=== PATIENT | male | born 1965 | race Caucasian/White ===

== ENCOUNTER 2021-08-06 15:12 | Emergency (ER) | payer MEDICARE, BC, SELFPAY ==
[2021-08-06 15:24] VITALS: BP 126/85; PULSE 63; RESP 18; TEMP 35.9; O2SAT 98; BMI 26.5
[2021-08-06 17:31] VITALS: BP 153/94; PULSE 86; RESP 16; O2SAT 96
--- NOTE | 2021-08-06 17:32 | ED.NURSE ---
Patient brought to ED exam room from [facility]. Reports headache pain is improved but still 10/10. Down from 12/. Patient ambulatory into room, at rest on cot. Accompanied by mother.
--- NOTE | 2021-08-06 18:31 | CRLHL7_ITS ---
For Patients: As a result of the Century Cures Act, medical imaging exams and procedure reports are released immediately into your electronic medical record. You may view this report before your referring provider. If you have questions, please contact your health care provider. INDICATION: Headache. History of aneurysm. COMPARISON: 05/09/2021. TECHNIQUE: Noncontrast CT head. FINDINGS: Stable encephalomalacia gliosis of the left frontal lobe and left temporal lobe consistent with old ischemia. No acute infarct. No intracranial hemorrhage. Patchy low-attenuation change within the white matter consistent with chronic deep white matter small vessel ischemic changes. No mass effect or midline shift. No abnormal ventricular dilatation. Normal calvarium and skull base. Visualized paranasal sinuses and mastoid air cells are clear. IMPRESSION: 1. No interval change. 2. No acute intracranial abnormality. 3. Stable encephalomalacia and gliosis of the left frontal lobe and left temporal lobe consistent with old ischemia. Please note that all CT scans at this facility use dose modulation, iterative reconstruction, and/or weight-based dosing when appropriate to reduce radiation dose to as low as reasonably achievable. Dictated by Parag Brewster MD @ 08/06/2021 7:31:48 PM (Electronically Signed)
--- NOTE | 2021-08-06 18:34 | ED_ITS ---
HPI - General Adult General Time Seen by Provider: 18:34 Date Seen: 08/06/21 Chief complaint: Extremity Pain/Injury, Lower Stated complaint: right sided pain following botox injections Time Seen by Provider: 08/06/21 18:22 Source: patient and family Mode of arrival: ambulatory Limitations: no limitations History of Present Illness HPI narrative: This 56-year-old male comes in reporting significant headache and right leg pain. He also reports some ringing in his years bilaterally. These symptoms started about 3 hours after having Botox injection in his right foot today. He has a history of a stroke and has some residual spasms in his right leg that Botox was intended to attain down. He states that he had Botox injections in his neck about 20 years ago and had significant reactions from them. He was reassured today that this is better medicine and he should not have any significant reaction. He does not report any change in is stroke symptoms except that he has some increased bee on baseline sensation change in his right hand. He does not have any weakness and does not have any speech change. Related Data Home Medications Medication Instructions Recorded Confirmed ascorbic acid (vitamin C) 1,000 mg 4,000 mg PO DAILY 08/06/21 08/06/21 tablet (Vitamin C) aspirin 325 mg capsule 325 mg PO DAILY 08/06/21 08/06/21 wdckjnj-suhvvfaywpopn-wlryklla 250 1 tab PO Q6H PRN 08/06/21 08/06/21 mg-250 mg-65 mg tablet (Migraine Relief) atenolol 25 mg tablet 25 mg PO Q24H 08/06/21 08/06/21 atorvastatin 40 mg tablet 40 mg PO HS 08/06/21 08/06/21 baclofen 10 mg tablet 5 mg PO TID PRN 08/06/21 08/06/21 carboxymethylcellulose sodium 0.5 1 drp OPHTHALMIC (EYE) DAILY 08/06/21 08/06/21 % eye drops (Refresh Tears) cholecalciferol (vitamin D3) 50 4,000 unit PO BID 08/06/21 08/06/21 mcg (2,000 unit) capsule (Vitamin D3) coenzyme Q10 10 mg capsule 10 mg PO QDAY 08/06/21 08/06/21 cyclobenzaprine 10 mg tablet 10 mg PO QDAY 08/06/21 08/06/21 glipizide 5 mg tablet, extended 5 mg PO .daily before meal 08/06/21 08/06/21 release 24 hr multivitamin 1 tab PO DAILY 08/06/21 08/06/21 vit C 250 mg-vit E 90 mg-zinc 40 1 tab PO .qd 08/06/21 08/06/21 mg-copper 1 zv-wbxvbz-frbxaf capsule (PreserVision AREDS-2) Allergies Allergy/AdvReac Type Severity Reaction Status Date / Time metformin Allergy Severe Swelling Verified 08/06/21 15:33 of Lips sumatriptan [From Imitrex] Allergy Severe Anaphylaxis Verified 08/06/21 15:33 valproic acid AdvReac Intermediate hepatic Verified 08/06/21 15:33 dysfunction amlodipine AdvReac Mild Headache Verified 08/06/21 15:33 atorvastatin AdvReac Mild Headache Verified 08/06/21 15:33 rosuvastatin [From Crestor] AdvReac Mild Verified 08/06/21 15:33 simvastatin AdvReac Mild muscle Verified 08/06/21 15:33 weakness Review of Systems Status of ROS: Reports: 10 or more systems reviewed and unremarkable except as noted in History and below Narrative: Constitutional: No fevers, no weight gain or loss. Eyes: No discharge. No vision changes. HENT: No congestion, no sore throat, no ear pain. Cardiovascular: No chest pain, no palpitations. Respiratory: No shortness of breath, no wheezes, no cough. Gastrointestinal: No abdominal pain, no vomiting, no diarrhea. Genitourinary: No dysuria, no hematuria. Musculoskeletal: Normal range of motion. Skin: No rashes, no pruritis. Neurological: No dizziness, weakness, no speech change. he reports some mild change of the sensory deficit from his stroke. Endo/Heme/Allergies: No bruising or bleeding. No polydipsia. Pysch: no suicidality, no anxiety, no insomnia. All other systems reviewed and are negative. [facility] Social History Smoking Status: Never smoker Do you use any of these nicotine containing products: None Second hand tobacco smoke exposure: No How often do you have a drink containing alcohol: never AUDIT-C Alcohol total score: 0 Non-prescribed substance use: denies use Exam Narrative: Exam Narrative: Constitutional: Well-developed, well-nourished, no acute distress. HEENT: Normocephalic, atraumatic. Neck: Normal range of motion. Nontender. Supple. Heart: Regular. No murmurs. Normal rate. Intact distal pulses. Lungs: Clear to auscultation. No chest discomfort. No wheezes, rhonchi, or rales. Abdomen: Normal bowel sounds. Nontender. No rebound tenderness. Genitalia: Deferred. Back: No midline tenderness. Normal range of motion. Extremities: Normal range of motion. No injury. Skin: Intact. No rash. Warm. No erythema or pallor. Neurologic: No altered sensation. No weakness. Alert and oriented. [employer] strength is equal bilaterally. No facial asymmetry. Tongue is midline. Finger -to-nose is normal. No pronator drift. Leg strength is normal bilaterally. Psychiatric: No suicidality. No anxiety or depression. No insomnia. Nursing notes and vitals signs are reviewed. Const: Vital Signs, click to edit/add: Vital Signs - 24 hr 08/06/21 15:24 08/06/21 17:31 08/06/21 19:00 Temperature 96.6 F L Pulse Rate [Right Pulse Oximeter] 63 86 50 L Respiratory Rate 18 16 14 Blood Pressure [Ri t Upper Arm] 126/85 153/94 H 171/104 H Pulse Oximetry 98 96 97 Course Vital Signs Vital signs: Initial Vital Signs Temperature 96.6 F L 08/06/21 15:24 Temperature Source Temporal Artery Scan 08/06/21 15:24 Pulse Rate 63 08/06/21 15:24 Pulse Rhythm 08/06/21 15:24 Respiratory Rate 18 08/06/21 15:24 Blood Pressure 126/85 08/06/21 15:24 Blood Pressure Mean 98 08/06/21 15:24 Blood Pressure Position Sitting 08/06/21 15:24 Pulse Oximetry 98 08/06/21 15:24 Oxygen Delivery Method 08/06/21 15:24 Vital Signs Temperature 96.6 F L 08/06/21 15:24 Pulse Rate 63 08/06/21 15:24 Respiratory Rate 18 08/06/21 15:24 Blood Pressure 126/85 08/06/21 15:24 Pulse Oximetry 98 08/06/21 15:24 Temperature 96.6 F L 08/06/21 15:24 Pulse Rate 50 L 08/06/21 19:00 Respiratory Rate 14 08/06/21 19:00 Blood Pressure 171/104 H 08/06/21 19:00 Pulse Oximetry 97 08/06/21 19:00 Medical Decision Making MDM Narrative Medical decision making narrative: This patient comes in with significant headache and pain in his right leg after having Botox injection in his right foot. He has a normal neurologic exam. He does have a history of aneurysms and has had a stroke in the past. A CT scan of the head was completed which shows no acute findings. The patient also received a 10 mg intramuscular injection of morphine which brought good relief to his pain. Most likely this is some reaction to the Botox injections. He has had a reaction in the past to Botox injections which were done about 20 years ago. His vital signs remained normal. He is reassured with the exam and imaging results. He is okay to return home. He received a prescription for some tablets of [place]. Medical Records Medical records reviewed: Yes I reviewed the patient's medical records Imaging Data CT scan - head: Radiologist's impression: 1. No interval change. 2. No acute intracranial abnormality. 3. Stable encephalomalacia and gliosis of the left frontal lobe and left temporal lobe consistent with old ischemia. Discharge Plan Discharge Clinical Impression: Headache Patient Disposition: Home, Self-Care Condition: Improved Instructions: Acute Headache (ED) Activity Level: Activity as Tolerated Prescriptions: No Action aspirin 325 mg capsule 325 mg PO DAILY 0RF atenolol 25 mg tablet 25 mg PO Q24H 0RF atorvastatin 40 mg tablet 40 mg PO HS 0RF baclofen 10 mg tablet 5 mg PO TID PRN0RF coenzyme Q10 10 mg capsule 10 mg PO QDAY 0RF cyclobenzaprine 10 mg tablet 10 mg PO QDAY 0RF glipizide 5 mg tablet extended release 24 hr 5 mg PO .daily before meal 0RF Label Comments: TAKE ONE TABLET BY MOUTH DAILY BEFORE A MEAL multivitamin Tablet 1 tab PO DAILY 0RF Migraine Relief 250-250-65 mg tablet 1 tab PO Q6H PRN0RF PreserVision AREDS-2 250-90-40-1 mg capsule 1 tab PO .qd 0RF carboxymethylcellulose sodium [Refresh Tears] 0.5 % drops 1 drp ophthalmic (eye) DAILY 0RF ascorbic acid (vitamin C) [Vitamin C] 1,000 mg tablet 4,000 mg PO DAILY 0RF cholecalciferol (vitamin D3) [Vitamin D3] 50 mcg (2,000 unit) capsule 4,000 unit PO BID 0RF Follow Up/Referrals: Jignesh Sousa MD [Primary Care Provider] - Stand Alone Forms: [facility] Info Instructions
[2021-08-06] MEDS: MORPHINE 10 MG/ML inj IM (18:53)
[2021-08-06 19:00] VITALS: BP 171/104; PULSE 50; RESP 14; O2SAT 97
== END 2021-08-06 20:15 | disposition home or self-care (01) ==
PROVIDERS: Emergency Provider Emergency Medicine Emergency Medical Services; PCP Family Medicine
DX: R51.9 Headache, unspecified (principal)
CPT/HCPCS: 96372; 99284; 70450; 99283; 99285; J2270

== ENCOUNTER 2021-09-06 16:42 | Emergency (ER) | payer MEDICARE, BC, SELFPAY ==
[2021-09-06 16:47] VITALS: BP 128/87; PULSE 58; RESP 16; TEMP 35.9; O2SAT 94; BMI 26.4
--- NOTE | 2021-09-06 16:56 | ED_ITS ---
HPI - General Adult General Time Seen by Provider: 16:50 Date Seen: 09/06/21 Chief complaint: Allergic Reaction Stated complaint: Multiple wasp stings Time Seen by Provider: 09/06/21 16:53 Source: patient Mode of arrival: ambulatory Limitations: no limitations History of Present Illness HPI narrative: 56-year-old male who comes in today with wasp stings to the left arm. Patient was painting outside and was stung multiple times in the left arm by a wasp. This happened about 45 minutes prior to coming the emergency department. He has not taken any medication for this. No prior allergic reaction to bees or wasps. Denies any tongue or lip swelling, breathing difficulty, abdominal pain, nausea, vomiting, or difficulty with speech. Related Data Home Medications Medication Instructions Recorded Confirmed ascorbic acid (vitamin C) 1,000 mg 4,000 mg PO DAILY 08/06/21 08/06/21 tablet (Vitamin C) aspirin 325 mg capsule 325 mg PO DAILY 08/06/21 08/06/21 zxdcpih-stkynjvicljin-bkgqmhbw 250 1 tab PO Q6H PRN 08/06/21 08/06/21 mg-250 mg-65 mg tablet (Migraine Relief) atenolol 25 mg tablet 25 mg PO Q24H 08/06/21 08/06/21 atorvastatin 40 mg tablet 40 mg PO HS 08/06/21 08/06/21 baclofen 10 mg tablet 5 mg PO TID PRN 08/06/21 08/06/21 carboxymethylcellulose sodium 0.5 1 drp OPHTHALMIC (EYE) DAILY 08/06/21 08/06/21 % eye drops (Refresh Tears) cholecalciferol (vitamin D3) 50 4,000 unit PO BID 08/06/21 08/06/21 mcg (2,000 unit) capsule (Vitamin D3) coenzyme Q10 10 mg capsule 10 mg PO QDAY 08/06/21 08/06/21 cyclobenzaprine 10 mg tablet 10 mg PO QDAY 08/06/21 08/06/21 glipizide 5 mg tablet, extended 5 mg PO .daily before meal 08/06/21 08/06/21 release 24 hr multivitamin 1 tab PO DAILY 08/06/21 08/06/21 vit C 250 mg-vit E 90 mg-zinc 40 1 tab PO .qd 08/06/21 08/06/21 mg-copper 1 wt-vephaw-yxvcvv capsule (PreserVision AREDS-2) Allergies Allergy/AdvReac Type Severity Reaction Status Date / Time metformin Allergy Severe Swelling Verified 08/06/21 15:33 of Lips sumatriptan [From Imitrex] Allergy Severe Anaphylaxis Verified 08/06/21 15:33 valproic acid AdvReac Intermediate hepatic Verified 08/06/21 15:33 dysfunction amlodipine AdvReac Mild Headache Verified 08/06/21 15:33 atorvastatin AdvReac Mild Headache Verified 08/06/21 15:33 rosuvastatin [From Crestor] AdvReac Mild Verified 08/06/21 15:33 simvastatin AdvReac Mild muscle Verified 08/06/21 15:33 weakness Review of Systems Status of ROS: Reports: 10 or more systems reviewed and unremarkable except as noted in History and below [facility] Medical History (Updated 09/06/21 @ 17:57 by Ricardo Roy MD) CVA (cerebral vascular accident) Injury brain, traumatic Paralysis Social History Smoking Status: Never smoker Do you use any of these nicotine containing products: None Second hand tobacco smoke exposure: No How often do you have a drink containing alcohol: never AUDIT-C Alcohol total score: 0 Non-prescribed substance use: denies use service: No Exam Const: Vital Signs, click to edit/add: Vital Signs - 24 hr 09/06/21 16:47 Temperature 96.7 F L Pulse Rate [Left P ulse Oximeter] 58 L Respiratory Rate 16 Blood Pressure [Le ft Upper Arm] 128/87 Pulse Oximetry 94 Documenting provider has reviewed patient's vital signs: yes Common normals: no apparent distress, oriented x3, alert and well nourished HENMT: Common normals: normocephalic, head/scalp atraumatic, external ears normal and external nose normal Head and scalp: normocephalic and atraumatic Nose: external nose normal External ear: external ears normal Eye: Common normals: PERRL and conjunctivae normal Conjunctiva: conjunctiva(e) normal Pupil: PERRL Neck & C-Spine: Common normals: full ROM, no lymphadenopathy and supple Chest: Common normals: palpation of chest normal Resp: Common normals: normal respiratory effort and clear to auscultation bilaterally Auscultation: clear to auscultation bilaterally Cardio: Common normals: regular rate, regular rhythm and no murmurs Rate: regular rate Rhythm: regular rhythm GI: Common normals: Normal to inspection, nondistended, normoactive bowel sounds present, soft to palpation and non-tender Palpation: soft : Common normals: no CVA tenderness Bladder/kidney exam: no CVA tenderness Back & Pelvis: Common normals: no CVA tenderness and thoracic and lumbar spine normal to inspection Extremity: Common normals: normal to inspection, full ROM and no pedal edema Neuro: Common normals: oriented x3, CN's II-XII intact bilaterally and no focal motor deficits Sensorium/orientation: alert Psych: Common normals: mental status grossly normal Skin: Narrative: Left arm- 4 discrete 2 cm areas of erythema and induration, 1 overlying the 1st MCP joint, 1 on the dorsum of the wrist, 1 on the flexor surface of the mid forearm, and 1 near the lateral condyle. Course Reevaluation(s) Reevaluation #1: Patient remains stable in the emergency department with no progression of his arm swelling, no development of tongue or lip swelling, breathing difficulty, cough, chest tightness, abdominal pain, nausea, or vomiting. Stable for discharge with continued antihistamines as well as prednisone. Time: 17:57 Vital Signs Vital signs: Initial Vital Signs Temperature 96.7 F L 09/06/21 16:47 Temperature Source Temporal Artery Scan 09/06/21 16:47 Pulse Rate 58 L 09/06/21 16:47 Pulse Rhythm 09/06/21 16:47 Pulse Strength 3+ Normal 09/06/21 16:47 Respiratory Rate 16 09/06/21 16:47 Blood Pressure 128/87 09/06/21 16:47 Blood Pressure Mean 100 09/06/21 16:47 Blood Pressure Position Sitting 09/06/21 16:47 Pulse Oximetry 94 09/06/21 16:47 Oxygen Delivery Method 09/06/21 16:47 Vital Signs Temperature 96.7 F L 09/06/21 16:47 Pulse Rate 58 L 09/06/21 16:47 Respiratory Rate 16 09/06/21 16:47 Blood Pressure 128/87 09/06/21 16:47 Pulse Oximetry 94 09/06/21 16:47 Temperature 96.7 F L 09/06/21 16:47 Pulse Rate 58 L 09/06/21 16:47 Respiratory Rate 16 09/06/21 16:47 Blood Pressure 128/87 09/06/21 16:47 Pulse Oximetry 94 09/06/21 16:47 Medical Decision Making MDM Narrative Medical decision making narrative: Patient seen and examined, prior records reviewed. Patient presents with wasp stings of the left arm. No systemic signs of anaphylaxis or angioedema. Patient will be given prednisone and Benadryl in the emergency department and observed. Medical Records Medical records reviewed: Yes I reviewed the patient's medical records Lab Data Lab results reviewed: Yes I reviewed the patient's lab results Discharge Plan Discharge Clinical Impression: Sting from hornet, wasp, or bee Patient Disposition: Home, Self-Care Condition: Stable Instructions: Insect Bite or Sting (ED) Additional Instructions: Take Benadryl every 6 hours as needed for itching, pain, or swelling Take prednisone as prescribed Return to the emergency department if you develope lip or tongue swelling, or breathing difficulty Activity Level: No Restrictions Discharge Diet: Regular Prescriptions: No Action aspirin 325 mg capsule 325 mg PO DAILY 0RF atenolol 25 mg tablet 25 mg PO Q24H 0RF atorvastatin 40 mg tablet 40 mg PO HS 0RF baclofen 10 mg tablet 5 mg PO TID PRN0RF coenzyme Q10 10 mg capsule 10 mg PO QDAY 0RF cyclobenzaprine 10 mg tablet 10 mg PO QDAY 0RF glipizide 5 mg tablet extended release 24 hr 5 mg PO .daily before meal 0RF Label Comments: TAKE ONE TABLET BY MOUTH DAILY BEFORE A MEAL multivitamin Tablet 1 tab PO DAILY 0RF Migraine Relief 250-250-65 mg tablet 1 tab PO Q6H PRN0RF PreserVision AREDS-2 250-90-40-1 mg capsule 1 tab PO .qd 0RF carboxymethylcellulose sodium [Refresh Tears] 0.5 % drops 1 drp ophthalmic (eye) DAILY 0RF ascorbic acid (vitamin C) [Vitamin C] 1,000 mg tablet 4,000 mg PO DAILY 0RF cholecalciferol (vitamin D3) [Vitamin D3] 50 mcg (2,000 unit) capsule 4,000 unit PO BID 0RF Follow Up/Referrals: Jignesh Sousa MD [Primary Care Provider] - Stand Alone Forms: [facility] Info Instructions
[2021-09-06 17:00] VITALS: BP 135/88; PULSE 60; RESP 16; O2SAT 96
[2021-09-06] MEDS: diphenhydrAMINE 25 MG CAPSULE 50 MG PO (17:11)
[2021-09-06] MEDS: predniSONE 20 MG TABLET 40 MG PO (17:11)
== END 2021-09-06 18:15 | disposition home or self-care (01) ==
PROVIDERS: Emergency Provider Family Medicine; PCP Family Medicine
DX: T63.461A Toxic effect of venom of wasps, accidental (unintentional), initial encounter (principal); M79.89 Other specified soft tissue disorders
CPT/HCPCS: 99283; 99284; A9270; J7512

== ENCOUNTER 2021-11-23 11:24 | Emergency (ER) | payer MEDICARE, BC, SELFPAY ==
[2021-11-23] VITALS (22 sets, daily range): BP systolic 122–149; BP diastolic 83–97; PULSE 49–61; TEMP 36.2; O2SAT 94–100; BMI 26.4
--- NOTE | 2021-11-23 12:42 | CRLHL7_ITS ---
For Patients: As a result of the Century Cures Act, medical imaging exams and procedure reports are released immediately into your electronic medical record. You may view this report before your referring provider. If you have questions, please contact your health care provider. INDICATION: FALL, HX OF STROKE TECHNIQUE: Head CT without contrast. COMPARISON: CT head August 06, 2021. FINDINGS: CSF spaces: Within normal limits for age. Brain parenchyma and extra-axial spaces: Left fronto temporal encephalomalacia. Remote hypodensities involving the right basal ganglia and right davis radiata and centrum semiovale. Otherwise, the dominique-white junction is preserved. There are nonspecific low attenuation white matter changes consistent with chronic microvascular disease. No intracranial hemorrhage or extra-axial fluid collection. Skull base and calvarium: The visualized paranasal sinuses and mastoid air cells demonstrate no acute or significant findings. The visualized orbits are grossly unremarkable. No skull fractures. IMPRESSION: Left frontal temporal encephalomalacia and remote right basal ganglia infarcts. No acute intracranial abnormality on this unenhanced CT head. Please note that all CT scans at this facility use dose modulation, iterative reconstruction, and/or weight-based dosing when appropriate to reduce radiation dose to as low as reasonably achievable. Dictated by Jason Lazo MD @ 11/23/2021 3:39:59 PM (Electronically Signed)
--- OUTSIDE RECORDS SUMMARY | 2021-11-23 13:08 | XMS_ITS | Encounter Summary ---
:1965 Author Organization [facility] Address [address] [place] [address] Care Team Providers Name Role Phone Unavailable Primary Care Provider Unavailable Encounter Details Date Type Department Care Team Description 07/16/2009 Hospital Encounter HX NO MAPPING Social History Tobacco Use Types Packs/Day Years Used Date Smoking Tobacco: Never Assessed Sex Assigned at Date Recorded Not on file documented as of this encounter Plan of Treatment Not on filedocumented as of this encounter Visit Diagnoses Not on filedocumented in this encounter
--- OUTSIDE RECORDS SUMMARY | 2021-11-23 13:08 | XMS_ITS | Clinical Summary ---
:1965 Author Organization [facility] Address [address] [place] [address] Care Team Providers Name Role Phone Unavailable Primary Care Provider Unavailable Source Comments Patient records contain information from all sites at [facility]. For routine questions regarding patient records, call [phone] during business hours, M-F 8:00 AM - 5:00 PM Central Time. Record requests for emergency care only can be directed to [phone] at any time.[facility] Allergies No known active allergies Medications Medication Sig Dispensed Refills Start Date End Date Status atenoloL (TENORMIN) 25 Take 25 mg by 0 Active mg tablet mouth daily. HTN glipiZIDE (GLUCOTROL Take 5 mg by 0 Active XL) 5 mg 24 hr tablet mouth daily with breakfast. aspirin 81 mg chewable Chew 1 tablet (81 90 tablet 0 2 Active tablet mg total) daily. atorvastatin (LIPITOR) Take 1 tablet (40 90 tablet 0 2 Active 40 mg tablet mg total) by mouth at bedtime. Active Problems Problem Noted Date Stroke 04/23/2021 Social History Tobacco Use Types Packs/Day Years Used Date Smoking Tobacco: Never Smokeless Tobacco: Never Alcohol Use Standard Drinks/Week Comments Yes 0 (1 standard drink = 0.6 oz pure alcoho l) couple beers once in a while Sex Assigned at Date Recorded Not on file Last Filed Vital Signs Vital Sign Reading Time Taken Comments Blood Pressure 147/85 04/24/2021 4:10 PM CDT Pulse 62 04/24/2021 4:10 PM CDT Temperature 36.2 ??C (97.2 ??F) 04/24/2021 4:10 PM CDT Respiratory Rate 19 04/24/2021 4:10 PM CDT Oxygen Saturation 96% 04/24/2021 4:10 PM CDT Inhaled Oxygen Concentration - - Weight 84 kg (185 lb 3 oz) 04/23/2021 5:05 PM CDT Height 182.9 cm (6' 0.01) 04/24/2021 2:28 PM CDT Body Mass Index 25.11 04/23/2021 5:05 PM CDT Plan of Treatment Health Maintenance Due Date Last Done Comments CT Colonography 1965 Cologuard 1965 Colonoscopy 1965 Colorectal Cancer Screening 1965 FIT 1965 HIV Screening 1965 Hepatitis C Screening 1965 COVID-19 Vaccine (#1) 1965 Depression Screening 02/07/2021 (Annual PHQ-2) Influenza Vaccine (#1) 2021 11/11/2014, 12/04/2012, 12/04/2012, Additional history exists Lipid (Cholesterol) 04/23/2022 04/23/2021, 12/19/2020, Screening 02/06/2020, Additional history exists Office Visit for Blood 04/23/2022 04/23/2021 Pressure Check / Re-check Fasting Glucose for 04/24/2024 04/24/2021, 04/24/2021, Diabetes Screening 04/24/2021, Additional history exists DTaP,Tdap,and Td Vaccines 07/19/2026 07/19/2016, 04/15/2008 (3 - Td or Tdap) Hepatitis B Vaccines Completed 08/05/2014, 04/10/2014, 08/01/2013 Pneumococcal vaccine (0-64 Aged Out 02/06/2020 No lo nger eligible years) based on patient 's age to complete this topic Zoster Vaccines Completed 12/22/2020, 02/06/2020 Insurance Payer Benefit Plan Subscriber ID Effective Phone Address Typ e / Group Dates MEDICARE MEDICARE A [id number] 2010-Pres [address] [place] [address] [employer]UE [employer] BCBS AFOGNAK [id number] 2020-Pres [phone] PO MACY X Cost Share BLUE SHIELD BLUE COST ent [phone] [facility] [place] [address] [phone] ([address]) [address] [place] [phone] Advance Directives For more information, please contact: [phone] Latest Code Status on File Code Status Date Activated Date Inactivated Comments Full Code 04/23/2021 5:34 PM 04/24/2021 11:19 PM Question Answer Comments Full Code: Discussed
--- OUTSIDE RECORDS SUMMARY | 2021-11-23 13:08 | XMS_ITS | Encounter Summary ---
:1965 Author Organization [facility] Address [address] [place] [address] Care Team Providers Name Role Phone Unavailable Primary Care Provider Unavailable Reason for Referral Physical Therapy (Routine) - Authorized Specialty Diagnoses / Procedures Referred By Contact Refer red To Contact Physical Therapy Diagnoses Stroke (HCC) Abnormal Gait Non Orthopedic Decline Functional Status Isaura Dinh M.D. [address] [place] [phone] Referral ID Status Reason Start Date Expiration Date Visits V isits Requested Authorized [id number] Authorized Other 04/24/2021 04/24/2022 99 99 Reason for Visit Auth/Cert Specialty Diagnoses / Procedures Referred By Contact Refer red To Contact Diagnoses Stroke (HCC) Vertigo and vision changes Procedures I63.9 (ICD-10-CM) - Stroke (HCC) Referral ID Status Reason Start Date Expiration Date Visits Requ ested Visits Authorized [id number] 1 1 Encounter Details Date Type Department Care Team Description 04/23/2021 - Hospital Encounter [facility] Liza Hicks, Stroke (HCC) (Primary Dx); 04/24/2021 [facility] Abnormal Gait Non Orthopedic; [facility], [address] [place] [address] Decline Functional Status; [place], [place] Dizzine ss Second floor [phone] [place] [address] [place], [place] (Work) [phone] Social History Tobacco Use Types Packs/Day Years Used Date Smoking Tobacco: Never Smokeless Tobacco: Never Alcohol Use Standard Drinks/Week Comments Yes 0 (1 standard drink = 0.6 oz pure alcoho l) couple beers once in a while Sex Assigned at Date Recorded Not on file documented as of this encounter Last Filed Vital Signs Vital Sign Reading [...] Mass Index 25.11 04/23/2021 5:05 PM CDT documented in this encounter Discharge Summaries Isaura Dinh M.D. - 04/24/2021 3:26 PM CDT DISCHARGE SUMMARY BRIEF OVERVIEW Discharge Provider: Liza Hicks D.O. No primary care provider on file. Discharge Provider Team: [facility] Stroke and Cerebrovascular Disease Primary Care Provider Phone Number: None Primary Care Provider Fax Number: None Admission Date: 04/23/2021 Discharge Date: 04/24/21 PRINCIPAL DIAGNOSIS Stroke (HCC) SECONDARY DIAGNOSES #1 Stroke (HCC) # Diabetes mellitus type 2 # Hypertension # Hyperlipidemia DISCHARGE DISPOSITION Home or Self Care [1] ACTIVE ISSUES REQUIRING FOLLOW UP Recommendations for PCP Follow Up: - Recommend discussion of diabetes for hemoglobin A1c 11.2 (April 2021), would consider alternate medications such as GLP 1 or SGLT 2 inhibitor in the setting of for hemoglobin A1c 11.2, cerebrovascular disease, and risk of hypoglycemia on glipizide. We would also recommend consideration of restartingmetformin. - Recommend follow up of hypertension management with PCP; we will consider the addition of alternative hypertensive medications with options including a the losartan, amlodipine, carvedilol, or SGLT 2inhibitors. - Recommend hyperlipidemia followup with LDL goal <70 in the setting of diabetes and cerebrovascular disease. Recommendations for stroke: - Recommend continuing DAPT with Plavix and aspirin for 90 days then transitioning to high dose aspirin 325 mg afterwards. - Recommend continuing atorvastatin 40 mg daily for hyperlipidemia management. OUTPATIENT FOLLOW UP For appointment details refer to your Patient Appointment Guide. TEST RESULTS PENDING AT DISCHARGE Pending Labs None DETAILS OF HOSPITAL STAY REASON FOR ADMISSION Stroke (HCC) HOSPITAL COURSE Mr. Heladio Davis II is a 56 y.o. male with medical comorbidities significant for hypertension, hyperlipidemia, prediabetes, TBI in 1981 who presented to an outside hospital ED for evaluation of dizziness and dysconjugate gaze with headaches and slurred speech. Outside Hospital: At the outside hospital, the patient was hemodynamically stable and was found to have a pontine stroke on MRI on a high. He was transferred to [facility] for further management. [facility]: The patient was a direct admission to the stroke floor and was found to have adduction deficit of the left eye with known left-midline pontine stroke as seen on MRI at the outside hospital. He was hemodynamically stable and afebrile. CTA was performed to evaluate history of right vertebral artery stenosis she and demonstrated the right vertebral irregularity consistent with dissection versus atherosclerosis and previously observed on MRI from 2015. BRAN was performed and demonstrated no evidence of intracardiac mass or thrombus, focal mild immobile atherosclerosis of descending thoracic aorta, normal LVEF 60%, normal right ventricular size and systolic function, mildly enlarged ascending aorta diameter (42 mm), normal cardiac valves no valvular disease. Physical therapy and occupational therapy were consulted and recommended the patient be discharged with outpatient physical therapy and supervision at home for assistance with ambulation and with transferring positional location in addition to walking with a walker assistance. Stroke risk modification labs were performed and demonstrated hyperglycemia with hemoglobin A1c of 11.2 and hyperlipidemia with a cholesterol 227, LDL 154, triglycerides 214. The patient was started on atorvastatin 40 mg daily as well as dual antiplatelet therapy with clopidogrel 75 mg daily and aspirin 81 mg daily with a plan for 90 days of dual antiplatelet therapy. The patient was discharged on 04/24 with a plan to stay with his ex- for 1 night followed by living with his mother for continued assistance. From his mother's house is 1 floor with or several small steps at the injury. The patient and his family are comfortable with his disposition planning plan to the attend outpatient physical therapy. He was discharged in stable condition with a plan to follow-up with his primary care provider for management of diabetes, hyperlipidemia, hypertension. Most recent NIHSS Score: NIHSS Total: 1 Patient Education provided: Home safety, anticoagulation precautions, diabetes, and hypertension Was rehab consulted during the hospital stay: Yes, PT/OT were consulted and recommended outpatient physical therapy and supervision as well as assistance with ADL's at home. For Ischemic stroke: was patient discharged on a statin? Yes NEUROLOGIC EXAM ON DISCHARGE: Physical Exam: Constitutional: well-developed, well-nourished, resting comfortably in bed HEENT: Nystagmus of left eye at extremes right and left gaze. Lungs: Breathing comfortably on room air.?? Normal breath sounds in all anterior and posterior lung david with no evidence of wheezing, rales, nor rhonchi. Cardiac: regular rate and rhythm. S1-S2 appreciated. No gallops, rubs, nor murmurs. Abdomen: Soft, non-tender, non-distended.?? Extremities: No evidence of lower extremity pitting edema. Extremity warm warm and well perfused Skin: No rash on exposed skin.? Neurologic: Mental status: Alert and oriented to time, place and person Speech: Clear.?? Language: No evidence of aphasia. (Naming, reading, repetition and comprehension are intact.) Cranial nerves: PERRL, left eye nystagmus at extremes of left and right gaze with minimal strabismus, (funduscopic exam shows sharp optic disc margins bilaterally), visual david intact to confrontation, facial movements full and symmetric, sensation intact to light touch and pinprick in the V1-V3 dist ributions, hearing intact to voice, tongue protrudes in midline, there is equal elevation of the soft palate, shoulder shrug is appropriate in strength. Motor: Bilateral upper and lower extremity strength evaluated including: (R, L) deltoids (0,0), biceps (0,0), triceps (0,0), wrist extension (0,0), finger extension (0,0), interossei (0,0), iliopsoas (0,0), knee flexion (0,0), knee extension (0,0), ankle dorsiflexion (0,0), toe extension (0,0). Tone is normal in bilateral upper and lower extremities. Sensory: Sensation is intact light touch bilaterally in the extremities. Coordination: Finger to nose normal bilaterally.?? MEDICATIONS CHANGED DURING THIS HOSPITAL STAY Medications stopped: - ibuprofen - nortriptyline Medications changed: N/A Medications added: - atorvastatin 40 mg daily - aspirin 81 mg daily for 88 days - clopidogrel 75 mg for 88 days - aspirin 325 mg daily after clopidogrel finished. CONDITION AT DISCHARGE stable Isaura Dinh M.D. PGY-1 Internal Medicine [facility] Pager [phone] documented in this encounter Discharge Instructions Discharge InstructionsRaisa Jamison - 04/24/2021 7:27 AM CDT You were discharged from the Neurology Stroke Service. Please Identify this service name if you callwith questions after your hospitalization. Discharge Instr - Supplementary Isaura Henson M.D. - 04/24/2021 3:45 PM CDT Recommendations for PCP Follow Up: - Recommend discussion of diabetes for hemoglobin A1c 11.2 (April 2021), would consider alternate medications such as GLP 1 or SGLT 2 inhibitor in the setting of for hemoglobin A1c 11.2, cerebrovascular disease, and risk of hypoglycemia on glipizide. We would also recommend consideration of restartingmetformin. - Recommend follow up of hypertension management with PCP; we will consider the addition of alternative hypertensive medications with options including a the losartan, amlodipine, carvedilol, or SGLT 2inhibitors. - Recommend hyperlipidemia followup with LDL goal <70 in the setting of diabetes and cerebrovascular disease. Recommendations for stroke: - Recommend continuing DAPT with Plavix and aspirin for 90 days then transitioning to high dose aspirin 325 mg afterwards. - Recommend continuing atorvastatin 40 mg daily for hyperlipidemia management. Discharge Instr - Chris Romero P.T. - 04/24/2021 12:00 PM CDT Physical Therapy Discharge Summary MOBILITY RESTRICTIONS/PRECAUTIONS: Precautions Other Precautions: Right-sided residual hemiparesis, traumatic brain injury '82; chronic neck pain; increased stiffness right arm and leg; seizure precautions; fall precautions; TUG - 25 seconds 04/24/2021 ; need for front wheeled walker for mobility at this time (safest option); use of cane in left hand, opposite weaker right side. CURRENT FUNCTIONAL STATUS: Bed Mobility-Supine to Sit Level of Assistance: Modified Independent; Supervision/Set-up Cuing: Verbal Transfer-Sit to Stand # of Assistants: 1 Transfer Surface: Chair Transfer Equipment: Gait belt Level of Assistance: Minimal assistance Gait Assessment Distance (m): 8 m Surface: Even; Smooth/hard Device: Gait belt; No device; Front-wheeled walker; Single point cane # of Assistants: 1 Level of Assistance: Minimal assistance; Moderate assistance Stability: mild instability Assessment of Gait: slow pace, right leg very stiff, flat footed, decreased step lengths, wider baseof support Cueing Provided: Verbal; Tactile Stairs No data recorded RECOMMENDATIONS: PT Evaluate and Treat; frequency and duration to be determined by evaluating therapist. Discharge information provided on 04/24/2021 Contact information: [facility], Acute Therapy Services [phone] AttachmentsThe following attachments cannot be sent through Care Everywhere. Aspirin (By mouth) (Macanese)Atorvastatin (By mouth) (Macanese)Clopidogrel (By mouth) (Macanese)documented in this encounter Medications at Time of Discharge Medication Sig Dispensed Refills Start Date End Date aspirin 81 mg chewable Chew 1 tablet (81 90 tablet 0 2021 tablet mg total) daily. atorvastatin (LIPITOR) 40 Take 1 tablet (40 90 tablet 0 mg tablet mg total) by mouth at bedtime. atenoloL (TENORMIN) 25 mg Take 25 mg by mouth 0 tablet daily. HTN glipiZIDE (GLUCOTROL XL) 5 Take 5 mg by mouth 0 mg 24 hr tablet daily with breakfast. clopidogreL (PLAVIX) 75 mg Take 1 tablet (75 88 tablet 0 07/22/2021 tablet mg total) by mouth daily for 88 doses. documented as of this encounter Progress Notes Nona Phelan, RDN, LD - 04/24/2021 2:30 PM CDT Clinical Nutrition: Initial Assessment Clinical Nutrition was requested to evaluate patient for positive nursing baseline nutrition screen with a MST score of 2 or greater SUBJECTIVE Mr. Davis is a 56 y.o. male admitted for stroke. Seen for positive admission screen for unintended weight loss. Pt reports having to tighten his belt every day throughout the day and believes there to be loss. Family believes this may be more related to bowel movement regimen and working throughoutthe day. Some weight loss noted, but not significant. Nutrition related medical/surgical history: HTN, HLD, prediabetes, TBI in 1981, and multiple strabismus surgeries Completed visit with patient/family today as part of face to face care. Current Nutrition (since admission): no oral intake yet today. Pt reports this is d/t being kept busy throughout the day and NPO for testing. He endorses good appetite and plans to order a late lunch Nutrition history: pt reports good appetite and eating 3 meals/day typically. main concern from family today is high A1C. They believe pt has become more lax in his carb restrictions and plan to help him meal plan once discharged. Food Allergies: none Chewing/Swallowing Issues: none Nutrition education/counseling: provided DM2 education materials as requested. pt's mom is a retiredRN who plans to help pt better control DM2 OBJECTIVE Current nutrition orders: Current Diet Adult Diet Regular starting at 04/24 1402 Pertinent Labs: A1C value of 11.2 04/23/21 Anthropometrics: Height: 182.9 cm Admission Weight: 84 kg (04/23/2021) Current Weight: 84 kg BMI (Calculated): 25.1 kg/m?? Weight change since admission: 0 kg moderate weight loss, however, this is not significant. 89.8 kg 12/22/20 88.9 kg 09/26/19 90.7 kg 02/21/19 90.2 10/2018 Estimated Needs: Total Calorie Needs: 7327-1808 calories/day Method to Estimate Energy Needs: Noriega-Hamilton (Basal to Basal + 20%) Weight Used for Equation Calculations: 84 kg Total Protein Needs: 67 - 84 grams/day (Method to Estimate Protein Needs (g/kg): 0.8 - 1 gm/kg) Weight Used to Calculate Protein Needs (Kg): 84 kg Nutrition Diagnosis: Altered nutrition-related laboratory values related to limited adherence to carb controlled diet as evidenced by elevated A1C, pt report of high carb breakfasts Malnutrition Criteria: Average estimated Intake: No Change Weight Loss: No Change Body Fat: Normal Muscle Mass: Normal Nutritional Status: Well Nourished ASSESSMENT / PLAN Patient meets ASPEN/AND criteria for Well Nourished (04/24/2021 2:28 PM) See Nutrition Focused Physical Findings section for details. Nutrition Intervention: Interventions: Provide education to increase nutrition knowledge. Recommendations: ??? No changes at this time; continue current nutrition orders Monitoring/Evaluation: Nutrition parameter to monitor: Meals/Supplement Intake, Weight Status, Pertinent Labs Desired Outcome: pt will have adequate intake to meet needs for weight maintenance and healing. Patient Goal(s): 1. Consume 3 carb controlled meals/day For questions about patient's nutritional care please contact pager [phone] on weekdays or [phone] on weekends/holidays. Annabella Yan, R.N. - 04/24/2021 2:27 PM CDT Patient discussed at Stroke multidisciplinary rounds. Patient is currently being followed by the following members of the Care Management team: Case Management has attempted to visit with the patient, but the patient has been unavailable Plan for the day: PT, OT, BRAN, Case management consult, Cardiac monitoring, Medication management, Nutrition following and Wound care Plan for stay: Stroke work up Discharge barriers: Inpatient needs Recommended discharge disposition: Home w/family As discussed, multidisciplinary team members will have ongoing cares discussions with the Patient and Family. Multidisciplinary team indicated Patient may benefit from the following discharge services: Pending PT/OT assessment and recommendations and Pending assessments of providers. Annabella Yan R.N. - 04/24/2021 2:00 PM CDT SUBJECTIVE Attempted to see patient to address the need to provide stroke resources and the need to complete Care Management stroke assessment. OBJECTIVE Patient not seen at this time. ASSESSMENT Unable to complete assessment as patient was not available when Procurement Cost Coordinator attempted to meet with the patient. Patient was away from the room at testing during multiple attempts from Case Management to visit throughout the day. A folder of applicable stroke/TBI resources was added to patients discharge packet by the Procurement Cost Coordinator . If able, Social Work/Case Management will follow up with the patient/family in regards to the resources left for them. The folder of resources includes: Recovering From a Stroke ([id number]), Stroke Website Resources(LC3334-59), Stroke Self-Care Plan ([id number]), General Local Resources for Patients with Stroke(VC0438-47), Emotional Response to Stroke (QP5608) and Brain Injury [place] pamphlet. PLAN Care Management will attempt to see patient at a later time, when available. Marion Hutchinson Pharm.D., R.Ph. - 04/24/2021 9:37 AM CDT Pharmacist Progress Note Reason for admission: acute ischemic stroke PMH: HTN, HLD, DM, prior TBI OBJECTIVE Home medications: ?? Held: atenolol, glipizide XL, nortriptyline ?? Changed: none Patient own medications: none Prophylaxis: heparin ASSESSMENT / PLAN 1. Started dual antiplatelet therapy with aspirin 81 mg daily and clopidogrel 75 mg daily. Duration to be discussed, but anticipate 90 days for vertebral artery thrombosis. Started atorvastatin 40 mg daily for secondary stroke prevention. 2. If using atenolol for primary hypertension, beta blockers are not the preferred Initial medication. If is need medication while hospitalized, consider and ACEI or ARB given diabetes history. Many need low dose beta marshall if he becomes tachycardic. 3. Promote sleep enhancement with melatonin while hospitalized. Assess if nortriptyline needed on anoutpatient basis. 4. Will require assistance with diabetes medications. Currently only on glipizide XL 5 mg daily prior to admission. Recommend DCS management while inpatient. Changes to medications anticipated at discharge: new antiplatelet therapy and statin therapy, likelychanges to DM medications and BP medications. Marion Hutchinson Pharm.D., R.Ph. Marion Hutchinson Pharm.D., R.Ph. - 04/24/2021 8:56 AM CDT Images from the original note were not included. Admission Medication History Note Adherence issues: No concerns Medication list source: Patient and Pharmacy or dispense records Medication related information: He took one dose amlodipine 2.5 mg on 04/22 evening. Has an old prescription for this, bottle dated March 2020. No recent fills in the system. Prior to Admission Medications Med List Status: Pharmacy Complete Set By: Marion Hutchinson Pharm.D., R.Ph. at 04/24/2021 8:49 AM Taking? Last Dose Informant Start Date End Date LT atenoloL (TENORMIN) 25 mg tablet -- -- Take 25 mg by mouth daily. HTN glipiZIDE (GLUCOTROL XL) 5 mg 24 hr tablet -- -- Take 5 mg by mouth daily with breakfast. ibuprofen (ADVIL,MOTRIN) 200 mg tablet -- -- Take 400 mg by mouth every 8 (eight) hours as needed for headaches. 2 in the morning, 2 at lunch ifneeded and 2 with dinner if needed for headaches nortriptyline (PAMELOR) 10 mg capsule -- -- Take 30 mg by mouth at bedtime. For sleep documented in this encounter H&P Notes Liza Hicks D.O. - 04/24/2021 1:20 PM CDT SUBJECTIVE CHIEF COMPLAINT Heladio Davis II is a 56 y.o. male who presents with an DYLON and some vertigo 2/2 a pontine infarct HISTORY OF PRESENT ILLNESS Mr Davis is a 56 year old male with a history of HTN, HLD, prediabetes, strabismus with surgical repair and TBI who presents with new DYLON and vertigo off/on for a couple days. MRI done at OSH shows pontine infarct so he was transferred here due to lack of bed availability elsewhere. CTA head and neck shows a right vertebral artery occlusion (appears to possibly have been stenosed or occluded on MRI from 2015 in our record). He has been neurologically improving since being here with resolution of dizziness and some improvement in his vision. History reviewed. No pertinent past medical history. Past Surgical History: Procedure Laterality Date ??? OTHER CONVERTED SHX (SEE COMMENT) N/A 09/12/2009 >L4-L5 interlaminar epidural blood patch injection under fluoroscopy. The following portions of the patient's history were reviewed and updated as appropriate: allergies,current medications, family history, medical history, social history, surgical history and problem list. REVIEW OF SYSTEMS Pertinent items are noted in HPI; all other review of systems was negative. OBJECTIVE VITAL SIGNS Height: 182.9 cm, Weight: 84 kg, BMI (Calculated): 25.1 kg/m??, Blood Pressure: 122/87, Heart Rate: 61, Pulse Rate: 60, Resp Rate: 15, Temperature: 36.4 ??C, SpO2: 98 % NIH Stroke Scale Level of Consciousness (1a.): Alert, keenly responsive LOC Questions (1b.): Answers both questions correctly LOC Commands (1c.): Performs both tasks correctly Best Gaze (2.): Normal Visual (3.): No visual loss Facial Palsy (4.): Minor paralysis Motor Arm, Left (5a.): No drift Motor Arm, Right (5b.): No drift Motor Leg, Left (6a.): No drift Motor Leg, Right (6b.): No drift Limb Ataxia (7.): Absent Sensory (8.): Normal, no sensory loss Best Language (9.): No aphasia Dysarthria (10.): Normal Extinction and Inattention (11.) (Formerly Neglect): No abnormality NIHSS Total: 1 PHYSICAL EXAM DYLON. No visual field cut, no ataxia, no weakness or sensory disturbance. Diagnostics CT, MRI, CTA ASSESSMENT / PLAN #1 Pontine infarct #2 DYLON #3 Vertigo, resolved #4 Vertebral stenosis (possibly atherosclerotic given MRI fings in 2015) #5 Diabetes Mellitus, #6 Hypertension #7 Hyperlipidemia Mr Davis's pontine infarct is likely due to right vertebral occlusion seen on CTA. Albeit there is some chronicity to this given MRI in 2015 showing reduced flow. Etiology of stroke is likely eitherright vertebral artery-artery vs cardioembolic )through the patent left vertebral). Plan is to get aTEE today. If this is normal we are hopeful he can go home. PT/OT recommendations for safety evaluation would be greatly appreciated. If BRAN normal plan is DAPT for 90 days + statin. Total time spent 70 minutes with over half spent on discussion and counseling. Amos Garza M.D. - 04/23/2021 4:01 PM CDT Cerebrovascular Neurology Admission Note SUBJECTIVE CHIEF COMPLAINT Eye gaze deviation HISTORY OF PRESENT ILLNESS: Mr. Heladio Davis II is a 56 y.o. male with medical comorbidities significant for hypertension, hyperlipidemia, prediabetes, TBI in 1981, and multiple strabismus surgeries who presents with dysconjugate gaze. Yesterday afternoon, he was working and suddenly became very dizzy. He denied room spinning vertigo. He went and sat down, but within 2-3 minutes said that his eyes deviated to the right. He satdown rested for a while, and said that the symptoms resolved prior to going to bed. When he woke up this morning, the symptoms recurred and he was prompted to present to a local emergency department. He denies any double vision or vision loss. He also denies facial droop, limb weakness, sensory change, dysarthria, or language difficulty. He says that his speech has sounded slurred because his mouth has been very dry. 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 He tells me that he had a complicated history, which resulted in eye movement problems requiring an eye muscle surgery. At the age of 16 in 1981, he suffered a traumatic brain injury which he said resulted in paralysis of his right arm and leg, memory problems, and recurrent eye movement problems. He tells me that he again had corrective eye muscle surgery which fixed this problem. He tells me that prior to yesterday, his eyes were normally aligned. He is unable to reliably recall his other medical comorbidities or medication list, and says that his ex- knows this information better than he. 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 Lives alone, is . 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 FAMILY HISTORY No family history of stroke or neurologic disease. OBJECTIVE Temperature: [36 ??C] 36 ??C Resp Rate: [18] 18 Blood Pressure: (161)/(91) 161/91 SpO2: [100 %] 100 % Pulse Rate: [60] 60 Physical Exam: Constitutional: well-developed, well-nourished, resting comfortably in bed Lungs: Breathing comfortably on room air. Clear to auscultation bilaterally. Cardiac: regular rate and rhythm Abdomen: Soft, non-tender, non-distended. Skin: No rash on exposed skin. Neurologic Exam: Mental status: Alert and oriented to name, age, date, month, year, location. Speech/language: No evidence of aphasia. Voice is mildly slurred but improves after drinking water. Cranial nerves: Visual david full. Extraocular movements notable for inability to adduct the left eye with preserved abduction, upgaze, and downgaze. Right eye movements are normal. Left pupil slightly enlarged compared to right, but both are reactive. Subtle ptosis of the left eyelid. Facial sensation intact and symmetric to light touch bilaterally. Possible subtle right facial droop. Tongue protrudes midline. Sternocleidomastoid strength full and symmetric. Motor: Antigravity in upper and lower extremities. -1 weakness of right biceps, finger extension, hip flexion, knee flexion. Normal tone and bulk. Coordination: No ataxia on [id number] or [id number] bilaterally. Sensory: Intact to light touch in distal upper and lower extremities. No evidence of neglect. NIH Stroke Scale Level of Consciousness (1a.): Alert, keenly responsive LOC Questions (1b.): Answers both questions correctly LOC Commands (1c.): Performs both tasks correctly Best Gaze (2.): Normal Visual (3.): No visual loss Facial Palsy (4.): Minor paralysis Motor Arm, Left (5a.): No drift Motor Arm, Right (5b.): No drift Motor Leg, Left (6a.): No drift Motor Leg, Right (6b.): No drift Limb Ataxia (7.): Absent Sensory (8.): Normal, no sensory loss Best Language (9.): No aphasia Dysarthria (10.): Normal Extinction and Inattention (11.) (Formerly Neglect): No abnormality NIHSS Total: 1 Diagnostics: I have reviewed the labs and diagnostics from admission. ASSESSMENT / PLAN Mr. Heladio Davis II is a 56 y.o. male with stroke risk factors including hypertension, hyperlipidemia, prediabetes and prior TBI who is hospitalized on the cerebrovascular neurology service for workupand management of left medial pontine stroke. His exam is notable for adduction deficit of the left eye which could be explained by left MLF lesion. Most likely mechanisms are small-vessel versus largevessel atheroembolism. We will begin workup with head and neck CTA to assess for large vessel atherosclerosis. #1 Acute Ischemic Stroke, medial left deena, likely small vessel versus posterior circulation atheroembolism Workup: - Neuroimaging - NCHCT: revealed negative for acute stroke - MRI Brain: Obtained outside, reveals left medial pontine stroke - Carotid: Obtaining head neck CTA - Baseline ECG ordered - Stroke risk factor work up: - HbA1c, fasting lipid panel, TSH - Echocardiogram-deferred, will rediscuss pending CTA Management: - Neuro Checks per Unit protocol => stat noncontrast head CT for change in exam - Cardiac Monitoring for 24 hours - Monitor vitals per unit routine protocol - Blood Pressure: - (If permissive hypertension indicated): Permit hypertension up to 220/110 for first 24 hours (canuse PRN hydralazine 50 mg q6hr oral if needed) - Antihypertensives: hold home antihypertensives; resume half dose beta blockade with holding parameters - Blood Glucose - BG Goal: 140-180 - Hold oral DM meds and start moderate correction scale insulin if indicated based upon initial results - Antithrombotics: Hold, consider DAPT pending CTA - Statin: Reports that he takes atorvastatin, but unclear - Passed bedside swallow, diet initiated - PT/OT - SWS consulted for assistance with d/c planning, appreciate recs #2 Hypertension #3 Hyperlipidemia #4 Diabetes - patient unable to recall medication list, will reassess with ex- when she arrives - would hold home antihypertensives for permissive hypertension tonight - A1c 7.5% on 12/19/2020 - LDL 163 on 12/19/2020 Diet: NPO Tubes/lines: PIV VTE prophylaxis: heparin Code status: Full Code Surrogate Decision Maker: Parent, Liliana Disposition: Home Please do not hesitate to page the Cerebrovascular Neurology Service pager at [phone] with any questions or concerns. 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 STROKE DOCUMENTATION: Stroke Center Measures: Did this patient have a possible stroke/TIA/hemorrhage?: Yes Type of stroke: Ischemic stroke/Transient ischemic attack Date of NIHSS completed: 04/23/2021 Time of NIHSS completed: 17:09 CDT Admission NIHSS total score: 1 Date patient last known well: 04/22/2021 Time patient last known well: 12:00 CDT Onset of symptoms - date: 04/22/2021 Onset of symptoms - time: 12:01 CDT Patient received IV thrombolytic?: No Reason not a candidate: Symptom onset beyond time window Intra-arterial candidate for intervention?: No Reason not a candidate: Not performed due to mild/improving symptoms Patient admitted solely for an elective carotid intervention: No Antithrombotic started on admission: Other Dysphagia screen performed before oral intake or any p.o. medication given: Performed and patient passed, oral intake initiated Screen date completed: 04/23/2021 Screen time completed: 18:10 CDT Prestroke modified [place] Score (mRS): 1 - No significant disability. Able to carry out all usual activities, despite some symptoms. Physical Medicine (PMR) consulted: Not consulted because no deficit Speech therapy consulted to evaluate patient: Not consulted because no speech/language deficits Pharmacologic VTE prophylaxis: instituted Tobacco use: Does not use tobacco Fasting lipids performed: Were performed Patient on lipid-lowering agent prior to arrival?: Yes Relevant cerebrovascular risk factors: Hypertension, hyperlipidemia and diabetes mellitus documented in this encounter Consult Notes Aletha Mojica OKathiaT. - 04/24/2021 3:14 PM CDT Occupational Therapy Acute Hospital Inpatient Evaluation/Treatment SUBJECTIVE Referring/Attending Provider: Liza Hicks D.O. Patient's Name: Heladio Davis II Reason for Referral: OT evaluate and treat, brain consult. Medical Diagnosis: 1. Stroke (HCC) 2. Abnormal Gait Non Orthopedic 3. Decline Functional Status 4. Dizziness Onset Date: 04/23/21 Payor: MEDICARE / Plan: MEDICARE A AND B / Product Type: Medicare / PERTINENT MEDICAL / SURGICAL HISTORY: Patient Active Problem List Diagnosis ??? Stroke (HCC) Past Surgical History: Procedure Laterality Date ??? OTHER CONVERTED SHX (SEE COMMENT) N/A 09/12/2009 >L4-L5 interlaminar epidural blood patch injection under fluoroscopy. History of Present Illness: 2021 patient with sudden onset of dizziness, sing at local ED, transferred to [facility] for further medical workup and treatment. CT/CT a scans from 07/10/16 showed chronic left temporal and frontal lesions and an acute infarct in the dorsal inferior left deena andright vertebral artery thrombosis. 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 See Hospital Admission History and Physical for full history of present illness. Precautions Other Precautions: Right-sided residual hemiparesis, traumatic brain injury ; chronic neck pain; increased stiffness right arm and leg; seizure precautions; fall precautions Patient/Caregiver Goals: To get rid of his dizziness be able to walk better and return home. 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 Prior Mobility/Functional Transfers Level of [place]: Independent Gait Devices/Wheelchair Used Comments: Patient did not require an assistive device prior to admission. Home Living Type of Home: House Home Layout: Multi-level, Able to live on main level with bedroom/bathroom, Laundry in basement Home Access: Stairs to enter without rails Entrance Stairs: Number of Steps: 4 Bathroom Shower/Tub: Tub/shower unit Tub/shower unit location: Main floor Bathroom Toilet: Standard Home Equipment Home Adaptive Equipment: None Gait Devices Owned: Front-wheeled walker, Cane Bathroom Equipment: Shower chair without back Fall Risk (65 and older) Fall in the last 12 months: Yes Did you have an injury with the fall?: No OBJECTIVE Pain: Pt reports neck pain that radiates to head. Heating pad in place. Vitals:BP: 140/98 Cognition Cognitive assessment method: Therapist observations Arousal/Alertness: Appropriate responses to stimuli Attention: Impairments noted Initiation: No difficulty with initiation Orientation: Oriented X4 Following Commands: Follows all commands/directions without difficulty Coordination Overall Coordination: Movements are fluid and coordinated Rapid Alternating Movements (Dysdiadochokinesia): Eyes Open: Addressed, no concerns noted Activity Tolerance Endurance: Tolerates 20-30 minutes of activity Baseline Vision/Correction: Wears glasses only for reading Current Deficits Observed: Decreased ocular motility/range of motion Current Vision Comments: Left eye DYLON from stroke, however movt is recovering quickly. Oculomotor fixation, Rom pursuits and saccades intact with mild slowness of left pupil. Ocular Motility/Range of Motion Assessment Right Eye: Addressed, no concerns noted Ocular Motility/Range of Motion Assessment Left Eye: Addressed, no concerns noted Light Touch: Partial deficits in the RUE (Pt reports numbness/tingling in right hand from wrist to fingertips.) Inattention/Neglect: No deficits observed Current Hearing Function: Hearing intact Motor Planning: Appears intact ROM - Upper Extremity Screen Comments: WFL Strength - Upper Extremity Screen Comments: Mild weakness right shoulder (pain) compared to left. Gross Hand Function Right Hand Gross Grasp: Functional Left Hand Gross Grasp: Functional Right Hand Coordination: Functional Left Hand Coordination: Functional LE Dressing LE Dressing Location: Chair LE Dressing Delivery: Assessed LE Dressing Items Included: Socks, Pants LE Dressing Level of Assistance: Modified independent LE Dressing Comments: Pt sat figure four to don le clothing from chair. Stood with supervision to tie drawstring. At the end of today's therapy session patient was left seated in bedside chair with an appropriate call light within reach. Patient's needs and questions addressed during today's session. Contact Monitoring: PPE used during therapy: Therapist was wearing the following PPE throughout entire session: surgicalmask and eye protection Patient was wearing a mask during therapy session: no Additional Staff Present During Session: Chris Fabian, PT Assessment Pt presents with right hemiparesis, increased tone and pain from prior traumatic brain injury. Left eye DYLON recovering quickly with no reports of diplopia. Pt is now experiencing dizziness/vertigo and mild unsteadiness with functional mobility requiring minimal assist. Further OT is not recommended atthis time. Home with family support is appropriate. Rehab Potential: Mr. Davis has potential to achieve established occupational therapy goals withinthe time frame outlined below. Barriers to Discharge Home: Inaccessible home environment, Limited caregiver availability, Limited caregiver support, Safety concerns, Current functional status Barriers to Discharge Comments: Patient lives alone. Comorbid Conditions: Cognitive/memory disorder, Other (Comment) (Traumatic brain injury 1981) Personal Factors: Balance impairment Discharge Therapy Needs - OT: No further skilled therapy Level of Care Needed - OT: Assistance with toilet/shower transfers, Assistance with meal preparation, Assistance with transportation, Assistance with housekeeping, Assistance with shopping, Physical assistance needed Skilled therapy can include occupational therapy provided by home health, outpatient clinic, or a post-acute facility. The location of these services is determined by the patient's care team in partnership with patient/family. Recommended Adaptive Equipment - OT: Hand held shower head, Grab bar(s) in shower, Toilet safety frame Functional Goals and Timeframes: OT Goal #1: Pt will be independent with donning le clothing from chair. OT Goal #2: Pt will complete functional transfers with ae prn. Progress: Progressing toward goals Plan Patient agrees with the plan of care and goals. Treatment Plan: OT Frequency: One-time visit Plan: Discontinue OT Treatment interventions may include: Treatment Interventions: Self-care/home management Time Spent with Patient OT Eval - Low Complexity : 13 min Home Management Training (min): 10 min Time Calculation Total Timed Units (min): 10 min Total Treatment Time (min): 23 min Aletha Mojica O.T. Chris Fabian PKathiaT. - 04/24/2021 11:53 AM CDT Physical Therapy Acute Hospital Inpatient Evaluation/Treatment SUBJECTIVE Referring/Attending Provider: Liza Hicks D.O. Patient's Name: Heladio Davis II Reason for Referral: Stroke; physical therapy evaluation and treatment; patient is on the brain consultation list. Medical Diagnosis: 1. Stroke (HCC) 2. Abnormal Gait Non Orthopedic 3. Decline Functional Status 4. Dizziness Onset Date: 04/23/21 Payor: MEDICARE / Plan: MEDICARE A AND B / Product Type: Medicare / PERTINENT MEDICAL / SURGICAL HISTORY: Patient Active Problem List Diagnosis ??? Stroke (HCC) Past Surgical History: Procedure Laterality Date ??? OTHER CONVERTED SHX (SEE COMMENT) N/A 09/12/2009 >L4-L5 interlaminar epidural blood patch injection under fluoroscopy. History of Present Illness: 2021 patient with sudden onset of dizziness, sing at local ED, transferred to [facility] for further medical workup and treatment. CT/CT a scans from 07/10/16 showed chronic left temporal and frontal lesions and an acute infarct in the dorsal inferior left deena andright vertebral artery thrombosis. 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 See Hospital Admission History and Physical for full history of present illness. Precautions Other Precautions: Right-sided residual hemiparesis, traumatic brain injury '82; chronic neck pain; increased stiffness right arm and leg; seizure precautions; fall precautions Patient/Caregiver Goals: To get rid of his dizziness be able to walk better and return home. Patient Comments: Patient agreeable to physical therapy. 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 Prior Mobility/Functional Transfers Level of Dix[place]: Independent Gait Devices/Wheelchair Used Comments: Patient did not require an assistive device prior to admission. Home Living Type of Home: House Home Layout: Two level, Laundry in basement, Able to live on main level with bedroom/bathroom Home Layout Comments: Three levels were his house. For step entry into the home with no railing. Patient has main floor bedroom bathroom kitchen and living room. Home Access: Stairs to enter without rails Entrance Stairs: Number of Steps: 4 Home Equipment Gait Devices Owned: Front-wheeled walker, Cane Fall Risk (65 and older) Fall in the last 12 months: Yes Did you have an injury with the fall?: No OBJECTIVE Pain: neck pain, using hot water pad Vitals:blood pressure 145/89 in standing Cognition Arousal/Alertness: Appropriate responses to stimuli Orientation: Oriented X4 Following Commands: Follows all commands/directions without difficulty Light Touch: Partial deficits in the RUE Proprioception: No deficits ROM - Upper Extremity Screen: Impaired right ROM - Upper Extremity Screen Comments: stiff right UE, shoulder and forearm groups, within functional limits ROM - Lower Extremity Screen: Impaired right ROM - Lower Extremity Screen Comments: normal range of motion left LE; right LE within functional limits, very stiff and tight compared to the left LE Strength - Upper Extremity Screen: Impaired right Strength - Lower Extremity Screen: Impaired right Strength - Lower Extremity Screen Comments: good strength right LE, but weaker than left Static Sitting-Balance: Good (Maintains balance without support) Dynamic Sitting-Balance: Good (Maintains balance without support) Static Standing-Balance: Poor (Requires assistance to maintain balance) Dynamic Standing-Balance: Poor (Requires assistance to maintain balance) Bed Mobility - Supine to Sit Level of Assistance: Modified Independent, Supervision/Set-up Cuing: Verbal Comments: slow to move, can do by self, more difficult going to the right Sit to Stand Transfers # of Assistants: 1 Transfer Surface: Chair Transfer Equipment: Gait belt Level of Assistance: Minimal assistance Assessment/Delivery: Assessed, Instructed, Educated, Therapist assisted, Facilitated Comments: slightly unsteady, needing assistance, complaints of dizziness, having to lock LEs back oflegs against the chair Stand to Sit Transfers # of Assistants: 1 Transfer Equipment: Gait belt Level of Assistance: Supervision/set-up, Contact guard assistance Assessment/Delivery: Assessed, Instructed, Educated, Therapist assisted, Facilitated Bed, Chair, Wheelchair Transfers # of Assistants: 1 Transfer Surface: Bed, Chair Transfer Approach: To and from Transfer Equipment: No device Level of Assistance: Minimal assistance Assessment/Delivery: Assessed, Instructed, Educated, Therapist assisted, Facilitated Comments: balance impairment Gait Assessment/Training Distance (m): 8 m Surface: Even, Smooth/hard Device: Gait belt, No device, Front-wheeled walker, Single point cane # of Assistants: 1 Level of Assistance: Minimal assistance, Moderate assistance Stability: mild instability Assessment of Gait: slow pace, right leg very stiff, flat footed, decreased step lengths, wider baseof support Cueing Provided: Verbal, Tactile Training/Intervention: trained at his baseline no device; assessed front wheeled walker and cane, which patient wanted to use in right hand Response: tolerated three different trips in the room; patient did best with front wheeled walker, most stable, but still needing some assistance, did worse without a gait aid, needing min to occasional moderate assistance Stairs/Curb Training/Intervention: stairs not assessed due to fatigue, has 4 stairs at home, no railings; stairsassessed in pm, minimal assistance , education to Monika and patient , safety and technique reviewed, how to cue and assist Balance Retraining Static Standing Balance: Static standing, Eyes open, Anterior/posterior weight shifts, Lateral weight shifts, Diagonal weight shift Support Required: One UE support, Bilateral UE support, Minimal assistance, Walker TIMED UP AND GO (TUG) (MOTOR): 25 Seconds Interpretation: A score of >13.5 seconds indicates an increased risk of falls. Average score of community dwelling persons: 8.39 seconds Patient/Family Education: use of front wheeled walker , use of cane left hand ; pm education - ex and patient education, stair safety, stair technique, use of front wheeled walker , use of cane, brain education, brain fatigue, down and up from floor, use of gait belt. At the end of today's therapy session patient was left seated in bedside chair with the chair alarm on with an appropriate call light within reach. Patient's needs and questions addressed during today's session. Contact monitoring: PPE used during therapy: Therapist was wearing the following PPE throughout entire session: surgicalmask and eye protection Patient was wearing a mask during therapy session: no Assessment Patient alert, following commands, fully participated. Patient presents with dizziness, balance impairment and right residual weakness from traumatic brain injury in 1981. Patient needing minimal assistance to mobilize, assessed with front wheeled walker , cane and no device. Not able to assess stairs, patient has 4 with no railings. Tug of 25 seconds, anything over 13 seconds is fall risk. Patient lives alone, independent prior to admission. Recommending ongoing physical therapy to progress with mobility and treatment. Patient thought he walking was at least 70 percent off. Addendum - PM session worked with ex and patient , education and stairs. Patient will be in good hands with his family support and continued outpatient physical therapy. Rehab Potential: Mr. Davis has Good potential to achieve established physical therapy goals within the time frame outlined below. Barriers to a safe discharge home: current status, lives alone, limited support, has an ex-, Mom?? Barriers to Discharge Home: Inaccessible home environment, Limited caregiver availability, Limited caregiver support, Safety concerns, Current functional status Barriers to Discharge Comments: Patient lives alone. Comorbid Conditions: Cognitive/memory disorder, Other (Comment) (Traumatic brain injury 1981) Personal Factors: Balance impairment Discharge Therapy Needs - PT: Ongoing skilled physical therapy Level of Care Needed - PT: Assistance with transfers (Comment), Assistance with walking and moving around the home, Assistance with stairs, Physical assistance needed Skilled therapy can include physical therapy provided by home health, outpatient clinic, or a post-acute facility. The location of these services is determined by the patient's care team in partnershipwith patient/family. Equipment Recommended - PT: Front-wheeled walker, Other (Comment) (Homegoing durable medical equipment to be determined, patient has cane and front wheeled walker at home.) Functional Goals and Timeframes: PT Goal #1: Safe independent transfers using least restrictive gait aid by dismissal. PT Goal #1 Status: Progressing PT Goal #2: Safe independent ambulation with least restrictive gait aid by dismissal. PT Goal #2 Status: Progressing PT Goal #3: Up and down 4 steps with no railings independently by dismissal. PT Goal #3 Status: Ongoing PT Goal #4: TUG of 15 seconds by dismissal date. PT Goal #4 Status: Ongoing Progress: Improving as expected Plan Patient agrees with the plan of care and goals. Treatment Plan: PT Frequency: 6 times per week PT Amount: 1 visit per day PT Inpatient Duration : Until goals are met or hospital discharge Plan: Plan of care initiated Treatment interventions may include: Treatment/Interventions: Therapeutic exercise, Therapeutic functional activity, Neuromuscular re-education, Gait training, Self-care/home management Other PT Interventions: Progress with mobility, assessing various gait aids, continue working on standing balance, transfers, ambulation and stairs. Clinical Presentation: Evolving Number of Examination elements: 3 Clinical Decision Making: Moderate complexity clinical decision making Time Spent with Patient PT Eval - Mod Complexity: 20 min Therapeutic Activity (min): 36 min Total Timed Units (min): 36 min Total Treatment Time (min): 56 min Chris Fabian P.T. documented in this encounter Nursing Notes Pamela Hunter RKathiaN. - 04/24/2021 4:50 PM CDT Shift Goals: Clinical Goals for the Shift: Patient will remain safe from falls Identify possible barriers to meeting goals/advancing plan of care: none End of Shift Summary: Goal met, patient discharged to home with family. BP 147/85 (BP Location: Right arm;Upper, Patient Position: Sitting) Pulse 62 Temp 36.2 ??C (Oral) Resp 19 Ht 182.9 cm Wt 84 kg SpO2 96% BMI 25.11 kg/m?? Electronically signed by: Pamela Hunter R.N. 04/24/21 4:51 PM CDT Problem: PAIN - ADULT Goal: PT VERBALIZES/DEMONSTRATES ADEQUATE COMFORT LEVEL OR BASELINE Outcome: Adequate for Discharge Problem: KNOWLEDGE DEFICIT Goal: Patient/family/caregiver demonstrates understanding of disease process, treatment plan, medications, and discharge instructions Outcome: Adequate for Discharge Problem: INFECTION - ADULT Goal: Absence of infection during hospitalization Outcome: Adequate for Discharge Problem: SKIN/TISSUE INTEGRITY Goal: Skin/Tissue integrity maintained or improved Outcome: Adequate for Discharge Goal: Oral and Nasal mucous membranes remain intact Outcome: Adequate for Discharge Problem: SAFETY ADULT Goal: Maintain a safe environment Outcome: Adequate for Discharge Problem: DISCHARGE PLANNING Goal: Patient discharge needs identified Outcome: Adequate for Discharge Problem: SAFETY ADULT - RISK FOR FALL AND OR FALL INJURY Goal: Patient remains free from fall/fall injury Outcome: Adequate for Discharge Problem: POTENTIAL OR ACTUAL PRESSURE INJURY-ADULT Goal: Manage sensory Perception deficits to maintain and/or improve skin integrity Outcome: Adequate for Discharge Goal: Maintain optimal skin moisture to ensure or improve skin integrity Outcome: Adequate for Discharge Goal: Achieve optimal activity and/or mobility to maintain or improve skin integrity Outcome: Adequate for Discharge Goal: Nutrient intake appropriate for improving, restoring or maintaining skin integrity Outcome: Adequate for Discharge Goal: Minimize friction and/or shear to maintain or improve skin integrity Outcome: Adequate for Discharge Problem: Compromised Skin Integrity Goal: Skin/Tissue integrity maintained or improved Outcome: Adequate for Discharge Goal: Oral and Nasal mucous membranes remain intact Outcome: Adequate for Discharge Goal: Incisions, wounds, or drain sites healing without S/S of infection Outcome: Adequate for Discharge Problem: Incontinence and/or Moisture Goal: Skin integrity is maintained or improved Outcome: Adequate for Discharge Pamela Hunter R.N. - 04/24/2021 4:46 PM CDT Patient was discharged this afternoon. Prior to dismissal nursing staff went over patient education and medication reconciliation, no further questions from either the patient or family. Patient's IV was removed and vital signs were obtained. Patient's prescriptions to the [facility]. Patientleft with [facility] staff member. BP 147/85 (BP Location: Right arm;Upper, Patient Position: Sitting) Pulse 62 Temp 36.2 ??C (Oral) Resp 19 Ht 182.9 cm Wt 84 kg SpO2 96% BMI 25.11 kg/m?? Electronically signed by: Pamela Hunter RAdelfo 04/24/21 4:49 PM CDT Celia Cantu M.S.N., R.N. - 04/23/2021 6:54 PM CDT Problem: PAIN - ADULT Goal: PT VERBALIZES/DEMONSTRATES ADEQUATE COMFORT LEVEL OR BASELINE Outcome: Progressing Problem: INFECTION - ADULT Goal: Absence of infection during hospitalization Outcome: Progressing Problem: SKIN/TISSUE INTEGRITY Goal: Skin/Tissue integrity maintained or improved Outcome: Progressing Goal: Oral and Nasal mucous membranes remain intact Outcome: Progressing Problem: SAFETY ADULT Goal: Maintain a safe environment Outcome: Progressing Problem: DISCHARGE PLANNING Goal: Patient discharge needs identified Outcome: Progressing Problem: SAFETY ADULT - RISK FOR FALL AND OR FALL INJURY Goal: Patient remains free from fall/fall injury Outcome: Progressing Problem: POTENTIAL OR ACTUAL PRESSURE INJURY-ADULT Goal: Manage sensory Perception deficits to maintain and/or improve skin integrity Outcome: Progressing Goal: Maintain optimal skin moisture to ensure or improve skin integrity Outcome: Progressing Goal: Achieve optimal activity and/or mobility to maintain or improve skin integrity Outcome: Progressing Goal: Nutrient intake appropriate for improving, restoring or maintaining skin integrity Outcome: Progressing Goal: Minimize friction and/or shear to maintain or improve skin integrity Outcome: Progressing Problem: Compromised Skin Integrity Goal: Skin/Tissue integrity maintained or improved Outcome: Progressing Goal: Oral and Nasal mucous membranes remain intact Outcome: Progressing Goal: Incisions, wounds, or drain sites healing without S/S of infection Outcome: Progressing Problem: Incontinence and/or Moisture Goal: Skin integrity is maintained or improved Outcome: Progressing Shift Goals: Clinical Goals for the Shift: pt will be call light appropraite during shift Identify possible barriers to meeting goals/advancing plan of care: na End of Shift Summary: goal met documented in this encounter Miscellaneous Notes Hospital Course - Isaura Dinh M.D. - 04/24/2021 9:40 AM CDT Mr. Heladio Davis II is a 56 y.o. male with medical comorbidities significant for hypertension, hyperlipidemia, prediabetes, TBI in 1981 who presented to an outside hospital ED for evaluation of dizziness and dysconjugate gaze with headaches and slurred speech. Outside Hospital: At the outside hospital, the patient was hemodynamically stable and was found to have a pontine stroke on MRI on a high. He was transferred to [facility] for further management. [facility]: The patient was a direct admission to the stroke floor and was found to have adduction deficit of the left eye with known left-midline pontine stroke as seen on MRI at the outside hospital. He was hemodynamically stable and afebrile. CTA was performed to evaluate history of right vertebral artery stenosis she and demonstrated the right vertebral irregularity consistent with dissection versus atherosclerosis and previously observed on MRI from 2015. BRAN was performed and demonstrated no evidence of intracardiac mass or thrombus, focal mild immobile atherosclerosis of descending thoracic aorta, normal LVEF 60%, normal right ventricular size and systolic function, mildly enlarged ascending aorta diameter (42 mm), normal cardiac valves no valvular disease. Physical therapy and occupational therapy were consulted and recommended the patient be discharged with outpatient physical therapy and supervision at home for assistance with ambulation and with transferring positional location in addition to walking with a walker assistance. Stroke risk modification labs were performed and demonstrated hyperglycemia with hemoglobin A1c of 11.2 and hyperlipidemia with a cholesterol 227, LDL 154, triglycerides 214. The patient was started on atorvastatin 40 mg daily as well as dual antiplatelet therapy with clopidogrel 75 mg daily and aspirin 81 mg daily with a plan for 90 days of dual antiplatelet therapy. The patient was discharged on 04/24 with a plan to stay with his ex- for 1 night followed by living with his mother for continued assistance. From his mother's house is 1 floor with or several small steps at the injury. The patient and his family are comfortable with his disposition planning plan to the attend outpatient physical therapy. He was discharged in stable condition with a plan to follow-up with his primary care provider for management of diabetes, hyperlipidemia, hypertension. documented in this encounter Plan of Treatment Scheduled Referrals Name Type Priority Associated Diagnoses Order S chedule External referral Outpatient Referral Routine Stroke (HC C) Ordered: PT (non-Ramirez) Abnormal Gait Non 2 Orthopedic Decline Functional Status documented as of this encounter Procedures Procedure Name Priority Date/Time Associated Comments Diagnosis GLUCOSE POCT, B Routine 04/24/2021 1:35 Results f or PM CDT this procedure are in the results section. (BRAN) 2D WITH COLOR, Routine 04/24/2021 Results for LIMITED DOPPLER AND 12:27 PM CDT this pro cedure CONTRAST are in the results section. GLUCOSE POCT, B Routine 04/24/2021 8:29 Results f or AM CDT this procedure are in the results section. CBC WITHOUT Timed 04/24/2021 8:03 Results for DIFFERENTIAL, B AM CDT this procedu re are in the results section. MAGNESIUM, S Timed 04/24/2021 8:03 Results for AM CDT this procedure are in the results section. BASIC METABOLIC PANEL, Timed 04/24/2021 8:03 Re sults for S/P AM CDT this procedure are in the results section. SARS CORONAVIRUS 2, Routine 04/23/2021 7:44 Resul ts for RNA, RAPID POC, V PM CDT this proce dure are in the results section. CT HEAD WITHOUT IV RAD - Semiurgent 04/23/2021 7:11 Re sults for CONTRAST (Fast; most ED PM CDT this procedur e patients; some are in the inpatients) results section. CT HEAD NECK ANGIOGRAM RAD - Semiurgent 04/23/2021 7:11 Results for WITH IV CONTRAST (Fast; most ED PM CDT this proc edure patients; some are in the inpatients) results section. LIPID PANEL, S Routine 04/23/2021 6:30 Results fo r PM CDT this procedure are in the results section. ACTIVATED PARTIAL Routine 04/23/2021 6:30 Results for THROMBOPLASTIN TIME PM CDT this pro cedure (APTT), P are in the results section. PROTHROMBIN TIME (PT), Routine 04/23/2021 6:30 Re sults for P PM CDT this procedure are in the results section. CBC WITHOUT Routine 04/23/2021 6:30 Results for DIFFERENTIAL, B PM CDT this procedu re are in the results section. ALANINE Routine 04/23/2021 6:30 Results for AMINOTRANSFERASE (ALT), PM CDT this procedure S/P are in the results section. ASPARTATE Routine 04/23/2021 6:30 Results for AMINOTRANSFERASE (AST), PM CDT this procedure S/P are in the results section. THYROID-STIMULATING Routine 04/23/2021 6:30 Resul ts for HORMONE-SENSITIVE PM CDT this proce dure (S-TSH) are in the results section. HEMOGLOBIN A1C, B Routine 04/23/2021 6:30 Results for PM CDT this procedure are in the results section. ECG Routine 04/23/2021 6:20 Results for PM CDT this procedure are in the results section. documented in this encounter Results Glucose, POCT (04/24/2021 1:35 PM CDT) Analysis Performed At Patho logist Time Signature Glucose, POCT, 115 70 - 140 04/24/2021 PCLX B mg/dL 1:44 PM CDT Site Capillary 04/24/2021 PCLX 1:44 PM CDT Last Intake NPO 04/24/2021 PCLX 1:44 PM CDT Specimen Anatomical Collection Method Collection Time Receive d Time (Source) Location / / Volume Laterality Blood 04/24/2021 1:35 PM 2 1:45 CDT PM CDT Unknown Provider LAB POCT ORDERABLES-MANUAL Performing Organization Address City/State/ZIP Code Phon e Number POC [facility] [address] [place] [address] PCLX [facility] [place] [address] [place] [facility] [address] (BRAN) 2D WITH COLOR, LIMITED DOPPLER AND CONTRAST (04/24/2021 12:27 PM CDT) P athologist Signature Ejection 60 MC CV EIMS Fraction Anatomical Region Laterality Modality Echocardiography Specimen (Source) Anatomical Collection Method Collection Time Re ceived Time Location / / Volume Laterality 04/24/2021 10:26 AM CDT Impressions 04/24/2021 5:48 PM CDT PRE-SEDATION ASSESSMENT & CONSENT (performed immediately prior to the start of the procedure): The goals, risks and alternatives to moderate sedation and the transesophageal echo were explained to t he patient, questions were answered and consent was given to proceed. The physician reviewed the patient's history, medication list, allergies, and review of systems, and the findings as documented in the school leader and also performed a pertinent examination including a heart, airway and lung assessment. Mallampati Assessment: Class III. Sedation plan: Transesophageal echo - moderate sedation. ASA physical status score: Class III. The patient's identity and all needed equipment were confirme d and a final confirmatory pause was per formed by the team immediately prior to start. PRO CEDURAL ECHO FINDINGS: Transesophageal echocardiogram performed at the request of the primary community service patrol officer. Adult probe inserted without difficulty. LEFT VENTRICLE:Normal left ventricular c hamber size. Estimated left ventricular ejection fraction 60%. No regional wall motion abnormalities. RIGHT VENTRICLE:Normal right ventricular chamber size. Normal right ventricular systolic function. ATRIA:Normal left atrial size. Normal le ft atrial appendage. Normal left atrial appendage emptying velocity (70 cm/sec). No left atrial appendage thrombus. Normal right atrial size. CARDIAC VALVES:Trileaflet aortic valve. Mildly thickened aortic valve. Trivial aortic valve regurgitation. Mildly thickened mitral valve. Trivial mitral valve regurgitation. Normal pulmonary valve. Triv ial pulmonary valve regurgitation. Yulisa l tricuspid valve. Mild tricuspid valve regurgitatio n. OTHER ECHO FINDINGS:Mildly enlarged asce nding aorta diameter (mid-ascending aorta diameter: 42 mm). Normal aortic arch. Focal mild immobile (initimal thickening of 2-3 mm) atherosclerosis of the descend ing thoracic aorta. Normally connected p ulmonary veins. Normal pulmonary artery bifurcati on. Normal superior vena cava. No [id number] shunt at atrial level. Agitated saline injection(s) performed prior to administration of sedation and during sedat ion. No [id number] shunt at atrial le delaney at rest or with Valsalva release. No intracardia c mass or thrombus identified. No ??pericardial effusion. PROCEDURE NOTES: Procedure performed with appropriate level of sedation. A trained independent observer assisted with monitoring the patient's level of consciousness and physiologic status thr oughout the procedure, see nursing documentation. The patient tolerated the sedation and procedure well and was released awake, alert, and in good condition. Transesophageal echocardiogram completed without complications. See Sedation Narrator or other pertinent record in [facility] for additional procedure and sedation information. Physician signature for procedural medications and patient discharge when DC criteria met. For the complete report, see the Order-L evel Documents. Narrative 04/24/2021 5:48 PM CDT For the complete report, see the Order-Level Documents. Final Impressions 1. No intracardiac mass or thrombus iden tified. 2. Normal left atrial appendage. Normal left atrial appendage emptying velocity (70 cm/sec). 3. No shunt at atrial level by color saturnino w imaging and agitated saline contrast injection at rest or after Valsalva release. 4. Focal mild immobile (initimal thicken ing of 2-3 mm) atherosclerosis of the descending thoracic aorta. 5. Normal left ventricular chamber size. Estimated LV ejection fraction 60%. 6. Normal right ventricular chamber size and systolic function. 7. Mildly enlarged ascending aorta diame ter (mid-ascending aorta diameter: 42 mm). 8. Normal cardiac valves. No hemodynamic ally significant valvular heart disease. 9. No ??pericardial effusion. Procedure Note Khang Cedillo M.D. - 04/24/2021Forma tting of this note might be different from the original. For the complete report, see the Order-L evel Documents. Final Impressions 1. No intracardiac mass or thrombus iden tified. 2. Normal left atrial appendage. Normal left atrial appendage emptying velocity (70 cm/sec). 3. No shunt at atrial level by color saturnino w imaging and agitated saline contrast injection at rest or after Valsalva release. 4. Focal mild immobile (initimal thicken ing of 2-3 mm) atherosclerosis of the descending thoracic aorta. 5. Normal left ventricular chamber size. Estimated LV ejection fraction 60%. 6. Normal right ventricular chamber size and systolic function. 7. Mildly enlarged ascending aorta diame ter (mid-ascending aorta diameter: 42 mm). 8. Normal cardiac valves. No hemodynamic ally significant valvular heart disease. 9. No pericardial effusion. Findings PRE-SEDATION ASSESSMENT & CONSENT (perfo rmed immediately prior to the start of the procedure): The goals, risks and alternatives to moderate sedation and the transesophageal echo were explained to the patient, questions were answered and consent was given to proceed. The physician reviewed the patient's history, medication list, allergies, and review of systems, and the findings as documented in the school leader and also performed a pertinent examination includ ing a heart, airway and lung assessment. Mallampati Assessment: Class III. Sedation plan: Transesophageal echo - moderate sedation. ASA physical status score: Class III. The patient's identity and all need ed equipment were confirmed and a final confirmatory pause was performed by the team immediately prior to start. PROCEDURAL ECHO FINDINGS: Transesophageal echocardiogram performed at the request of the primary service co nsultant. Adult probe inserted without difficulty. LEFT VENTRICLE:Normal left ventricular c hamber size. Estimated left ventricular ejection fraction 60%. No regional wall motion abnormalities. RIGHT VENTRICLE:Normal right ventricular chamber size. Normal right ventricular systolic function. ATRIA:Normal left atrial size. Normal le ft atrial appendage. Normal left atrial appendage emptying velocity (70 cm/sec). No left atrial appendage thrombus. Normal right atrial size. CARDIAC VALVES:Trileaflet aortic valve. Mildly thickened aortic valve. Trivial aortic valve regurgitation. Mildly thickened mitral valve. Trivial mitral valve regurgitation. Normal pulmonary valve. Trivial pulmonary valve regurgitation. Normal tricuspid va lve. Mild tricuspid valve regurgitation. OTHER ECHO FINDINGS:Mildly enlarged asce nding aorta diameter (mid-ascending aorta diameter: 42 mm). Normal aortic arch. Focal mild immobile (initimal thickening of 2-3 mm) atherosclerosis of the descending thoracic aorta. Normally connected pulmo nary veins. Normal pulmonary artery bifurcation. Normal superior vena cava. No bffa-wu-[id number] shunt at atrial level. Agitated saline injection(s) performed prior to administration of sedation and during se dation. No [id number]-dv-[id number] shunt at atrial level at rest or with Valsalva release. No intracardiac mass or thrombus identified. No pericardial effusion. PROCEDURE NOTES: Procedure performed with appropriate level of gibran tion. A trained independent observer assisted with monitoring the patient's level of consciousness and physiologic status throughout the procedure, see nursing documentation. The patient tolerated the sedation and p rocedure well and was released awake, alert, and in good condition. Transesophageal echocardiogram completed without complications. See Sedation Narrator or other pertinent record in [facility] for additional procedure and sedation information. Physician signature for procedural medications and patient discharge when DC criteria met. For the complete report, see the Order-L evel Documents. Jomar Howe M.D. CV ECHO PROCEDURES (ABNORMAL) Glucose, POCT (04/24/2021 8:29 AM CDT) Analysis Performed At Patho logist Time Signature Glucose, POCT, 177 (H) 70 - 140 04/24/2021 PCLX B mg/dL 8:32 AM CDT Site Capillary 04/24/2021 PCLX 8:32 AM CDT Last Intake > 4 hours 04/24/2021 PCLX 8:32 AM CDT Specimen Anatomical Collection Method Collection Time Receive d Time (Source) Location / / Volume Laterality Blood 04/24/2021 8:29 AM 8:32 CDT AM CDT Unknown Provider LAB POCT ORDERABLES-MANUAL Performing Organization Address City/[facility] Phon e Number POC [facility] [address] [place] [address] PCLX [facility] [address] [place] [facility] [address] [facility] Magnesium (04/24/2021 8:03 AM CDT) P athologist Signature Magnesium, S 2.2 1.7 - 2.3 04/24/2021 DTL mg/dL 9:42 AM CDT Specimen Anatomical Collection Method Collection Time Receive d Time (Source) Location / / Volume Laterality Blood (Blood, 04/24/2021 8:03 AM 04/25/19 22 9:19 Venous) CDT AM CDT Jomar Howe M.D. LAB BLOOD ADD-ON Performing Organization Address City/[facility] Phon e Number [facility] - [address] [place], [place] [address] [facility] [place] [address] Laboratories-[facility] [address] (ABNORMAL) Basic Metabolic Panel (04/24/2021 8:03 AM CDT) P athologist Signature Potassium, S 4.6 3.6 - 5.2 04/24/2021 DTL mmol/L 9:42 AM CDT Sodium, S 137 135 - 145 04/24/2021 DTL mmol/L 9:42 AM CDT Chloride, S 104 98 - 107 04/24/2021 DTL mmol/L 9:42 AM CDT Bicarbonate, S 22 22 - 29 04/24/2021 DTL mmol/L 9:42 AM CDT Anion Gap 11 7 - 15 04/24/2021 DTL 9:42 AM CDT BUN (Blood Urea 12 8 - 24 04/24/2021 DTL Nitrogen), S mg/dL 9:42 AM CDT Creatinine 1.01 0.74 - 04/24/2021 DTL 1.35 mg/dL 9:42 AM CDT eGFR-Non 82 >=60 04/24/2021 DTL Black/ mL/min/BSA 9:42 AM CDT [place] Comment: ----ADDITIONAL INFORMATION---- Estimated GFR calculated using the 2009 CKD_EPI creatinine equation. eGFR-Black/ >90 >=60 mL/min/BSA 2021 9:42 AM CDT DTL Comment: ----ADDITIONAL INFORMATION---- Estimated GFR calculated using the 2009 CKD_EPI creatinine equation. Calcium, Total, S 8.8 8.6 - 10.0 mg/dL 04/24/2021 9:42 AM CDT DTL Glucose, S 187 (H) 70 - 140 mg/dL 04/24/2021 9:42 AM CDT D TL Specimen Anatomical Collection Method Collection Time Receive d Time (Source) Location / / Volume Laterality Blood (Blood, 04/24/2021 8:03 AM 04/25/19 22 9:19 Venous) CDT AM CDT Jomar Howe M.D. LAB BLOOD ADD-ON Performing Organization Address City/State/ZIP Code Phon e Number [facility] - [address] [place], [place] [address] [facility] [place] [address] Laboratories-[facility] [address] (ABNORMAL) CBC without Differential (04/24/2021 8:03 AM CDT) [employer] Method Time Signature Hemoglobin 11.4 (L) 13.2 - 04/24/2021 DTL 16.6 g/dL 9:14 AM CDT Hematocrit 33.6 (L) 38.3 - 04/24/2021 DTL 48.6 % 9:14 AM CDT Erythrocytes 3.71 (L) 4.35 - 04/24/2021 DTL 5.65 9:14 AM CDT x10(12)/L MCV 90.6 78.2 - 04/24/2021 DTL 97.9 fL 9:14 AM CDT RBC Distrib Width 14.8 (H) 11.8 - 04/24/2021 DTL 14.5 % 9:14 AM CDT Platelet Count 402 (H) 135 - 317 04/24/2021 DTL x10(9)/L 9:14 AM CDT Leukocytes 7.2 3.4 - 9.6 04/24/2021 DTL x10(9)/L 9:14 AM CDT Specimen Anatomical Collection Method Collection Time Receive d Time (Source) Location / / Volume Laterality Blood (Blood, 04/24/2021 8:03 AM 04/25/19 22 8:58 Venous) CDT AM CDT Jomar oHwe M.D. LAB BLOOD ADD-ON Performing Organization Address City/State/ZIP Code Phon e Number [facility] - [address] [place] [address] [facility] [place] [address] Laboratories-[facility] [address] [facility] SARS Coronavirus 2, RNA, Rapid POC, V Asymptomatic (04/23/2021 7:44 PM CDT) [employer] Method Time Signature SARS Undetected Undetected 04/23/2021 [facility] Coronavirus-2 8:05 PM CDT , RNA, Rapid POC, V Comment: Negative for SARS-CoV-2. The [facility] COVID-19 test is a molecular celena t for SARS-CoV-2, the virus that causes COVID- 19. A Negative result means that the [facility] COV ID-19 test did not detect SARS-CoV-2 virus in your sample. [facility] COVID-19 test uses the Single Digits nitoring System. This test has received Emergency Use Authorization (EUA) by the U.S. Food and Drug Administration (FDA) and is used per man ufacturer instructions. Performance characteristic s were verified by [facility] in a manner consistent with CLIA requirements. Fact sheets for this Emerg ency Use Authorization (EUA) can be found at the following links: Providers: [email or web address] [email or web address].pdf Patients: [email or web address] SARS Coronavirus 2, Source Nasopharynx DEFAULT 04/23/2021 8:05 PM CDT DTLR Specimen Anatomical Collection Method Collection Time Receive d Time (Source) Location / / Volume Laterality Varies 04/23/2021 7:44 PM 7:44 (Nasopharynx) CDT PM CDT Amos Garza M.D. LAB MICROBIOLOGY - GENERAL O RDERABLES Performing Organization Address City/State/ZIP Code Phon e Number PERFORMING LABS, REF [place] [address] INTERFACE Ref Interface [address] [facility] Performing Labs, [place] [address] Head without IV Contrast (04/23/2021 7:11 PM CDT) Anatomical Region Laterality Modality Head, Neuroradiology RST LOS, N/A Computed T omography, Computed Neuroradiology ARZ LOS, Neuroradiology T omography FLA LOS Specimen (Source) Anatomical Collection Method Collection Time Re ceived Time Location / / Volume Laterality 04/23/2021 7:02 PM CDT Impressions 04/23/2021 7:57 PM CDT 1. 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 2. Chronic infarcts of the left frontal left temporal lobes and other miscellaneous findings as noted.. Narrative 04/23/2021 7:57 PM CDT EXAM: CT HEAD WITHOUT IV CONTRAST, CT HEAD NECK ANGIOGRAM WITH IV CONTRAST Including 3D image post-processing. COMPARISON: 04/23/2021 outside MR brain, 05/09/[address] head without contrast FINDINGS: NONCONTRAST: The tiny presumed acute inf arction along the dorsal inferior deena, seen on the MRI (series 3, image 31), is not definitivel y appreciated on this CT. Several tiny foci of calcification in the left mid deena (series 4, images 1 3 and 14), probably reflect changes related to small benign developmental venous anomaly suggested o n MRI from 05/12/2009 (series 12, image 55). Chronic left frontal and left temporal i nfarcts. Mild diffuse cerebral and cerebellar volume loss and chronic microvascular degenerative c hange. Intracranial arterial calcifications. The paranasal sinuses and mastoid air cells are clear. ?? No intracranial hemorrhage or mass effec t. No midline shift. Normal-sized ventricles. CTA HEAD AND NECK: On this CTA, there is absence of flow within the distal right vertebral artery (series 8, image 2-3), in the same locat ion where a flow-void was evident on MRI dated 09/12/2014 (series 5, image 7), but is no longer ev ident on today's MRI (series 5, image 6). Findings suggest interval distal right vertebral artery o cclusion, possibly acute given the tiny acute infarctions and symptomatology. Irregularity at the distal right vertebral artery where contrast is still minimally present (for example series 8, image 210), either from dissection or atheromatous in etiology. The right vertebral artery is hypoplastic relative to the left, normal variant. Conventional three-vessel aortic arch br anching. Bilateral carotid arteries are patent without significant stenosis, aneurysm, or focal injury. Forme fruste origin BEEF PUSHER, normal variant. The dural venous sinuses are patent where vi sualized. Procedure Note Lynn Keys M.D. - 04/23/2021Form atting of this note might be different from the original. EXAM: CT HEAD WITHOUT IV CONTRAST, CT HE AD NECK ANGIOGRAM WITH IV CONTRAST Including 3D image post-processing. COMPARISON: 04/23/2021 outside MR brain, 05/09/[address] head without contrast FINDINGS: NONCONTRAST: The tiny presumed acute inf arction along the dorsal inferior deena, seen on the MRI (series 3, image 31), is not definitivel y appreciated on this CT. Several tiny foci of calcification in the left mid deena (series 4, images 1 3 and 14), probably reflect changes related to small benign developmental venous anomaly suggested o n MRI from 05/12/2009 (series 12, image 55). Chronic left frontal and left temporal i nfarcts. Mild diffuse cerebral and cerebellar volume loss and chronic microvascular degenerative c hange. Intracranial arterial calcifications. The paranasal sinuses and mastoid air cells are clear. No intracranial hemorrhage or mass effec t. No midline shift. Normal-sized ventricles. CTA HEAD AND NECK: On this CTA, there is absence of flow within the distal right vertebral artery (series 8, image 2-3), in the same locat ion where a flow-void was evident on MRI dated 09/12/2014 (series 5, image 7), but is no longer ev ident on today's MRI (series 5, image 6). Findings suggest interval distal right vertebral artery o cclusion, possibly acute given the tiny acute infarctions and symptomatology. Irregularity at the distal right vertebral artery where contrast is still minimally present (for example series 8, image 210), either from dissection or atheromatous in etiology. The right vertebral artery is hypoplastic relative to the left, normal variant. Conventional three-vessel aortic arch br anching. Bilateral carotid arteries are patent without significant stenosis, aneurysm, or focal injury. Forme fruste origin BEEF PUSHER, normal variant. The dural venous sinuses are patent where vi sualized. IMPRESSION: 1. 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 2. Chronic infarcts of the left frontal left temporal lobes and other miscellaneous findings as noted.. Amos Garza M.D. IMKenneth CT PROCEDURES CT Head Neck Angiogram with IV Contrast (04/23/2021 7:11 PM CDT) Anatomical Region Laterality Modality Head and Neck, Neuroradiology RST LOS, N/A C omputed Tomography, Computed Neuroradiology ARZ LOS, Neuroradiology T omography FLA [facility] Specimen (Source) Anatomical Collection Method Collection Time Re ceived Time Location / / Volume Laterality 04/23/2021 7:20 PM CDT Impressions 04/23/2021 7:57 PM CDT 1. 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 2. Chronic infarcts of the left frontal left temporal lobes and other miscellaneous findings as noted.. Narrative 04/23/2021 7:57 PM CDT EXAM: CT HEAD WITHOUT IV CONTRAST, CT HEAD NECK ANGIOGRAM WITH IV CONTRAST Including 3D image post-processing. COMPARISON: 04/23/2021 outside MR brain, 05/09/[address] head without contrast FINDINGS: NONCONTRAST: The tiny presumed acute inf arction along the dorsal inferior deena, seen on the MRI (series 3, image 31), is not definitivel y appreciated on this CT. Several tiny foci of calcification in the left mid deena (series 4, images 1 3 and 14), probably reflect changes related to small benign developmental venous anomaly suggested o n MRI from 05/12/2009 (series 12, image 55). Chronic left frontal and left temporal i nfarcts. Mild diffuse cerebral and cerebellar volume loss and chronic microvascular degenerative c hange. Intracranial arterial calcifications. The paranasal sinuses and mastoid air cells are clear. ?? No intracranial hemorrhage or mass effec t. No midline shift. Normal-sized ventricles. CTA HEAD AND NECK: On this CTA, there is absence of flow within the distal right vertebral artery (series 8, image 2-3), in the same locat ion where a flow-void was evident on MRI dated 09/12/2014 (series 5, image 7), but is no longer ev ident on today's MRI (series 5, image 6). Findings suggest interval distal right vertebral artery o cclusion, possibly acute given the tiny acute infarctions and symptomatology. Irregularity at the distal right vertebral artery where contrast is still minimally present (for example series 8, image 210), either from dissection or atheromatous in etiology. The right vertebral artery is hypoplastic relative to the left, normal variant. Conventional three-vessel aortic arch br anching. Bilateral carotid arteries are patent without significant stenosis, aneurysm, or focal injury. Forme fruste origin BEEF PUSHER, normal variant. The dural venous sinuses are patent where vi sualized. Procedure Note Lynn Keys M.D. - 04/23/2021Form atting of this note might be different from the original. EXAM: CT HEAD WITHOUT IV CONTRAST, CT HE AD NECK ANGIOGRAM WITH IV CONTRAST Including 3D image post-processing. COMPARISON: 04/23/2021 outside MR brain, 05/09/[address] head without contrast FINDINGS: NONCONTRAST: The tiny presumed acute inf arction along the dorsal inferior deena, seen on the MRI (series 3, image 31), is not definitivel y appreciated on this CT. Several tiny foci of calcification in the left mid deena (series 4, images 1 3 and 14), probably reflect changes related to small benign developmental venous anomaly suggested o n MRI from 05/12/2009 (series 12, image 55). Chronic left frontal and left temporal i nfarcts. Mild diffuse cerebral and cerebellar volume loss and chronic microvascular degenerative c hange. Intracranial arterial calcifications. The paranasal sinuses and mastoid air cells are clear. No intracranial hemorrhage or mass effec t. No midline shift. Normal-sized ventricles. CTA HEAD AND NECK: On this CTA, there is absence of flow within the distal right vertebral artery (series 8, image 2-3), in the same locat ion where a flow-void was evident on MRI dated 09/12/2014 (series 5, image 7), but is no longer ev ident on today's MRI (series 5, image 6). Findings suggest interval distal right vertebral artery o cclusion, possibly acute given the tiny acute infarctions and symptomatology. Irregularity at the distal right vertebral artery where contrast is still minimally present (for example series 8, image 210), either from dissection or atheromatous in etiology. The right vertebral artery is hypoplastic relative to the left, normal variant. Conventional three-vessel aortic arch br anching. Bilateral carotid arteries are patent without significant stenosis, aneurysm, or focal injury. Forme fruste origin BEEF PUSHER, normal variant. The dural venous sinuses are patent where vi sualized. IMPRESSION: 1. 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 2. Chronic infarcts of the left frontal left temporal lobes and other miscellaneous findings as noted.. Amos Garza M.D. IMG CT PROCEDURES Prothrombin Time (PT) (04/23/2021 6:30 PM CDT) P athologist Signature Prothrombin 10.8 9.4 - 12.5 04/23/2021 DTL Time, P sec 7:10 PM CDT INR 1.0 0.9 - 1.1 04/23/2021 DTL 7:10 PM CDT Comment: ----ADDITIONAL INFORMATION---- Standard intensity warfarin therapeutic range: 2.0 to 3.0 ?? High intensity warfarin therapeutic rang e: 2.5 to 3.5 Specimen Anatomical Collection Method Collection Time Receive d Time (Source) Location / / Volume Laterality Blood (Blood, 04/23/2021 6:30 PM 04/24/19 22 6:48 Venous) CDT PM CDT Amos Garza M.D. LAB BLOOD ADD-ON Performing Organization Address City/State/ZIP Code Phon e Number [facility] - [address] [place], [place] [address] [facility] [place] [address] [facility] [address] APTT (Activated Partial Thromboplastin Time) (04/23/2021 6:30 PM CDT) athologist Signature Activated 32 25 - 37 sec 04/23/2021 DTL Partial 7:10 PM CDT Thrombopl Time, P Specimen Anatomical Collection Method Collection Time Receive d Time (Source) Location / / Volume Laterality Blood (Blood, 04/23/2021 6:30 PM 04/24/19 6:48 Venous) CDT PM CDT Amos Garza M.D. LAB BLOOD ADD-ON Performing Organization Address City/[facility]/ZIP Code Phon e Number [facility] - [address] [place], [place] [address] [facility] [place] [address] [facility] [address] [facility] (ABNORMAL) Hemoglobin A1c (04/23/2021 6:30 PM CDT) Analysis Performed At Patho logist Time Signature Hemoglobin A1c, 11.2 (H) 4.0 - 5.6 04/23/2021 DTL B % 7:01 PM CDT Comment: Hemoglobin A1c values greater than or eq ual to 6.5 percent are diagnostic for diabetes mellitus. ?? Diagnosis should be confirmed by repeat testing. ??In diabet ic patients, HbA1c goals should be discussed with healthcar e provider. Specimen Anatomical Collection Method Collection Time Receive d Time (Source) Location / / Volume Laterality Blood (Blood, 04/23/2021 6:30 PM 04/24/19 22 6:48 Venous) CDT PM CDT Amos Garza M.D. LAB BLOOD ADD-ON Performing Organization Address City/State/ZIP Code Phon e Number [facility] - [address] [place], [place] [address] [facility] [place] [address] [facility] [address] [facility] (ABNORMAL) CBC without Differential (04/23/2021 6:30 PM CDT) Patholo gist Method Time Signature Hemoglobin 11.4 (L) 13.2 - 04/23/2021 DTL 16.6 g/dL 6:54 PM CDT Hematocrit 34.2 (L) 38.3 - 04/23/2021 DTL 48.6 % 6:54 PM CDT Erythrocytes 3.77 (L) 4.35 - 04/23/2021 DTL 5.65 6:54 PM CDT x10(12)/L MCV 90.7 78.2 - 04/23/2021 DTL 97.9 fL 6:54 PM CDT RBC Distrib Width 14.7 (H) 11.8 - 04/23/2021 DTL 14.5 % 6:54 PM CDT Platelet Count 380 (H) 135 - 317 04/23/2021 DTL x10(9)/L 6:54 PM CDT Leukocytes 7.8 3.4 - 9.6 04/23/2021 DTL x10(9)/L 6:54 PM CDT Specimen Anatomical Collection Method Collection Time Receive d Time (Source) Location / / Volume Laterality Blood (Blood, 04/23/2021 6:30 PM 04/24/19 6:48 Venous) CDT PM CDT Amos Garza M.D. LAB BLOOD ADD-ON Performing Organization Address City/State/ZIP Code Phon e Number [facility] - [address] [place] [address] [facility] [place] [address] Laboratories-[facility] [address] [facility] (ABNORMAL) Lipid Panel (04/23/2021 6:30 PM CDT) athologist Signature Cholesterol, 227 (H) mg/dL 04/23/2021 DTL Total 7:25 PM CDT Comment: ----REFERENCE VALUE---- Desirable: < 200 Borderline high: 200 - 239 High: > or = 240 Triglycerides 214 (H) mg/dL 04/23/2021 7:25 PM CDT DTL Comment: ----REFERENCE VALUE---- Normal: <150 Borderline high: 150-199 High: 200-499 Very high: > or =500 Cholesterol, HDL, S 30 (L) >=40 mg/dL 04/23/2021 7:25 PM CDT DTL Calculated LDL 154 (H) mg/dL 04/23/2021 7:25 PM CDT DT L Comment: ----REFERENCE VALUE---- Desirable: <100 mg/dL Above Desirable: 100-129 mg/dL Borderline High: 130-159 mg/dL High: 160-189 mg/dL Very High: >=190 mg/dL Cholesterol, Non-HDL, Calculated 197 (H) mg/dL 022 7:25 PM CDT DT Comment: ----REFERENCE VALUE---- Desirable: <130 Above Desirable: 130-159 Borderline high: 160-189 High: 190-219 Very high: > or =220 Specimen Anatomical Collection Method Collection Time Receive d Time (Source) Location / / Volume Laterality Blood (Blood, 04/23/2021 6:30 PM 04/24/19 7:00 Venous) CDT PM CDT Amos Garza M.D. LAB BLOOD ADD-ON Performing Organization Address City/[facility] Phon e Number [facility] - [address] [place], [place] [address] [place] [address] [place] [address] (ABNORMAL) S-TSH (Thyroid-Stimulating Hormone - Sensitive) (04/23/2021 6:30 PM CDT) P athologist Signature TSH, Sensitive 4.4 (H) 0.3 - 4.2 04/23/2021 DTL mIU/L 7:25 PM CDT Specimen Anatomical Collection Method Collection Time Receive d Time (Source) Location / / Volume Laterality Blood (Blood, 04/23/2021 6:30 PM 04/24/19 22 7:00 Venous) CDT PM CDT Amos Garza M.D. LAB BLOOD ADD-ON Performing Organization Address City/[facility] Phon e Number [facility] - [address] [place], [place] [address] [facility] [place] [address] Laboratories-[address] AST (Aspartate Aminotransferase) (04/23/2021 6:30 PM CDT) Patholo gist Method Time Signature Aspartate 23 8 - 48 04/23/2021 STMA Aminotransferase U/L 7:07 PM CDT (AST), P Specimen Anatomical Collection Method Collection Time Receive d Time (Source) Location / / Volume Laterality Blood (Blood, 04/23/2021 6:30 PM 04/24/19 22 6:37 Venous) CDT PM CDT Amos Garza M.D. LAB BLOOD ADD-ON Performing Organization Address City/[facility]/ZIP Code Phon e Number [facility] - [address] [place], [place] [address] [facility] [place] [address] ALT (Alanine Aminotransferase) (04/23/2021 6:30 PM CDT) Patholo gist Method Time Signature Alanine 22 7 - 55 04/23/2021 DTL Aminotransferase U/L 7:25 PM CDT (ALT), S Specimen Anatomical Collection Method Collection Time Receive d Time (Source) Location / / Volume Laterality Blood (Blood, 04/23/2021 6:30 PM 04/24/19 7:00 Venous) CDT PM CDT Amos Garza M.D. LAB BLOOD ADD-ON Performing Organization Address [facility] Phon e Number [facility] - [address] [place] [address] ECG 12 Lead (04/23/2021 6:20 PM CDT) P athologist Signature Ventricular Rate 54 BPM MUSE ECG/Min NM Interval 178 ms MUSE QRSD Interval 106 ms MUSE QT Interval 482 ms MUSE QTC Interval 457 ms MUSE P [place] 38 degrees MUSE R [place] 48 degrees MUSE T Wave [place] 46 degrees MUSE Specimen Anatomical Collection Method Collection Time Receive d Time (Source) Location / / Volume Laterality 04/23/2021 6:20 PM 6:35 CDT PM CDT Impressions MUSE - 04/23/2021 6:36 PM CDT Sinus bradycardia Nonspecific ST abnormality No previous ECGs available Reviewed by INA Friend Narrative This result has an attachment that is no t available. Procedure Note Ramesh Suggs M.D. - 04/23/2021Form atting of this note might be different from the original. IMPRESSION: Sinus bradycardia Nonspecific ST abnormality No previous ECGs available Reviewed by INA Friend Amos Garza M.D. ECG ORDERABLES Performing Organization Address City/[facility] Code Phon e Number MUSE MUSE NA documented in this encounter Visit Diagnoses Diagnosis Stroke (HCC) - Primary Stroke (HCC) Abnormal Gait Non Orthopedic Decline Functional Status Dizziness documented in this encounter Admitting Diagnoses Diagnosis Stroke (HCC) documented in this encounter Administered Medications Inactive Administered Medications - up to 3 most recent administrations Medication Order MAR Action Action Date Dose Rate Site aspirin chewable tablet 81 mg Given 04/24/2021 8:24 AM CDT 81 mg 81 mg, oral, Daily, First dose on Tue04/23/21 at 2030 Given 04/23/2021 8:44 PM CDT 81 mg atorvastatin tablet 40 mg (LIPITOR) 40 mg, oral, Daily at bedtime, First dose on Tue at [address] tablet 10 mg (DULCOLAX) 10 mg, oral, 2 times daily PRN, constipation, Starting on Tue04/23/21 at 1730, Suppository is the preference. Swallow w hole. Do NOT crush, chew, or split tablet. bisacodyL suppository 10 mg (DULCOLAX) 10 mg, rectal, 2 times daily PRN, consti pation, Starting on Tue04/23/21 at 1730, Suppository is the preference. clopidogreL tablet 75 mg (PLAVIX) Given 04/24/2021 8:24 AM CDT 75 mg 75 mg, oral, Daily, First dose on Tue04/23/21 at 2030, For 90 doses Given 04/23/2021 8:44 PM CDT 75 mg fentaNYL injection (SUBLIMAZE) Given 04/24/2021 12:04 PM 25 mcg Code/trauma/sedation medication, Starting on CDT Tue04/24/21 at 1202 Given 04/24/2021 12:02 PM CDT 50 mcg heparin (porcine) Given 04/24/2021 1:36 PM CDT 5,000 Units Left Lower Abdomen injection 5,000 Units 5,000 Units, subcutaneous, Every 8 hours scheduled, First dose on Tue04/23/21 at 1745 Given 04/24/2021 6:29 AM CDT 5,000 Units Right Upper Abdomen Given 04/23/2021 6:35 PM CDT 5,000 Units Left Upper Arm insulin aspart U-100 Given 04/24/2021 9:45 AM CDT 2 Units Right Upper Arm injection 0-13 Units (Romi k) (NovoLOG FlexPen) 0-13 Units, subcutaneous, 3 times daily, First dose on Tue04/24/21 at 0800, Insulin Scale: Moderate Correction Scale, 140 - 179: 2 units, 180 - 219: 4 units, 220 - 259: 6 units, 260 - 299: 8 units, 300 - 339: 10 units, 340 - 379: 12 units, 380 - 399: 13 units, Greater than 399: Call service writing Insulin orders iohexoL 350 mg iodine/mL solution 1-200 mL Given 04/23/2021 7:07 PM CDT 100 mL (OMNIPAQUE) 1-200 mL, intravenous, Once in imaging, contrast, Starting on Tue04/23/21 at 1907, For 1 dose, Imaging Protocol Orders, Dose per Radiant Medication Guidelines lidocaine 5 % ointment 1 application (XY LOCAINE) 1 application, mouth/throat, As needed, mild pain or score 1-3 of 10, See protocol, Starting on Tue04/24/21 at 1027, For 2 d oses, Apply 1 inch on tongue blade. Place ointment side down in back of mouth, as far back as possible. Instruct patient to swallow any dissolved ointment. After 2-3 minutes, dominick ck gag reflex. May repeat once if gag reflex remains. Administer first dose with in 10 minutes of expected physician arrival to procedure. MAX of 20 g of ointmen t/day melatonin tablet 3 mg Given 04/23/2021 11:40 PM CDT 3 mg 3 mg, oral, Daily at bedtime, First dose on Tue04/23/21 at 2345 midazolam (PF) injection (VERSED) Given 04/24/2021 12:22 PM CDT 1 mg Code/trauma/sedation medication, Starting on Tue04/24/21 at 1202 Given 04/24/2021 12:04 PM CDT 1 mg Given 04/24/2021 12:02 PM CDT 2 mg NaCl 0.9% bacteriostatic 0.9 % injection 20 Given 04/24/2021 12:26 PM CDT 20 mL mL 20 mL, intravenous, As needed, for agitated saline (bubble) studies, Starting on Tue04/24/21 at 1027, See protocol Given 04/24/2021 11:55 AM CDT 30 mL sennosides-docusate sodium 8.6-50 mg per Given 04/24/2021 8: 24 AM CDT 2 tablets tablet 2 tablet (SENOKOT-S) 2 tablet, oral, Daily, First dose on Tue04/24/21 at 0900, While on opioids. Do not give if patient has diarrhea. sennosides-docusate sodium 8.6-50 mg per tablet 2 tablet (SENOKOT-S) 2 tablet, gastric tube, Daily, First dos e on Tue04/24/21 at 0900, While on opioids. Do not give if patient has diarrhea. sodium chloride (PF) 0.9 % injection 1-1 00 mL Given 04/23/2021 7:08 PM CDT 10 mL 1-100 mL, intravenous, Once, On Hallie 04/23/21 at 1915, For 1 dose, Imaging Protocol Orders sodium chloride 0.9 % injection 10 mL 10 mL, intravenous, As needed, line care , Starting on Tue04/24/21 at 1027, Prior to and following infusion and between multi ple consecutive infusions: sodium chloride 0.9 % injection documented in this encounter Active and Recently Administered Medications Times are shown in CDT. Scheduled Medication Order 04/22/2021 04/23/2021 04/24/2021 aspirin chewable tablet 81 mg 2043 (Given - Prov ider: Holli Tuttle RAdelfo) 0824 (Given - Provider: Pamela Hunter RKathiaNKathia) 81 mg, oral, Daily, First dose on Tue04/23/21 at 2030 atorvastatin tablet 40 mg (LIPITOR) 40 mg, oral, Daily at bedtime, First dose on Tue04/24/21 at 2100 clopidogreL tablet 75 mg (PLAVIX) 2043 (Given - Provider: Holli Tuttle RKathiaN.) 0824 (Given - Provider: Pamela Hunter R.N.) 75 mg, oral, Daily, First dose on Tue04/23/21 at 2030, For 90 do ses heparin (porcine) injection 5,000 Units 1835 (Given - Provider: Adonay Nova, R.N.) 0629 (Given - Provider: Lissa Posada)1336 (Given - Provider: Pamela Hunter R.N.) 5,000 Units, subcutaneous, Every 8 hours scheduled, First dose on Tue04/23/21 at 1745 insulin aspart U-100 injection 0-13 Units (NovoLOG FlexPen) 0945 (Given - Provider: Pamela Hunter RAdelfo - Comment: B)1405 (Not Given - Provider: Pamela Hunter R.N. - Reason: Order parameters not met - Comment: B) 0-13 Units, subcutaneous, 3 times daily, First dose on Tue04/24/21 at 0800, Insulin Scale: Moderate Correction Scale, 140 - 179: 2 units, 180 - 219: 4 units, 220 - 259: 6 units, 260 - 299: 8 units, 300 - 339: 10 units, 340 - 379: 12 units, 38 0 - 399: 13 units, Greater than 399: Call service writing Insulin orders melatonin tablet 3 mg 2340 (Given - Provider: Nicole Tuttle R.N.) 3 mg, oral, Daily at bedtime, First dose on Tue04/23/21 at 2345 sennosides-docusate sodium 8.6-50 mg per tablet 2 tablet (SENOKOT-S)(Linked Group 1) 0824 (Given - Provid er: Pamela Hunter RAdelfo) 2 tablet, oral, Daily, First dose on Tue04/24/21 at 0900, While on opioids. Do not give if patient has diarrhea. sennosides-docusate sodium 8.6-50 mg per tablet 2 tablet (SENOKOT-S)(Linked Group 1) 0824 (See Alternativ e - Provider: Pamela Hunter RAdelfo) 2 tablet, gastric tube, Daily, First dos e on Tue04/24/21 at 0900, While on opioids. Do not give if patient has diarrhea. sodium chloride (PF) 0.9 % injection 1-100 mL (COMPLETED) 190 (Given - Provider: Irene Goodwin, Janice.Ashly.Guzman, R.N., ChristopherSKathiaR.NKathia) 1-100 mL, intravenous, Once, On Hallie04/23 at 1915, For 1 dose, Imaging Protocol Orders PRN Medication Order 04/22/2021 04/23/2021 04/24/[address] tablet 10 mg (DULCOLAX)(Linked Group 2) 10 mg, oral, 2 times daily PRN, constipa tion, Starting on Tue04/23/21 at 1730, Suppository is the preference. Swallow whole. Do NOT crush, chew, or split tablet. bisacodyL suppository 10 mg (DULCOLAX)(Linked Group 2) 10 mg, rectal, 2 times daily PRN, consti pation, Starting on Tue04/23/21 at 1730, Suppository is the preference. docusate sodium 283 mg/5 mL enema 1 enema (ENEMEEZ) 1 enema, rectal, 2 times daily PRN, cons tipation, Starting on Tue04/23/21 at 1730, If no bowel movement within 24 hours of starting bisacodyl fentaNYL injection (SUBLIMAZE) (COMPLETED) 1202 (Given - Provider: Gera Ramirez R.N.)1204 (Given - Provider: Gera Ramirez R.N.) Code/trauma/sedation medication, Starting on Tue04/24/21 at 1202 iohexoL 350 mg iodine/mL solution 1-200 mL (OMNIPAQUE) (COMP LETED) 1907 (Given - Provider: Irene Goodwin M.P.H., R.N., C.M.S.R.N. - Comment: Lot [id number]) 1-200 mL, intravenous, Once in imaging, contrast, Starting on Tue04/23/21 at 1907, For 1 dose, Imaging Protocol Orders, Dose per Radiant Medication Guidelines lidocaine 5 % ointment 1 application (XYLOCAINE) 1 application, mouth/throat, As needed, mild pain or score 1-3 of 10, See protocol, Starting on Tue04/24/21 at 1027, For 2 doses, Apply 1 inch on tongue blade. Place ointment side down in back of mouth, as far back as possible. Instruct patie nt to swallow any dissolved ointment. After 2-3 minutes, check gag reflex. May repeat once if gag reflex remains. Administer first dose within 10 minutes of expec dominik physician arrival to procedure. MAX of 20 g of ointment/day midazolam (PF) injection (VERSED) (COMPLETED) 1202 (Given - Provider: Gera Ramirez R.N.)1204 (Given - Provider: Gera Ramirez R.N.)1222 (Given - Provider: Gera Ramirez R.N.) Code/trauma/sedation medication, Starting on Tue04/24/21 at 1202 NaCl 0.9% bacteriostatic 0.9 % injection 20 mL 1155 (Given - Provider: Gera Ramirez R.N.)1226 (Given - Provider: Gabbie Murray R.N.) 20 mL, intravenous, As needed, for agita dominik saline (bubble) studies, Starting on Tue04/24/21 at 1027, See protocol sodium chloride 0.9 % injection 10 mL 10 mL, intravenous, As needed, line care , Starting on Tue04/24/21 at 1027, Prior to and following infusion and between multiple consecutive infusions: sodium chloride 0.9 % injection Linked Groups Order Group 1: sennosides-docusate sodium 8.6-50 mg per tablet 2 tablet (SENOKOT-S)Jump to med 2 tablet, oral, Daily, First dose on Tue04/24/21 at 0900
While on opioids. Do not give if patient has diarrhea.
Or sennosides-docusate sodium 8.6-50 mg per tablet 2 tablet (SENOKOT-S)Jump to med 2 tablet, gastric tube, Daily, First dos e on Tue04/24/21 at 0900
While on opioids. Do not give if patient has diarrhea.
Group 2: bisacodyL DR tablet 10 mg (DULCOLAX)Jump to med 10 mg, oral, 2 times daily PRN, constipa tion, Starting on Tue04/23/21 at 1730
Suppository is the preference. Swallow whole. Do NOT crush, chew, or split tablet.
Or bisacodyL suppository 10 mg (DULCOLAX)Jump to med 10 mg, rectal, 2 times daily PRN, consti pation, Starting on Tue04/23/21 at 1730
Suppository is the preference.
documented in this encounter Additional Health Concerns Infection Onset Date Last Indicated Resolved Time COVID19 Pending 04/23/2021 04/23/2021 04/23/2021 8:05 PM CDT documented as of this encounter
--- OUTSIDE RECORDS SUMMARY | 2021-11-23 13:08 | XMS_ITS | Encounter Summary ---
:[address] [facility] Address [address] [place] [address] Care Team Providers Name Role Phone Unavailable Primary Care Provider Unavailable Encounter Details Date Type Department Care Team Description 01/13/2010 Hospital Encounter HX NO MAPPING Social History Tobacco Use Types Packs/Day Years Used Date Smoking Tobacco: Never Assessed Sex Assigned at Date Recorded Not on file documented as of this encounter Plan of Treatment Not on filedocumented as of this encounter Visit Diagnoses Not on filedocumented in this encounter
--- OUTSIDE RECORDS SUMMARY | 2021-11-23 13:08 | XMS_ITS | Encounter Summary ---
:1965 Author Organization [facility] Address [address] [place] [address] Care Team Providers Name Role Phone Unavailable Primary Care Provider Unavailable Encounter Details Date Type Department Care Team Description 09/12/2009 Hospital Encounter HX NO MAPPING Social History Tobacco Use Types Packs/Day Years Used Date Smoking Tobacco: Never Assessed Sex Assigned at Date Recorded Not on file documented as of this encounter Plan of Treatment Not on filedocumented as of this encounter Visit Diagnoses Not on filedocumented in this encounter
--- OUTSIDE RECORDS SUMMARY | 2021-11-23 13:09 | XMS_ITS | Encounter Summary ---
:1965 Author Organization [facility] Address [address] [place] [address] Care Team Providers Name Role Phone [facility] Primary Care Provider [phone] Emi Saul PA-C Unavailable Encounter Details Date Type Department Care Team Description 02/21/2019 Travel Social History Tobacco Use Types Packs/Day Years Used Date Smoking Tobacco: Never Smokeless Tobacco: Never Alcohol Use Standard Drinks/Week Comments No 0 (1 standard drink = 0.6 oz pure alcoho l) Sex Assigned at Date Recorded Not on file documented as of this encounter Plan of Treatment Not on filedocumented as of this encounter Visit Diagnoses Not on filedocumented in this encounter Care Teams Intermodal Customer Service Relationship Specialty Start Date [facility] - [facility] [address] Emi Saul PA-C Physician Quality Cloth Tester Physician Quality Cloth Tester - 01/11/19 [address] [facility] KATH [address] [address] documented as of this encounter
--- OUTSIDE RECORDS SUMMARY | 2021-11-23 13:09 | XMS_ITS | Encounter Summary ---
:1965 Author Organization [facility] Address [address] [place] [address] Care Team Providers Name Role Phone [facility] Primary Care Provider [phone] Emi Saul PA-C Unavailable Encounter Details Date Type Department Care Team Description 01/11/2019 Travel Social History Tobacco Use Types Packs/Day [...] on filedocumented in this encounter Care Teams Automotive Power Electronics Engineer Relationship Specialty Start Date End Date [facility] - [facility] [address] Emi Saul PA-C Physician Machine Whitener Physician Machine Whitener - 01/11/19 6363 [facility] KATH [address] [address] documented as of this encounter
--- OUTSIDE RECORDS SUMMARY | 2021-11-23 13:09 | XMS_ITS | Encounter Summary ---
:1965 Author Organization [facility] Address [address] [place] [address]. [place] [address] Care Team Providers Name Role Phone Clinic, [facility] Primary Care Provider Emi Saul PA-C Unavailable Reason for Visit Reason Comments BPH with LUTS UA,PVR Encounter Details Date Type Department Care Team Description 09/22/2021 Office Visit [facility] Emi Saul, Benign prostatic Urology Clinic [place] hyperplasia with [address] urinary hesitancy [address] (Primary Dx) [place] [address] [place] [address] Social History Tobacco Use Types Packs/Day Years Used Date Smoking Tobacco: Never Smokeless Tobacco: Never Alcohol Use Standard Drinks/Week Comments No 0 (1 standard drink = 0.6 oz pure alcoho l) Sex Assigned at Date Recorded Not on file COVID-19 Exposure Response Date Recorded In the last 10 days, have you been in contact with No / Unsu re 09/22/2021 2:12 PM CDT someone who was confirmed or suspected to have Coronavirus/COVID-19? documented as of this encounter Last Filed Vital Signs Vital Sign Reading Time Taken Comments Blood Pressure 128/70 09/22/2021 2:23 PM CDT Pulse - - Temperature - - Respiratory Rate - - Oxygen Saturation - - Inhaled Oxygen Concentration - - Weight 90.7 kg (200 lb) 09/22/2021 2:23 PM CDT Height 185.4 cm (6' 1) 09/22/2021 2:23 PM CDT Body Mass Index 26.39 09/22/2021 2:23 PM CDT documented in this encounter Patient Instructions Patient InstructionsHuEmi gallegos PA-C - 09/22/2021 2:30 PM CDT You have been prescribed Flomax (tamsulosin 0.4mg daily). Flomax is prescribed for men with difficulty urinating due to benign prostatic enlargement. Hopefully, you will see improvement in your urinary symptoms in the next 7-10 days. Common side effects include: Weakness or fatigue Blurred vision Sinus congestion or runny nose Dizziness or lightheadedness Decrease or lack of ejaculation PSA blood draw documented in this encounter Progress Notes Emi Saul PA-C - 09/22/2021 2:30 PM CDT CC: Urinary retention. HPI: It is a pleasure to see . Heladio Davis, a very pleasant 56 year old male seen today in the urology clinic in follow up of urinary retention following left foot surgery (has hx of TBI). This developed acutely requiring Flowers catheter placement on 11/17/17. He was last seen 3 years ago. 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 The patient has no prior history of AUR or similar symptoms. Currently denies fevers, chills, N/V, abdominal/back pain. Noting far more hesitancy and urgency. Stream is ok. Nocturia x1. PSA 02/16/[address] 08/07/21 for abdominal pain. Here with mom, Liliana. Past Medical History: Diagnosis Date ??? Diabetes (H) ??? Seizures (H) ??? TBI (traumatic brain injury) (H) Past Surgical History: Procedure Laterality Date ??? ORTHOPEDIC SURGERY Left 11/15/2017 Current Outpatient Medications Medication Sig Dispense Refill ??? docusate sodium (COLACE) 100 MG tablet Take 100 mg by mouth daily (Patient not taking: Reported on 01/25/2018) 60 tablet 1 ??? GLIPIZIDE PO ??? hydrOXYzine (ATARAX) 10 MG/5ML syrup Take 10 mg by mouth 3 times daily ??? hydrOXYzine (VISTARIL) 25 MG capsule ??? LISINOPRIL PO ??? NORTRIPTYLINE HCL PO ??? OXYCODONE HCL PO ??? tamsulosin (FLOMAX) 0.4 MG capsule Take 1 capsule (0.4 mg) by mouth daily (Patient not taking: Reported on 01/25/2018) 30 capsule 3 Allergies Allergen Reactions ??? Imitrex [Sumatriptan] Anaphylaxis ??? Atorvastatin Other (See Comments) ??? Depakote [Valproic Acid] Liver problem Family History: There is no h/o malignancy. There is no h/o urolithiasis. Social History: The patient does not smoke cigarettes. Denies EtOH and illicit drug use. IMAGING: INDICATION: Abdominal pain. TECHNIQUE: CT abdomen and pelvis acquired with 100 mL Omnipaque 350 IV contrast. Coronal and sagittal reformatswere generated. COMPARISON: None. FINDINGS: Lower chest: Unremarkable. Liver: Unremarkable. Gallbladder and bile ducts: Unremarkable. No stones or inflammation. No biliary dilation. Spleen: Unremarkable. Pancreas: Unremarkable. Adrenal glands: Unremarkable. No nodules. Kidneys and Ureters: Unremarkable. No suspicious masses, stones, or hydronephrosis. Lymph Nodes and Retroperitoneum: Unremarkable. Vasculature: Unremarkable. GI tract: Unremarkable. Normal in caliber. The appendix is not seen. Peritoneum/Abdominal Wall: Unremarkable. No mass or infiltration. No free air or free fluid. Mild tanvir mesentery. Pelvic Viscera: Unremarkable. Small hydrocele. Bladder: Unremarkable. Bones: Unremarkable for age. ?? PHYSICAL EXAM: BP 128/70 Ht 1.854 m (6' 1) Wt 90.7 kg (200 lb) BMI 26.39 kg/m?? GEN: NAD EYES: EOMI EWA: Deferred for PSA draw ASSESSMENT/PLAN: 56 year old male who developed acute urinary retention requiring Flowers catheter placement, resolved;now with BPH w/ LUTS -PSA today -Flomax 0.4mg daily, SE reviewed. -1 mo video review of progress. Consider cysto and poss UDS if not improved. Emi Saul PA-C [facility] 26 minutes spent on the date of the encounter doing chart review, review of test results, interpretation of tests, patient visit and documentation documented in this encounter Nursing Notes Celia Alonzo - 09/22/2021 2:30 PM CDT Chief Complaint Patient presents with ??? BPH with LUTS UA,PVR PVR scan was 20ml today Celia Alonzo documented in this encounter Miscellaneous Notes Addendum Note - Woody Guzman CMA - 09/22/2021 2:30 PM CDT Addended by: WOODY GUZMAN on: 09/22/2021 03:41 PM Modules accepted: Orders Addendum Note - Woody Guzman CMA - 09/22/2021 2:30 PM CDT Addended by: WOODY GUZMAN on: 09/22/2021 03:41 PM Modules accepted: Orders documented in this encounter Plan of Treatment Not on filedocumented as of this encounter Procedures Procedure Name Priority Date/Time Associated Diagnosis Comme nts PSA TUMOR MARKER Routine 09/22/2021 3:41 PM Benign prostatic R esults for this CDT hyperplasia with procedure a re in urinary hesitancy the result s section. URINALYSIS Routine 09/22/2021 2:20 PM Benign prostatic Resul ts for this MACROSCOPIC CDT hyperplasia with procedure a re in urinary hesitancy the result s section. VT MEASURE POST-VOID Routine 09/22/2021 Benign prostatic Res ults for this RESIDUAL hyperplasia with procedure a re in URINE/BLADDER urinary hesitancy the resul ts CAPACITY, US section. NON-IMAGING documented in this encounter Results PSA tumor marker (09/22/2021 3:41 PM CDT) P athologist Signature PSA Tumor 0.10 0.00 - 09/22/2021 [facility] Marker 4.00 ug/L 3:56 PM CDT [place] Specimen Anatomical Collection Method / Collection Time Recei crow Time (Source) Location / Volume Laterality Blood STRUCTURE OF RIGHT Venipuncture / 09/22/2021 3:41 08/1 07/2021 3:41 UPPER LIMB / Unknown PM CDT PM CDT Unknown Emi Saul PA-C LAB - BLOOD ORDERABLES Performing Organization Address City/State/ZIP Code Phon e Number [facility] [place] [address] , [address] [place], [place] [address] (ABNORMAL) UA without Microscopic [[id number]] (09/22/2021 2:20 PM CDT) Patholo gist Method Time Signature Color Urine Yellow Colorless, 09/22/2021 [facility] Straw, Light 2:37 PM CDT [place] Yellow, Yellow Appearance Urine Clear Clear 09/22/2021 [facility] Y 2:37 PM CDT [place] Glucose Urine Negative Negative 09/22/2021 [facility] mg/dL 2:37 PM CDT [place] Bilirubin Urine Negative Negative 09/22/2021 [facility] 2:37 PM CDT [place] Ketones Urine Trace (A) Negative 09/22/2021 [facility] mg/dL 2:37 PM CDT [place] Specific Alliance 1.025 1.003 - 09/22/2021 [facility] Y Urine 1.035 2:37 PM CDT [place] Blood Urine Negative Negative 09/22/2021 [facility] 2:37 PM CDT [place] pH Urine 5.5 5.0 - 7.0 09/22/2021 [facility] 2:37 PM CDT [place] Protein Albumin Negative Negative 09/22/2021 [facility] Urine mg/dL 2:37 PM CDT [place] Urobilinogen 0.2 0.2, 1.0 09/22/2021 [facility] Urine E.U./dL 2:37 PM CDT [place] Nitrite Urine Negative Negative 09/22/2021 [facility] 2:37 PM CDT [place] Leukocyte Negative Negative 09/22/2021 [facility] Esterase Urine 2:37 PM CDT [place] Specimen Anatomical Collection Method Collection Time Receive d Time (Source) Location / / Volume Laterality Urine MID-STREAM URINE Non-blood 09/22/2021 2:20 PM 09/22 2:20 SPECIMEN / Unknown Collection / CDT PM CDT Unknown Emi Saul PA-C LAB - URINE ORDERABLES Performing Organization Address City/State/ZIP Code Phon e Number [facility] [place] [address], [address] [place] [address] MEASURE POST-VOID RESIDUAL URINE/BLADDER CAPACITY, US NON-IMAGING ([id number]) (09/22/2021) P athologist Signature Residual Volume 20 (RV) (External) Emi Saul PA-C PROCEDURES documented in this encounter Visit Diagnoses Diagnosis Benign prostatic hyperplasia with urinar y hesitancy - Primary documented in this encounter Care Teams Neck Band Maker Relationship Specialty Start Date End Date [facility] PCP - General 11/17/[address] [address] Emi Saul PA-C Physician Health It Specialist Physician Health It Specialist - 01/11/19 [address] [place] [address] documented as of this encounter
--- OUTSIDE RECORDS SUMMARY | 2021-11-23 13:09 | XMS_ITS | Encounter Summary ---
:1965 Author Organization [facility] Address [address] [place] [address]. [place] [address] Care Team Providers Name Role Phone Clinic, [facility] Primary Care Provider [phone] Reason for Visit Reason Comments PSA RESULTS in epic Encounter Details Date Type Department Care Team Description 01/25/[address] [facility] Emi Saul, Benign prostatic Urology Clinic [place] hyperplasia with weak [place] [address] urinary stream [address] [facility] [address] (Primary Dx) [address] [place] [address] [place], [place] [phone] (Work) [phone] Social History Tobacco Use Types Packs/Day Years Used Date Smoking Tobacco: Never Smokeless Tobacco: Never Alcohol Use Standard Drinks/Week Comments No 0 (1 standard drink = 0.6 oz pure alcoho l) Sex Assigned at Date Recorded Not on file documented as of this encounter Last Filed Vital Signs Vital Sign Reading Time Taken Comments Blood Pressure - - Pulse 80 01/25/2018 2:48 PM FARM OWNER OPERATOR Temperature - - Respiratory Rate - - Oxygen Saturation 93% 01/25/2018 2:48 PM FARM OWNER OPERATOR Inhaled Oxygen Concentration - - Weight 86.2 kg (190 lb) 01/25/2018 2:48 PM FARM OWNER OPERATOR Height 185.4 cm (6' 1) 01/25/2018 2:48 PM FARM OWNER OPERATOR Body Mass Index 25.07 01/25/2018 2:48 PM FARM OWNER OPERATOR documented in this encounter Patient Instructions Patient InstructionsEmi Saul PA-C - 01/25/2018 3:30 PM CST PSA blood test is normal! Should be done once a year with a rectal exam of the prostate. Can try stopping the Flomax (or tamsulosin) and see if your urinary symptoms change or worsen. You can always restart it. Things to call me about: weak stream, dribbling, frequent trips to the toilet, can't pee, blood in the urine. [phone] Happy to see you in follow up in one year or you can see your primary care provider. OWNER OPERATOR documented in this encounter Progress Notes Emi Saul PA-C - 01/25/2018 3:30 PM CST CC: Urinary retention. HPI: It is a pleasure to see . Heladio Davis, a 52 year old male seen today in the urologyclinic in follow up of urinary retention following left foot surgery (has hx of TBI). This developedacutely requiring Flowers catheter placement on 11/17/17. TOV passed 2 months ago. The patient has no prior history of AUR or similar symptoms. At baseline, patient does note some hesitancy, frequency. Currently denies fevers, chills, N/V, abdominal/back pain. No PSA on record, here for review of that; which is normal. Flomax seems to be helping his hesitancyand frequency. No SE noted. Recent normal EWA. Here with ex-. Past Medical History: Diagnosis Date ??? Diabetes (H) ??? Seizures (H) ??? TBI (traumatic brain injury) (H) Past Surgical History: Procedure Laterality Date ??? ORTHOPEDIC SURGERY Left 11/15/2017 Current Outpatient Medications Medication Sig Dispense Refill ??? GLIPIZIDE PO ??? LISINOPRIL PO ??? NORTRIPTYLINE HCL PO ??? docusate sodium (COLACE) 100 MG tablet Take 100 mg by mouth daily (Patient not taking: Reported on 01/25/2018) 60 tablet 1 ??? hydrOXYzine (ATARAX) 10 MG/5ML syrup Take 10 mg by mouth 3 times daily ??? hydrOXYzine (VISTARIL) 25 MG capsule ??? OXYCODONE HCL PO ??? tamsulosin (FLOMAX) 0.4 MG capsule Take 1 capsule (0.4 mg) by mouth daily (Patient not taking: Reported on 01/25/2018) 30 capsule 3 Allergies Allergen Reactions ??? Imitrex [Sumatriptan] Anaphylaxis ??? Depakote [Valproic Acid] Liver problem Family History: There is no h/o malignancy. There is no h/o urolithiasis. Social History: The patient does not smoke cigarettes. Denies EtOH and illicit drug use. ROS: A comprehensive 14 point ROS was obtained and was otherwise negative except for that outlined above in the HPI. PHYSICAL EXAM: Pulse 80 Ht 1.854 m (6' 1) Wt 86.2 kg (190 lb) SpO2 93% BMI 25.07 kg/m?? GEN: NAD EYES: EOMI MOUTH: MMM NECK: Supple RESP: Unlabored breathing CARDIAC: No LE edema SKIN: Warm ABD: soft NEURO: AAO REVIEW OF OUTSIDE RECORDS: 5 minutes spent reviewing previous/outside records. ASSESSMENT/PLAN: 52 year old male who developed acute urinary retention requiring Flowers catheter placement, resolved -PSA and EWA annually -Not sure he wants to continue with Flomax. Trial off of med and see if there is regression of urinary symptoms. Can always restart. Emi Saul PA-C [facility] 20 min spent with the patient, >50% of this time was spent in a oizk-lu-rjza manner and on coordination of care of urinary retention. OWNER OPERATOR documented in this encounter Nursing Notes Ese Banks CMA - 01/25/2018 3:30 PM CST Pt here for PSA results. Pt denies any voiding trouble. Adán Martinez CMA OWNER OPERATOR documented in this encounter Plan of Treatment Not on filedocumented as of this encounter Visit Diagnoses Diagnosis Benign prostatic hyperplasia with weak u rinary stream - Primary documented in this encounter Care Teams Hydraulic Operator Relationship Specialty Start Date End Date [facility] PCP - General 11/17/[address] [place] [address] documented as of this encounter
--- OUTSIDE RECORDS SUMMARY | 2021-11-23 13:09 | XMS_ITS | Encounter Summary ---
:1965 Author Organization [facility] Address [address] [place] [address]. [place] [address] Care Team Providers Name Role Phone Clinic, [facility] Primary Care Provider [phone] Reason for Visit Reason Comments Clinic Care Coordination - Follow-up Pt here for TOV Encounter Details Date Type Department Care Team Description 11/21/2017 Office Visit [facility] Emi Saul Urinar y retention Urology Clinic [place] DIAZ (Primary Dx) [address] [facility] [address] [place] [address] [place] [address] [phone] Social History Tobacco Use Types Packs/Day Years Used Date Smoking Tobacco: Never Smokeless Tobacco: Never Alcohol Use Standard Drinks/Week Comments No 0 (1 standard drink = 0.6 oz pure alcoho l) Sex Assigned at Date Recorded Not on file documented as of this encounter Last Filed Vital Signs Vital Sign Reading Time Taken Comments Blood Pressure 132/88 11/21/2017 2:45 PM CDT Pulse 74 11/21/2017 2:45 PM CDT Temperature - - Respiratory Rate - - Oxygen Saturation 99% 11/21/2017 2:45 PM CDT Inhaled Oxygen Concentration - - Weight 86.2 kg (190 lb) 11/21/2017 2:45 PM CDT Height 185.4 cm (6' 1) 11/21/2017 2:45 PM CDT Body Mass Index 25.07 11/21/2017 2:45 PM CDT documented in this encounter Patient Instructions Patient InstructionsEmi Saul PA-C - 11/21/2017 2:30 PM CDT Start tamsulosin tonight. One capsule daily. See you in 1 month. documented in this encounter Progress Notes Emi Saul PA-C - 11/21/2017 2:30 PM CDT CC: Urinary retention. HPI: It is a pleasure to see Mr. Heladio Davis, a 52 year old male seen today in the urologyclinic in consultation from Dr. Doll of ER for evaluation of urinary retention following left foot surgery. This developed acutely requiring Flowers catheter placement on 11/17/17. This has been draining well with pale, yellow urine. The patient is tolerating the catheter without issue. No clots of hematuria noted. The patient has no prior history of AUR or similar symptoms. At baseline, patient does note some hesitancy, frequency. Currently denies fevers, chills, N/V, abdominal/back pain. No PSA on record. Past Medical History: Diagnosis Date ??? Diabetes (H) ??? Seizures (H) ??? TBI (traumatic brain injury) (H) Past Surgical History: Procedure Laterality Date ??? ORTHOPEDIC SURGERY Left 11/15/2017 Current Outpatient Prescriptions Medication Sig Dispense Refill ??? docusate sodium (COLACE) 100 MG tablet Take 100 mg by mouth daily 60 tablet 1 ??? GLIPIZIDE PO ??? hydrOXYzine (ATARAX) 10 MG/5ML syrup Take 10 mg by mouth 3 times daily ??? LISINOPRIL PO ??? NORTRIPTYLINE HCL PO ??? OXYCODONE HCL PO Allergies Allergen Reactions ??? Imitrex [Sumatriptan] Anaphylaxis Family History: There is no h/o malignancy. There is no h/o urolithiasis. Social History: The patient does not smoke cigarettes. Denies EtOH and illicit drug use. ROS: A comprehensive 14 point ROS was obtained and was otherwise negative except for that outlined above in the HPI. PHYSICAL EXAM: BP 132/88 (BP Location: Left arm, Patient Position: Sitting, Cuff Size: Adult Regular) Pulse 74 Ht 1.854 m (6' 1) Wt 86.2 kg (190 lb) SpO2 99% BMI 25.07 kg/m2 GENERAL: Well groomed/well developed/well nourished male in NAD. HEENT: EOMI, AT, NC. SKIN: Warm to touch, dry. No visible rashes or lesions. RESP: No increased respiratory effort. LYMPH: No LE edema. ABD: Soft, NT, ND. No CVAT. MS: Full ROM in extremities. : Flowers catheter indwelling draining yellow urine. NEURO: Alert and oriented x 3. PSYCH: Normal mood and affect, pleasant and agreeable during interview and exam. PROCEDURE: A trial of void was performed by nursing staff today in the clinic. The patient's Flowers leg bag was disconnected and 350 cc of sterile water were infused into the patient's bladder via gravity drainage, which the patient tolerated fine. The Flowers balloon was decompressed and the catheter was then removed. After a few minutes Mr. Davis voided 200 cc. The patient did pass today's trial ofvoid and the catheter did not need to be replaced. REVIEW OF OUTSIDE RECORDS: 5 minutes spent reviewing previous/outside records. ASSESSMENT/PLAN: 52 year old male who developed acute urinary retention requiring Flowers catheter placement. Has not been taking tamsulosin daily. The patient successfully passed a trial of void today and should start taking Flomax daily. The patient should return for a follow up office visit in 1 month for PVR and an AUA symptom score. Eventually needs EWA and PSA. Should the patient continue to have voiding difficulty, the next appropriate studies would be cystoscopy and/or videourodynamics to better assess bladder function. I have enjoyed participating in the medical care of this patient. Please do not hesitate to contact me with any questions or concerns. Emi Saul PA-C [facility] Urology 30 min spent with the patient, >50% of this time was spent in a [id number] manner and on coordination of care of urinary retention. documented in this encounter Nursing Notes Arleth Ro CMA - 11/21/2017 2:30 PM CDT Chief Complaint Patient presents with ??? Clinic Care Coordination - Follow-up Pt here for TOV Pt presented today for a trial of void. Approximately 350 mL of normal saline instilled into bladder via catheter. Patient stated he had urge to urinate and catheter was removed without difficulty. Patient was given a graduated cylinder to measure urine output. Patient voided approximately 150 mL of clear urine. Cipro 500 given per protocol: No, per Emi Patient did tolerate procedure well. Teaching done with patient verbally as where to call or go if pain, fever, or unable to urinate postcatheter removal. Arleth Ro CMA documented in this encounter Plan of Treatment Not on filedocumented as of this encounter Visit Diagnoses Diagnosis Urinary retention - Primary Retention of urine, unspecified documented in this encounter Care Teams Charge Entry Specialist Relationship Specialty Start Date End Date [facility], [facility] PCP - General 11/17/[address] [place] [address] documented as of this encounter
--- OUTSIDE RECORDS SUMMARY | 2021-11-23 13:09 | XMS_ITS | Encounter Summary ---
:1965 Author Organization [facility] Address [address] [place] [address]. [place] [address] Care Team Providers Name Role Phone Clinic, [facility] Primary Care Provider Emi Saul PA-C Unavailable Encounter Details Date Type Department Care Team Description 02/20/2019 Orders Only [facility] Emi Saul, BPH (b enign prostatic Urology Clinic [place] DIAZ hyperplasia) (Primary [address] Dx) [address] [place] [address] [place] [address] [phone] Social History Tobacco Use Types Packs/Day Years Used Date Smoking Tobacco: Never Smokeless Tobacco: Never Alcohol Use Standard Drinks/Week Comments No 0 (1 standard drink = 0.6 oz pure alcoho l) Sex Assigned at Date Recorded Not on file documented as of this encounter Plan of Treatment Not on filedocumented as of this encounter Results (ABNORMAL) UA without Microscopic [[id number]] (02/21/2019 2:10 PM QUANTITATIVE ANALYST MARKETING) [facility] Method Time Signature Color Urine Yellow 02/21/2019 [place] 2:14 PM QUANTITATIVE ANALYST MARKETING [facility] Appearance Urine Clear 02/21/2019 [place] 2:14 PM QUANTITATIVE ANALYST MARKETING [facility] Glucose Urine 250 (A) NEG^Negat 02/21/2019 [place] juan mg/dL 2:14 PM QUANTITATIVE ANALYST MARKETING [facility] Bilirubin Urine Negative NEG^Negat 02/21/2019 [place] juan 2:14 PM QUANTITATIVE ANALYST MARKETING [facility] Ketones Urine Negative NEG^Negat 02/21/2019 [place] juan mg/dL 2:14 PM QUANTITATIVE ANALYST MARKETING [facility] Specific Skipwith 1.020 1.003 - 02/21/2019 [place] Urine 1.035 2:14 PM QUANTITATIVE ANALYST MARKETING [facility] Blood Urine Negative NEG^Negat 02/21/2019 [place] juan 2:14 PM QUANTITATIVE ANALYST MARKETING [facility] pH Urine 6.0 5.0 - 7.0 02/21/2019 [place] pH 2:14 PM QUANTITATIVE ANALYST MARKETING [facility] Protein Albumin Negative NEG^Negat 02/21/2019 [place] Urine juan mg/dL 2:14 PM QUANTITATIVE ANALYST MARKETING [facility] Urobilinogen 0.2 0.2 - 1.0 02/21/2019 [place] Urine EU/dL 2:14 PM QUANTITATIVE ANALYST MARKETING [facility] Nitrite Urine Negative NEG^Negat 02/21/2019 [place] juan 2:14 PM QUANTITATIVE ANALYST MARKETING [facility] Leukocyte Negative NEG^Negat 02/21/2019 [place] Esterase Urine juan 2:14 PM QUANTITATIVE ANALYST MARKETING [facility] Source Midstream 02/21/2019 [place] Urine 2:11 PM QUANTITATIVE ANALYST MARKETING [facility] Specimen (Source) Anatomical Collection Method Collection Time Re ceived Time Location / / Volume Laterality Examination of 02/21/2019 2:10 02/21/2019 2:11 midstream urine PM QUANTITATIVE ANALYST MARKETING PM QUANTITATIVE ANALYST MARKETING specimen (procedure) Emi Saul PA-C LAB - URINE ORDERABLES Performing Organization Address City/State/ZIP Code Phon e Number [facility] [address] [place] [address] [facility] [address] MEASURE POST-VOID RESIDUAL URINE/BLADDER CAPACITY, US NON-IMAGING ([id number]) (02/21/2019) P athologist Signature Residual Volume 27 (RV) (External) Emi Saul PA-C PROCEDURES documented in this encounter Visit Diagnoses Diagnosis BPH (benign prostatic hyperplasia) - Samia abel Unspecified hyperplasia of prostate with out urinary obstruction and other lower urinary tract symptoms (LUTS) documented in this encounter Care Teams Manager Work Relationship Specialty Start Date End Date Clinic[facility] PCP - General 11/17/[address] [address] Emi Saul PA-C Physician Hides Soaker Physician Hides Soaker - 01/11/19 [address] [address] documented as of this encounter
--- OUTSIDE RECORDS SUMMARY | 2021-11-23 13:09 | XMS_ITS | Encounter Summary ---
:1965 Author Organization [facility] Address [address] [place] [address]. [place] [address] Care Team Providers Name Role Phone Clinic, [facility] Primary Care Provider [phone] Emi Saul PA-C Unavailable Reason for Visit Reason Comments Follow Up Urinary Retention Encounter Details Date Type Department Care Team Description 02/21/2019 Office Visit [facility] Emi Saul, Benign prostatic Urology Clinic JOE hyperplasia without [address] lower urinary tract [address] [facility] [address] symptoms [address] [place] [address] [place], [place] [phone] [address] (Work) [phone] Social History Tobacco Use Types Packs/Day Years Used Date Smoking Tobacco: Never Smokeless Tobacco: Never Alcohol Use Standard Drinks/Week Comments No 0 (1 standard drink = 0.6 oz pure alcoho l) Sex Assigned at Date Recorded Not on file documented as of this encounter Last Filed Vital Signs Vital Sign Reading Time Taken Comments Blood Pressure 120/70 02/21/2019 2:16 PM BUSINESS REPORTER Pulse 80 02/21/2019 2:16 PM BUSINESS REPORTER Temperature - - Respiratory Rate - - Oxygen Saturation - - Inhaled Oxygen Concentration - - Weight 90.7 kg (200 lb) 02/21/2019 2:16 PM BUSINESS REPORTER Height 185.4 cm (6' 1) 02/21/2019 2:16 PM BUSINESS REPORTER Body Mass Index 26.39 02/21/2019 2:16 PM BUSINESS REPORTER documented in this encounter Progress Notes Emi Saul PA-C - 02/21/2019 2:00 PM CST CC: Urinary retention. HPI: It is a pleasure to see Mr. Heladio Davis, a 53 year old male seen today in the urologyclinic in follow up of urinary retention following left foot surgery (has hx of TBI). This developedacutely requiring Flowers catheter placement on 11/17/17. The patient has no prior history of AUR or similar symptoms. Currently denies fevers, chills, N/V, abdominal/back pain. Feels as if he is voiding fine without Flomax. PSA 02/16/19 0.29. Past Medical History: Diagnosis Date ??? Diabetes [...] above in the HPI. PHYSICAL EXAM: BP 120/70 Pulse 80 Ht 1.854 m (6' 1) Wt 90.7 kg (200 lb) BMI 26.39 kg/m?? GEN: NAD EYES: EOMI MOUTH: MMM NECK: Supple RESP: Unlabored breathing CARDIAC: No LE edema SKIN: Warm ABD: soft NEURO: AAO ASSESSMENT/PLAN: 53 year old male who developed acute urinary retention requiring Flowers catheter placement, resolved -Return to PCP -RTO PRN Emi Saul PA-C [facility] 20 min spent with the patient, >50% of this time was spent in a [id number] manner and on coordination of care of urinary retention. NESS REPORTER documented in this encounter Nursing Notes Holli Mcgee LPN - 02/21/2019 2:00 PM CST Here for follow up urinary retention. He feels like he is voiding well and he is off the Flomax. PVRby bladder scan is 27 ml.Holli Mcgee LPN NESS REPORTER documented in this encounter Plan of Treatment Not on filedocumented as of this encounter Procedures Procedure Name Priority Date/Time Associated Diagnosis Comme nts URINE MACROSCOPIC Routine 02/21/2019 2:10 PM Benign prostatic Results for this ONLY BUSINESS REPORTER hyperplasia without procedur e are in lower urinary tract the resu lts symptoms section. HC MEASURE POST-VOID Routine 02/21/2019 Benign prostatic Res ults for this RESIDUAL hyperplasia without procedur e are in URINE/BLADDER lower urinary tract the res ults CAPACITY, US symptoms section. NON-IMAGING documented in this encounter Results (ABNORMAL) UA without Microscopic [[id number]] (02/21/2019 2:10 PM BUSINESS REPORTER) [facility] Method Time Signature Color Urine Yellow 02/21/2019 [place] 2:14 PM BUSINESS REPORTER [facility] Appearance Urine Clear 02/21/2019 [place] 2:14 PM BUSINESS REPORTER [facility] Glucose Urine 250 (A) NEG^Negat 02/21/2019 [place] juan mg/dL 2:14 PM BUSINESS REPORTER [facility] Bilirubin Urine Negative NEG^Negat 02/21/2019 [place] juan 2:14 PM BUSINESS REPORTER [facility] Ketones Urine Negative NEG^Negat 02/21/2019 [place] juan mg/dL 2:14 PM BUSINESS REPORTER [facility] Specific Barlow 1.020 1.003 - 02/21/2019 [place] Urine 1.035 2:14 PM BUSINESS REPORTER [facility] Blood Urine Negative NEG^Negat 02/21/2019 [place] juan 2:14 PM BUSINESS REPORTER [facility] pH Urine 6.0 5.0 - 7.0 02/21/2019 [place] pH 2:14 PM BUSINESS REPORTER [facility] Protein Albumin Negative NEG^Negat 02/21/2019 [place] Urine juan mg/dL 2:14 PM BUSINESS REPORTER [facility] Urobilinogen 0.2 0.2 - 1.0 02/21/2019 [place] Urine EU/dL 2:14 PM BUSINESS REPORTER [facility] Nitrite Urine Negative NEG^Negat 02/21/2019 [place] juan 2:14 PM BUSINESS REPORTER [facility] Leukocyte Negative NEG^Negat 02/21/2019 [place] Esterase Urine juan 2:14 PM BUSINESS REPORTER [facility] Source Midstream 02/21/2019 [place] Urine 2:11 PM BUSINESS REPORTER [facility] Specimen (Source) Anatomical Collection Method Collection Time Re ceived Time Location / / Volume Laterality Examination of 02/21/2019 2:10 02/21/2019 2:11 midstream urine PM BUSINESS REPORTER PM BUSINESS REPORTER specimen (procedure) Emi Saul PA-C LAB - URINE ORDERABLES Performing Organization Address City/State/ZIP Code Phon e Number [facility] [address] [place] [address] [facility] [address] MEASURE POST-VOID RESIDUAL URINE/BLADDER CAPACITY, US NON-IMAGING ([id number]) (02/21/2019) P athologist Signature Residual Volume 27 (RV) (External) Emi Saul PA-C PROCEDURES documented in this encounter Visit Diagnoses Diagnosis Benign prostatic hyperplasia without low er urinary tract symptoms documented in this encounter Care Teams Pig Lead Melter Helper Relationship Specialty Start Date End Date Clinic, [facility] PCP - General 11/17/17 [place] [address] [place] [address] Emi Saul PA-C Physician Rn Stars Physician Rn Stars - 01/11/19 [address] [place] [address] [address] documented as of this encounter
--- OUTSIDE RECORDS SUMMARY | 2021-11-23 13:09 | XMS_ITS | Encounter Summary ---
:1965 Author Organization [facility] Address [address] [place] [address] Care Team Providers Name Role Phone [facility], [facility] Primary Care Provider [phone] Emi Saul PA-C Unavailable Encounter Details Date Type Department Care Team Description 08/03/2021 Travel Social History Tobacco Use Types Packs/Day Years Used Date Smoking Tobacco: Never Smokeless Tobacco: Never Alcohol Use Standard Drinks/Week Comments No 0 (1 standard drink = 0.6 oz pure alcoho l) Sex Assigned at Date Recorded Not on file COVID-19 Exposure Response Date Recorded In the last 10 days, have you been in contact Unable to asse ss 08/03/2021 2:47 PM CDT with someone who was confirmed or suspected to have Coronavirus/COVID-19? documented as of this encounter Plan of Treatment Not on filedocumented as of this encounter Visit Diagnoses Not on filedocumented in this encounter Care Teams Resource Specialist Teacher Relationship Specialty Start Date End Date [facility] PCP - General 11/17/[address] [address] Emi Saul PA-C Physician Bilingual Loan Processor Physician Bilingual Loan Processor - 01/11/19 [address] [facility] [place] [address] [address] documented as of this encounter
--- OUTSIDE RECORDS SUMMARY | 2021-11-23 13:09 | XMS_ITS | Clinical Summary ---
:1965 Author Organization [facility] [place] [address] Care Team Providers Name Role Phone Jignesh Sousa MD Primary Care Provider Allergies Active Allergy Reactions Severity Noted Date Comments Amlodipine Headache 12/22/2020 Atorvastatin Headache 06/21/2018 Botulinum Toxin Headache 08/07/2021 Severe head pain - happened two di fferent occasions Rosuvastatin Other - Describe In 11/07/2017 Memory antonio an. Comment Field Sumatriptan Anaphylaxis 08/14/2012 Metformin Edema 11/19/2016 Swelling of bot h lips. Rn Neonatal Icu is Ascen. Simvastatin Muscle Weakness 07/31/2012 Valproic Acid Hepatic Dysfunction 12/05/2017 Liver p jolene Medications Medication Sig Dispensed Refills Start End Status Date Date MULTIVITAMIN TAB take 1 tablet 0 Active by oral route 007 once daily with food blood-glucose meter Dispense 1 Device 0 Active (ACCU-CHEK ADVANTAGE glucose meter, 013 DIABETES)Indications: test strips and Newly diagnosed diabetes lancets covered (HC) by the patient insurance. Test one times per day. cholecalciferol (Vitamin 4000 units by 90 Capsule 3 Active D-3) 2,000 unit capsule mouth daily 022 ascorbic acid, vitamin Taking 4000 mg 0 Active C, (Vitamin C) 1,000 mg daily per 022 tablet patient/mother tzhesgs-vgnegzdbvovlv-cq Take 1 Tablet 0 Active ffeine (Migraine Relief) by mouth every 022 250-250-65 mg 6 hours if needed for Headache. Max acetaminophen dose: 4000mg in 24 hrs. carboxymethylcellulose 0 Active 0.5% (Refresh Tears) 0.5 022 % drop ophthalmic drops aspirin 325 mg tablet Take 1 Tablet 0 Active by mouth once 022 daily. HYDROcodone-acetaminophe TAKE 1-2 0 Active n (NORCO) 5-325 mg per TABLETS BY 022 tablet MOUTH EVERY 4-6 HOURS NEEDED vit Take 1 Capsule 0 Activ e C,E-Lx-pevgb-lutein-zeax by mouth in the 022 an (PreserVision morning and 1 AREDS-2) capsule Capsule in the evening. nortriptyline (PAMELOR) 1 capusle at 90 Capsule 11 Active 10 mg bedtime for 1 022 capsuleIndications: month, then 2 Insomnia, idiopathic capsules at bedtime for 1 month then 3 capsules at bedtime. glipiZIDE Take 1 Tablet 90 Tablet 4 Active extended-release (5 mg) by mouth 022 (GLUCOTROL XL) 5 mg once daily Extended-Release before a meal. tabletIndications: Controlled type 2 diabetes mellitus without complication, without long-term current use of insulin (HC) baclofen (LIORESAL) 10 Take 0.5 50 Tablet 1 Active mg tabletIndications: Tablets (5 mg) 022 Hypertriglyceridemia by mouth at bedtime. atenoloL (TENORMIN) 50 Take 1 Tablet 90 Tablet 2 Active mg tabletIndications: (50 mg) by 022 Essential hypertension mouth once daily. blood sugar diagnostic As directed two 200 Each 3 Active (True Metrix Glucose times daily. 022 Test Strip) Dispense item stripIndications: covered by pt Controlled type 2 ins. E11.9 diabetes mellitus NIDDM type II - without complication, Test 1 without long-term time/dayTEST current use of insulin TWICE DAILY (HC) blood-glucose Dispense meter, 1 Each 0 Active meterIndications: Type 2 test strips, 022 diabetes mellitus with lancets covered stage 3a chronic kidney by pt ins. disease, without E11.9 NIDDM long-term current use of type II - Test insulin (HC) 1 time/day blood sugar diagnostic As directed 2 200 Each 3 02/25/2 (True Metrix Glucose times daily. 022 2021 (Reorder Test Strip) Dispense item (E-c ancel not stripIndications: covered by pt sent)) Controlled type 2 ins. 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 Diabetes mellitus type 2, uncontrolled, with complicat ions 05/28/2021 Ischemic embolic stroke 04/27/2021 Overview: This was diagnosed on 04/2021. Main persistent symptoms are vertigo and right hand numbness. Nonintractable epilepsy without status epilepticus Family History of a Drug allergy (Lisinopril) 10/14/19 Overview: His father was intubated and air lifted after taking Lisinopril 2.5 mg daily for 4 days. Essential hypertension 11/07/2017 Overview: His father had a bad allergic reaction o n lisinopril and had to be flown to another hospital on a helicopter. For this reason Heladio and his mother don't want him to take lisinopril. He tolerated Amlodipine but has trouble remembering to take it. More recently he thinks his headaches go t worse on Amlodipine. His home blood pressure cuff gave the ex act same reading as our large manual cuff today 11/04/2021. Headache 06/27/2015 Traumatic brain injury with loss of consciousness 06/08 Arthropathy of cervical facet joint 04/15/2014 Mild cervical DDD. 04/15/2014 Mixed hyperlipidemia 04/05/2011 Overview: Last Lipids: Chol: 248 12/04/2012 T 12/04/2012 HDL: 54 12/04/2012 LDL: 179 12/04/2012 LDL DIRECT: 154 04/05/2011 These readings were on no medication. [facility] Neurologist told him not to take a statin drug due to his memory problems in 2016. Unspecified disorder of eye movements 10/21/2006 Resolved Problems Problem Noted Date Resolved Date Counseling for marital and partner problems, unspecified 10/18/2012 Encounters Date Type Specialty Care Team Description 11/23/2021 Telephone Jignesh Sousa MD MESS AGE (Hospital) 11/19/2021 Telephone Jignesh Sousa MD DME Supply (jayne contour meter) 11/18/2021 Refill Jignesh Sousa MD Refi ll Request (blood sugar diagnostic (Renan e Metrix Glucose Test St rip) strip) 11/05/2021 Telephone Jignesh Sousa MD Ques tions (speech therapy referral) 11/04/2021 Office Visit Jignesh Sousa MD Hosp ital F/U ([facility] ER follow up, 10/27/21, di zziness, headache and tu nnel vision) 11/04/2021 Travel 11/02/2021 Telephone Jignesh Sousa MD Erro r-please disregard 10/30/2021 Telephone Jignesh Sousa MD Refe rral (Stroke specialist) 10/28/2021 Telephone Nunu Pierre MD 10/27/2021 Emergency [place], Margaret Acute arnulfo ntractable headache, unspecified headache type (Primary Dx); MD Bryan Tunnel vision, bilateral Thiago, Silvino Leija MD 10/27/2021 Travel 10/27/2021 Nurse Triage Jignesh Sousa MD Head ache 09/29/2021 Office Visit Wilmar Reyes Consu lt MD 09/29/2021 Travel 08/31/2021 Office Visit Jignesh Sousa MD Medi cation Management; Sleep Problem (used t o take nortriptiline, wondering if he can go back on ); Referral (cardi ology, diastolic numbe r has been high); Headache (have been worse, taking 1 /2 hydrocodone at night ) 08/31/2021 Travel 08/27/2021 Orders Only Lab, [facility] 08/27/2021 Travel from Last 3 Months Immunizations Name Administration Dates Next Due Hepatitis B (Adult) 08/05/2014, 04/10/2014, 08/01/2013 Influenza, IIV3 (Age >=3 years) 12/04/2012, 11/26/2002 Influenza, IIV4 11/11/2014 Measles 02/17/1977 Pneumococcal Poly,23-Valent (Pneumovax) 02/06/2020 Td (Age >=7 Years) 07/19/2016, 02/21/1999 Tdap 04/15/2008 Zoster (Shingrix-RZV, recombinant) 12/22/2020, 02/06/2020 Family History Medical History Relation Name Comments Diabetes Father Heladio Diet Controlled Hyperlipidemia Father Heladio Diet Controlled Hyperlipidemia Mother Liliana Thyroid Disease Mother Liliana Thyroid Disease Sister 1 Keesha Patience's Relation Name Status Comments Brother [place] Alive Father Heladio Alive Mother Liliana Alive Sister 1 Keesha Alive Sister 2 Marisol Flores Alive Social History Tobacco Use Types Packs/Day Years Used Date Never Smoker Smokeless Tobacco: Never Used Tobacco Cessation: Counseling Given: Yes Alcohol Use Standard Drinks/Week Comments Not Currently 0 (1 standard drink = 0.6 oz pure alcoho l) 2 beers a week Alcohol Habits Answer Date Recorded How often do you have a drink containing alcohol? 2-3 times a week 02/06/2020 How many drinks containing alcohol do you have on a 1 or 2 02/06/2020 typical day when you are drinking? How often do you have six or more drinks on one Never 02/06/2020 occasion? Comment: 2 beers a week 07/16/2016 Sex Assigned at Date Recorded Not on file COVID-19 Exposure Response Date Recorded In the last 10 days, have you been in contact with No / Unsu re 11/04/2021 9:41 AM CDT someone who was confirmed or suspected to have Coronavirus/COVID-19? Obstetrics History Last Filed Vital Signs Vital Sign Reading Time Taken Comments Blood Pressure 112/71 11/04/2021 10:00 AM CDT Pulse 64 11/04/2021 10:00 AM CDT Temperature 36.5 ??C (97.7 ??F) 10/27/2021 2:31 PM CDT Respiratory Rate 16 10/27/2021 6:20 PM CDT Oxygen Saturation 95% 11/04/2021 10:00 AM CDT Inhaled Oxygen Concentration - - Weight 92.9 kg (204 lb 11.2 oz) 11/04/2021 10:00 AM CDT Height 185.4 cm (6' 1) 11/04/2021 10:00 AM CDT Body Mass Index 27.01 11/04/2021 10:00 AM CDT Plan of Treatment Upcoming Encounters Date Type Specialty Care Team Description 11/25/2021 Orders Only Lab, [facility] 11/30/2021 Office Visit Jignesh Sousa MD [address] [facility] [address] [place], [place] [address] (Wo rk) Health Maintenance Due Date Last Done Comments COVID-19 vaccine series (#1) 1965 Fecal testing non-DNA 07/14/2017 07/14/2016 (FIT,FOBT,iFOBT) for age 45-75 Pneumococcal series for age 19-64 02/05/2021 02/06/2020 (2 - PCV) Influenza for age 50-64 10/08/2021 11/11/2014, 12/04/2012, 11/26/2002 Depression screening for age 12+ 07/16/2022 07/16/2021, , 02/06/2020, Additional history exists BMI (ht and wt on same day) for 11/04/2022 11/04/2021, 10/2021, age 18+ 04/27/2021, Additional history exists Tetanus booster 07/19/2026 07/19/2016, 04/15/2008, 02/21/1999 Lipids for age 45-75 08/27/2026 08/27/2021, 05/25/2021, 12/19/2020, Additional history exists Tdap Completed 04/15/2008 Hepatitis B series for Diabetes Completed 08/05/2014, 0 05/2014, 08/01/2013 Hepatitis C screening for age Completed 12/19/2020 18-79 Zoster (shingles) series for age Completed 12/22/2020, 50+ Procedures Procedure Name Priority Date/Time Associated Diagnosis Comme nts MR HEAD BRAIN STAT 10/27/2021 6:09 PM Results for this STROKE WO MR ANGIO CDT procedure are in HEAD WO NECK WWO the results section. TROPONIN I QUAL POC STAT 10/27/2021 3:22 PM Re sults for this CDT procedure are i n the results section. BASIC METABOLIC STAT 10/27/2021 3:16 PM Result s for this PANEL CDT procedure are i n the results section. CBC W PLT NO DIFF STAT 10/27/2021 3:16 PM Resu lts for this CDT procedure are i n the results section. URINE ALBUMIN TO Routine 08/27/2021 8:38 AM Type 2 diabetes Re sults for this CREATININE RATIO, CDT mellitus with stage 3a procedure are in RANDOM chronic kidney the results disease, without section. long-term current use of insulin (HC) HEMOGLOBIN A1C Routine 08/27/2021 8:23 AM Type 2 diabetes Resu lts for this CDT mellitus without procedure a re in complication, without the re sults long-term current use sectio n. of insulin (HC) LIPID PANEL W Routine 08/27/2021 8:23 AM Mixed hyperlipidemia Results for this REFLEX MEASURED LDL CDT procedur e are in the results section. BASIC METABOLIC Routine 08/27/2021 8:23 AM Essential hypertens ion Results for this PANEL CDT procedure are i n the results section. from Last 3 Months Results MR MRA Head and Neck Stroke Protocol (10/27/2021 6:09 PM CDT) Anatomical Region Laterality Modality NECK, CAROTID, HEAD Magnetic Resonance Specimen (Source) Anatomical Collection Method Collection Time Re ceived Time Location / / Volume Laterality 10/27/2021 6:34 PM CDT Addenda Addendum by Neno Tian MD on 10/27/2021 6:36 PM CDT For Patients: ??As a result of the Century Cures Act, medical imaging exams and procedure reports are released immediately into your electronic medical record. ??You may view this repo rt before your referring provider. ?? If you have questions, [facility]. Indication: Vision change, headaches. Technique: MRI Head: performed without IV contrast. MRA Head: performed without IV contrast. MRA Neck: performed before and after IV gadolinium. Gadolinium-based contrast agent: 10 ml G adavist Comparison: CTA 05/09/2021, MRI 04/25/21 Findings: MRI Head: Chronic infarcts are present in the left superior frontal gyrus, right caudate nucleus and superior aspect of t he right putamen, right frontal lobe subcortical white matter and perive ntricular matter, left thalamus, and left anterior temporal lobe. New abn ormal FLAIR signal and mild edema in the left medullary olive suggestive o f hypertrophic olivary degeneration. No evidence for recent or remote infarct or hemorrhage. No intracranial mass effect. No ventricular obstruction. ??Grossly normal flow voids are maintained in the directly imaged intrac ranial vascular structures. The craniovertebral junction is unremarkable , with a patent foramen magnum. Trace fluid in the left mastoid air cell s. MRA Head: The intracranial segments of the interna l carotid arteries and basilar artery are widely patent. There is a 2 m m protrusion from the medial aspect of the right supraclinoid ICA seg ment consistent with aneurysm (image 62 series 8). The anterior middle and posterior cerebral arteries and proximal branches are unremarkable. ?? No high-flow AV malformation. MRA Neck: The bilateral common carotid arteries in ternal and external carotid arteries are widely patent. No stenosis near the common carotid bifurcations. Bilateral vertebral arteri es also appear widely patent. Impression: MRI Head: 1. No acute pathology identified. No khoa dence for mass, hemorrhage or recent infarct. 2. Chronic infarcts are present in the l eft superior frontal gyrus, right caudate nucleus and superior aspect of t he right putamen, right frontal lobe subcortical white matter and perive ntricular matter, left thalamus, and left anterior temporal lobe. 3. New abnormal FLAIR signal and mild en largement of the left medullary olive suggestive of hypertrophic olivary degeneration, likely related to the infarct noted in the medial medulla on the 04/25/2021 MRI MRA Head: 1. 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 2. There is a 2 mm protrusion from the m edial aspect of the right supraclinoid ICA segment consistent with aneurysm (image 62 series 8). Outpatient consultation with the neuroin terventional radiology service can be arranged by calling [phone]. MRA Neck: 1. No evidence for hemodynamically signi ficant ICA stenosis by NASCET criteria. 2. No evidence for carotid or vertebral artery dissection in the neck. Dictated by Neno Tian MD @ 10/27/2021 6:34:54 PM (Electronically Signed) Addendum by Neno Tian MD on 10/27/2021 6:36 PM CDT For Patients: ??As a result of the Cures Act, medical imaging exams and procedure reports are released immediately into your electronic medical record. ??You may view this repo rt before your referring provider. ?? If you have questions, please contact yo health care provider. Indication: Vision change, headaches. Technique: MRI Head: performed without IV contrast. MRA Head: performed without IV contrast. MRA Neck: performed before and after IV gadolinium. Gadolinium-based contrast agent: 10 ml G adavist Comparison: CTA 05/09/2021, MRI 04/25/21 Findings: MRI Head: Chronic infarcts are present in the left superior frontal gyrus, right caudate nucleus and superior aspect of t he right putamen, right frontal lobe subcortical white matter and perive ntricular matter, left thalamus, and left anterior temporal lobe. New abn ormal FLAIR signal and mild edema in the left medullary olive suggestive o f hypertrophic olivary degeneration. No evidence for recent or remote infarct or hemorrhage. No intracranial mass effect. No ventricular obstruction. ??Grossly normal flow voids are maintained in the directly imaged intrac ranial vascular structures. The craniovertebral junction is unremarkable , with a patent foramen magnum. Trace fluid in the left mastoid air cell s. MRA Head: The intracranial segments of the interna l carotid arteries and basilar artery are widely patent. There is a 2 m m protrusion from the medial aspect of the right supraclinoid ICA seg ment consistent with aneurysm (image 62 series 8). The anterior middle and posterior cerebral arteries and proximal branches are unremarkable. ?? No high-flow AV malformation. MRA Neck: The bilateral common carotid arteries in ternal and external carotid arteries are widely patent. No stenosis near the common carotid bifurcations. Bilateral vertebral arteri es also appear widely patent. Impression: MRI Head: 1. No acute pathology identified. No khoa dence for mass, hemorrhage or recent infarct. 2. Chronic infarcts are present in the l eft superior frontal gyrus, right caudate nucleus and superior aspect of t he right putamen, right frontal lobe subcortical white matter and perive ntricular matter, left thalamus, and left anterior temporal lobe. 3. New abnormal FLAIR signal and mild en largement of the left medullary olive suggestive of hypertrophic olivary degeneration, likely related to the infarct noted in the medial medulla on the 04/25/2021 MRI MRA Head: 1. 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 2. There is a 2 mm protrusion from the m edial aspect of the right supraclinoid ICA segment consistent with aneurysm (image 62 series 8). Outpatient consultation with the neuroin terventional radiology service can be arranged by calling [phone]. MRA Neck: 1. No evidence for hemodynamically signi ficant ICA stenosis by NASCET criteria. 2. No evidence for carotid or vertebral artery dissection in the neck. Dictated by Neno Tian MD @ 10/27/2021 6:35:11 PM (Electronically Signed) Narrative 10/27/2021 6:34 PM CDT For Patients: ??As a result of the Cures Act, medical imaging exams and procedure report s are released immediately into your [facility]. ??You may view this report before your referring provider. ??If you have questions, please contact your health care provider. Indication: Vision change, headaches. Technique: MRI Head: performed without IV contrast. MRA Head: performed without IV contrast. MRA Neck: performed before and after IV gadolinium. Gadolinium-based contrast agent: 10 ml G adavist Comparison: CTA 05/09/2021, MRI 04/25/21 Findings: MRI Head: Chronic infarcts are present in the left superior frontal gyrus, right caudate nucleus and superior aspect of the right putamen, right frontal lobe subcortical white matter and periventricular matter, l eft thalamus, and left anterior temporal lobe. New abnormal FLAIR signal and mild edema in the left medullary olive suggestive of hypertrophic olivary degeneration. No evidence for recent or remote infarct or hemorrhage. No intracranial mass effect. No ventricular obstruction. ??Grossly normal flow voids are maintained in the directly imaged intracranial vascular s tructures. The craniovertebral junction is unremarkable, with a patent foramen magnum. Trace fluid in the left mastoid air cells. MRA Head: The intracranial segments of the interna l carotid arteries and basilar artery are widely patent. There is a 2 mm protrusion from the medial aspect of the right supraclinoid ICA segment consistent with a neurysm (image 62 series 8). The anterio r middle and posterior cerebral arteries and proximal branches are unremarkable. ?? No high-flow AV malformation. ?? MRA Neck: The bilateral common carotid arteries in ternal and external carotid arteries are widely patent. No stenosis near the common carotid bifurcations. Bilateral vertebral arteries also appear widely patent. Impression: MRI Head: 1. No acute pathology identified. No khoa dence for mass, hemorrhage or recent infarct. 2. Chronic infarcts are present in the l eft superior frontal gyrus, right caudate nucleus and superior aspect of the right putamen, right frontal lobe subcortical white matter and periventricular matter , left thalamus, and left anterior tempo ral lobe. 3. New abnormal FLAIR signal and mild en largement of the left medullary olive suggestive of hypertrophic olivary degeneration, likely related to the infarct noted in the medial medulla on the 04/25/2021 MRI MRA Head: 1. 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 2. There is a 2 mm protrusion from the m edial aspect of the right supraclinoid ICA segment consistent with aneurysm (image 62 series 8). Outpatient consultation with the neurointerventional radiology service can be arranged by calling [phone]. MRA Neck: 1. No evidence for hemodynamically signi ficant ICA stenosis by NASCET criteria. 2. No evidence for carotid or vertebral artery dissection in the neck. Dictated by Neno Tian MD @ 10/27/2021 6:34:09 PM (Electronically Signed) Procedure Note Neno Tian MD - 10/27/2021Fo rmatting of this note might be different from the original. For Patients: As a result of the ntury Cures Act, medical imaging exams and procedure reports are released immediately into your electronic medical record. You may view this report before your referring provider. If you have questions, please contact [facility]. Indication: Vision change, headaches. Technique: MRI Head: performed without IV contrast. MRA Head: performed without IV contrast. MRA Neck: performed before and after IV gadolinium. Gadolinium-based contrast agent: 10 ml G adavist Comparison: CTA 05/09/2021, MRI 04/25/21 Findings: MRI Head: Chronic infarcts are present in the left superior frontal gyrus, right caudate nucleus and superior aspect of the right putamen, right frontal lobe subcortical white matter and periventricular matter, left thalamus, and left anterior temporal lobe. New abn ormal FLAIR signal and mild edema in the left medullary olive suggestive of hypertrophic olivary degeneration. No evidence for recent or remote infarct or hemorrhage. No intracranial mass effect. No ventricular obstruction. Grossly normal flow voids are maintained in the directly imaged intracranial vascular structures. The craniovertebral junction is unremarkable , with a patent foramen magnum. Trace fluid in the left mastoid air cells. MRA Head: The intracranial segments of the interna l carotid arteries and basilar artery are widely patent. There is a 2 mm protrusion from the medial aspect of the right supraclinoid ICA segment consistent with aneurysm (image 62 series 8). The anterior middle and posterior cerebral arteries and proximal branches are unremarkable. No high-flow AV malformation. MRA Neck: The bilateral common carotid arteries in ternal and external carotid arteries are widely patent. No stenosis near the common carotid bifurcations. Bilateral vertebral arteries also appear widely patent. Impression: MRI Head: 1. No acute pathology identified. No khoa dence for mass, hemorrhage or recent infarct. 2. Chronic infarcts are present in the l eft superior frontal gyrus, right caudate nucleus and superior aspect of the right putamen, right frontal lobe subcortical white matter and periventricular matter, left thalamus, and left anterior temporal lobe. 3. New abnormal FLAIR signal and mild en largement of the left medullary olive suggestive of hypertrophic olivary degeneration, likely related to the infarct noted in the medial medulla on the 04/25/2021 MRI MRA Head: 1. 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 2. There is a 2 mm protrusion from the m edial aspect of the right supraclinoid ICA segment consistent with aneurysm (image 62 series 8). Outpatient consultation with the neurointerventional radiology service can be arranged by calling [phone]. MRA Neck: 1. No evidence for hemodynamically signi ficant ICA stenosis by NASCET criteria. 2. No evidence for carotid or vertebral artery dissection in the neck. Dictated by Neno Tian MD @ 10/27/2021 6:34:09 PM (Electronically Signed) Margaret Das MD MR TROPONIN I QUAL POC (10/27/2021 3:22 PM CDT) Analysis Performed At [facility] Time Signature TROPONIN Negative Negative 10/27/2021 [facility],QUAL,POC 3:38 PM CDT LABORATORY-[facility] TRAL LABORATORY TROPONIN <0.03 <0.03 10/27/2021 [employer] HEALTH I,QUAL, POCT 3:38 PM CDT LABORATORY-[facility]AR[facility] TRAL LABORATORY Specimen Anatomical Collection Method Collection Time Receive d Time (Source) Location / / Volume Laterality Blood BLOOD SPECIMEN / 10/27/2021 3:22 PM 10/27 3:38 Unknown CDT PM CDT Margaret Das MD CHEMISTRY Performing Organization Address City/State/ZIP Code Phon e Number [facility] [employer] [address] [place] [address] LABORATORY-CENTRAL 2000 LABORATORY (ABNORMAL) CBC W PLT NO DIFF (10/27/2021 3:16 PM CDT) [facility] Method Time Signature WHITE BLOOD 7.8 4.5 - 11.0 10/27/2021 [facility] [employer] COUNT thou/cu mm 3:42 PM CDT LABORATORY-[facility] TRAL LABORATORY RED BLOOD COUNT 3.95 (L) 4.30 - 10/27/2021 [facility] [employer] 5.90 3:42 PM CDT LABORATORY-[facility]AR[facility] mil/cu mm TRAL LABORATORY HEMOGLOBIN 12.3 (L) 13.5 - 10/27/2021 [facility] [employer] 17.5 g/dL 3:42 PM CDT LABORATORY-[facility] TRAL LABORATORY HEMATOCRIT 36.7 (L) 37.0 - 10/27/2021 [facility] 53.0 % 3:42 PM CDT LABORATORY-[facility] TRAL LABORATORY MCV 93 80 - 100 10/27/2021 [facility] fL 3:42 PM CDT LABORATORY[facility] TRAL LABORATORY MCH 31.1 26.0 - 10/27/2021 [facility] 34.0 pg 3:42 PM CDT LABORATORY-[facility] TRAL LABORATORY MCHC 33.5 32.0 - 10/27/2021 [facility] 36.0 g/dL 3:42 PM CDT LABORATORY-[facility] TRAL LABORATORY RDW 14.6 11.5 - 10/27/2021 [facility] [employer] 15.5 % 3:42 PM CDT LABORATORY-[facility] TRAL LABORATORY PLATELET COUNT 339 140 - 440 10/27/2021 [facility] thou/cu mm 3:42 PM CDT LABORATORY[facility] TRAL LABORATORY MPV 9.8 6.5 - 11.0 10/27/2021 [facility] fL 3:42 PM CDT LABORATORY[facility] TRAL LABORATORY NRBC 0.0 % 10/27/2021 [facility] 3:42 PM CDT LABORATORY-[facility] TRAL LABORATORY ABS NRBC 0.0 thou /cu 10/27/2021 [facility] mm 3:42 PM CDT LABORATORY-[facility] TRAL LABORATORY Specimen Anatomical Collection Method / Collection Time Recei crow Time (Source) Location / Volume Laterality Blood BLOOD SPECIMEN / Venipuncture / 10/27/2021 3:16 2021 3:24 Unknown Unknown PM CDT PM CDT Margaret Das MD HEMATOLOGY Performing Organization Address City/State/ZIP Code Phon e Number [facility] [address] [place] [address] LABORATORY-CENTRAL 2000 LABORATORY (ABNORMAL) BASIC METABOLIC PANEL (10/27/2021 3:16 PM CDT)Only the most recent of 2 resultswithin the time period is included. Analysis Performed At Patho logist Time Signature SODIUM 141 135 - 145 10/27/2021 [facility] mmol/L 3:58 PM CDT LABORATORY-[facility] TRAL LABORATORY POTASSIUM 4.2 3.5 - 5.0 10/27/2021 [facility] [employer] mmol/L 3:58 PM CDT LABORATORY-[facility] TRAL LABORATORY CHLORIDE 109 98 - 110 10/27/2021 [facility] [employer] mmol/L 3:58 PM CDT LABORATORY-[facility] TRAL LABORATORY CO2,TOTAL 19 (L) 21 - 31 10/27/2021 [facility] [employer] mmol/L 3:58 PM CDT LABORATORY-[facility] TRAL LABORATORY ANION GAP 13 5 - 18 10/27/2021 [facility] [employer] 3:58 PM CDT LABORATORY-[facility] TRAL LABORATORY GLUCOSE 132 (H) 65 - 100 10/27/2021 [facility] [employer] mg/dL 3:58 PM CDT LABORATORY-[facility] TRAL LABORATORY CALCIUM 8.8 8.5 - 10.5 10/27/2021 [facility] [employer] mg/dL 3:58 PM CDT LABORATORY-[facility] TRAL LABORATORY BUN 15 8 - 25 10/27/2021 [facility] [employer] mg/dL 3:58 PM CDT LABORATORY-[facility] TRAL LABORATORY CREATININE 0.98 0.72 - 10/27/2021 [facility] [employer] 1.25 mg/dL 3:58 PM CDT LABORATORY-[facility] TRAL LABORATORY BUN/CREAT RATIO 15 10 - 20 10/27/2021 [facility] [employer] 3:58 PM CDT LABORATORY-[facility] TRAL LABORATORY eGFR 89 (L) >90 10/27/2021 [facility] mL/min/1.7 3:58 PM CDT LABORATORY-[facility]AR[facility] 3m2 TRAL LABORATORY Comment: As of 2021, eGFR is calcu lated by the CKD-EPI creatinine equation without race adjustment. eGFR can be inf luenced by muscle mass, exercise, and diet. The reported eGFR is an estimation only and is only applicable if the renal function is stable. Specimen Anatomical Collection Method / Collection Time Recei crow Time (Source) Location / Volume Laterality Blood BLOOD SPECIMEN / Venipuncture / 10/27/2021 3:16 2021 3:24 Unknown Unknown PM CDT PM CDT Margaret Das MD CHEMISTRY Performing Organization Address City/State/ZIP Code Phon e Number [facility] [address] [place] [address] LABORATORY-CENTRAL 2000 LABORATORY URINE ALBUMIN TO CREATININE RATIO, RANDOM (08/27/2021 8:38 AM CDT) athologist Signature ALB RAND URINE 28.9 mg/L 08/27/2021 [facility] 5:12 PM CDT LABORATORY-CENT RAL LABORATORY CREATININE,URIN 1.34 g/L 08/27/2021 [facility] [employer] E 5:12 PM CDT LABORATORY-CENT RAL LABORATORY ALBUMIN TO 21.6 <30.0 mg/g 08/27/2021 [facility] [employer] CREATININE creat 5:12 PM CDT LABORATORY-CENT RATIO,RAND UR RAL LABORATORY Specimen Anatomical Collection Method Collection Time Receive d Time (Source) Location / / Volume Laterality Urine URINE SPECIMEN / Non-Blood / 08/27/2021 8:38 AM 08/27 8:40 Unknown Unknown CDT AM CDT Narrative [facility] LABORATORY-CENTRAL LABORAT ORY - 08/27/2021 5:12 PM CDT If Albumin to Creatinine Ratio is elevated, consider the following: ? Elevations seen with incipient nephr opathy associated ?? with diabetes mellitus or hypertensi on. Stress, exercise, ?? hematuria, and urinary tract infecti on may also produce ?? elevated results. If clinically kwaku cated, confirm with ?? 24 Hour Albumin to Creatinine Ratio. Jignesh Sousa MD URINE Performing Organization Address City/State/ZIP Code Phon e Number [facility] [address] [place] [address] LABORATORY-CENTRAL 1999 LABORATORY (ABNORMAL) LIPID PANEL W REFLEX MEASURED LDL (08/27/2021 8:23 AM CDT) [facility] gist Method Time Signature CHOLESTEROL,TOTAL 174 100 - 199 08/27/2021 [facility] mg/dL 4:52 PM CDT LABORATORY-[facility] TRAL LABORATORY TRIGLYCERIDES 326 (H) <150 08/27/2021 [facility] mg/dL 4:52 PM CDT LABORATORY-[facility] TRAL LABORATORY HDL CHOLESTEROL 24 (L) >40 mg/dL 08/27/2021 [facility] 4:52 PM CDT LABORATORY-[facility] TRAL LABORATORY NON-HDL 150 (H) <145 08/27/2021 [facility] CHOLESTEROL mg/dl 4:52 PM CDT LABORATORY-[facility] TRAL LABORATORY CHOL/HDL RATIO 7.25 (H) <4.50 08/27/2021 [facility] 4:52 PM CDT LABORATORY-[facility] TRAL LABORATORY LDL CHOLESTEROL 85 <=130 08/27/2021 [facility] mg/dL 4:52 PM CDT LABORATORY-[facility] TRAL LABORATORY VLDL CHOLESTEROL 65 (H) <=30 08/27/2021 [facility] mg/dL 4:52 PM CDT LABORATORY-[facility] TRAL LABORATORY PROVIDER ORDERED RANDOM 08/27/2021 [facility] STATUS 4:52 PM CDT LABORATORY-[facility] TRAL LABORATORY Specimen Anatomical Collection Method / Collection Time Recei crow Time (Source) Location / Volume Laterality Blood BLOOD SPECIMEN / Venipuncture / 08/27/2021 8:23 2021 8:24 Unknown Unknown AM CDT AM CDT Jignesh Sousa MD CHEMISTRY Performing Organization Address City/State/ZIP Code Phon e Number [facility] [address] [place] [address] LABORATORY-CENTRAL 1999 LABORATORY (ABNORMAL) HEMOGLOBIN A1C MONITORING (POCT) (08/27/2021 8:23 AM CDT) [facility] Time Signature HEMOGLOBIN A1C 8.1 (H) <=6.4 % 08/27/2021 [facility] MONITORING 8:35 AM CDT [facility] Specimen Anatomical Collection Method / Collection Time Recei crow Time (Source) Location / Volume Laterality Blood BLOOD SPECIMEN / Venipuncture / 08/27/2021 8:23 2021 8:24 Unknown Unknown AM CDT AM CDT Narrative [facility] - 2021 8:35 AM CDT ? (<=6.9%) ? Indicates good control ? (7.0% to 7.9%) ? Indicates fa ir control ? (>=8.0%) ? Indicates poor control ?? NOTE: ??These thresholds are guideli phuong and ?individual targets may va ry. Falsely low levels may be seen with: Recent Transfusion, Recent Significant B lood Loss, Hemolytic Diseases, or Falsely elevated levels may be seen with : Untreated Anemias, Splenectomy ? Jignesh Sousa MD CHEMISTRY Performing Organization Address City/State/ZIP Code Phon e Number [facility] [address] [place] [address] from Last 3 Months Insurance Payer Benefit Plan / Subscriber ID Effective Dates Phone Addre ss Type Group MEDICARE PART B MEDICARE PART B [id number] 2010-Presen ATTN: CLAIMS - HB USE ONLY HB ONLY t [address] [place] [address] MEDICARE PART B MEDICARE PART B [id number] 2010-Presen ATTN: CLAIMS - HB USE ONLY HB ONLY t [address] [place] [address] [place] MR MR BC [place] [id number] 2014-Presen [address] [place] [address] [place] MR [place] [id number] 2021-Presen [address] [address] [place] [id number] [place] [id number] 2021-Presen [address] [address] [place] [id number] Heladio Davis Personal/Family Self 1965 [address] (Home) [place] [address] Care Teams Brine Supervisor Relationship Specialty Start Date End Date Jignesh Sousa MD PCP - General Family Practice 12/04/[address] [place] [address]
--- OUTSIDE RECORDS SUMMARY | 2021-11-23 13:09 | XMS_ITS | Clinical Summary ---
:1965 Author Organization [place] Address [address] [place] [address] Care Team Providers Name Role Phone Clinic, [facility] Primary Care Provider [phone] Emi Saul PA-C Unavailable Emi Saul PA-C Unavailable Allergies Active Allergy Reactions Severity Noted Date Comments Atorvastatin Other (See Comments) 06/21/2018 Botulinum Toxin Type A Headache 08/07/2021 Sever e head pain - happened two different occas ions Valproic Acid 12/05/2017 Liver problem Sumatriptan Anaphylaxis High 11/17/2017 Medications Medication Sig Dispensed Refills Start Date End Date Status OXYCODONE HCL PO 0 Act juan LISINOPRIL PO 0 Active hydrOXYzine (ATARAX) 10 Take 10 mg by 0 Active MG/5ML syrup mouth 3 times daily GLIPIZIDE PO 0 Active NORTRIPTYLINE HCL PO 0 Active docusate sodium Take 100 mg by 60 tablet 1 11/17/2017 Active (COLACE) 100 MG tablet mouth daily hydrOXYzine (VISTARIL) 0 11/18/2017 Active 25 MG capsule tamsulosin (FLOMAX) 0.4 Take 1 capsule 30 capsule 3 11/21/2017 Active MG capsuleIndications: (0.4 mg) by Urinary retention mouth daily tamsulosin (FLOMAX) 0.4 Take 1 capsule 90 capsule 3 09/22/2021 Active MG capsuleIndications: (0.4 mg) by Benign prostatic mouth daily hyperplasia with urinary hesitancy Encounters Date Type Specialty Care Team Description 10/20/2021 Virtual Visit Urology Emi Saul PA-C Benig n prostatic hyperplasia with urinary he sitancy (Primary Dx) 09/22/2021 Office Visit Urology Emi Saul PA-C Benign prostatic hyperplasia with urinary he sitancy (Primary Dx) 09/22/2021 Travel from Last 3 Months Family History Relation Status Comments Brother Alive Father Alive Maternal Grandfather Maternal Grandmother Mother Alive Paternal Grandfather Paternal Grandmother Sister 1 Alive Sister 2 Alive Social History Tobacco Use Types Packs/Day Years Used Date Smoking Tobacco: Never Smokeless Tobacco: Never Alcohol Use Standard Drinks/Week Comments No 0 (1 standard drink = 0.6 oz pure alcoho l) Sex Assigned at Date Recorded Not on file Last Filed Vital Signs Vital Sign Reading Time Taken Comments Blood Pressure 128/70 09/22/2021 2:23 PM CDT Pulse 80 02/21/2019 2:16 PM COMBINATION MACHINE TOOL SETTER Temperature 36.4 ??C (97.5 ??F) 12/05/2017 3:19 PM CDT Respiratory Rate 18 12/05/2017 3:19 PM CDT Oxygen Saturation 93% 01/25/2018 2:48 PM COMBINATION MACHINE TOOL SETTER Inhaled Oxygen Concentration - - Weight 90.7 kg (200 lb) 09/22/2021 2:23 PM CDT Height 185.4 cm (6' 1) 09/22/2021 2:23 PM CDT Body Mass Index 26.39 09/22/2021 2:23 PM CDT Plan of Treatment Health Maintenance Due Date Last Done Comments ADVANCE CARE PLANNING 1965 ANNUAL REVIEW OF HM ORDERS 1965 CT COLONOGRAPHY 1965 FIT-DNA (Cologuard) 1965 FIT 1965 FLEX SIG 1965 COVID-19 Vaccine (#1) 1965 COLONOSCOPY 1973 COLORECTAL CANCER SCREENING 1973 HIV SCREENING 1978 HEPATITIS C SCREENING 1981 MEDICARE ANNUAL WELLNESS 1981 VISIT LIPID 1998 INFLUENZA VACCINE (#1) 2021 11/11/2014, 12/04/2012, 11/26/2002 DTAP/TDAP/TD IMMUNIZATION (3 07/19/2026 07/19/2016, - Td or Tdap) 04/15/2008, 02/21/1999 HEPATITIS B IMMUNIZATION Completed 08/05/2014, 04/10/2014, 08/01/2013 Pneumococcal Vaccine: Aged Out 02/06/2020 No longer eligible based Pediatrics (0 to 5 Years) and on patient's age to At-Risk Patients (6 to 64 comple te this topic Years) ZOSTER IMMUNIZATION Completed 12/22/2020, 02/06/2020 PHQ-2 (once per calendar Completed 09/22/2021, year) 02/21/2019 IPV IMMUNIZATION Aged Out No longer eligi ble based on patient's age to complete this to pic MENINGITIS IMMUNIZATION Aged Out No longe r eligible based on patient's age to complete this to pic Procedures Procedure Name Priority Date/Time Associated Diagnosis Comme nts PSA TUMOR MARKER Routine 09/22/2021 3:41 PM Benign prostatic R esults for this CDT hyperplasia with procedure a re in urinary hesitancy the result s section. URINALYSIS Routine 09/22/2021 2:20 PM Benign prostatic Resul ts for this MACROSCOPIC CDT hyperplasia with procedure a re in urinary hesitancy the result s section. PA MEASURE POST-VOID Routine 09/22/2021 Benign prostatic Res ults for this RESIDUAL hyperplasia with procedure a re in URINE/BLADDER urinary hesitancy the resul ts CAPACITY, US section. NON-IMAGING from Last 3 Months Results PSA tumor marker (09/22/2021 3:41 PM CDT) P athologist Signature PSA Tumor 0.10 0.00 - 09/22/2021 [facility] Marker 4.00 ug/L 3:56 PM CDT [place] Specimen Anatomical Collection Method / Collection Time Recei crow Time (Source) Location / Volume Laterality Blood STRUCTURE OF RIGHT Venipuncture / 09/22/2021 3:41 09/07 3:41 UPPER LIMB / Unknown PM CDT PM CDT Unknown Emi Saul PA-C LAB - BLOOD ORDERABLES Performing Organization Address City/State/ZIP Code Phon e Number [facility] [place] [address], [address] [place] [address] (ABNORMAL) UA without Microscopic [[id number]] (09/22/2021 2:20 PM CDT) Patholo gist Method [...] LABORATORY mg/dL 2:37 PM CDT [place] Specific [place] 1.025 1.003 - 09/22/2021 [facility] Y [...] Collection / CDT PM CDT Unknown Emi RAINES-C LAB - URINE ORDERABLES Performing Organization Address City/State/ZIP Code Phon e Number [facility] [place] [address], [address] [place] [address] MEASURE POST-VOID RESIDUAL URINE/BLADDER CAPACITY, US NON-IMAGING ([id number]) (09/22/2021) P athologist Signature Residual Volume 20 (RV) (External) Emi RAINES-C PROCEDURES from Last 3 Months Insurance Payer Benefit Plan / Subscriber ID Effective Phone Address T ype Group Dates BCBS BCBS [place] [id number] 2021-Prese [phone] [address] [address] PPO [address]UE [address] [place] [address] MEDICARE MEDICARE FOR HB [id number] 2017-Pres [phone] ATTN CLAIMS Medicare SUPPLEMENT ent 40 [address] [place] [address] [phone] (Home[facility] [address] [address] Care Teams Environmental Services Assistant Relationship Specialty Start Date End Date ClinicCher PCP - General 11/17/17 [facility] [address] [place] [address] Emi Saul PA-C Physician Duct Maker Physician Duct Maker 01/11/19 [address] [place] - Medical [address] [place] [address] Emi Saul PA-C Assigned OBGYN Provider 09/26/[address] [place] [address] [place] [address]
--- OUTSIDE RECORDS SUMMARY | 2021-11-23 13:09 | XMS_ITS | Encounter Summary ---
:1965 Author Organization [place] Address [address] [place] [address] Care Team Providers Name Role Phone Clinic, [facility] Primary Care Provider [phone] Encounter Details Date Type Department Care Team Description 01/18/2018 Orders Only [facility] for prostate [facility] [address] [place] [address] Social History Tobacco Use Types Packs/Day Years [...] Diagnosis Comme nts PSA TUMOR MARKER Routine 01/18/2018 10:14 AM Screening for Res ults for this SUPERVISING NURSE prostate cancer procedure ar e in the results section. documented in this encounter Results PSA tumor marker [[id number]] (01/18/2018 10:14 AM SUPERVISING NURSE) P athologist Signature PSA 0.18 0 - 4 ug/L 01/19/2018 [facility] 8:[address] [facility] [place] Comment: Assay Method: Chemiluminescence using Siemens [place] analyzer Specimen Anatomical Collection Method Collection Time Receive d Time (Source) Location / / Volume Laterality Blood specimen 01/18/2018 10:14 8 (specimen) AM SUPERVISING NURSE 10:19 AM SUPERVISING NURSE Emi Saul PA-C LAB - BLOOD ORDERABLES Performing Organization Address City/State/ZIP Code Phon e Number [facility] [address] [place] [address] documented in this encounter Visit Diagnoses Diagnosis Screening for prostate cancer Special screening for malignant neoplasm of prostate documented in this encounter Care Teams Pattern Molder Relationship Specialty Start Date End Date Denys, Cher Nguyen PCP - General 11/17/[address] [place] [address] documented as of this encounter
--- OUTSIDE RECORDS SUMMARY | 2021-11-23 13:09 | XMS_ITS | Encounter Summary ---
:1965 Author Organization [place] Address [address] [place] [address] Care Team Providers Name Role Phone [facility], [facility] Primary Care Provider [phone] Encounter Details Date Type Department Care Team Description 01/18/2018 Travel Social History Tobacco Use Types Packs/Day [...] on filedocumented in this encounter Care Teams Energy Economist Relationship Specialty Start Date End Date [facility], [facility] PCP - General 11/17/17 [address] [place] [address] documented as of this encounter
--- OUTSIDE RECORDS SUMMARY | 2021-11-23 13:09 | XMS_ITS | Encounter Summary ---
:1965 Author Organization [place] Address [address] [place] [address] Care Team Providers Name Role Phone [facility], [facility] Primary Care Provider Emi Saul PA-C Unavailable Encounter Details Date Type Department Care Team Description 09/22/2021 Travel Social History Tobacco Use Types Packs/Day [...] on filedocumented in this encounter Care Teams Slitter Service And Setter Relationship Specialty Start Date End Date [facility] - [facility] 11/17/[address] [address] Emi Saul PA-C Physician Rigging And Controls Aircraft Mechanic Physician Rigging And Controls Aircraft Mechanic - 01/11/19 [address] [facility] [place] [address] [address] documented as of this encounter
--- OUTSIDE RECORDS SUMMARY | 2021-11-23 13:09 | XMS_ITS | Encounter Summary ---
:1965 Author Organization [facility] Address [address] [place] [address] Care Team Providers Name Role Phone Clinic, [facility] Primary Care Provider [phone] Reason for Visit Reason Comments Urinary Retention Encounter Details Date Type Department Care Team Description 11/17/2017 Emergency [facility] Ese Hodges MD Urinary retention with incomplete bladde r emptying; [facility] Emergency Dep t [facility] Drug-induced constipation [address] [place], [place] [address] [facility] [address] [place] [address] [phone] (Wo rk) Social History Tobacco Use Types Packs/Day Years Used Date Smoking Tobacco: Never Smokeless Tobacco: Never Alcohol Use Standard Drinks/Week Comments No 0 (1 standard drink = 0.6 oz pure alcoho l) Sex Assigned at Date Recorded Not on file documented as of this encounter Last Filed Vital Signs Vital Sign Reading Time Taken Comments Blood Pressure 105/82 11/17/2017 5:13 PM CDT Pulse - - Temperature 36.5 ??C (97.7 ??F) 11/17/2017 2:47 PM CDT Respiratory Rate 20 11/17/2017 5:02 PM CDT Oxygen Saturation 99% 11/17/2017 5:18 PM CDT Inhaled Oxygen Concentration - - Weight 85.7 kg (189 lb) 11/17/2017 2:38 PM CDT Height 185.4 cm (6' 1) 11/17/2017 2:38 PM CDT Body Mass Index 24.94 11/17/2017 2:38 PM CDT documented in this encounter Discharge Instructions Discharge InstructionsEse Hodges MD - 11/17/2017 4:46 PM CDT Follow-up with urology for Serrato catheter removal and further evaluation. Take a stool softener or other cvrc-mtk-cojumoc bowel regimen while you are on oxycodone. Return immediately with any new concerns including dysfunction of Serrato catheter. Follow up with [facility] as scheduled. AttachmentsThe following attachments cannot be sent through Care Everywhere. CONSTIPATION (ADULT) (OMANI)SERRATO CATHETER, CARE (OMANI)URINARY RETENTION, MALE (OMANI)documented in this encounter Medications at Time of Discharge Medication Sig Dispensed Refills Start Date End Date docusate sodium (COLACE) 100 Take 100 mg by 60 tablet 1 12/2017 MG tablet mouth daily GLIPIZIDE PO 0 hydrOXYzine (ATARAX) 10 Take 10 mg by mouth 0 MG/5ML syrup 3 times daily NORTRIPTYLINE HCL PO 0 OXYCODONE HCL PO 0 LISINOPRIL PO 0 documented as of this encounter ED Notes Nadia Browne RN - 11/17/2017 5:18 PM CDT Serrato instructions given to patient family and pt verbalized understanding of discharge instructions Nadia Browne RN - 11/17/2017 2:46 PM CDT Bladder Scan 573 Nadia Browne RN - 11/17/2017 2:36 PM CDT Pt c/o urinary retention. LLE foot injury pin surgery Tuesday. Pt has been having difficulty urinating since. Able to produce urine but feels urge to urinate. ABC in tact. A/OX4 Ese Hodges MD - 11/17/2017 2:22 PM CDT History Chief Complaint: Urinary retention HPI: The history is provided by the patient and a parent. Heladio Davis is a 52 year old male with a history of NIDDM and TBI who presents with his mother for evaluation of urinary retention. The patient had left foot surgery 2 days ago with [facility]. He has only been able to urinate small amounts at a time since the surgery. He reports hisstream will stop suddenly and will unable to void further despite persistent urge to urinate. He hasalso not yet had bowel movement since surgery. He is using oxycodone for pain. Patient went to [facility] today to follow up after surgery. He reported issues with urinaryretention. They attempted to place catheter but were unable to do so prompting ER referral. Upon arrival to the ER, patient was able to void about 150 ml. However, he continues to have urge tourinate and suprapubic discomfort without true abdominal pain. He has no other concerns. No fever, gross hematuria. Allergies: Imitrex - anaphylaxis Medications: Glipizide Atarax Lisinopril Nortriptyline Oxycodone Past Medical History: Diabetes mellitus Seizures TBI Past Surgical History: Foot surgery 11/15/17, left Family History: History reviewed. No pertinent family history. Social History: Presents with mother Tobacco use: Never smoker Alcohol use: No PCP: [facility] Review of Systems Constitutional: Negative for fever. Gastrointestinal: Positive for constipation. Negative for abdominal pain. Genitourinary: Positive for decreased urine volume and difficulty urinating. Negative for hematuria. All other systems reviewed and are negative. Physical Exam Patient Vitals for the past 24 hrs: BP Temp Temp src Heart Rate Resp SpO2 Height Weight 11/17/17 1447 - 97.7 ??F (36.5 ??C) - - - - - - 11/17/17 1441 (!) 142/96 - - - - - - - 11/17/17 1438 - - Oral 69 18 98 % 1.854 m (6' 1) 85.7 kg (189 lb) Physical Exam General: Well-developed and well-nourished. Well appearing middle aged man. Cooperative. Head: Atraumatic. Eyes: Conjunctivae, lids, and sclerae are normal. ENT: Normal nose. Moist mucous membranes. Neck: Supple. Normal range of motion. CV: Regular rate and rhythm. Normal heart sounds with no murmurs, rubs, or gallops detected. Resp: No respiratory distress. Clear to auscultation bilaterally without decreased breath sounds, wheezing, rales, or rhonchi. GI: Soft. Non-distended. Discomfort with suprapubic palpation increasing urge to void. : No perianal masses, tenderness, fluctuance, or hemorrhoids. Very small amount of medium brown stool in rectal vault. No fecal impaction. MS: Left lower leg in splint post-operatively. Skin: Warm. Non-diaphoretic. No pallor. Neuro: Awake and alert. Normal strength. Psych: Normal mood and affect. Normal speech. Vitals reviewed. Emergency Department Course Laboratory: BMP: Calcium 8.4 (L), ow WNL (Creatinine 1.03) UA with Microscopic: Mucous present, ow Negative Emergency Department Course: Past medical records, nursing notes, and vitals reviewed. 1453: I performed an exam of the patient and obtained history, as documented above. Blood drawn. This was sent to the lab for further testing, results above. The patient provided a urine sample here in the emergency department. This was sent for laboratory testing, findings above. 1615: I performed a rectal exam. We will try a serrato catheter. 1643: I rechecked the patient. Serrato was established with a lot of urine output (1L). He is feeling better and is ready to go home. Findings and plan explained to the patient and mother. Patient discharged home with instructions regarding supportive care, medications, and reasons to return. The importance of close follow-up was reviewed. Impression & Plan Medical Decision Making: Heladio is a 52-year-old man who is postoperative day 2 after orthopedic surgery on his left foot. He went to orthopedics for some issues with his postoperative recovery and reported to them he is having difficulty completely emptying his bladder. He continues to feel urge to void. Reportedly they were unable to pass a urinary catheter and sent patient for further evaluation. He has no other concerns orcomplaints though he does note he is constipated as he is using oxycodone. Patient has no fecal impaction on exam which is remarkable only for discomfort and some fullness in the suprapubis. He was able to void approximately 150 cc though bladder scan remains with greater than 500 ml remaining. A Serrato catheter was placed return of 1 L of urine and relief of symptoms. It is of note that the urinalysis is unremarkable without hematuria or infection. He also has normal electrolytes with a creatinine of 1.03. Most likely patient's urinary retention is related to recent general anesthesia in addition to constipation and use of oxycodone. I do not believe he requires further workup at this time. However, he will require follow-up with urology for Serrato catheter removal. Given [facility] had a difficult time placing a catheter I suspect he has BPH and he may require further evaluation of this by urology as well. I have recommended patient use stool softener while on oxycodone. I have providedstrict return precautions including dysfunction of his Serrato catheter or fever. I have answered all the patient and his mother's questions and they verbalized understanding. He is amenable to discharge. Diagnosis: ICD-10-CM 1. Urinary retention with incomplete bladder emptying R33.9 2. Drug-induced constipation K59.03 Disposition: Discharged home with plan as outlined. Discharge Medications: New Prescriptions DOCUSATE SODIUM (COLACE) 100 MG TABLET Take 100 mg by mouth daily Scribe Disclosure: I, Ron Quintero, am serving as a scribe at 2:53 PM on 11/17/2017 to document services personallyperformed by Ese Hodges MD based on my observations and the provider's statements to me. Ese Hodges MD 11/17/2017 [facility] EMERGENCY DEPARTMENT Ese Hodges MD 11/18/17 1808 documented in this encounter Plan of Treatment Not on filedocumented as of this encounter Procedures Procedure Name Priority Date/Time Associated Comments Diagnosis ROUTINE UA WITH STAT 11/17/2017 3:25 PM Result s for this MICROSCOPIC CDT procedure are i n the results section. BASIC METABOLIC PANEL STAT 11/17/2017 3:25 PM Results for this CDT procedure are i n the results section. documented in this encounter Results (ABNORMAL) Basic metabolic panel (11/17/2017 3:25 PM CDT) P athologist Signature Sodium 137 133 - 144 11/17/2017 [facility] mmol/L 3:48 PM [facility] Potassium 3.7 3.4 - 5.3 11/17/2017 [facility] mmol/L 3:48 PM [facility] Chloride 104 94 - 109 11/17/2017 [facility] mmol/L 3:48 PM [facility] Carbon Dioxide 26 20 - 32 11/17/2017 [facility] mmol/L 3:48 PM [facility] Anion Gap 7 3 - 14 11/17/2017 [facility] mmol/L 3:48 PM [facility] Glucose 93 70 - 99 11/17/2017 [facility] mg/dL 3:48 PM [facility] Urea Nitrogen 11 7 - 30 11/17/2017 [facility] mg/dL 3:48 PM [facility] Creatinine 1.03 0.66 - 11/17/2017 [facility] 1.25 mg/dL 3:48 PM [facility] GFR Estimate 75 >60 11/17/2017 [facility] mL/min/1.7 3:[address] Comment: Non GFR Calc GFR Estimate If >90 >60 mL/min/1.7m2 11/17/2017 3:[address] [facility] Comment: GFR Calc Calcium 8.4 (L) 8.5 - 10.1 mg/dL 11/17/2017 3:48 PM [facility] Specimen Anatomical Collection Method Collection Time Receive d Time (Source) Location / / Volume Laterality Blood specimen 11/17/2017 3:25 PM 018 3:26 (specimen) CDT PM CDT Ese Hodges MD LAB - BLOOD ORDERABLES Performing Organization Address City/State/ZIP Code Phon e Number [facility] [address] [address] [facility] [address] [address] [phone] (ABNORMAL) UA with Microscopic (11/17/2017 3:25 PM CDT) [facility] Method Time Signature Color Urine Straw 11/17/2017 [facility] 3:45 PM [facility] Appearance Urine Clear 11/17/2017 [facility] 3:45 PM [facility] Glucose Urine Negative NEG^Negat 11/17/2017 [facility] juan mg/dL 3:45 PM [facility] Bilirubin Urine Negative NEG^Negat 11/17/2017 [facility] juan 3:45 PM [facility] Ketones Urine Negative NEG^Negat 11/17/2017 [facility] juan mg/dL 3:45 PM [facility] Specific [place] 1.006 1.003 - 11/17/2017 [facility] Urine 1.035 3:45 PM [facility] Blood Urine Negative NEG^Negat 11/17/2017 [facility] juan 3:45 PM [facility] pH Urine 5.0 5.0 - 7.0 11/17/2017 [facility] pH 3:45 PM [facility] Protein Albumin Negative NEG^Negat 11/17/2017 [facility] Urine juan mg/dL 3:45 PM [facility] Urobilinogen 0.0 0.0 - 2.0 11/17/2017 [facility] mg/dL mg/dL 3:45 PM [facility] Nitrite Urine Negative NEG^Negat 11/17/2017 [facility] juan 3:45 PM [facility] Leukocyte Negative NEG^Negat 11/17/2017 [facility] Esterase Urine juan 3:45 PM [facility] Source Midstream 11/17/2017 [facility] Urine 3:25 PM [facility] WBC Urine 4 0 - 5 11/17/2017 [facility] /HPF 3:45 PM [facility] RBC Urine 1 0 - 2 11/17/2017 [facility] /HPF 3:45 PM [facility] Mucous Urine Present (A) NEG^Negat 11/17/2017 [facility] juan /LPF 3:45 PM [facility] Specimen (Source) Anatomical Collection Method Collection Time Re ceived Time Location / / Volume Laterality Examination of 11/17/2017 3:25 11/17/2017 3:26 midstream urine PM CDT [facility] specimen (procedure) Ese Hodges MD LAB - URINE ORDERABLES Performing Organization Address City/State/ZIP Code Phon e Number [facility] [address] [place], [place] [address] [facility] [address] [phone] documented in this encounter Visit Diagnoses Diagnosis Urinary retention with incomplete bladde r emptying Incomplete bladder emptying Drug-induced constipation Other constipation documented in this encounter Active and Recently Administered Medications Care Teams Coat Padder Relationship Specialty Start Date End Date Clinic, Cher Nguyen PCP - General 11/17/[address] [place] [address] documented as of this encounter
--- OUTSIDE RECORDS SUMMARY | 2021-11-23 13:09 | XMS_ITS | Encounter Summary ---
:1965 Author Organization [facility] Address [address] [place] [address] Care Team Providers Name Role Phone Clinic, [facility] Primary Care Provider Emi Saul PA-C Unavailable Emi Saul PA-C Unavailable Reason for Visit Reason Comments Benign Prostatic Hypertrophy Urinary Retention Discuss meds Encounter Details Date Type Department Care Team Description 10/20/2021 Virtual Visit [facility] Emi Saul Benig n prostatic Urology Clinic Niya DIAZ hyperplasia with [address] urinary hesitancy [address] [place] [address] (Primary Dx) KEARA Frances [address] KEARA FRANCES [id number] Social History Tobacco Use Types Packs/Day Years [...] have Coronavirus/COVID-19? documented as of this encounter Progress Notes Emi Saul PA-C - 10/20/2021 12:00 PM CDT Cancelled documented in this encounter Plan of Treatment Not on filedocumented as of this encounter Visit Diagnoses Diagnosis Benign prostatic hyperplasia with urinar y hesitancy - Primary documented in this encounter Care Teams Systems Development Manager Relationship Specialty Start Date End Date Denys, Cher PCP - General 11/17/[address] [address] Emi Saul PA-C Physician Calender Wind Up Tender Physician [facility] [employer] T[employer] 01/11/19 [address] [place] - Medical [address] [place] [address] [id number] Emi Saul PA-C Assigned OBGYN Provider 09/26/21 [address] [place] [address] [place] [address] [phone] documented as of this encounter
--- OUTSIDE RECORDS SUMMARY | 2021-11-23 13:09 | XMS_ITS | Encounter Summary ---
:1965 Author Organization [facility] Address [address] [place] [address] Care Team Providers Name Role Phone [facility], [facility] Primary Care Provider [phone] Encounter Details Date Type Department Care Team Description 01/25/2018 Travel Social History Tobacco Use Types Packs/Day [...] on filedocumented in this encounter Care Teams Swatch Clerk Relationship Specialty Start Date End Date [facility], [facility] PCP - General 11/17/[address] [place] [address] documented as of this encounter
--- OUTSIDE RECORDS SUMMARY | 2021-11-23 13:09 | XMS_ITS | Encounter Summary ---
:1965 Author Organization [facility] Address [address] [place] [address]. [place] [address] Care Team Providers Name Role Phone Clinic, [facility] Primary Care Provider [phone] Reason for Visit Reason Comments Other 4 wk FU Encounter Details Date Type Department Care Team Description 12/21/2017 Office Visit [facility] Emi Saul Urinar y retention (Primary Dx); Urology Clinic [facility] Screening for prostate cancer [address] [place], [place] [address] [place] [address] [phone] [address] (Work) [phone] Social History Tobacco Use Types Packs/Day Years Used Date Smoking Tobacco: Never Smokeless Tobacco: Never Alcohol Use Standard Drinks/Week Comments No 0 (1 standard drink = 0.6 oz pure alcoho l) Sex Assigned at Date Recorded Not on file documented as of this encounter Last Filed Vital Signs Vital Sign Reading Time Taken Comments Blood Pressure - - Pulse 72 12/21/2017 1:46 PM DATA COMMUNICATIONS ENGINEER Temperature - - Respiratory Rate - - Oxygen Saturation 98% 12/21/2017 1:46 PM DATA COMMUNICATIONS ENGINEER Inhaled Oxygen Concentration - - Weight 86.2 kg (190 lb) 12/21/2017 1:46 PM DATA COMMUNICATIONS ENGINEER Height 185.4 cm (6' 1) 12/21/2017 1:46 PM DATA COMMUNICATIONS ENGINEER Body Mass Index 25.07 12/21/2017 1:46 PM DATA COMMUNICATIONS ENGINEER documented in this encounter Patient Instructions Patient InstructionsEmi Saul PA-C - 12/21/2017 2:00 PM CST See you in 4 weeks. Will have you go to the lab 1-2 days prior to seeing me for a blood draw (PSA screening test for the prostate). Flomax to continue daily. COMMUNICATIONS ENGINEER documented in this encounter Progress Notes Emi Saul PA-C - 12/21/2017 2:00 PM CST CC: Urinary retention. HPI: It is a pleasure to see . Heladio Davis, a 52 year old male seen today in the urologyclinic in follow up of urinary retention following left foot surgery. This developed acutely requiring Flowers catheter placement on 11/17/17. TOV passed 4 weeks ago. The patient has no prior history of AUR or similar symptoms. At baseline, patient does note some hesitancy, frequency. Currently denies fevers, chills, N/V, abdominal/back pain. No PSA on record. Flomax seems to be helping his hesitancy and frequency. No SE noted. Past Medical History: Diagnosis Date ??? Diabetes (H) ??? Seizures (H) ??? TBI (traumatic brain injury) (H) Past Surgical History: Procedure Laterality Date ??? ORTHOPEDIC SURGERY Left 11/15/2017 Current Outpatient Prescriptions Medication Sig Dispense Refill ??? docusate sodium (COLACE) 100 MG tablet Take 100 mg by mouth daily 60 tablet 1 ??? GLIPIZIDE PO ??? LISINOPRIL PO ??? NORTRIPTYLINE HCL PO ??? OXYCODONE HCL PO ??? tamsulosin (FLOMAX) 0.4 MG capsule Take 1 capsule (0.4 mg) by mouth daily 30 capsule 3 ??? hydrOXYzine (ATARAX) 10 MG/5ML syrup Take 10 mg by mouth 3 times daily ??? hydrOXYzine (VISTARIL) 25 MG capsule Allergies Allergen Reactions ??? Imitrex [Sumatriptan] Anaphylaxis ??? Depakote [Valproic Acid] Liver problem Family History: There is no h/o malignancy. There is no h/o urolithiasis. Social History: The patient does not smoke cigarettes. Denies EtOH and illicit drug use. ROS: A comprehensive 14 point ROS was obtained and was otherwise negative except for that outlined above in the HPI. PHYSICAL EXAM: Pulse 72 Ht 1.854 m (6' 1) Wt 86.2 kg (190 lb) SpO2 98% BMI 25.07 kg/m2 GEN: NAD EYES: EOMI MOUTH: MMM NECK: Supple RESP: Unlabored breathing CARDIAC: No LE edema SKIN: Warm ABD: soft NEURO: AAO EWA: normal tone, no masses, (medium) prostate without nodules or tenderness. REVIEW OF OUTSIDE RECORDS: 5 minutes spent reviewing previous/outside records. ASSESSMENT/PLAN: 52 year old male who developed acute urinary retention requiring Flowers catheter placement, resolved -PSA and office visit in 4 wks -Continue [facility] Emi Saul PA-C [facility] Urology 20 min spent with the patient, >50% of this time was spent in a [id number] manner and on coordination of care of urinary retention. COMMUNICATIONS ENGINEER documented in this encounter Nursing Notes Ese Banks CMA - 12/21/2017 2:00 PM CST Pt says he is better now than last time he was here. Pt having foot problems. Adán Banks CMA COMMUNICATIONS ENGINEER Ese Banks CMA - 12/21/2017 2:00 PM CST PVR by scanner=30mL. Adán Banks CMA COMMUNICATIONS ENGINEER documented in this encounter Plan of Treatment Not on filedocumented as of this encounter Procedures Procedure Name Priority Date/Time Associated Comments Diagnosis URINE MACROSCOPIC Routine 12/21/2017 2:04 PM Urinary retention Results for this ONLY DATA COMMUNICATIONS ENGINEER procedure are i n the results section. BLADDER SCAN Routine 12/21/2017 Urinary retention Results fo r this procedure are i n the results section. documented in this encounter Results PSA tumor marker [[id number]] (01/18/2018 10:14 AM DATA COMMUNICATIONS ENGINEER) athologist Signature PSA 0.18 0 - 4 ug/L 01/19/2018 [facility] 8:[address] [facility] Comment: Assay Method: Chemiluminescence using Siemens Brandon analyzer Specimen Anatomical Collection Method Collection Time Receive d Time (Source) Location / / Volume Laterality Blood specimen 01/18/2018 10:14 8 (specimen) AM DATA COMMUNICATIONS ENGINEER 10:19 AM DATA COMMUNICATIONS ENGINEER Emi Saul PA-C LAB - BLOOD ORDERABLES Performing Organization Address City/State/ZIP Code Phon e Number [facility] [address] [place] [address] UA without Microscopic (12/21/2017 2:04 PM DATA COMMUNICATIONS ENGINEER) [facility] Method Time Signature Color Urine Yellow 12/21/2017 [place] 2:08 PM DATA COMMUNICATIONS ENGINEER [facility] Appearance Urine Clear 12/21/2017 [place] 2:08 PM DATA COMMUNICATIONS ENGINEER [facility] Glucose Urine Negative NEG^Negat 12/21/2017 [place] juan mg/dL 2:08 PM DATA COMMUNICATIONS ENGINEER [facility] Bilirubin Urine Negative NEG^Negat 12/21/2017 [place] juan 2:08 PM DATA COMMUNICATIONS ENGINEER [facility] Ketones Urine Negative NEG^Negat 12/21/2017 [place] juan mg/dL 2:08 PM DATA COMMUNICATIONS ENGINEER [facility] Specific [place] 1.020 1.003 - 12/21/2017 [place] Urine 1.035 2:08 PM DATA COMMUNICATIONS ENGINEER [facility] Blood Urine Negative NEG^Negat 12/21/2017 [place] juan 2:08 PM DATA COMMUNICATIONS ENGINEER [facility] pH Urine 5.5 5.0 - 7.0 12/21/2017 [place] pH 2:08 PM DATA COMMUNICATIONS ENGINEER [facility] Protein Albumin Negative NEG^Negat 12/21/2017 [place] Urine juan mg/dL 2:08 PM DATA COMMUNICATIONS ENGINEER [facility] Urobilinogen 0.2 0.2 - 1.0 12/21/2017 [place] Urine EU/dL 2:08 PM DATA COMMUNICATIONS ENGINEER [facility] Nitrite Urine Negative NEG^Negat 12/21/2017 [place] juan 2:08 PM DATA COMMUNICATIONS ENGINEER [facility] Leukocyte Negative NEG^Negat 12/21/2017 [place] Esterase Urine juan 2:08 PM DATA COMMUNICATIONS ENGINEER [facility] Source Midstream 12/21/2017 [place] Urine 2:05 PM DATA COMMUNICATIONS ENGINEER [facility] Specimen (Source) Anatomical Collection Method Collection Time Re ceived Time Location / / Volume Laterality Examination of 12/21/2017 2:04 12/21/2017 2:05 midstream urine PM DATA COMMUNICATIONS ENGINEER PM DATA COMMUNICATIONS ENGINEER specimen (procedure) Emi Saul PA-C LAB - URINE ORDERABLES Performing Organization Address City/State/ZIP Code Phon e Number [facility] [address] [place] [address] [facility] [address] Bladder scan (12/21/2017) P athologist Signature Residual Volume 30 (RV) (External) Emi Saul PA-C IP NURSING GI/ documented in this encounter Visit Diagnoses Diagnosis Urinary retention - Primary Retention of urine, unspecified Screening for prostate cancer Special screening for malignant neoplasm of prostate documented in this encounter Care Teams Burglar Alarm Mechanic Relationship Specialty Start Date End Date [facility] PCP - General 11/17/17 [address] [place] [address] documented as of this encounter
--- OUTSIDE RECORDS SUMMARY | 2021-11-23 13:09 | XMS_ITS | Encounter Summary ---
:1965 Author Organization [facility] Address [address] [place] [id number] Care Team Providers Name Role Phone Clinic, [facility] Primary Care Provider [phone] Reason for Visit Reason Comments Foot Pain Encounter Details Date Type Department Care Team Description 12/05/2017 Emergency [facility] Ese Hodges MD Cramp in lower leg; [facility] Emergency Dep t EMERGENCY PHYSICIANS Encounter for postoperative wound check [address], [place] [address] [facility] [address] [place] [address] [phone] (Wo rk) Social History Tobacco Use Types Packs/Day Years Used Date Smoking Tobacco: Never Smokeless Tobacco: Never Alcohol Use Standard Drinks/Week Comments No 0 (1 standard drink = 0.6 oz pure alcoho l) Sex Assigned at Date Recorded Not on file documented as of this encounter Last Filed Vital Signs Vital Sign Reading Time Taken Comments Blood Pressure 114/83 12/05/2017 3:19 PM CDT Pulse - - Temperature 36.4 ??C (97.5 ??F) 12/05/2017 3:19 PM CDT Respiratory Rate 18 12/05/2017 3:19 PM CDT Oxygen Saturation 97% 12/05/2017 3:19 PM CDT Inhaled Oxygen Concentration - - Weight 86.2 kg (190 lb) 12/05/2017 3:19 PM CDT Height 185.4 cm (6' 1) 12/05/2017 3:19 PM CDT Body Mass Index 25.07 12/05/2017 3:19 PM CDT documented in this encounter Discharge Instructions Discharge InstructionsEse Hodges MD - 12/05/2017 5:08 PM CDT Continue elevating. Continue oxycodone. Monitor for color change like you noticed before. Monitor for redness. The amount today is similar to picture when stitches were removed, but if redness extends beyond marking or if there is discharge, fever >100.4F, vomiting, or any other concerns, call [facility] or return to ER immediately. Call to arrange an earlier appointment with [facility] for wound check and discuss symptoms in the next week or so. AttachmentsThe following attachments cannot be sent through Care Everywhere.POST OP WOUND CHECK, GENERAL (BARBADIAN)documented in this encounter Medications at Time of Discharge Medication Sig Dispensed Refills Start Date End Date docusate sodium (COLACE) Take 100 mg by mouth 60 tablet 1 1 100 MG tablet daily GLIPIZIDE PO 0 hydrOXYzine (ATARAX) 10 Take 10 mg by mouth 0 MG/5ML syrup 3 times daily hydrOXYzine (VISTARIL) 25 0 11/18/2017 MG capsule NORTRIPTYLINE HCL PO 0 OXYCODONE HCL PO 0 tamsulosin (FLOMAX) 0.4 MG Take 1 capsule (0.4 30 capsule 3 11/21/2017 capsuleIndications: mg) by mouth daily Urinary retention LISINOPRIL PO 0 documented as of this encounter ED Notes Astrid Canela - 12/05/2017 3:32 PM CDT Applied monitoring equipment onto Patient (Pulse ox and BP). Heavenly Yeager RN - 12/05/2017 3:24 PM CDT Pt had tendon surgery on left foot on Nov 15. He now has increased pain in foot and swelling when foot is down. Pt is sent to ED to rule out blood clot. Ese Hodges MD - 12/05/2017 3:17 PM CDT Images from the original note were not included. History Chief Complaint: Foot Pain The history is provided by the patient and a friend. Trinity Davis is a 52 year old male with a history of NIDDM and TBI who presents with left foot pain, status post left foot tendon surgery on 11/15. Patient had his splint and stitches removed 5 days ago. Things seem to be going well though he continues to have pain in the foot requiring 1 tablet of oxycodone every 4 hours. However, yesterday the patient's ex- noticed a bluish discoloration when he was sitting with his feet hanging down. The discoloration seemed to start at the heel and move around to the foot and up towards the ankle. He did have associated swelling so since this incident the patient has been very careful about keeping the foot elevated. There has been no further episodes of discoloration and swelling is improved. He did, however, have a pain in is left lower leg/ankle last night that was cramping in quality and persists mildly today. Thus, today, patient's ex- called [facility] and described these symptoms. He was referred to the ER given concern for DVT. Of note, the surgical site is somewhat red. The patient and ex- state they believe this is from him itching the site. The ex- has picture of day the stitches were removed and there is a similar amount of redness on that photo 5 days ago. The patient notes pain has not increased in the last 5 days nor has he had any fever. He denies numbness or tingling. He has had no nausea or vomiting. Allergies: Imitrex [Sumatriptan] Depakote [Valproic Acid] Medications: Glipizide Lisinopril Colace Vistaril Atarax Past Medical History: Diabetes TBI Seizures Past Surgical History: Orthopedic surgery, left foot Family History: History reviewed. No pertinent family history. Social History: The patient was accompanied to the ED by ex-. Smoking Status: Never Smokeless Tobacco: Never Alcohol Use: No Marital Status: Single [facility] Review of Systems Constitutional: Negative for fever. Cardiovascular: Positive for leg swelling. Gastrointestinal: Negative for nausea and vomiting. Musculoskeletal: Positive for myalgias (left calf/ankle cramp). Skin: Positive for color change and wound (surgical). Neurological: Negative for numbness. All other systems reviewed and are negative. Physical Exam Patient Vitals for the past 24 hrs: BP Temp Temp src Heart Rate Resp SpO2 Height Weight 12/05/17 1519 114/83 97.5 ??F (36.4 ??C) Temporal 82 18 97 % 1.854 m (6' 1) 86.2 kg (190 lb) Physical Exam General: Well-developed and well-nourished. Well appearing middle aged man. Cooperative. Head: Atraumatic. Eyes: Conjunctivae, lids, and sclerae are normal. ENT: Normal nose. Moist mucous membranes. Neck: Supple. Normal range of motion. CV: DP 2+ bilaterally with distal capillary refill <3 seconds throughout. Resp: No respiratory distress. GI: Non-distended. MS: Normal ROM. No calf tenderness or edema. Mild edema to the left foot and second toe without color change aside from focal erythema around a well healing surgical site (photo below) with no significant warmth or tenderness. Cannot express discharge from wound. Compartments soft. No focal tendernessto palpation of the lower leg, ankle, or foot on the left. Skin: Warm. Non-diaphoretic. No pallor. See photo below. Neuro: Awake and alert. Normal strength and sensation to the left foot. Psych: Normal mood and affect. Normal speech. Vitals reviewed. Emergency Department Course Imaging: Radiology findings were communicated with the patient who voiced understanding of the findings. US Lower Extremity Venous Duplex Left: No DVT demonstrated. TRINITY HARKINS MD Emergency Department Course: Nursing notes and vitals reviewed. The patient was sent for an ultrasound of the lower extremity while in the emergency department, results above. 1532: I performed an exam of the patient as documented above. 1655: Patient rechecked and updated. Findings and plan explained to the patient. Patient discharged home with instructions regarding supportive care, medications, and reasons to return. The importance of close follow-up was reviewed. Impression & Plan Medical Decision Making: Trinity is a 52-year-old man who had a orthopedic left foot surgery and is postoperative day 20 presenting with concern for DVT. Patient had his splint and sutures removed as well as a pin on postoperative day 15. Since that time he has continued using oxycodone every 4 hours which does relieve his pain.It has not significantly worsened recently though he did have left calf pain described as a cramp yesterday that persists mildly now. This, in combination with color change of the foot which his ex- describes as blue prompted a call to the [facility] and referral for evaluation for DVT. Ex- does note that this skin discoloration improved when they elevated the extremity and she believes the swelling has improved as well. On exam, there is no significant swelling and no skin discoloration. He is neurovascularly intact with 2+ DP pulse. Compartments are soft and there is no significant calf tenderness or swelling. There is a small amount of redness around the surgical site itself though it is not elisabeth cellulitis and patient's ex- shows me a picture on her phone of the day thesutures removed and this redness is unchanged from that time. He does report that it is been somewhat itchy and he has been itching at this area and I believe this redness is unlikely to represent a true postoperative surgical site infection or cellulitis. Patient was sent for duplex US and, fortunately, this shows no DVT. At this time, there is no significant concern for postoperative site infection, compartment syndrome, or DVT. Further imaging is not indicated, particularly as his pain has not particularly worsened recently. I do not believe antibiotics are indicated for the redness around the surgical site though I have demarcated the area and recommended close monitoring. If the redness extends, he would warrant antibiotics at that time. However, it has not extended in the last 5 days and hehas no systemic signs of illness such as fever. Exact etiology of the blue discoloration describedby ex- is unclear. I suspect it was related to dependent edema given it improved with elevation.I have recommended they continue elevating and continue his oxycodone. I have recommended they monitor closely for a blue discoloration as they noticed before and also monitoring the redness that was demarcated as above with strict return precautions for surgical site infection. He does not have an appointment for another 3-4 weeks with [facility] so I have recommended they call today or tomorrow to get first available appointment for recheck of his surgical site and to discuss his ER visit and ongoing pain with calf cramp and reported skin discoloration. I answered all the patient and his ex-'s questions and they verbalized understanding. They are amenable to discharge with [facility] follow-up and strict return precautions. Diagnosis: ICD-10-CM 1. Cramp in lower leg R25.2 2. Encounter for postoperative wound check Z48.89 Disposition: discharged home Ammy Wu 12/05/2017 [facility] EMERGENCY DEPARTMENT I, Ammy Wu, am serving as a scribe at 3:32 PM on 12/05/2017 to document services personallyperformed by Ese Hodges MD based on my observations and the provider's statements to me. Ese Hodges MD 12/07/17 1347 documented in this encounter Plan of Treatment Not on filedocumented as of this encounter Procedures Procedure Name Priority Date/Time Associated Diagnosis Comme nts US LOWER EXTREMITY STAT 12/05/2017 4:19 PM Res ults for this VENOUS DUPLEX LEFT CDT procedure are in the results section. documented in this encounter Results US Lower Extremity Venous Duplex Left (12/05/2017 4:19 PM CDT) Anatomical Region Laterality Modality Vascular, Thigh, Leg Ultrasound Specimen (Source) Anatomical Location Collection Method / Collectio n Time Received Time / Laterality Volume Impressions 12/05/2017 4:29 PM CDT IMPRESSION: No DVT demonstrated. TRINITY HARKINS MD Narrative 12/05/2017 4:29 PM CDT ULTRASOUND VENOUS LOWER EXTREMITY UNILATERAL LEFT ??12/05/2017 4:19 PM HISTORY: Swelling, pain, concern for caryn p venous thrombosis postoperatively. COMPARISON: None. TECHNIQUE: Ultrasound dominique scale, Color Doppler flow, and spectral Doppler waveform analysis performed. FINDINGS: ??The left common femoral, sup erficial femoral, popliteal and posterior tibial veins are patent and fu lly compressible and demonstrate normal venous Doppler flow. The visualized greater saphenous vein is negative for thrombus. For comparison the right common femoral vein was evaluated and wa s unremarkable. Procedure Note Trinity Harkins MD - 12/05/2017Fo rmatting of this note might be different from the original. ULTRASOUND VENOUS LOWER EXTREMITY UNILAT ERAL LEFT 12/05/2017 4:19 PM HISTORY: Swelling, pain, concern for caryn p venous thrombosis postoperatively. COMPARISON: None. TECHNIQUE: Ultrasound dominique scale, Color Doppler flow, and spectral Doppler waveform analysis performed. FINDINGS: The left common femoral, super ficial femoral, popliteal and posterior tibial veins are patent and fu lly compressible and demonstrate normal venous Doppler flow. The visualized greater saphenous vein is negative for thrombus. For comparison the right common femoral vein was evaluated and wa s unremarkable. IMPRESSION: No DVT demonstrated. TRINITY HARKINS MD Ese Hodges MD IMG US ORDERABLES documented in this encounter Visit Diagnoses Diagnosis Cramp in lower leg Encounter for postoperative wound check Other specified aftercare following surg sabrina documented in this encounter Care Teams Transformer Maker Relationship Specialty Start Date End Date [facility], [facility] PCP - General 11/17/[address] [place] [id number] documented as of this encounter
--- NOTE | 2021-11-23 13:48 | ED.HA ---
HPI - Headache General Date Seen: 11/23/21 Chief Complaint: Headache/Migraine Stated Complaint: fell 2 days ago/hit head Time Seen by Provider: 11/23/21 11:28 Source: patient Mode of arrival: ambulatory Limitations: no limitations History of Present Illness HPI Narrative: Patient is a 48-year-old gentleman who presents here after he fell, striking the left frontal region 2 days ago, since then he has had increased headache, he has a known aneurysm in his head, he has had no numbness tingling weakness, there has been no vomiting, there was no loss of conscious associated with this. He bent over from standing height. He is not on any blood thinners, denies any neck pain numbness tingling or weakness, but is concerned about his brain as he does have a history of aneurysm. He tells me he always has a headache, has had multiple workups everywhere including the [facility] for this, the only medication the truly works for him is morphine IM when he gets that. Otherwise everything else is more of a Band-Aid situation. He is however not asking for narcotics, his when we discussed this I said I would give it to him and after the risks benefits and side effects he declined this intervention. Finds a light is a little bit bothersome form, no vomiting, no perseveration, and he is otherwise thinking normally according to family member who is here. elicited complaint: headache Onset (ago): day(s) Onset description: suddenly Related Data Home Medications Medication Instructions Recorded Confirmed ascorbic acid (vitamin C) 1,000 mg 4,000 mg PO DAILY 08/06/21 11/23/21 tablet (Vitamin C) aspirin 325 mg capsule 325 mg PO DAILY 08/06/21 11/23/21 [id number]-gnmyypzdtcahh-aksghuip 250 1 tab PO Q6H PRN 08/06/21 11/23/21 mg-250 mg-65 mg tablet (Migraine Relief) atenolol 25 mg tablet 50 mg PO Q24H 08/06/21 11/23/21 atorvastatin 40 mg tablet 40 mg PO HS 08/06/21 11/23/21 carboxymethylcellulose sodium 0.5 1 drp ophthalmic (eye) DAILY 08/06/21 11/23/21 % eye drops (Refresh Tears) cholecalciferol (vitamin D3) 50 4,000 unit PO BID 08/06/21 11/23/21 mcg (2,000 unit) capsule (Vitamin D3) glipizide 5 mg tablet, extended 5 mg PO .daily before meal 08/06/21 11/23/21 release 24 hr vit C 250 mg-vit E 90 mg-zinc 40 1 tab PO .qd 08/06/21 11/23/21 mg-copper 1 ll-evrboa-jdnanr capsule (PreserVision AREDS-2) Allergies Allergy/AdvReac Type Severity Reaction Status Date / Time metformin Allergy Severe Swelling Verified 11/23/21 11:54 of Lips sumatriptan [From Imitrex] Allergy Severe Anaphylaxis Verified 11/23/21 11:54 valproic acid AdvReac Intermediate hepatic Verified 11/23/21 11:54 dysfunction amlodipine AdvReac Mild Headache Verified 11/23/21 11:54 atorvastatin AdvReac Mild Headache Verified 11/23/21 11:54 rosuvastatin [From Crestor] AdvReac Mild Verified 11/23/21 11:54 simvastatin AdvReac Mild muscle Verified 11/23/21 11:54 weakness botox Allergy Severe pain Uncoded 11/23/21 11:54 Review of Systems Status of ROS: Reports: 6 or more systems reviewed and unremarkable except as noted in History and below [facility] Medical History CVA (cerebral vascular accident) Injury brain, traumatic Paralysis Social History Smoking Status: Never smoker Do you use any of these nicotine containing products: None Second hand tobacco smoke exposure: No How often do you have a drink containing alcohol: never AUDIT-C Alcohol total score: 0 Non-prescribed substance use: denies use service: No Exam Narrative: Exam Narrative: He is alert oriented nontoxic in room 3. His pupils are equal round reactive to light, there is no scleral icterus redness, TMs bilaterally are normal his oropharynx is normal cranial nerves 3-12 are normal is slight abrasions noted over the left frontal region just above his left eye. There is no hematoma. No step-off deformity. C-spine is nontender to palpation, flexion extension lateral flexion rotation are all normal. His firer boiler strengths are normal bilaterally, heart sounds are normal, at chest is clear by with no wheezing crackles noted his abdomen is soft and obese there is no guarding no hepatosplenomegaly Moves all extremities independently well reflexes normal in his upper lower extremities. Const: Vital Signs, click to edit/add: Vital Signs - 24 hr 11/23/21 11:57 11/23/21 12:15 11/23/21 12:16 Temperature 97.2 F L Pulse Rate 61 59 L Pulse Rate [Pulse Oximeter] 61 Blood Pressure 136/89 Blood Pressure [Le ft Upper Arm] 122/86 Pulse Oximetry 99 97 100 Oxygen Delivery Me thod Room Air 11/23/21 12:30 11/23/21 12:32 11/23/21 12:33 Temperature Pulse Rate 58 L 56 L 56 L Pulse Rate [Pulse Oximeter] Blood Pressure 126/83 Blood Pressure [Le ft Upper Arm] Pulse Oximetry 98 96 97 Oxygen Delivery Me thod 11/23/21 13:00 11/23/21 13:02 11/23/21 13:03 Temperature Pulse Rate 55 L 55 L 56 L Pulse Rate [Pulse Oximeter] Blood Pressure 127/97 H Blood Pressure [Le ft Upper Arm] Pulse Oximetry 98 99 99 Oxygen Delivery Me thod 11/23/21 13:31 11/23/21 13:32 11/23/21 13:33 Temperature Pulse Rate 59 L 52 L 52 L Pulse Rate [Pulse Oximeter] Blood Pressure 143/91 H Blood Pressure [Le ft Upper Arm] Pulse Oximetry 97 99 99 Oxygen Delivery Me thod 11/23/21 14:00 11/23/21 14:01 11/23/21 14:02 Temperature Pulse Rate 53 L 51 L 53 L Pulse Rate [Pulse Oximeter] Blood Pressure 133/89 Blood Pressure [Le ft Upper Arm] Pulse Oximetry 99 99 100 Oxygen Delivery Me thod 11/23/21 14:30 11/23/21 14:31 11/23/21 15:00 Temperature Pulse Rate 53 L 53 L 51 L Pulse Rate [Pulse Oximeter] Blood Pressure 132/94 H Blood Pressure [Le ft Upper Arm] Pulse Oximetry 97 98 94 Oxygen Delivery Me thod 11/23/21 15:02 11/23/21 15:03 11/23/21 15:30 Temperature Pulse Rate 51 L 51 L 49 L Pulse Rate [Pulse Oximeter] Blood Pressure 132/93 H Blood Pressure [Le ft Upper Arm] Pulse Oximetry 97 100 97 Oxygen Delivery Me thod 11/23/21 15:32 Temperature Pulse Rate 51 L Pulse Rate [Pulse Oximeter] Blood Pressure 149/92 H Blood Pressure [Le ft Upper Arm] Pulse Oximetry 97 Oxygen Delivery Me thod Course Vital Signs Vital signs: Initial Vital Signs Temperature 97.2 F L 11/23/21 11:57 Temperature Source Temporal Artery Scan 11/23/21 11:57 Pulse Rate 61 11/23/21 11:57 Pulse Rhythm 11/23/21 11:57 Pulse Strength 3+ Normal 11/23/21 11:57 Blood Pressure 122/86 11/23/21 11:57 Blood Pressure Mean 98 11/23/21 11:57 Blood Pressure Position Sitting 11/23/21 11:57 Pulse Oximetry 99 11/23/21 11:57 Oxygen Delivery Method 11/23/21 11:57 Vital Signs Temperature 97.2 F L 11/23/21 11:57 Pulse Rate 61 11/23/21 11:57 Blood Pressure 122/86 11/23/21 11:57 Pulse Oximetry 99 11/23/21 11:57 Oxygen Delivery Method 11/23/21 11:57 Temperature 97.2 F L 11/23/21 11:57 Pulse Rate 51 L 11/23/21 15:32 Blood Pressure 149/92 H 11/23/21 15:32 Pulse Oximetry 97 11/23/21 15:32 Oxygen Delivery Method 11/23/21 11:57 MDM - Headache MDM Narrative Medical decision making narrative: Life-threatening differential diagnosis is considered include: Subarachnoid hemorrhage, subdural hemorrhage, epidural hemorrhage. Other differential diagnosis considered include concussion, closed head injury, or neck fracture. Medical Records Attestation: I reviewed the patient's medical records. Imaging Data CT scan - head: My impression: No acute findings Radiologist's impression: Patient: TRINITY RUBIO II Facility:?[facility] Patient ID:?[id number] Site Patient ID:?[id number]. Site :?1965 Study:?CT Head W/O-11/23/2021 1:37:43 PM Ordering Physician:Francie Burnham Final Report: INDICATION: FALL, HX OF STROKE TECHNIQUE: Head CT without contrast. COMPARISON: CT head August 06, 2021. FINDINGS: CSF spaces: Within normal limits for age. Brain parenchyma and extra-axial spaces: Left fronto temporal encephalomalacia. Remote hypodensities involving the right basal ganglia and right davis radiata and centrum semiovale. Otherwise, the dominique-white junction is preserved. There are nonspecific low attenuation white matter changes consistent with chronic microvascular disease. No intracranial hemorrhage or extra-axial fluid collection. Skull base and calvarium: The visualized paranasal sinuses and mastoid air cells demonstrate no acute or significant findings. The visualized orbits are grossly unremarkable. No skull fractures. IMPRESSION: Left frontal temporal encephalomalacia and remote right basal ganglia infarcts. No acute intracranial abnormality on this unenhanced CT head. Please note that all CT scans at this facility use dose modulation, iterative reconstruction, and/or weight-based dosing when appropriate to reduce radiation dose to as low as reasonably achievable. Dictated by Jason Lazo MD @ 11/23/2021 3:39:59 PM (Electronic Signature) Discharge Plan Discharge Clinical Impression: Headache, Head injury, Bradycardia Patient Disposition: Home w/ Parent or Adult Condition: Stable Instructions: Head Injury (ED), Acute Headache (ED) Additional Instructions: Home, rest, continue management her headache, the good news is the CT did not show any significant issues. Only chronic findings. He will follow up with his doctor is a recently increase the atenolol, which is likely accounting for his low heart rate Prescriptions: No Action aspirin 325 mg capsule 325 mg PO DAILY atenolol 25 mg tablet 50 mg PO Q24H atorvastatin 40 mg tablet 40 mg PO HS glipizide 5 mg tablet extended release 24 hr 5 mg PO .daily before meal Label Comments: TAKE ONE TABLET BY MOUTH DAILY BEFORE A MEAL Migraine Relief 250-250-65 mg tablet 1 tab PO Q6H PRN PreserVision AREDS-2 250-90-40-1 mg capsule 1 tab PO .qd carboxymethylcellulose sodium [Refresh Tears] 0.5 % drops 1 drp ophthalmic (eye) DAILY ascorbic acid (vitamin C) [Vitamin C] 1,000 mg tablet 4,000 mg PO DAILY cholecalciferol (vitamin D3) [Vitamin D3] 50 mcg (2,000 unit) capsule 4,000 unit PO BID Follow Up/Referrals: Jignesh Sousa MD [Primary Care Provider] - Stand Alone Forms: [employer] Info Instructions
--- NOTE | 2021-11-23 14:50 | ED.NURSE ---
Pt HR noted to be in low 50's. meat molder applied. MD notified.
== END 2021-11-23 16:03 | disposition home or self-care (01) ==
PROVIDERS: Emergency Provider Family Medicine; PCP Family Medicine
DX: R51.9 Headache, unspecified (principal); S09.90XA Unspecified injury of head, initial encounter; R00.1 Bradycardia, unspecified; W19.XXXA Unspecified fall, initial encounter; Z79.82 Long term (current) use of aspirin; Z86.73 Personal history of transient ischemic attack (TIA), and cerebral infarction without residual deficits
CPT/HCPCS: 70450; 99284

== ENCOUNTER 2021-12-20 10:51 | Outpatient (CLI) | payer MEDICARE, BC, SELFPAY ==
--- OUTSIDE RECORDS SUMMARY | 2022-01-15 03:21 | XMS_ITS | Clinical Summary ---
:1965 Author Organization [facility] Address [address] [place] [address] Care Team Providers Name Role Phone Unavailable Primary Care Provider Unavailable Source Comments Patient records contain information from all sites at [facility]. For routine questions regarding patient records, call [phone] during business hours, M-F 8:00 AM - 5:00 PM Central Time. Record requests for emergency care only can be directed to [phone] at any time.[facility] Allergies No known active allergies Medications Medication [...] e / Group Dates MEDICARE MEDICARE A [id number] 2010-Pres [address] [place] [address] BLUE CROSS BCBS [place] [id number] 2020-Pres [phone] PO MACY X Cost Share BLUE SHIELD BLUE COST ent [phone] SHARE KEARA HUTCHISON [phone] (Home) E [place] Banks [phone] Advance Directives For more information, please contact: [phone] Latest Code Status on File Code Status Date Activated Date Inactivated Comments Full Code 04/23/2021 5:34 PM 04/24/2021 11:19 PM Question Answer Comments Full Code: Discussed
--- OUTSIDE RECORDS SUMMARY | 2022-01-15 03:21 | XMS_ITS | Encounter Summary ---
:1965 Author Organization [facility] Address [address] [place] [address] Care Team Providers Name Role Phone Unavailable Primary Care Provider Unavailable Encounter Details Date Type Department Care Team Description 04/24/2021 Orders Only [facility], [facility], [facility] [address] [place], [place] [address] [place] [address] [place] [address] [phone] Social History Tobacco Use Types Packs/Day Years [...]
--- OUTSIDE RECORDS SUMMARY | 2022-01-15 03:22 | XMS_ITS | Encounter Summary ---
:1965 Author Organization [place] Address [address] [place] [address] Care Team Providers Name Role Phone [facility], [facility] Primary Care Provider Encounter Details Date Type Department Care Team [...] on filedocumented in this encounter Care Teams Stem Roller Operator Relationship Specialty Start Date End Date [facility], [facility] PCP - General 11/17/[address] [place] [address] documented as of this encounter
--- OUTSIDE RECORDS SUMMARY | 2022-01-15 03:22 | XMS_ITS | Clinical Summary ---
:1965 Author Organization [facility] [place] [address] Care Team Providers Name Role Phone Jignesh Sousa MD Primary Care Provider Allergies Active Allergy Reactions Severity Noted Date Comments Amlodipine Headache 12/22/2020 Atorvastatin Headache 06/21/2018 Botulinum Toxin Headache 08/07/2021 Severe head pain - happened two di fferent occasions Rosuvastatin Other - Describe In 11/07/2017 Memory p nataliya. Comment Field Sumatriptan Anaphylaxis 08/14/2012 Metformin Edema 11/19/2016 Swelling of bot h lips. 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 Simvastatin Muscle Weakness 07/31/2012 Valproic Acid Hepatic [...] 1,000 mg daily per 2 tablet patient/mother hrbocna-smqfklyibpwbd-ncva Take 1 Tablet by 0 Active eine [...] Take 1 Capsule by 0 Ac tive C,F-Nt-cwpna-lutein-zeaxan mouth in the 2 (PreserVision AREDS-2) morning [...] use of insulin Test 1 time/day (HC) morphine IMMEDIATE RELEASE Take 1/2 tablet 30 Tablet 0 Active 15 mg tabletIndications: every 6 hours by 2 Chronic daily headache mouth if needed for pain. For severe pain only, use sparingly. Active Problems Problem Noted Date Spastic hemiparesis [...] 04/05/2011 These readings were on no medication. [facility] Neurologist told him not to take a statin drug due to his memory problems in 2015. Unspecified disorder of eye movements 10/21/2006 Resolved Problems Problem Noted Date Resolved Date Counseling for marital and partner problems, unspecified 10/18/2012 Encounters Date Type Specialty Care Team Description 01/05/2022 Telephone Brian Flores Medication Management DO [place] (Patient's phar gonzales called to say that as far as the insurance is co ncerned the patient is narc otic naive because it is t he first time he is having op ioids that are being fille d at retail.) 01/05/2022 Telephone Brian Flores Abstract ( Patient's family DO [place] member would li ke to know if it is safe for patient to fly with recent stroke and the pressure of the plane. Please advise.) 01/04/2022 Office Visit Brian Flores Follow Up; Raiza Wick DO 01/04/2022 Travel 12/29/2021 Office Visit Heladio Mckenzie, Follow Up (ER on 12/20/21, migraine, Hx of stroke, has appt at pain cl inic on 01/04/22.) 12/29/2021 Travel 12/20/2021 Nurse Triage Jignesh Sousa MD Erro r-please disregard 12/20/2021 Telephone Jignesh Sousa MD Erro r-please disregard 12/14/2021 Telephone Peetz, [employer] Pain Abstract (Patient can schedule initia l consultation wi th next available. Cristal ent is aware of opening with Dr. Flores 01/04 but will need to check with national dedicated truck driver kenya acosta. Will call back later to becky goel. ) 12/10/2021 Telephone Peetz, [facility] Abstract (Pt mom calling wanting to know the status. Still reviewing . 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) 12/09/2021 Travel 11/30/2021 Office Visit Jignesh Sousa MD Medi cation Management (Follow up on m eds and stroke.); Fall (November 19, went to [facility] ER, vision issues a nd lump.) 11/30/2021 [...] 10/28/2021 Telephone Nunu Pierre MD 10/27/2021 Emergency Thiago, Margaret Acute arnulfo ntractable headache, unspecified headache type (Primary Dx); MD Bryan Tunnel vision, bilateral Rosebud, Silvino Leija MD 10/27/2021 Travel 10/27/2021 Nurse Triage Jignesh Sousa MD Head ache from Last 3 Months Immunizations Name Administration [...] in contact with No / Unsu re 01/04/2022 8:41 AM BIOFUELS RESEARCH SCIENTIST someone who was confirmed or suspected to have Coronavirus/COVID-19? Obstetrics History Last Filed Vital Signs Vital Sign Reading Time Taken Comments Blood Pressure 143/88 01/04/2022 8:58 AM BIOFUELS RESEARCH SCIENTIST Pulse 64 01/04/2022 8:58 AM BIOFUELS RESEARCH SCIENTIST Temperature 36.4 ??C (97.5 ??F) 01/04/2022 8:58 AM BIOFUELS RESEARCH SCIENTIST Respiratory Rate 12 01/04/2022 8:58 AM BIOFUELS RESEARCH SCIENTIST Oxygen Saturation 97% 01/04/2022 8:58 AM BIOFUELS RESEARCH SCIENTIST Inhaled Oxygen Concentration - - Weight 96.6 kg (213 lb) 12/29/2021 9:44 AM BIOFUELS RESEARCH SCIENTIST Height 185.4 cm (6' 1) 12/29/2021 9:44 AM BIOFUELS RESEARCH SCIENTIST Body Mass Index 28.1 12/29/2021 9:44 AM BIOFUELS RESEARCH SCIENTIST Plan of Treatment Upcoming Encounters Date Type Specialty Care Team Description 02/04/2022 Office Visit Kishor Flores, [facility] [place] [address] (Wo rk) 03/31/2022 Orders Only Lab, [place] 04/02/2022 Office Visit Jignesh Sousa MD [address] [facility] [place] [address] (Wo rk) Health Maintenance Due Date Last Done Comments COVID-19 vaccine series (#1) 1965 HIV for age 15-65 1978 Fecal testing non-DNA 07/14/2017 07/14/2016 (FIT,FOBT,iFOBT) for age 45-75 Pneumococcal series for age 19-64 02/05/2021 02/06/2020 (2 - PCV) Influenza for age 50-64 10/08/2021 11/11/2014, 12/04/2012, 11/26/2002 Depression screening for age 12+ 07/16/2022 07/16/2021, , 02/06/2020, Additional history exists BMI (ht and wt on same day) for 12/29/2022 12/29/2021, 11/08, age 18+ 11/04/2021, Additional history exists Tetanus booster 07/19/2026 07/19/2016, 04/15/2008, 02/21/1999 Lipids for age 45-75 11/25/2026 11/25/2021, 08/27/2021, 05/25/2021, Additional history exists Tdap Completed 04/15/2008 Hepatitis B series for Diabetes Completed 08/05/2014, 05/2014, 08/01/2013 Hepatitis C screening for age Completed 12/19/2020 18-79 Zoster (shingles) series for age Completed 12/22/2020, 50+ Procedures Procedure Name Priority Date/Time Associated Diagnosis Comme nts COMPLIANCE DRUG Routine 01/04/2022 9:00 Encounter for Results for this ANALYSIS AM BIOFUELS RESEARCH SCIENTIST therapeutic drug procedure a re in monitoring the results section. SCAN CORRESP-IMAGING 12/01/2021 12:00 [...] results section. from Last 3 Months Results COMPLIANCE DRUG ANALYSIS (01/04/2022 9:00 AM [facility]) [facility] Method Time Signature 6-MONOACETYL NEG NEG ng/mL 01/07/2022 [place] MORPHINE 12:54 PM [facility] AMPHETAMINE URINE NEG <=500 01/07/2022 [place] ng/mL 12:54 PM [facility] BARBITURATE URINE NEG <=200 01/07/2022 [place] ng/mL 12:54 PM [facility] BENZODIAZEPINE URINE NEG <=100 01/07/2022 [place] ng/mL 12:54 PM [facility] BUPRENORPHRINE URINE NEG <=5 ng/mL 01/07/2022 [place] 12:54 PM [facility] COCAINE METAB URINE NEG <=300 01/07/2022 [place] ng/mL 12:54 PM [facility] ETHYLGLUCURONIDE NEG <=250 01/07/2022 [place] URINE ng/mL 12:54 PM [facility] FENTANYL URINE NEG <=4 ng/mL 01/07/2022 [place] 12:54 PM [facility] METHADONE URINE NEG <=300 01/07/2022 [place] ng/mL 12:54 PM [facility] OPIATES URINE NEG <=300 01/07/2022 [place] ng/mL 12:54 PM [facility] OXYCODONE URINE NEG <=100 01/07/2022 [place] ng/mL 12:54 PM [facility] PROPOXYPHENE URINE NEG <=300 01/07/2022 [place] ng/mL 12:54 PM [facility] THC 50 URINE NEG <=50 01/07/2022 [place] ng/mL 12:54 PM [facility] TRAMADOL NEG <=200 01/07/2022 [place] ng/mL 12:54 PM [facility] PH URINE 6.0 5.0 - 7.0 01/07/2022 [place] 12:54 PM [facility] CREAT UR 83 >=20 01/07/2022 [place] mg/dL 12:54 PM [facility] MASS SPECTROMETRY See Below 01/07/2022 [place] URINE 12:54 PM [facility] Comment: Atenolol and Nortriptyline pres ent. Specimen Anatomical Collection Method Collection Time Receive d Time (Source) Location / / Volume Laterality Urine URINE SPECIMEN / Non-Blood / 01/04/2022 9:00 AM 01/05 7:34 Unknown Unknown [facility] AM [facility] Narrative [facility] - 022 12:54 PM [facility] Current Outpatient Medications:Initial utox Haley Jones, CMA9:01 AM01/04/22 ascorbic acid, vitamin C, (Vitamin C) 1, 000 mg tablet, Taking 4000 mg daily per patient/mother aspirin 325 mg tablet, Take 1 Tablet by mouth once daily. nwueayo-niyzybuctjdtt-dbfmgjwt (Migraine Relief) 250-250-65 mg, Take 1 Tablet by mouth every 6 hours if needed for Headache. Max acetaminophen dose: 4000mg in 24 hrs. atenoloL (TENORMIN) 50 mg tablet, Take 1 Tablet (50 mg) by mouth once daily. baclofen (LIORESAL) 10 mg tablet, Take 0 .5 Tablets (5 mg) by mouth at bedtime. blood sugar diagnostic (True Metrix Gluc ose Test Strip) strip, As directed two times daily. Dispense item covered by pt ins. E11.9 NIDDM type II - Test 1 time/dayTEST TWICE DAILY blood-glucose meter (ACCU-CHEK ADVANTAGE DIABETES), Dispense glucose meter, test strips and lancets covered by the patient insurance. Test one times per day. blood-glucose meter, Dispense meter, celena t strips, lancets covered by pt ins. E11.9 NIDDM type II - Test 1 time/day carboxymethylcellulose 0.5% (Refresh Tea rs) 0.5 % drop ophthalmic drops, cholecalciferol (Vitamin D-3) 2,000 unit capsule, 4000 units by mouth daily glipiZIDE extended-release (GLUCOTROL XL ) 5 mg Extended-Release tablet, Take 1 Tablet (5 mg) by mouth once daily before a meal. HYDROcodone-acetaminophen (NORCO) 5-325 mg per tablet, TAKE 1-2 TABLETS BY MOUTH EVERY 4-6 HOURS NEEDED MULTIVITAMIN TAB, take 1 tablet by oral route once daily with food nortriptyline (PAMELOR) 10 mg capsule, 1 capusle at bedtime for 1 month, then 2 capsules at bedtime for 1 month then 3 capsules at bedtime. vit C,I-Ja-nlgzr-lutein-zeaxan (PreserVi mavis AREDS-2) capsule, Take 1 Capsule by mouth in the morning and 1 Capsule in the evening. No current facility-administered medicat ions for this visit. As of 01/04/2022 Release to patient->Immediate Brian Flores DO URINE Performing Organization Address City/State/[place] [address] CENTER MAIL CODE 812 SCAN CORRESP-IMAGING (12/01/2021 12:00 AM CDT)Only the most recent of2 results within the time period is included. Narrative 12/01/2021 12:00 AM CDT This result has an attachment that is no t available. Ordered by an unspecified provider. Other Clinical Staff OTHER (ABNORMAL) LIPID PANEL W REFLEX MEASURED LDL (11/25/2021 9:24 AM CDT) [facility] Method Time Signature CHOLESTEROL,TOTAL 252 (H) 100 - 199 11/26/2021 [facility] mg/dL 12:17 AM CDT [facility] TRAL [facility]ATORY TRIGLYCERIDES 373 (H) <150 11/26/2021 [facility] mg/dL 12:17 AM CDT [facility] HDL CHOLESTEROL 29 (L) >40 mg/dL 11/26/2021 [facility] 12:17 AM CDT [facility] TR[facility] NON-HDL 223 (H) <145 11/26/2021 [facility] CHOLESTEROL mg/dl 12:17 AM CDT [facility] CHOL/HDL RATIO 8.69 (H) <4.50 11/26/2021 [facility] 12:17 AM CDT [facility] TRAL LABOR[facility]ORY LDL [...] Organization Address City/State/ZIP Code Phon e Number [facility] [address] [place] [address] LAB[facility]ATORY-CENTRAL 2000 LABORATORY (ABNORMAL) HEMOGLOBIN A1C MONITORING (POCT) (11/25/2021 9:24 AM CDT) Analysis Performed At Patho logist Time Signature HEMOGLOBIN A1C 7.7 (H) <=6.4 % 11/25/2021 [facility] [employer] MONITORING 9:33 AM CDT [place] (POCT) [facility] Specimen Anatomical Collection Method / Collection Time Recei crow Time (Source) Location / Volume Laterality Blood BLOOD SPECIMEN / Venipuncture / 11/25/2021 9:24 2021 9:24 Unknown Unknown AM CDT AM CDT [facility] - 2021 9:33 AM CDT ? (<=6.9%) [...] Organization Address City/State/ZIP Code Phon e Number [facility] [address], [place] [id number] (ABNORMAL) BASIC METABOLIC PANEL (11/25/2021 9:24 AM CDT)Only the most recent of 2 resultswithin the time period is included. [facility] Time Signature SODIUM 133 (L) 135 - [...] LABORATORY BUN 11 8 - 25 11/26/2021 [facility] mg/dL 12:16 AM CDT [facility] TRAL LABORATORY CREATININE 1.25 0.72 - 11/26/2021 [facility] 1.25 mg/dL 12:16 AM CDT [facility] TRAL [facility] BUN/CREAT RATIO 9 (L) 10 - 20 11/26/2021 [facility] 12:16 AM CDT [facility]ORY eGFR 67 (L) >90 11/26/2021 [facility] mL/min/1.7 12:16 AM CDT [facility] 3m2 TRAL [...] Organization Address City/State/ZIP Code Phon e Number [facility] [address] [place] [address] LABORATORY-CENTRAL 1999 LABORATORY SCAN-CT INTERPRETATION (11/23/2021 12:00 AM CDT) [...] ?? If you have questions, please contact [facility] care provider. Indication: Vision change, headaches. Technique: [...] radiology service can be arranged by calling [phone]. MRA Neck: 1. No evidence for hemodynamically [...] ?? If you have questions, please contact [facility] health care provider. Indication: Vision change, [...] radiology service can be arranged by calling [phone]. MRA Neck: 1. No evidence for hemodynamically signi ficant ICA stenosis by NASCET criteria. 2. No evidence for carotid or vertebral artery dissection in the neck. Dictated by Neno Tian MD @ 10/27/2021 6:35:11 PM (Electronically Signed) Narrative 10/27/2021 6:34 PM CDT For Patients: ??As a result of the Cures Act, medical imaging exams and procedure report s are released immediately into your [facility] medical record. ??You may view this report [...] radiology service can be arranged by calling [phone]. MRA Neck: 1. No evidence for hemodynamically [...] provider. If you have questions, please contact [facility] care provider. Indication: Vision change, headaches. Technique: [...] radiology service can be arranged by calling [phone]. MRA Neck: 1. No evidence for hemodynamically signi ficant ICA stenosis by NASCET criteria. 2. No evidence for carotid or vertebral artery dissection in the neck. Dictated by Neno Tian MD @ 10/27/2021 6:34:09 PM (Electronically Signed) Margaret Das MD MR TROPONIN I QUAL POC (10/27/2021 3:22 PM CDT) [facility] Time Signature TROPONIN Negative Negative 10/27/2021 [facility] I,QUAL,POC 3:38 PM CDT [facility] TROPONIN <0.03 <0.03 10/27/2021 [facility] I,QUAL, POCT 3:38 PM CDT [facility]AL [facility] Specimen Anatomical Collection Method Collection Time Receive d Time (Source) Location / / Volume Laterality Blood BLOOD SPECIMEN / 10/27/2021 3:22 PM 10/27 3:38 Unknown CDT PM CDT Margaret Das MD CHEMISTRY Performing Organization Address City/State/ZIP Code Phon e Number [facility] [address] [place] [address] LABORATORY-CENTRAL 2000 LABORATORY (ABNORMAL) CBC W PLT NO DIFF (10/27/2021 3:16 PM CDT) [facility] gist Method Time Signature WHITE BLOOD 7.8 4.5 - 11.0 10/27/2021 [facility] [employer] COUNT thou/cu mm 3:42 PM CDT [facility] TRAL LABORATORY RED BLOOD COUNT 3.95 (L) 4.30 - 10/27/2021 [facility] [employer] 5.90 3:42 PM CDT [facility] mil/cu mm TRAL LABORATORY HEMOGLOBIN 12.3 (L) 13.5 - 10/27/2021 [facility] [employer] 17.5 g/dL 3:42 PM CDT [facility] TRAL LABORATORY HEMATOCRIT 36.7 (L) 37.0 - 10/27/2021 [facility] [employer] 53.0 % 3:42 PM CDT [facility] TRAL LABORATORY MCV 93 80 - 100 10/27/2021 [facility] [employer] fL 3:42 PM CDT [facility]AL [facility]OR[facility]ORY MCH 31.1 26.0 - 10/27/2021 [facility] [employer] 34.0 pg 3:42 PM CDT [facility] TRAL LABORATORY MCHC 33.5 32.0 - 10/27/2021 [facility] [employer] 36.0 g/dL 3:42 PM CDT [facility] TRAL LABORATORY RDW 14.6 11.5 - 10/27/2021 [facility] [employer] 15.5 % 3:42 PM CDT [facility] TRAL LABORATORY PLATELET COUNT 339 140 - 440 10/27/2021 [facility] [employer] thou/cu mm 3:42 PM CDT [facility] TRAL LABORATORY MPV 9.8 6.5 - 11.0 10/27/2021 [facility] [employer] fL 3:42 PM CDT [facility] TRAL LABORATORY NRBC 0.0 % 10/27/2021 [facility] [employer] 3:42 PM CDT [facility] TRAL [facility]OR[facility]ORY ABS NRBC 0.0 thou /cu 10/27/2021 [facility] [employer] mm 3:42 PM CDT [facility] Specimen Anatomical Collection Method / Collection Time Recei crow Time (Source) Location / Volume Laterality Blood BLOOD SPECIMEN / Venipuncture / 10/27/2021 3:16 2021 3:24 Unknown Unknown PM CDT PM CDT Margaret Das MD HEMATOLOGY Performing Organization Address City/State/ZIP Code Phon e Number [facility] [address] [place] [address] LABORATORY-CENTRAL 2000 LABORATORY from Last 3 Months Insurance Payer Benefit Plan / Subscriber ID Effective Dates Phone Addre ss Type Group MEDICARE PART B MEDICARE PART B [id number] 2010-Presen ATTN: CLAIMS - HB USE ONLY HB ONLY t [address] [place] [address] MEDICARE PART B MEDICARE PART B [id number] 2010-Presen ATTN: CLAIMS - HB USE ONLY HB ONLY t [address] [facility] [place] [address] BLUE CROSS MR MR BC [place] [id number] 2014-Presen [address] [place] [address] BLUE CROSS MR BLUE [place] [id number] 2021-Presen [address] [address] [place], [place] ONLY [id number] [place] BL[place] [id number] 2021-[place]en [address] [address] [place], [place] ONLY [id number] [place]Home) [place] [address] Heladio Davis Personal/Family Self [address] [place]) [place] [address] Care Teams Architectural Technician Relationship Specialty Start Date End Date Jignesh Sousa MD PCP - General Family Practice 12/04/[address] [place] [address]
--- OUTSIDE RECORDS SUMMARY | 2022-01-15 03:22 | XMS_ITS | Encounter Summary ---
:1965 Author Organization [place] Address [address] [place] [address]. [place] [address] Care Team Providers Name Role Phone Clinic, [facility] Primary Care Provider [phone] Emi Saul PA-C Unavailable Reason for Visit Reason Comments BPH with LUTS UA,PVR Encounter Details Date Type Department Care Team Description 09/22/2021 Office Visit [facility] Emi Saul, Benign prostatic Urology Clinic [place] hyperplasia with [address] urinary hesitancy [address] [place] (Primary Dx) [place] [address] [place] [address] Social History Tobacco Use Types Packs/Day Years [...] UDS if not improved. Emi Saul PA-C [facility] Urology 26 minutes spent on the date [...] in urinary hesitancy the result s section. SD MEASURE POST-VOID Routine 09/22/2021 Benign prostatic Res [...] [place] [address] , [address] [place], [place] [address] (ABNORMAL) UA without Microscopic [[id number]] (09/22/2021 2:20 PM CDT) Patholo gist Method [...] LABORATORY mg/dL 2:37 PM CDT [place] Specific [place] 1.025 1.003 - 09/22/2021 UA LABORATOR Y [...] City/State/ZIP Code Phon e Number [facility] [place] [address], [address] [place] [address] MEASURE POST-VOID RESIDUAL URINE/BLADDER CAPACITY, US NON-IMAGING ([id number]) (09/22/2021) P athologist Signature Residual Volume 20 (RV) (External) Emi Saul PA-C PROCEDURES documented in this encounter Visit Diagnoses Diagnosis Benign prostatic hyperplasia with urinar y hesitancy - Primary documented in this encounter Care Teams Plumbing Engineering Draftsperson Relationship Specialty Start Date End Date [facility] PCP - General 11/17/[address] [address] Emi Saul PA-C Physician Access Lead Physician Access Lead - 01/11/19 [address] [place] Medical [address] [place] [address] documented as of this encounter
--- OUTSIDE RECORDS SUMMARY | 2022-01-15 03:22 | XMS_ITS | Encounter Summary ---
:1965 Author Organization [facility] Address [address] [place] [address] Care Team Providers Name Role Phone Unavailable [...]
--- OUTSIDE RECORDS SUMMARY | 2022-01-15 03:22 | XMS_ITS | Encounter Summary ---
:1965 Author Organization [place] Address [address] [place] [address] Care Team Providers Name Role Phone [facility] Primary Care Provider [phone] Emi Saul PA-C Unavailable Encounter Details [...] on filedocumented in this encounter Care Teams Pie Crust Mixer Relationship Specialty Start Date End Date [facility] - [facility] 11/17/[address] [address] Emi Saul PA-C Physician Escort Patients Physician Escort Patients - 01/11/19 [address] [facility] K[address] [address] documented as of this encounter
--- OUTSIDE RECORDS SUMMARY | 2022-01-15 03:22 | XMS_ITS | Clinical Summary ---
:1965 Author Organization [place] Address [address] [place] [address] Care Team Providers Name Role Phone Clinic, [facility] Primary Care Provider [phone] Emi Saul PA-C Unavailable Emi Saul PA-C [...] hyperplasia with urinary he sitancy (Primary Dx) from Last 3 Months Family History Relation [...] PM CDT Pulse 80 02/21/2019 2:16 PM PRODUCT SUPPORT TECHNICIAN Temperature 36.4 ??C (97.5 ??F) 12/05/2017 3:19 PM CDT Respiratory Rate 18 12/05/2017 3:19 PM CDT Oxygen Saturation 93% 01/25/2018 2:48 PM PRODUCT SUPPORT TECHNICIAN Inhaled Oxygen Concentration - - Weight 90.7 [...] on patient's age to complete this to [facility] MENINGITIS IMMUNIZATION Aged Out No longe r eligible based on patient's age to complete this to [facility] Insurance Payer Benefit Plan / Subscriber ID Effective Phone Address T ype Group Dates BC[place] [id number] 2021-Prese [phone] [address] [address] PPO BLUE nt [address] [place] [address] MEDICARE MEDICARE FOR HB [id number] 2017-Pres [phone] ATTN CLAIMS Medicare SUPPLEMENT ent 40 [address] [place] [address] ([place]) [place] [address] Care Teams Turning And Beading Machine Operator Relationship Specialty Start Date [facility] - [facility] [address] Emi Saul PA-C Physician Office Sweeper Physician Office Sweeper 01/11/19 [address] [place] - Medical [address] [place], [place] [address] Emi Saul PA-C Assigned OBGYN Provider 09/26/[address] [place] [place], [place] [id number]
--- OUTSIDE RECORDS SUMMARY | 2022-01-15 03:22 | XMS_ITS | Encounter Summary ---
:1965 Author Organization [place] Address [address] [place] [address] Care Team Providers Name Role Phone Clinic, [facility] Primary Care Provider [phone] Reason for Visit Reason Comments Urinary Retention Encounter Details Date Type Department Care Team Description 11/17/[address] [facility] Ese Hodges MD Urinary retention with incomplete bladde r emptying; [facility] Emergency Dep t [facility] Drug-induced constipation [address] [place] [place] [address] [facility] [address] [place] [address] [phone] (Wo rk) Social History Tobacco Use Types [...] evaluation. Take a stool softener or other ylrs-dgc-jbhnndi bowel regimen while you are on oxycodone. Return immediately with any new concerns including dysfunction of Serrato catheter. Follow up with [facility] as scheduled. AttachmentsThe following attachments cannot be sent through Care Everywhere. CONSTIPATION (ADULT) (SENEGALESE)SERRATO CATHETER, CARE (SENEGALESE)URINARY RETENTION, MALE (SENEGALESE)documented in this encounter Medications at Time of [...] left foot surgery 2 days ago with [facility]. He has only been able to urinate small amounts at a time since the surgery. He reports hisstream will stop suddenly and will unable to void further despite persistent urge to urinate. He hasalso not yet had bowel movement since surgery. He is using oxycodone for pain. Patient went to [facility] today to follow up after surgery. [...] Never smoker Alcohol use: No PCP: [facility] Review of Systems Constitutional: Negative for fever. [...] with urology for Serrato catheter removal. Given [facility] had a difficult time placing a [...] statements to me. Ese Hodges MD 11/17/2017 [facility] EMERGENCY DEPARTMENT Ese Hodges MD 11/18/17 [...] - 144 11/17/2017 [facility] mmol/L 3:48 PM [facility] Potassium 3.7 3.4 - 5.3 11/17/2017 [facility] mmol/L 3:48 PM [facility] Chloride 104 94 - 109 11/17/2017 [facility] mmol/L 3:48 PM [facility] Carbon Dioxide 26 20 - 32 11/17/2017 [facility] mmol/L 3:48 PM [facility] Anion Gap 7 3 - 14 11/17/2017 [facility] mmol/L 3:48 PM [facility] Glucose 93 70 - 99 11/17/2017 [facility] mg/dL 3:48 PM [facility] Urea Nitrogen 11 7 - 30 11/17/2017 [facility] mg/dL 3:48 PM [facility] Creatinine 1.03 0.66 - 11/17/2017 [facility] 1.25 mg/dL 3:48 PM [facility] GFR Estimate 75 >60 11/17/2017 [facility] mL/min/1.7 3:[address] Comment: Non GFR Calc GFR Estimate If >90 >60 mL/min/1.7m2 11/17/2017 3:48 P [facility] Comment: GFR Calc Calcium 8.4 (L) 8.5 - 10.1 mg/dL 11/17/2017 3:48 PM [facility] Specimen Anatomical Collection Method Collection Time Receive d Time (Source) Location / / Volume Laterality Blood specimen 11/17/2017 3:25 PM 018 3:26 (specimen) CDT PM CDT Ese Hodges MD LAB - BLOOD ORDERABLES Performing Organization Address City/State/ZIP Code Phon e Number M [facility] [address] [address] [facility] [address] [address] 7[facility] [phone] (ABNORMAL) UA with Microscopic (11/17/2017 3:25 PM CDT) [facility] Method Time Signature Color Urine Straw 11/17/2017 [facility] 3:45 PM [facility] Appearance Urine Clear 11/17/2017 [facility] 3:45 PM [facility] Glucose Urine Negative NEG^Negat 11/17/2017 [facility] juan mg/dL 3:45 PM [facility] Bilirubin Urine Negative NEG^Negat 11/17/2017 [facility] juan 3:45 PM [facility] Ketones Urine Negative NEG^Negat 11/17/2017 [facility] juan mg/dL 3:45 PM [facility] Specific [place] 1.006 1.003 - 11/17/2017 [facility] Urine 1.035 3:45 PM [facility] Blood Urine Negative NEG^Negat 11/17/2017 [facility] juan 3:45 PM [facility] pH Urine 5.0 5.0 - 7.0 11/17/2017 [facility] pH 3:45 PM [facility] Protein Albumin Negative NEG^Negat 11/17/2017 [facility] Urine juan mg/dL 3:45 PM [facility] Urobilinogen 0.0 0.0 - 2.0 11/17/2017 [facility] mg/dL mg/dL 3:45 PM [facility] Nitrite Urine Negative NEG^Negat 11/17/2017 [facility] juan 3:45 PM [facility] Leukocyte Negative NEG^Negat 11/17/2017 [facility] Esterase Urine juan 3:45 PM [facility] Source Midstream 11/17/2017 [facility] Urine 3:25 PM [facility] WBC Urine 4 0 - 5 11/17/2017 [facility] /HPF 3:45 PM [facility] RBC Urine 1 0 - 2 11/17/2017 [facility] /HPF 3:45 PM [facility] Mucous Urine Present (A) NEG^Negat 11/17/2017 [facility] juan /LPF 3:45 PM [facility] Specimen (Source) Anatomical Collection Method Collection Time Re ceived Time Location / / Volume Laterality Examination of 11/17/2017 3:25 11/17/2017 3:26 midstream urine PM CDT [facility] specimen (procedure) Ese Hodges MD LAB - URINE ORDERABLES Performing Organization Address City/State/ZIP Code Phon e Number M [facility] [address] [place], [place] [address] [facility] Minoo E Nico Schulte [address] [phone] documented in this encounter Visit Diagnoses Diagnosis Urinary retention with incomplete bladde r emptying Incomplete bladder emptying Drug-induced constipation Other constipation documented in this encounter Active and Recently Administered Medications Care Teams Lapping Machine Set Up Operator Relationship Specialty Start Date End Date Clinic, Cher Nguyen PCP - General 11/17/[address] [place] [address] documented as of this encounter
--- OUTSIDE RECORDS SUMMARY | 2022-01-15 03:22 | XMS_ITS | Encounter Summary ---
:1965 Author Organization [facility] Address [address] [place] [address] Care Team Providers Name Role Phone Unavailable [...]
--- OUTSIDE RECORDS SUMMARY | 2022-01-15 03:22 | XMS_ITS | Encounter Summary ---
:1965 Author Organization [place] Address [address] [place] [address] Care Team Providers Name Role Phone [facility] Primary Care Provider [phone] Emi Saul PA-C Unavailable Encounter Details [...] on filedocumented in this encounter Care Teams Technician Terminal And Repeater Relationship Specialty Start Date End Date [facility] - [facility] 11/[facility] [address] Emi Saul PA-C Physician Trouble Operator Physician Trouble Operator - 01/11/19 6363 [facility] KATH [address] [address] documented as of this encounter
--- OUTSIDE RECORDS SUMMARY | 2022-01-15 03:22 | XMS_ITS | Encounter Summary ---
:1965 Author Organization [place] Address [address] [place] [address]. [place] [address] Care Team Providers Name Role Phone Clinic, [facility] Primary Care Provider [phone] Reason for Visit Reason Comments Clinic Care Coordination - Follow-up Pt here for TOV Encounter Details Date Type Department Care Team Description 11/21/2017 Office Visit [facility] Emi Saul Urinar y retention Urology Clinic [place] DIAZ (Primary Dx) [address] [facility] [address] [place] [address] [place] [address] [place] [address] [phone] Social History Tobacco Use Types Packs/Day Years [...] any questions or concerns. Emi Saul PA-C [facility] Urology 30 min spent with the patient, >50% of this time was spent in a qkyo-ur-iubi manner and on coordination of care of [...] unspecified documented in this encounter Care Teams Literary Writer Relationship Specialty Start Date End Date [facility], [facility] PCP - General 11/17/[address] [place] [address] documented as of this encounter
--- OUTSIDE RECORDS SUMMARY | 2022-01-15 03:22 | XMS_ITS | Encounter Summary ---
:1965 Author Organization [place] Address [address] [place] [address] Care Team Providers Name Role Phone Clinic, [facility] Primary Care Provider [phone] Encounter Details Date Type Department Care Team Description 01/18/2018 Orders Only [facility] Scr eening for prostate [place] [facility] [address] [place] [address] Social History Tobacco Use [...] AM Screening for Res ults for this TRANSPORTATION PROJECT MANAGER prostate cancer procedure ar e in the results section. documented in this encounter Results PSA tumor marker [[id number]] (01/18/2018 10:14 AM TRANSPORTATION PROJECT MANAGER) P athologist Signature PSA 0.18 0 - 4 ug/L 01/19/2018 [facility] 8:10 AM [facility] Comment: Assay Method: Chemiluminescence using Siemens Titus analyzer Specimen Anatomical Collection Method Collection Time Receive d Time (Source) Location / / Volume Laterality Blood specimen 01/18/2018 10:14 8 (specimen) AM TRANSPORTATION PROJECT MANAGER 10:19 AM TRANSPORTATION PROJECT MANAGER Emi Saul PA-C LAB - BLOOD ORDERABLES Performing Organization Address City/State/ZIP Code Phon e Number [facility] [address] [place] [address] documented in this encounter Visit Diagnoses Diagnosis Screening for prostate cancer Special screening for malignant neoplasm of prostate documented in this encounter Care Teams Cardiology Consultants Relationship Specialty Start Date End Date Den[facility], Cher Nguyen PCP - General 11/17/[address] [place] [address] documented as of this encounter
--- OUTSIDE RECORDS SUMMARY | 2022-01-15 03:22 | XMS_ITS | Encounter Summary ---
:1965 Author Organization [place] Address [address] [place] [address] Care Team Providers Name Role Phone [facility], [facility] Primary Care Provider [phone] Emi Saul PA-C Unavailable Encounter Details [...] on filedocumented in this encounter Care Teams Data Reporting Analyst Relationship Specialty Start Date End Date [facility] PCP - General 11/17/[address] [address] Emi Saul PA-C Physician Aircraft Assembler Physician Aircraft Assembler - 01/11/[address] [facility] KATH [address] [address] documented as of this encounter
--- OUTSIDE RECORDS SUMMARY | 2022-01-15 03:22 | XMS_ITS | Encounter Summary ---
:1965 Author Organization [place] Address [address] [place] [address]. [place] [address] Care Team Providers Name Role Phone Clinic, [facility] [place] Primary Care Provider [phone] Emi Saul PA-C Unavailable Reason for Visit Reason Comments Follow Up Urinary Retention Encounter Details Date Type Department Care Team Description 02/21/2019 Office Visit [facility] Emi Saul, Benign prostatic Urology Clinic JOE hyperplasia without [address] lower urinary tract [address] [facility] [place] [place] [address] [place], [place] [phone] [address] (Work) [phone] Social History Tobacco Use Types Packs/Day Years Used Date Smoking Tobacco: Never Smokeless Tobacco: Never Alcohol Use Standard Drinks/Week Comments No 0 (1 standard drink = 0.6 oz pure alcoho l) Sex Assigned at Date Recorded Not on file documented as of this encounter Last Filed Vital Signs Vital Sign Reading Time Taken Comments Blood Pressure 120/70 02/21/2019 2:16 PM BUSINESS AGENT Pulse 80 02/21/2019 2:16 PM BUSINESS AGENT Temperature - - Respiratory Rate - - Oxygen Saturation - - Inhaled Oxygen Concentration - - Weight 90.7 kg (200 lb) 02/21/2019 2:16 PM BUSINESS AGENT Height 185.4 cm (6' 1) 02/21/2019 2:16 PM BUSINESS AGENT Body Mass Index 26.39 02/21/2019 2:16 PM BUSINESS AGENT documented in this encounter Progress Notes Emi [...] to PCP -RTO PRN Emi Saul PA-C [facility] Urology 20 min spent with the patient, >50% of this time was spent in a hthm-ro-cbex manner and on coordination of care of urinary retention. NESS AGENT documented in this encounter Nursing Notes Holli Mcgee LPN - 02/21/2019 2:00 PM CST Here for follow up urinary retention. He feels like he is voiding well and he is off the Flomax. PVRby bladder scan is 27 ml.Holli Mcgee LPN NESS AGENT documented in this encounter Plan of Treatment Not on filedocumented as of this encounter Procedures Procedure Name Priority Date/Time Associated Diagnosis Comme nts URINE MACROSCOPIC Routine 02/21/2019 2:10 PM Benign prostatic Results for this ONLY BUSINESS AGENT hyperplasia without procedur e are in lower urinary tract the resu lts symptoms section. HC MEASURE POST-VOID Routine 02/21/2019 Benign prostatic Res ults for this RESIDUAL hyperplasia without procedur e are in URINE/BLADDER lower urinary tract the res ults CAPACITY, US symptoms section. NON-IMAGING documented in this encounter Results (ABNORMAL) UA without Microscopic [[id number]] (02/21/2019 2:10 PM BUSINESS AGENT) [facility] Method Time Signature Color Urine Yellow 02/21/2019 [facility] 2:14 PM BUSINESS [facility] Appearance Urine Clear 02/21/2019 [facility] 2:14 PM BUSINESS [facility]ENT [facility] Glucose Urine 250 (A) NEG^Negat 02/21/2019 [facility] juan mg/dL 2:14 PM BUSINESS [facility] Bilirubin Urine Negative NEG^Negat 02/21/2019 [facility] juan 2:14 PM BUSINESS [facility] Ketones Urine Negative NEG^Negat 02/21/2019 [facility] juan mg/dL 2:14 PM BUSINESS [facility]ENT [facility] Specific [place] 1.020 1.003 - 02/21/2019 [facility] Urine 1.035 2:14 PM BUSINESS [facility] Blood Urine Negative NEG^Negat 02/21/2019 [facility] juan 2:14 PM BUSINESS [facility] pH Urine 6.0 5.0 - 7.0 02/21/2019 [facility] pH 2:14 PM BUSINESS [facility] Protein Albumin Negative NEG^Negat 02/21/2019 [facility] Urine juan mg/dL 2:14 PM BUSINESS [facility] Urobilinogen 0.2 0.2 - 1.0 02/21/2019 [facility] Urine EU/dL 2:14 PM BUSINESS [facility] Nitrite Urine Negative NEG^Negat 02/21/2019 [facility] juan 2:14 PM BUSINESS [facility] Leukocyte Negative NEG^Negat 02/21/2019 [facility] Esterase Urine juan 2:14 PM BUSINESS [facility] Source Midstream 02/21/2019 [facility] Urine 2:11 PM BUSINESS [facility] Specimen (Source) Anatomical Collection Method Collection Time Re ceived Time Location / / Volume Laterality Examination of 02/21/2019 2:10 02/21/2019 2:11 midstream urine PM BUSINESS AGENT PM BUSINESS AGENT specimen (procedure) Emi Saul PA-C LAB - URINE ORDERABLES Performing Organization Address City/State/ZIP Code Phon e Number [facility] [address] [place] [address] [facility] [address] MEASURE POST-VOID RESIDUAL URINE/BLADDER CAPACITY, US NON-IMAGING ([id number]) (02/21/2019) P athologist Signature Residual Volume 27 (RV) (External) Emi Saul PA-C PROCEDURES documented in this encounter Visit Diagnoses Diagnosis Benign prostatic hyperplasia without low er urinary tract symptoms documented in this encounter Care Teams Development Director Relationship Specialty Start Date End Date Clinic, Cher PCP - General 11/17/17 [place] [address] [place] [address] Emi Saul PA-C Physician Diesel Dinkey Engineer Physician Diesel Dinkey Engineer - 01/11/19 6[address] [facility] [place] [address] [address] documented as of this encounter
--- OUTSIDE RECORDS SUMMARY | 2022-01-15 03:22 | XMS_ITS | Encounter Summary ---
:1965 Author Organization [place] Address [address] [place] [address] Care Team Providers Name Role Phone Clinic, [facility] Primary Care Provider [phone] Reason for Visit Reason Comments Foot Pain Encounter Details Date Type Department Care Team Description 12/05/2017 Emergency [facility] Ese Hodges MD Cramp in lower leg; [facility] Emergency Dep t [facility] Encounter for postoperative wound check [address] [place], [place] [address] [facility] [address] [place] [address] [phone] (Wo rk) Social History Tobacco Use Types [...] >100.4F, vomiting, or any other concerns, call [facility] or return to ER immediately. Call to arrange an earlier appointment with [facility] for wound check and discuss symptoms in the next week or so. AttachmentsThe following attachments cannot be sent through Care Everywhere.POST OP WOUND CHECK, GENERAL (PANAMANIAN)documented in this encounter Medications at Time of [...] mildly today. Thus, today, patient's ex- called [facility] and described these symptoms. He was [...] Alcohol Use: No Marital Status: [facility] Review of Systems Constitutional: Negative [...] as blue prompted a call to the [facility] and referral for evaluation for DVT. [...] an appointment for another 3-4 weeks with [facility] so I have recommended they call today or tomorrow to get first available appointment for recheck of his surgical site and to discuss his ER visit and ongoing pain with calf cramp and reported skin discoloration. I answered all the patient and his ex-'s questions and they verbalized understanding. They are amenable to discharge with [facility] follow-up and strict return precautions. Diagnosis: ICD-10-CM 1. Cramp in lower leg R25.2 2. Encounter for postoperative wound check Z48.89 Disposition: discharged home Ammy Wu 12/05/2017 [facility] EMERGENCY DEPARTMENT I, Ammy Wu, am serving [...] sabrina documented in this encounter Care Teams Project Manager Interior Design Relationship Specialty Start Date End Date [facility], [facility] PCP - General 11/17/[address] [place] [address] documented as of this encounter
--- OUTSIDE RECORDS SUMMARY | 2022-01-15 03:22 | XMS_ITS | Encounter Summary ---
:1965 Author Organization [facility] Address [address] [place] [address] Care Team Providers Name Role Phone Unavailable [...]
--- OUTSIDE RECORDS SUMMARY | 2022-01-15 03:22 | XMS_ITS | Encounter Summary ---
:1965 Author Organization [facility] Address [address] [place] [address] Care Team Providers Name Role Phone Unavailable Primary Care Provider Unavailable Reason for Referral Physical Therapy (Routine) - Authorized Specialty Diagnoses / Procedures Referred By Contact Refer red To Contact Physical Therapy Diagnoses Stroke (HCC) Abnormal Gait Non Orthopedic Decline Functional Status Isaura Dinh M.D. [address] [place] [phone] Referral ID Status Reason Start Date Expiration Date Visits V isits Requested Authorized [id number] Authorized Other 04/24/2021 04/24/2022 99 99 Reason for Visit Auth/Cert Specialty Diagnoses / Procedures Referred By Contact Refer red To Contact Diagnoses Stroke (HCC) Vertigo and vision changes Procedures I63.9 (ICD-10-CM) - Stroke (HCC) Referral ID Status Reason Start Date Expiration Date Visits Requ ested Visits Authorized [id number] 1 1 Encounter Details Date Type Department Care Team Description 04/23/2021 - Hospital Encounter [facility] Liza Hicks, Stroke (HCC) (Primary Dx); 04/24/2021 [facility] Abnormal Gait Non Orthopedic; [facility], [address] [place] [address] Decline Functional Status; [place], [place]izzine ss Second floor [phone] [place] [address] [place], [place] (Work) [phone] Social History Tobacco Use [...] on a high. He was transferred to [facility] for further management. [facility]: The patient was a direct admission to [...] stable Isaura Dinh M.D. PGY-1 Internal Medicine [facility] Pager [phone] documented in this encounter Discharge Instructions Discharge [...] information provided on 04/24/2021 Contact information: [facility], Acute Therapy Services [phone] AttachmentsThe following attachments cannot be sent through Care Everywhere. Aspirin (By mouth) (Djiboutian)Atorvastatin (By mouth) (Djiboutian)Clopidogrel (By mouth) (Djiboutian)documented in this encounter Medications at Time of [...] 90.2 10/2018 Estimated Needs: Total Calorie Needs: 6695-6493 calories/day Method to Estimate Energy Needs: [place] (Basal to Basal + 20%) Weight Used [...] about patient's nutritional care please contact pager [phone] on weekdays or [phone] on weekends/holidays. Annabella Yan R.N. - 04/24/2021 [...] assessment as patient was not available when Engineering Coordinator attempted to meet with the patient. Patient was away from the room at testing during multiple attempts from Case Management to visit throughout the day. A folder of applicable stroke/TBI resources was added to patients discharge packet by the Engineering Coordinator . If able, Social Work/Case Management will follow up with the patient/family in regards to the resources left for them. The folder of resources includes: Recovering From a Stroke ([id number]), Stroke Website Resources(NJ5315-46), Stroke Self-Care Plan (ZZ8389-82), General Local Resources for Patients with Stroke(RI3995-48), Emotional Response to Stroke (EW2236) and Brain Injury [place] pamphlet. PLAN Care Management will attempt to [...] Lives alone, is . 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 FAMILY HISTORY No family history of stroke [...] tone and bulk. Coordination: No ataxia on dfrice-gn-slte or yoiw-as-avvj bilaterally. Sensory: Intact to light touch in [...] page the Cerebrovascular Neurology Service pager at [phone] with any questions or concerns. RST Stroke Neurology Service Cartography Professor: Fabiola Garza M.D. STROKE DOCUMENTATION: Stroke Center [...] dizziness, sing at local ED, transferred to [facility] for further medical workup and treatment. 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 Prior Mobility/Functional Transfers Level of [place]: Independent Gait Devices/Wheelchair Used Comments: Patient did [...] dizziness, sing at local ED, transferred to [facility] for further medical workup and treatment. 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 Prior Mobility/Functional Transfers Level of Sarver: Independent Gait Devices/Wheelchair Used Comments: Patient did [...] signs were obtained. Patient's prescriptions to the [facility]. Patientleft with [facility] staff member. BP 147/85 (BP Location: [...] on a high. He was transferred to [facility] for further management. [facility]: The patient was a direct admission to [...] City/State/ZIP Code Phon e Number POC [facility] [address] [place] [address] PCLX [facility] [place] [address] [place] POC [address] (BRAN) 2D [...] and the findings as documented in the flight/transport nurse and also performed a pertinent examination including [...] performed at the request of the primary office machine servicer. Adult probe inserted without difficulty. LEFT VENTRICLE:Normal [...] bifurcati on. Normal superior vena cava. No rqsr-ox-dtshp shunt at atrial level. Agitated saline injection(s) performed prior to administration of sedation and during sedat ion. No zxydk-lr-gfui shunt at atrial le delaney at rest [...] Sedation Narrator or other pertinent record in [facility] for additional procedure and sedation information. Physician [...] and the findings as documented in the flight/transport nurse and also performed a pertinent examination includ [...] artery bifurcation. Normal superior vena cava. No zscz-pa-wwzzx shunt at atrial level. Agitated saline injection(s) performed prior to administration of sedation and during se dation. No ytufo-wk-hwpa shunt at atrial level at rest or [...] Sedation Narrator or other pertinent record in [facility] for additional procedure and sedation information. Physician [...] City/State/ZIP Code Phon e Number POC [facility] [address] [place] [address] [facility]CLX [facility] [place] [address] [place] [facility] [address] Magnesium (04/24/2021 8:03 [...] Organization Address City/State/ZIP Code Phon e Number [facility] - [address] [place], [place] [address] [facility] [place] [address] [facility] [address] (ABNORMAL) Basic Metabolic [...] Organization Address City/State/ZIP Code Phon e Number [facility] - [address] [place], [place] [address] [facility] [place] [address] [facility] [address] (ABNORMAL) CBC without Differential [...] Organization Address City/State/ZIP Code Phon e Number [facility] - [address] [place] [address] [facility] [place] [address] [facility] 200 [facility] SARS Coronavirus 2, RNA, Rapid POC, V Asymptomatic (04/23/2021 7:44 PM CDT) [employer] gist Method Time Signature SARS Undetected Undetected 04/23/2021 DTLR Coronavirus-2 8:05 PM CDT , RNA, Rapid POC, V Comment: Negative for SARS-CoV-2. The [employer] COVID-19 test is a molecular celena t for SARS-CoV-2, the virus that causes COVID- 19. A Negative result means that the [employer] COV ID-19 test did not detect SARS-CoV-2 virus in your sample. Cue COVID-19 test uses the [employer]. This test has received Emergency Use Authorization (EUA) by the U.S. Food and Drug Administration (FDA) and is used per man ufacturer instructions. Performance characteristic s were verified by [facility] in a manner consistent with CLIA requirements. Fact sheets for this Emerg ency Use Authorization (EUA) can be found at the following links: Providers: https://[employer]/documentation/prov iders.pdf Patients: https://[employer]/documentation/aruna ents.pdf SARS Coronavirus 2, Source Nasopharynx DEFAULT 04/23/2021 8:05 PM CDT DTLR Specimen Anatomical Collection Method Collection Time Receive d Time (Source) Location / / Volume Laterality Varies 04/23/2021 7:44 PM 7:44 (Nasopharynx) CDT PM CDT Amos Garza M.D. LAB MICROBIOLOGY - GENERAL O RDERABLES Performing Organization Address City/State/ZIP Code Phon e Number PERFORMING LABS, REF [place] [address] INTERFACE Ref Interface [address] DTLR Performing Labs, [place] [address] Head without [...] aneurysm, or focal injury. Forme fruste origin DRILL SHARPENER, normal variant. The dural venous sinuses are [...] aneurysm, or focal injury. Forme fruste origin DRILL SHARPENER, normal variant. The dural venous sinuses are [...] N/A C omputed Tomography, Computed Neuroradiology [facility], Neuroradiology T omography FLA [facility] Specimen (Source) Anatomical Collection Method Collection [...] aneurysm, or focal injury. Forme fruste origin DRILL SHARPENER, normal variant. The dural venous sinuses are [...] aneurysm, or focal injury. Forme fruste origin DRILL SHARPENER, normal variant. The dural venous sinuses are [...] M.D. LAB BLOOD ADD-ON Performing Organization Address City/[facility]/ZIP Code Phon e Number [facility] - [id number] [place] [address] APTT (Activated Partial Thromboplastin Time) (04/23/2021 6:30 PM CDT) P athologist Signature Activated 32 25 - 37 sec 04/23/2021 DTL Partial 7:10 PM CDT Thrombopl Time, P Specimen Anatomical Collection Method Collection Time Receive d Time (Source) Location / / Volume Laterality Blood (Blood, 04/23/2021 6:30 PM 04/24/19 22 6:48 Venous) CDT PM CDT Amos Garza M.D. LAB BLOOD ADD-ON Performing Organization Address City/[facility]/ZIP Code Phon e Number [facility] - [id number] [place] [address] (ABNORMAL) Hemoglobin A1c (04/23/2021 6:30 PM CDT) [...] M.D. LAB BLOOD ADD-ON Performing Organization Address City/[facility]/ZIP Code Phon e Number [facility] - [address] [place], [place] [address] [facility] [place] [address] [place] [address] [address] [facility] (ABNORMAL) CBC without Differential (04/23/2021 6:30 PM [...] M.D. LAB BLOOD ADD-ON Performing Organization Address City/State/[facility] Code Phon e Number [facility] - [address] [place] [address] [facility] [place] [address] [facility] 200 [facility] (ABNORMAL) Lipid Panel (04/23/2021 6:30 [...] M.D. LAB BLOOD ADD-ON Performing Organization Address City/[facility] Code Phon e Number [facility] - [address] (ABNORMAL) S-TSH (Thyroid-Stimulating Hormone - Sensitive) (04/23/2021 6:30 PM CDT) P athologist Signature TSH, Sensitive 4.4 (H) 0.3 - 4.2 04/23/2021 DTL mIU/L 7:25 PM CDT Specimen Anatomical Collection Method Collection Time Receive d Time (Source) Location / / Volume Laterality Blood (Blood, 04/23/2021 6:30 PM 04/24/19 22 7:00 Venous) CDT PM CDT Amos Garza M.D. LAB BLOOD ADD-ON Performing Organization Address City/[facility] Phon e Number [facility] - [address] AST (Aspartate Aminotransferase) (04/23/2021 6:30 PM CDT) Patholo gist Method Time Signature Aspartate 23 8 - 48 04/23/2021 STMA Aminotransferase U/L 7:07 PM CDT (AST), P Specimen Anatomical Collection Method Collection Time Receive d Time (Source) Location / / Volume Laterality Blood (Blood, 04/23/2021 6:30 PM 04/24/19 22 6:37 Venous) CDT PM CDT Amos Garza M.D. LAB BLOOD ADD-ON Performing Organization Address City/[facility] Phon e Number [facility] - 200 [place], [place] [address] [facility] [place] [address] ALT (Alanine Aminotransferase) (04/23/2021 6:30 PM CDT) Patholo gist Method Time Signature Alanine 22 7 - 55 04/23/2021 DTL Aminotransferase U/L 7:25 PM CDT (ALT), S Specimen Anatomical Collection Method Collection Time Receive d Time (Source) Location / / Volume Laterality Blood (Blood, 04/23/2021 6:30 PM 04/24/19 22 7:00 Venous) CDT PM CDT Amos Graza M.D. LAB BLOOD ADD-ON Performing Organization Address City/[facility] Phon e Number [facility] - 200 [place], [place] [address] [facility] [place] [address] ECG 12 Lead (04/23/2021 6:20 PM CDT) P athologist Signature Ventricular Rate 54 BPM MUSE ECG/Min SC Interval 178 ms MUSE QRSD Interval 106 ms MUSE QT Interval 482 ms MUSE QTC Interval 457 ms MUSE P Amagon 38 degrees MUSE R Amagon 48 degrees MUSE T Wave Amagon 46 degrees MUSE Specimen Anatomical Collection Method [...] Goodwin, Janice.P.H., R.N., C.M.S.R.N. - Comment: Lot [id number]) 1-200 mL, intravenous, Once in imaging, contrast, [...]
--- OUTSIDE RECORDS SUMMARY | 2022-01-15 03:22 | XMS_ITS | Encounter Summary ---
:1965 Author Organization [facility] Address [address] [place] [address]. [place] [address] Care Team Providers Name Role Phone Clinic, [facility] Primary Care Provider [phone] Reason for Visit Reason Comments PSA RESULTS in epic Encounter Details Date Type Department Care Team Description 01/25/2018 Office Visit [facility] Emi Saul, Benign prostatic Urology Clinic JOE hyperplasia with weak [place] [address] urinary stream [address] [facility] [address] (Primary Dx) [address] [place] [address] [place], [place] [phone] [address] (Work) [phone] Social History Tobacco Use Types Packs/Day Years Used Date Smoking Tobacco: Never Smokeless Tobacco: Never Alcohol Use Standard Drinks/Week Comments No 0 (1 standard drink = 0.6 oz pure alcoho l) Sex Assigned at Date Recorded Not on file documented as of this encounter Last Filed Vital Signs Vital Sign Reading Time Taken Comments Blood Pressure - - Pulse 80 01/25/2018 2:48 PM PROCESS ENGINEERING INTERN Temperature - - Respiratory Rate - - Oxygen Saturation 93% 01/25/2018 2:48 PM PROCESS ENGINEERING INTERN Inhaled Oxygen Concentration - - Weight 86.2 kg (190 lb) 01/25/2018 2:48 PM PROCESS ENGINEERING INTERN Height 185.4 cm (6' 1) 01/25/2018 2:48 PM PROCESS ENGINEERING INTERN Body Mass Index 25.07 01/25/2018 2:48 PM PROCESS ENGINEERING INTERN documented in this encounter Patient Instructions Patient [...] toilet, can't pee, blood in the urine. [phone] Happy to see you in follow up in one year or you can see your primary care provider. ESS ENGINEERING INTERN documented in this encounter Progress Notes Emi [...] symptoms. Can always restart. Emi Saul PA-C [facility] Urology 20 min spent with the patient, >50% of this time was spent in a eggw-pg-nhqz manner and on coordination of care of urinary retention. ESS ENGINEERING INTERN documented in this encounter Nursing Notes Ese Banks CMA - 01/25/2018 3:30 PM CST Pt here for PSA results. Pt denies any voiding trouble. Adán Martinez CMA ESS ENGINEERING INTERN documented in this encounter Plan of Treatment Not on filedocumented as of this encounter Visit Diagnoses Diagnosis Benign prostatic hyperplasia with weak u rinary stream - Primary documented in this encounter Care Teams Mechanical Service Technician Relationship Specialty Start Date End Date [facility], [facility] PCP - General 11/17/[address] [place] [address] documented as of this encounter
--- OUTSIDE RECORDS SUMMARY | 2022-01-15 03:22 | XMS_ITS | Encounter Summary ---
:1965 Author Organization [facility] Address [address] [place] [address] Care Team Providers Name Role Phone [facility], [facility] Primary Care Provider Encounter Details Date Type [...] on filedocumented in this encounter Care Teams Junior Media Buyer Relationship Specialty Start Date End Date [facility], [facility] PCP - General 11/17/17 [address] [place] [address] documented as of this encounter
--- OUTSIDE RECORDS SUMMARY | 2022-01-15 03:22 | XMS_ITS | Encounter Summary ---
:1965 Author Organization [facility] Address [address] [place] [address]. [place] [address] Care Team Providers Name Role Phone Clinic, [facility] Primary Care Provider [phone] Reason for Visit Reason Comments Other 4 wk FU Encounter Details Date Type Department Care Team Description 12/21/2017 Office Visit [facility] Emi Saul Urinar y retention (Primary Dx); Urology Clinic JOE Screening for prostate cancer [address] [place], [place] [address] [place] [address] [phone] [address] (Work) [phone] Social History Tobacco Use Types Packs/Day Years Used Date Smoking Tobacco: Never Smokeless Tobacco: Never Alcohol Use Standard Drinks/Week Comments No 0 (1 standard drink = 0.6 oz pure alcoho l) Sex Assigned at Date Recorded Not on file documented as of this encounter Last Filed Vital Signs Vital Sign Reading Time Taken Comments Blood Pressure - - Pulse 72 12/21/2017 1:46 PM AUTOMOBILE MECHANIC HELPER Temperature - - Respiratory Rate - - Oxygen Saturation 98% 12/21/2017 1:46 PM AUTOMOBILE MECHANIC HELPER Inhaled Oxygen Concentration - - Weight 86.2 kg (190 lb) 12/21/2017 1:46 PM AUTOMOBILE MECHANIC HELPER Height 185.4 cm (6' 1) 12/21/2017 1:46 PM AUTOMOBILE MECHANIC HELPER Body Mass Index 25.07 12/21/2017 1:46 PM AUTOMOBILE MECHANIC HELPER documented in this encounter Patient Instructions Patient InstructionsEmi Saul PA-C - 12/21/2017 2:00 PM CST See you in 4 weeks. Will have you go to the lab 1-2 days prior to seeing me for a blood draw (PSA screening test for the prostate). Flomax to continue daily. MOBILE MECHANIC HELPER documented in this encounter Progress Notes Emi [...] and office visit in 4 wks -Continue [facility] Emi Saul PA-C [facility] Urology 20 min spent with the patient, >50% of this time was spent in a bvgj-mv-fnra manner and on coordination of care of urinary retention. MOBILE MECHANIC HELPER documented in this encounter Nursing Notes Ese Banks CMA - 12/21/2017 2:00 PM CST Pt says he is better now than last time he was here. Pt having foot problems. Aádn Banks CMA MOBILE MECHANIC HELPER Ese Banks CMA - 12/21/2017 2:00 PM CST PVR by scanner=30mL. Adán Banks CMA MOBILE MECHANIC HELPER documented in this encounter Plan of Treatment Not on filedocumented as of this encounter Procedures Procedure Name Priority Date/Time Associated Comments Diagnosis URINE MACROSCOPIC Routine 12/21/2017 2:04 PM Urinary retention Results for this ONLY AUTOMOBILE MECHANIC HELPER procedure are i n the results section. BLADDER SCAN Routine 12/21/2017 Urinary retention Results fo r this procedure are i n the results section. documented in this encounter Results PSA tumor marker [[id number]] (01/18/2018 10:14 AM AUTOMOBILE MECHANIC HELPER) athologist Signature PSA 0.18 0 - 4 ug/L 01/19/2018 [facility] 8:10 AM [facility] Comment: Assay Method: Chemiluminescence using Siemens [place] analyzer Specimen Anatomical Collection Method Collection Time Receive d Time (Source) Location / / Volume Laterality Blood specimen 01/18/2018 10:14 8 (specimen) AM AUTOMOBILE MECHANIC HELPER 10:19 AM AUTOMOBILE MECHANIC HELPER Emi Saul PA-C LAB - BLOOD ORDERABLES Performing Organization Address City/State/ZIP Code Phon e Number [facility] [address] [place] [address] UA without Microscopic (12/21/2017 2:04 PM AUTOMOBILE MECHANIC HELPER) [facility] Method Time Signature Color Urine Yellow 12/21/2017 [place] 2:08 PM AUTOMOBILE MECHANIC HELPER [facility] Appearance Urine Clear 12/21/2017 [place] 2:08 PM AUTOMOBILE MECHANIC HELPER [facility] Glucose Urine Negative NEG^Negat 12/21/2017 [place] juan mg/dL 2:08 PM AUTOMOBILE MECHANIC HELPER [facility] Bilirubin Urine Negative NEG^Negat 12/21/2017 [place] juan 2:08 PM AUTOMOBILE MECHANIC HELPER [facility] Ketones Urine Negative NEG^Negat 12/21/2017 [place] juan mg/dL 2:08 PM AUTOMOBILE MECHANIC HELPER [facility] Specific [place] 1.020 1.003 - 12/21/2017 [place] Urine 1.035 2:08 PM AUTOMOBILE MECHANIC HELPER [facility] Blood Urine Negative NEG^Negat 12/21/2017 [place] juan 2:08 PM AUTOMOBILE MECHANIC HELPER [facility] pH Urine 5.5 5.0 - 7.0 12/21/2017 [place] pH 2:08 PM AUTOMOBILE MECHANIC HELPER [facility] Protein Albumin Negative NEG^Negat 12/21/2017 [place] Urine juan mg/dL 2:08 PM AUTOMOBILE MECHANIC HELPER [facility] Urobilinogen 0.2 0.2 - 1.0 12/21/2017 [place] Urine EU/dL 2:08 PM AUTOMOBILE MECHANIC HELPER [facility] Nitrite Urine Negative NEG^Negat 12/21/2017 [place] juan 2:08 PM AUTOMOBILE MECHANIC HELPER [facility] Leukocyte Negative NEG^Negat 12/21/2017 [place] Esterase Urine juan 2:08 PM AUTOMOBILE MECHANIC HELPER [facility] Source Midstream 12/21/2017 [place] Urine 2:05 PM AUTOMOBILE MECHANIC HELPER [facility] Specimen (Source) Anatomical Collection Method Collection Time Re ceived Time Location / / Volume Laterality Examination of 12/21/2017 2:04 12/21/2017 2:05 midstream urine PM AUTOMOBILE MECHANIC HELPER PM AUTOMOBILE MECHANIC HELPER specimen (procedure) Emi Saul PA-C LAB - URINE ORDERABLES Performing Organization Address City/State/ZIP Code Phon e Number [facility] [address] [place] [address] [facility] [address] Bladder scan (12/21/2017) P athologist Signature Residual Volume 30 (RV) (External) Emi Saul PA-C IP NURSING GI/ documented in this encounter Visit Diagnoses Diagnosis Urinary retention - Primary Retention of urine, unspecified Screening for prostate cancer Special screening for malignant neoplasm of prostate documented in this encounter Care Teams Throw Out Clerk Relationship Specialty Start Date End Date [facility] PCP - General 11/17/17 [address] [place] [address] documented as of this encounter
--- OUTSIDE RECORDS SUMMARY | 2022-01-15 03:22 | XMS_ITS | Encounter Summary ---
:1965 Author Organization [facility] Address [address] [place] [address] Care Team Providers Name Role Phone [facility], [facility] Primary Care Provider [phone] Emi Saul PA-C Unavailable Encounter Details [...] on filedocumented in this encounter Care Teams Aircraft Engine Cylinder Mechanic Relationship Specialty Start Date End Date [facility] - [facility] [address] Emi Saul PA-C Physician Web Development Consultant Physician Web Development Consultant - 01/11/19 6[address] [facility] [address] [place] [address] [address] documented as of this encounter
--- OUTSIDE RECORDS SUMMARY | 2022-01-15 03:22 | XMS_ITS | Encounter Summary ---
:1965 Author Organization [place] Address [address] [place] [address]. [place] [address] Care Team Providers Name Role Phone Clinic, [facility] Primary Care Provider [phone] Emi Saul PA-C Unavailable Encounter Details Date Type Department Care Team Description 02/20/[address] [facility] Emi Saul, BPH (b enign prostatic Urology Clinic Niya DIAZ hyperplasia) (Primary [address]) [address] [place] [address] [place] [address] [phone] Social History Tobacco Use Types Packs/Day Years Used Date Smoking Tobacco: Never Smokeless Tobacco: Never Alcohol Use Standard Drinks/Week Comments No 0 (1 standard drink = 0.6 oz pure alcoho l) Sex Assigned at Date Recorded Not on file documented as of this encounter Plan of Treatment Not on filedocumented as of this encounter Results (ABNORMAL) UA without Microscopic [[id number]] (02/21/2019 2:10 PM INSURANCE INSTRUCTOR) [facility] Method Time Signature Color Urine Yellow 02/21/2019 [facility] 2:14 PM INSURANCE INSTRUCTOR [facility] Appearance Urine Clear 02/21/2019 [facility] 2:14 PM INSURANCE INSTRUCTOR [facility] Glucose Urine 250 (A) NEG^Negat 02/21/2019 [facility] juan mg/dL 2:14 PM INSURANCE INSTRUCTOR [facility] Bilirubin Urine Negative NEG^Negat 02/21/2019 [facility] juan 2:14 PM INSURANCE INSTRUCTOR [facility] Ketones Urine Negative NEG^Negat 02/21/2019 [facility] juan mg/dL 2:14 PM INSURANCE INSTRUCTOR [facility] Specific [place] 1.020 1.003 - 02/21/2019 [facility] Urine 1.035 2:14 PM INSURANCE INSTRUCTOR [facility] Blood Urine Negative NEG^Negat 02/21/2019 [facility] juan 2:14 PM INSURANCE INSTRUCTOR [facility] pH Urine 6.0 5.0 - 7.0 02/21/2019 [facility] pH 2:14 PM INSURANCE INSTRUCTOR [facility] Protein Albumin Negative NEG^Negat 02/21/2019 [facility] Urine juan mg/dL 2:14 PM INSURANCE INSTRUCTOR [facility] Urobilinogen 0.2 0.2 - 1.0 02/21/2019 [facility] Urine EU/dL 2:14 PM INSURANCE INSTRUCTOR [facility] Nitrite Urine Negative NEG^Negat 02/21/2019 [facility] juan 2:14 PM INSURANCE INSTRUCTOR [facility] Leukocyte Negative NEG^Negat 02/21/2019 [facility] Esterase Urine juan 2:14 PM INSURANCE INSTRUCTOR [facility] Source Midstream 02/21/2019 [facility] Urine 2:11 PM INSURANCE INSTRUCTOR [facility] Specimen (Source) Anatomical Collection Method Collection Time Re ceived Time Location / / Volume Laterality Examination of 02/21/2019 2:10 02/21/2019 2:11 midstream urine PM INSURANCE INSTRUCTOR PM INSURANCE INSTRUCTOR specimen (procedure) Emi Saul PA-C LAB - URINE ORDERABLES Performing Organization Address City/State/ZIP Code Phon e Number [facility] [address] [place] [address] [facility] [address] MEASURE POST-VOID RESIDUAL URINE/BLADDER CAPACITY, US NON-IMAGING (55440) (02/21/2019) P athologist Signature Residual Volume 27 (RV) (External) Emi Saul PA-C PROCEDURES documented in this encounter Visit Diagnoses Diagnosis BPH (benign prostatic hyperplasia) - Samia abel Unspecified hyperplasia of prostate with out urinary obstruction and other lower urinary tract symptoms (LUTS) documented in this encounter Care Teams Janitorial Services Supervisor Relationship Specialty Start Date End Date ClinicCher PCP - General 11/17/[address] [address] Emi Saul PA-C Physician Pattern Perforating Machine Operator Physician Pattern Perforating Machine Operator - 01/11/[address] [address] documented as of this encounter
== END 2021-12-20 10:52 | disposition home or self-care (01) ==
LOC: AMB 01-15 03:19
PROVIDERS: PCP Family Medicine; Visit Provider Emergency Medicine Emergency Medical Services
DX: R51.9 Headache, unspecified (principal)
CPT/HCPCS: A0425; A0427

== ENCOUNTER 2021-12-20 11:18 | Emergency (ER) | payer MEDICARE, BC, SELFPAY ==
[2021-12-20] VITALS (12 sets, daily range): BP systolic 118–142; BP diastolic 77–95; PULSE 49–60; RESP 16; TEMP 35.9; O2SAT 96–99; BMI 27.4
--- NOTE | 2021-12-20 11:35 | ED_ITS ---
HPI - General Adult General Chief complaint: Neuro Symptoms/Altered Deficit Stated complaint: Headache Time Seen by Provider: 12/20/21 11:24 History of Present Illness HPI narrative: This 56-year-old male comes in by ambulance because worsening headache. He has a chronic history of headaches since having a stroke many decades ago. He has seen a neurologist. He does not report any particular triggers for his worsened headache today. He does have some subtle visual changes but no other neurologic deficits. He has seen a neurologist and other specialists. He is taking his medications as prescribed. Related Data Home Medications Medication Instructions Recorded Confirmed ascorbic acid (vitamin C) 1,000 mg 4,000 mg PO DAILY 08/06/21 11/23/21 tablet (Vitamin C) aspirin 325 mg capsule 325 mg PO DAILY 08/06/21 11/23/21 [id number]-[id number]-[id number] 250 1 tab PO Q6H PRN 08/06/21 11/23/21 mg-250 mg-65 mg tablet (Migraine Relief) atenolol 25 mg tablet 50 mg PO Q24H 08/06/21 11/23/21 atorvastatin 40 mg tablet 40 mg PO HS 08/06/21 11/23/21 carboxymethylcellulose sodium 0.5 1 drp ophthalmic (eye) DAILY 08/06/21 11/23/21 % eye drops (Refresh Tears) cholecalciferol (vitamin D3) 50 4,000 unit PO BID 08/06/21 11/23/21 mcg (2,000 unit) capsule (Vitamin D3) glipizide 5 mg tablet, extended 5 mg PO .daily before meal 08/06/21 11/23/21 release 24 hr vit C 250 mg-vit E 90 mg-zinc 40 1 tab PO .qd 08/06/21 11/23/21 mg-copper 1 fq-gniynt-xkrewe capsule (PreserVision AREDS-2) Allergies Allergy/AdvReac Type Severity Reaction Status Date / Time metformin Allergy Severe Swelling Verified 11/23/21 11:54 of Lips sumatriptan [From Imitrex] Allergy Severe Anaphylaxis Verified 11/23/21 11:54 valproic acid AdvReac Intermediate hepatic Verified 11/23/21 11:54 dysfunction amlodipine AdvReac Mild Headache Verified 11/23/21 11:54 atorvastatin AdvReac Mild Headache Verified 11/23/21 11:54 rosuvastatin [From Crestor] AdvReac Mild Verified 11/23/21 11:54 simvastatin AdvReac Mild muscle Verified 11/23/21 11:54 weakness botox Allergy Severe pain Uncoded 11/23/21 11:54 Review of Systems Status of ROS: Reports: 10 or more systems reviewed and unremarkable except as noted in History and below Narrative: Constitutional: No fevers, no weight gain or loss. Eyes: No discharge. He reports some movement in his visual field. HENT: No congestion, no sore throat, no ear pain. Cardiovascular: No chest pain, no palpitations. Respiratory: No shortness of breath, no wheezes, no cough. Gastrointestinal: No abdominal pain, no vomiting, no diarrhea. Genitourinary: No dysuria, no hematuria. Musculoskeletal: Normal range of motion. Skin: No rashes, no pruritis. Neurological: No dizziness, weakness, sensory change, speech change. Endo/Heme/Allergies: No bruising or bleeding. No polydipsia. Pysch: no suicidality, no anxiety, no insomnia. All other systems reviewed and are negative. [facility] Medical History CVA (cerebral vascular accident) Injury brain, traumatic Paralysis Social History Smoking Status: Never smoker Do you use any of these nicotine containing products: None Second hand tobacco smoke exposure: No How often do you have a drink containing alcohol: never AUDIT-C Alcohol total score: 0 Non-prescribed substance use: denies use service: No Exam Narrative: Exam Narrative: Constitutional: Well-developed, well-nourished, no acute distress. HEENT: Normocephalic, atraumatic. Neck: Normal range of motion. Nontender. Supple. Heart: Regular. No murmurs. Normal rate. Intact distal pulses. Lungs: Clear to auscultation. No chest discomfort. No wheezes, rhonchi, or rales . Abdomen: Normal bowel sounds. Nontender. No rebound tenderness. Genitalia: Deferred. Back: No midline tenderness. Normal range of motion. Extremities: Normal range of motion. No injury. Skin: Intact. No rash. Warm. No erythema or pallor. Neurologic: No altered sensation. No weakness. Alert and oriented. Tnlzlp-hq-uyow is normal. No facial asymmetry. No pronator drift. No unilateral weakness. Psychiatric: No suicidality. No anxiety or depression. No insomnia. Nursing notes and vitals signs are reviewed. Const: Vital Signs, click to edit/add: Vital Signs - 24 hr 12/20/21 11:20 12/20/21 11:21 12/20/21 11:30 Temperature 96.6 F L 96.6 F L Pulse Rate Pulse Rate [Left P ulse Oximeter] 60 60 Respiratory Rate 16 16 Blood Pressure Blood Pressure [Le ft Upper Arm] 133/95 H 133/95 H 121/89 Pulse Oximetry 98 98 Oxygen Delivery Me thod Room Air Room Air 12/20/21 11:40 12/20/21 11:50 12/20/21 12:00 Temperature Pulse Rate Pulse Rate [Left P ulse Oximeter] Respiratory Rate Blood Pressure Blood Pressure [Le ft Upper Arm] 118/77 132/82 135/95 H Pulse Oximetry Oxygen Delivery Me thod 12/20/21 12:00 12/20/21 12:01 Temperature Pulse Rate 55 L 55 L Pulse Rate [Left P ulse Oximeter] Respiratory Rate Blood Pressure 135/95 H Blood Pressure [Le ft Upper Arm] Pulse Oximetry 96 98 Oxygen Delivery Me thod Course Vital Signs Vital signs: Initial Vital Signs Temperature 96.6 F L 12/20/21 11:20 Temperature Source Temporal Artery Scan 12/20/21 11:20 Pulse Rate 60 12/20/21 11:20 Pulse Rhythm 12/20/21 11:20 Pulse Strength 3+ Normal 12/20/21 11:20 Respiratory Rate 16 12/20/21 11:20 Blood Pressure 133/95 H 12/20/21 11:20 Blood Pressure Mean 107 12/20/21 11:20 Blood Pressure Position Supine 12/20/21 11:20 Pulse Oximetry 98 12/20/21 11:20 Oxygen Delivery Method 12/20/21 11:20 Vital Signs Temperature 96.6 F L 12/20/21 11:20 Pulse Rate 60 12/20/21 11:20 Respiratory Rate 16 12/20/21 11:20 Blood Pressure 133/95 H 12/20/21 11:20 Pulse Oximetry 98 12/20/21 11:20 Oxygen Delivery Method 12/20/21 11:20 Temperature 96.6 F L 12/20/21 11:21 Pulse Rate 55 L 12/20/21 12:01 Respiratory Rate 16 12/20/21 11:21 Blood Pressure 135/95 H 12/20/21 12:01 Pulse Oximetry 98 12/20/21 12:01 Oxygen Delivery Method 12/20/21 11:21 Medical Decision Making MDM Narrative Medical decision making narrative: This patient comes in with chronic headaches that are significantly worse recently. He does report some vision changes but has no neurologic deficits. I did discuss lab and imaging options with the patient and after seeing a completely normal neurologic exam these were declined in a process of shared decision making. The patient did receive an IV and doses of Toradol 30 mg, Zofran 4 mg, and Benadryl 50 mg. Patient states that these treatments helped him feel better. He feels okay to return home to continue current plans. I advised him to follow-up with his primary physician for any potential adjustments in medications. Discharge Plan Discharge Clinical Impression: Migraine Patient Disposition: Home, Self-Care Condition: Improved Additional Instructions: Take medications as needed and indicated. Follow up with MD or return if worsening. Prescriptions: No Action aspirin 325 mg capsule 325 mg PO DAILY atenolol 25 mg tablet 50 mg PO Q24H atorvastatin 40 mg tablet 40 mg PO HS glipizide 5 mg tablet extended release 24 hr 5 mg PO .daily before meal Label Comments: TAKE ONE TABLET BY MOUTH DAILY BEFORE A MEAL Migraine Relief 250-250-65 mg tablet 1 tab PO Q6H PRN PreserVision AREDS-2 250-90-40-1 mg capsule 1 tab PO .qd carboxymethylcellulose sodium [Refresh Tears] 0.5 % drops 1 drp ophthalmic (eye) DAILY ascorbic acid (vitamin C) [Vitamin C] 1,000 mg tablet 4,000 mg PO DAILY cholecalciferol (vitamin D3) [Vitamin D3] 50 mcg (2,000 unit) capsule 4,000 unit PO BID Follow Up/Referrals: Jignesh Sousa MD [Primary Care Provider] - Stand Alone Forms: [employer] [facility] Info Instructions
--- OUTSIDE RECORDS SUMMARY | 2021-12-20 11:49 | XMS_ITS | Encounter Summary ---
:1965 Author Organization [facility] Address [address] [place] [address] Care Team Providers Name Role Phone Unavailable [...]
--- OUTSIDE RECORDS SUMMARY | 2021-12-20 11:49 | XMS_ITS | Encounter Summary ---
:1965 Author Organization [facility] Address [address] [place] [address] Care Team Providers Name Role Phone Unavailable [...]
--- OUTSIDE RECORDS SUMMARY | 2021-12-20 11:49 | XMS_ITS | Encounter Summary ---
:1965 Author Organization [facility] Address [address] [place] [address] Care Team Providers Name Role Phone Unavailable [...]
--- OUTSIDE RECORDS SUMMARY | 2021-12-20 11:49 | XMS_ITS | Clinical Summary ---
:1965 Author Organization [facility] Address [address] [place] [address] Care Team Providers Name Role Phone Unavailable Primary Care Provider Unavailable Source Comments Patient records contain information from all sites at [facility]. For routine questions regarding patient records, call [phone] during business hours, M-F 8:00 AM - 5:00 PM Central Time. Record requests for emergency care only can be directed to [phone] at any time.[facility] Allergies No known active allergies Medications Medication Sig Dispensed Refills Start Date End Date Status atenoloL (TENORMIN) 25 Take 25 mg by 0 Active mg tablet mouth daily. HTN glipiZIDE (GLUCOTROL Take 5 mg by 0 Active XL) 5 mg 24 hr tablet mouth daily with breakfast. clopidogreL (PLAVIX) TAKE 1 TABLET BY 88 tablet 0 04/24/2021 0 04/24/2022 Active 75 mg tablet MOUTH DAILY atorvastatin (LIPITOR) TAKE 1 TABLET BY 90 tablet 0 04/24/2021 04/24/2022 Active 40 mg tablet MOUTH AT BEDTIME aspirin 81 mg chewable CHEW AND SWALLOW 72 tablet 0 04/24/2021 04/24/2022 Active tablet 1 TABLET BY MOUTH DAILY Active Problems Problem Noted Date Stroke 04/23/2021 [...] 2021 11/11/2014, 12/04/2012, 12/04/2012, Additional history exists Office Visit for Blood 04/23/2022 04/23/2021 Pressure Check / Re-check Fasting Glucose for 04/24/2024 04/24/2021, 04/24/2021, Diabetes Screening 04/24/2021, Additional history exists Lipid (Cholesterol) 04/23/2026 04/23/2021, 12/19/2020, Screening 02/06/2020, Additional history exists DTaP,Tdap,and Td Vaccines 07/19/2026 07/19/2016, 04/15/2008 (3 - Td or Tdap) Hepatitis B Vaccines Completed 08/05/2014, 04/10/2014, 08/01/2013 Pneumococcal vaccine (0-64 Aged Out 02/06/2020 No lo nger eligible years) based on patient 's age to complete this topic Zoster Vaccines Completed 12/22/2020, 02/06/2020 Insurance Payer Benefit Plan Subscriber ID Effective Phone Address Typ e / Group Dates MEDICARE MEDICARE A [id number] 2010-Pres [address] [place] [address] BLUE CROSS BCBS ROSEBUD [id number] 2020-Pres [phone] PO MACY X Cost Share BLUE SHIELD BLUE COST ent [phone] [address] [place] [phone] ([address]) [place] [phone] Advance Directives For more information, please contact: [phone] Latest Code Status on File Code Status Date Activated Date Inactivated Comments Full Code 04/23/2021 5:34 PM 04/24/2021 11:19 PM Question Answer Comments Full Code: Discussed
--- OUTSIDE RECORDS SUMMARY | 2021-12-20 11:49 | XMS_ITS | Encounter Summary ---
:1965 Author Organization [facility] Address [address] [place] [address] Care Team Providers Name Role Phone Unavailable Primary Care Provider Unavailable Reason for Referral Physical Therapy (Routine) - Authorized Specialty Diagnoses / Procedures Referred By Contact Refer red To Contact Physical Therapy Diagnoses Stroke (HCC) Abnormal Gait Non Orthopedic Decline Functional Status Isaura Dinh M.D. [address] [place] [id number] Referral ID Status Reason Start Date Expiration Date Visits V isits Requested Authorized [id number] Authorized Other 04/24/2021 04/24/2022 99 99 Reason for Visit Auth/Cert Specialty Diagnoses / Procedures Referred By Contact Refer red To Contact Diagnoses Stroke (HCC) Vertigo and vision changes Procedures I63.9 (ICD-10-CM) - Stroke (HCC) Referral ID Status Reason Start Date Expiration Date Visits Requ ested Visits Authorized [id number] 1 1 Encounter Details Date Type Department Care Team Description 04/23/2021 - Hospital Encounter [facility] Liza Hicks, Stroke (HCC) (Primary Dx); 04/24/2021 [facility] Abnormal Gait Non Orthopedic; [facility], [address] [place] [address] Decline Functional Status; [place], [place]izzine ss Second floor [phone] [place] [address] [place], [place] (Work) [phone] Social History Tobacco Use [...] on a high. He was transferred to [facility] for further management. [facility]: The patient was a direct admission to [...] stable Isaura Dinh M.D. PGY-1 Internal Medicine [facility] Pager [phone] documented in this encounter Discharge Instructions Discharge [...] Discharge information provided on 04/24/2021 Contact information: [facility], Acute Therapy Services [phone] AttachmentsThe following attachments cannot be sent through Care Everywhere. Aspirin (By mouth) (Thai)Atorvastatin (By mouth) (Thai)Clopidogrel (By mouth) (Thai)documented in this encounter Medications at Time of Discharge Medication Sig Dispensed Refills Start Date End Date aspirin 81 mg chewable CHEW AND SWALLOW 1 72 tablet 0 04/2404/24/2022 tablet TABLET BY MOUTH DAILY atenoloL (TENORMIN) 25 mg Take 25 mg by mouth 0 tablet daily. HTN atorvastatin (LIPITOR) 40 TAKE 1 TABLET BY 90 tablet 0 04/0704/24/2022 mg tablet MOUTH AT BEDTIME clopidogreL (PLAVIX) 75 TAKE 1 TABLET BY 88 tablet 0 202104/24/2022 mg tablet MOUTH DAILY glipiZIDE (GLUCOTROL XL) Take 5 mg by mouth 0 5 mg 24 hr tablet daily with breakfast. aspirin 81 mg chewable Chew 1 tablet (81 mg 90 tablet 0 04/25/2021 tablet total) daily. clopidogreL (PLAVIX) 75 Take 1 tablet (75 mg 88 tablet 0 04/25/2021 mg tablet total) by mouth daily for 88 doses. documented as of this encounter Progress Notes Nona Phelan, JUNGN, LD - 04/24/2021 2:30 PM CDT Clinical [...] 90.2 10/2018 Estimated Needs: Total Calorie Needs: 1086-8986 calories/day Method to Estimate Energy Needs: [place] (Basal to Basal + 20%) Weight Used [...] about patient's nutritional care please contact pager [phone] on weekdays or [phone] on weekends/holidays. Annabella Yan R.N. - 04/24/2021 2:27 PM CDT Patient [...] assessment as patient was not available when Audio Visual Manager attempted to meet with the patient. Patient was away from the room at testing during multiple attempts from Case Management to visit throughout the day. A folder of applicable stroke/TBI resources was added to patients discharge packet by the Audio Visual Manager . If able, Social Work/Case Management will follow up with the patient/family in regards to the resources left for them. The folder of resources includes: Recovering From a Stroke (BK4770-21), Stroke Website Resources(IU4433-95), Stroke Self-Care Plan (QB9544-57), General Local Resources for Patients with Stroke(SD7280-24), Emotional Response to Stroke ([id number]) and Brain Injury [place] pamphlet. PLAN Care Management will attempt to [...] been stenosed or occluded on MRI from 2014 in our record). He has been neurologically [...] Lives alone, is . 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 FAMILY HISTORY No family history of stroke [...] tone and bulk. Coordination: No ataxia on lxsjig-px-mbpr or xvtn-bc-npwc bilaterally. Sensory: Intact to light touch in [...] Code status: Full Code Surrogate Decision Maker: Liliana Owusu Disposition: Home Please do not hesitate to page the Cerebrovascular Neurology Service pager at [phone] with any questions or concerns. RST Stroke Neurology Service Corporate Banking Officer: Fabiola Garza M.D. STROKE DOCUMENTATION: Stroke Center [...] Screen time completed: 18:10 CDT Prestroke modified Ashley Score (mRS): 1 - No significant disability. [...] in this encounter Consult Notes Aletha Mojica O.T. - 04/24/2021 3:14 PM CDT Occupational Therapy [...] dizziness, sing at local ED, transferred to [facility] for further medical workup and treatment. 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 Prior Mobility/Functional Transfers Level of [place]: Independent Gait Devices/Wheelchair Used Comments: Patient did [...] Cognitive/memory disorder, Other (Comment) (Traumatic brain injury 1982) Personal Factors: Balance impairment Discharge Therapy Needs [...] 23 min Aletha Mojica O.T. Chris Fabian P.T. - 04/24/2021 11:53 AM CDT Physical Therapy [...] dizziness, sing at local ED, transferred to [facility] for further medical workup and treatment. CT/CT [...] Precautions: Right-sided residual hemiparesis, traumatic brain injury '; chronic neck pain; increased stiffness right arm and leg; seizure precautions; fall precautions Patient/Caregiver Goals: To get rid of his dizziness be able to walk better and return home. Patient Comments: Patient agreeable to physical therapy. 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 Prior Mobility/Functional Transfers Level of [place]: Independent Gait Devices/Wheelchair Used Comments: Patient did [...] in this encounter Nursing Notes Pamela Hunter R.N. - 04/24/2021 4:50 PM CDT Shift Goals: [...] signs were obtained. Patient's prescriptions to the [facility]. Patientleft with [facility] staff member. BP 147/85 (BP Location: Right arm;Upper, Patient Position: Sitting) Pulse 62 Temp 36.2 ??C (Oral) Resp 19 Ht 182.9 cm Wt 84 kg SpO2 96% BMI 25.11 kg/m?? Electronically signed by: Pamela Hunter R.N. 04/24/21 4:49 PM CDT Celia Cantu M.S.N., [...] on a high. He was transferred to [facility] for further management. [facility]: The patient was a direct admission to [...] Code Phon e Number POC [facility] [address] [place] [address] PCLX [facility] [address] [place] POC [address] (BRAN) 2D [...] and the findings as documented in the diving fisher and also performed a pertinent examination including [...] performed at the request of the primary sales agent food vending service. Adult probe inserted without difficulty. LEFT VENTRICLE:Normal [...] bifurcati on. Normal superior vena cava. No mhqm-yu-xhhuq shunt at atrial level. Agitated saline injection(s) performed prior to administration of sedation and during sedat ion. No ybyft-np-dvfo shunt at atrial le delaney at rest [...] Sedation Narrator or other pertinent record in [facility] for additional procedure and sedation information. Physician [...] and the findings as documented in the diving fisher and also performed a pertinent examination includ [...] artery bifurcation. Normal superior vena cava. No htel-fo-zruxt shunt at atrial level. Agitated saline injection(s) performed prior to administration of sedation and during se dation. No jwspj-jq-kwov shunt at atrial level at rest or [...] Sedation Narrator or other pertinent record in [facility] for additional procedure and sedation information. Physician [...] Code Phon e Number POC [facility] [address] [place] [address] [facility]CLX [facility] [place] [address] [place] [facility] [address] Magnesium (04/24/2021 8:03 AM CDT) athologist Signature Magnesium, S 2.2 1.7 - 2.3 04/24/2021 DTL mg/dL 9:42 AM CDT Specimen Anatomical Collection Method Collection Time Receive d Time (Source) Location / / Volume Laterality Blood (Blood, 04/24/2021 8:03 AM 04/25/19 22 9:19 Venous) CDT AM CDT Jomar Howe M.D. LAB BLOOD ADD-ON Performing Organization Address City/State/ZIP Code Phon e Number [facility] - [address] [place], [place] [address] [facility] [place] [address] [facility] [address] (ABNORMAL) Basic Metabolic Panel (04/24/2021 8:03 AM [...] 04/24/2021 DTL Black/ mL/min/BSA 9:42 AM CDT [place] Comment: ----ADDITIONAL INFORMATION---- Estimated GFR calculated using [...] Organization Address City/State/ZIP Code Phon e Number [facility] - [address] [place], [place] [address] [facility] [place] [address] [facility] [address] (ABNORMAL) CBC without Differential (04/24/2021 8:03 AM CDT) Patholo gist Method Time Signature Hemoglobin [...] 22 8:58 Venous) CDT AM CDT Jomar Howe M.D. LAB BLOOD ADD-ON Performing Organization Address City/State/ZIP Code Phon e Number [facility] - [address] [place] [address] [facility] [place] [address] [facility] 200 [facility] SARS Coronavirus 2, RNA, Rapid POC, V Asymptomatic (04/23/2021 7:44 PM CDT) [facility] gist Method Time Signature SARS Undetected Undetected 04/23/2021 DTLR Coronavirus-2 8:05 PM CDT , RNA, Rapid POC, V Comment: Negative for SARS-CoV-2. The [employer] COVID-19 test is a molecular celena t for SARS-CoV-2, the virus that causes COVID- 19. A Negative result means that the [employer] COV ID-19 test did not detect SARS-CoV-2 virus in your sample. Cue COVID-19 test uses the [employer] [place] System. This test has received Emergency Use Authorization (EUA) by the U.S. Food and Drug Administration (FDA) and is used per man ufacturer instructions. Performance characteristic s were verified by [facility] in a manner consistent with CLIA requirements. Fact sheets for this Emerg ency Use Authorization (EUA) can be found at the following links: Providers: https://[facility]/documentation/prov iders.pdf Patients: https://[facility]/documentation/aruna ents.pdf SARS Coronavirus 2, Source Nasopharynx DEFAULT 04/23/2021 8:05 PM CDT DTLR Specimen Anatomical Collection Method Collection Time Receive d Time (Source) Location / / Volume Laterality Varies 04/23/2021 7:44 PM 7:44 (Nasopharynx) CDT PM CDT Amos Garza M.D. LAB MICROBIOLOGY - GENERAL O RDERABLES Performing Organization Address City/State/ZIP Code Phon e Number PERFORMING LABS, REF [place] [address] INTERFACE Ref Interface [address] DTLR Performing Labs, [place] [address] Head without [...] aneurysm, or focal injury. 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 The dural venous sinuses are [...] aneurysm, or focal injury. 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 The dural venous sinuses are patent where vi sualized. IMPRESSION: 1. 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 2. Chronic infarcts of the left frontal left temporal lobes and other miscellaneous findings as noted.. Amos Garza M.D. IMG CT PROCEDURES CT Head Neck Angiogram with IV Contrast (04/23/2021 7:11 PM CDT) Anatomical Region Laterality Modality Head and Neck, Neuroradiology RST LOS, N/A C omputed Tomography, Computed Neuroradiology [facility], Neuroradiology T omography [facility] Specimen (Source) Anatomical Collection Method Collection Time [...] aneurysm, or focal injury. 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 The dural venous sinuses are [...] aneurysm, or focal injury. 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 The dural venous sinuses are [...] M.D. LAB BLOOD ADD-ON Performing Organization Address City/[facility]/ZIP Code Phon e Number [facility] - [id number] [place] [address] APTT (Activated Partial Thromboplastin Time) (04/23/2021 6:30 PM CDT) P athologist Signature Activated 32 25 - 37 sec 04/23/2021 DTL Partial 7:10 PM CDT Thrombopl Time, P Specimen Anatomical Collection Method Collection Time Receive d Time (Source) Location / / Volume Laterality Blood (Blood, 04/23/2021 6:30 PM 04/24/19 22 6:48 Venous) CDT PM CDT Amos Garza M.D. LAB BLOOD ADD-ON Performing Organization Address City/[facility]/ZIP Code Phon e Number [facility] - [id number] [place] [address] (ABNORMAL) Hemoglobin A1c (04/23/2021 6:30 PM CDT) [...] M.D. LAB BLOOD ADD-ON Performing Organization Address City/[facility]/ZIP Code Phon e Number [facility] - [address] [place], [place] [address] [facility] [place] [address] [place] [address] [address] [facility] (ABNORMAL) CBC without Differential (04/23/2021 6:30 PM [...] M.D. LAB BLOOD ADD-ON Performing Organization Address City/State/[facility] Code Phon e Number [facility] - [address] [place] [address] [facility] [place] [address] [facility] 200 [facility] (ABNORMAL) Lipid Panel (04/23/2021 6:30 PM CDT) P athologist Signature Cholesterol, 227 (H) mg/dL 04/23/2021 [...] 197 (H) mg/dL 022 7:25 PM CDT DTL Comment: ----REFERENCE VALUE---- Desirable: <130 Above Desirable: 130-159 Borderline high: 160-189 High: 190-219 Very high: > or =220 Specimen Anatomical Collection Method Collection Time Receive d Time (Source) Location / / Volume Laterality Blood (Blood, 04/23/2021 6:30 PM 04/24/19 22 7:00 Venous) CDT PM CDT Amos Garza M.D. LAB BLOOD ADD-ON Performing Organization Address City/[facility] Code Phon e Number [facility] - [address] (ABNORMAL) S-TSH (Thyroid-Stimulating Hormone - Sensitive) (04/23/2021 6:30 PM CDT) P athologist Signature TSH, Sensitive 4.4 (H) 0.3 - 4.2 04/23/2021 DTL mIU/L 7:25 PM CDT Specimen Anatomical Collection Method Collection Time Receive d Time (Source) Location / / Volume Laterality Blood (Blood, 04/23/2021 6:30 PM 04/24/19 22 7:00 Venous) CDT PM CDT Amos Garza M.D. LAB BLOOD ADD-ON Performing Organization Address City/[facility] Phon e Number [facility] - [address] AST (Aspartate Aminotransferase) (04/23/2021 6:30 PM CDT) Patholo gist Method Time Signature Aspartate 23 8 - 48 04/23/2021 STMA Aminotransferase U/L 7:07 PM CDT (AST), P Specimen Anatomical Collection Method Collection Time Receive d Time (Source) Location / / Volume Laterality Blood (Blood, 04/23/2021 6:30 PM 04/24/19 22 6:37 Venous) CDT PM CDT Amos Garza M.D. LAB BLOOD ADD-ON Performing Organization Address City/[facility] Phon e Number [facility] - 200 [place], [place] [address] [facility] [place] [address] ALT (Alanine Aminotransferase) (04/23/2021 6:30 PM CDT) Patholo gist Method Time Signature Alanine 22 7 - 55 04/23/2021 DTL Aminotransferase U/L 7:25 PM CDT (ALT), S Specimen Anatomical Collection Method Collection Time Receive d Time (Source) Location / / Volume Laterality Blood (Blood, 04/23/2021 6:30 PM 04/24/19 22 7:00 Venous) CDT PM CDT Amos Garza M.D. LAB BLOOD ADD-ON Performing Organization Address City/[facility] Phon e Number [facility] - 200 [place], [place] [address] [facility] [place] [address] ECG 12 Lead (04/23/2021 6:20 PM CDT) P athologist Signature Ventricular Rate 54 BPM MUSE ECG/Min DC Interval 178 ms MUSE QRSD Interval 106 ms MUSE QT Interval 482 ms MUSE QTC Interval 457 ms MUSE P [place] 38 degrees MUSE R [place] 48 degrees MUSE T Wave [place] 46 degrees MUSE Specimen Anatomical Collection [...] Garza M.D. ECG ORDERABLES Performing Organization Address City/State/ZIP Code Phon e Number MUSE MUSE NA [...] 2043 (Given - Prov ider: Holli Tuttle R.N.) 0824 (Given - Provider: Pamela Hunter R.N.) 81 mg, oral, Daily, First dose on Hallie 04/23/21 at 2030 atorvastatin tablet 40 mg (LIPITOR) 40 mg, oral, Daily at bedtime, First dose on Tue04/24/21 at 2100 clopidogreL tablet 75 mg (PLAVIX) 2043 (Given - Provider: Holli Tuttle R.N.) 0824 (Given - Provider: Pamela Hunter R.N.) 75 mg, oral, Daily, First dose on Hallie 04/23/21 at 2030, For 90 do ses heparin (porcine) injection 5,000 Units 1834 (Given - Provider: Adonay Nova, R.N.) 0629 (Given - Provider: Lissa Posada)1336 (Given - Provider: Pamela Hunter R.N.) 5,000 Units, subcutaneous, Every 8 hours scheduled, First dose on Hallie 04/23/21 at 1745 insulin aspart U-100 injection 0-13 Units (NovoLOG FlexPen) 0945 (Given - Provider: Pamela Hunter R.N. - Comment: B)1405 (Not Given - Provider: [...] oral, Daily at bedtime, First dose on Hallie 04/23/21 at 2345 sennosides-docusate sodium 8.6-50 mg per tablet 2 tablet (SENOKOT-S)(Linked Group 1) 0824 (Given - Provid er: Pamela Hunter R.N.) 2 tablet, oral, Daily, First dose on Tue04/24/21 at 0900, While on opioids. Do not give if patient has diarrhea. sennosides-docusate sodium 8.6-50 mg per tablet 2 tablet (SENOKOT-S)(Linked Group 1) 0824 (See Alternativ e - Provider: Pamela Hunter R.N.) 2 tablet, gastric tube, Daily, First dos e on Tue04/24/21 at 0900, While on opioids. Do not give if patient has diarrhea. sodium chloride (PF) 0.9 % injection 1-100 mL (COMPLETED) 1907 (Given - Provider: Irene J Buddy, M.P.H., R.N., C.M.S.R.N.) 1-100 mL, intravenous, Once, On Hallie 04/23 at 1915, For 1 dose, Imaging Protocol [...] (COMP LETED) 1907 (Given - Provider: Irene Goodwin, Janice.P.H., R.N., C.M.S.R.N. - Comment: Lot [id number]) 1-200 mL, intravenous, Once in imaging, contrast, [...] mL 1155 (Given - Provider: Gera Ramirez RKathiaN.)1226 (Given - Provider: Gabbie Murray RKathiaNKathia) 20 mL, intravenous, As needed, for agita [...] times daily PRN, constipa tion, Starting on Hallie 04/23/21 at 1730
Suppository is the preference. Swallow whole. Do NOT crush, chew, or split tablet.
Or bisacodyL suppository 10 mg (DULCOLAX)Jump to med 10 mg, rectal, 2 times daily PRN, thee nielsen, Starting on Hallie 04/23/21 at 1730
Suppository is the preference.
documented in this encounter Additional Health Concerns Infection Onset Date Last Indicated Resolved Time COVID19 Pending 04/23/2021 04/23/2021 04/23/2021 8:05 PM CDT documented as of this encounter
--- OUTSIDE RECORDS SUMMARY | 2021-12-20 11:49 | XMS_ITS | Encounter Summary ---
:1965 Author Organization [facility] Address [address] [place] [address] Care Team Providers Name Role Phone Unavailable Primary Care Provider Unavailable Encounter Details Date Type Department Care Team Description 04/24/2021 Orders Only [facility], [facility] [address] [place], [place] [address] [place] [id number] [place] [address] [phone] Social History Tobacco Use Types Packs/Day Years [...]
--- OUTSIDE RECORDS SUMMARY | 2021-12-20 11:50 | XMS_ITS | Encounter Summary ---
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
--- OUTSIDE RECORDS SUMMARY | 2021-12-20 11:50 | XMS_ITS | Encounter Summary ---
:1965 Author Organization [facility] Address [address] [place] [address] Care Team Providers Name Role Phone Clinic, [facility] Primary Care Provider [phone] Reason for Visit Reason Comments Foot Pain Encounter Details Date Type Department Care Team Description 12/05/2017 Emergency [facility] Ese Hodges MD Cramp in lower leg; [facility] Emergency Dep t EMERGENCY PHYSICIANS Encounter for postoperative wound check [address] [place], [place] [address] [facility] [address] [place] [address] [phone] (Wo rk) Social History Tobacco Use Types [...] >100.4F, vomiting, or any other concerns, call [facility] or return to ER immediately. Call to arrange an earlier appointment with [facility] for wound check and discuss symptoms in the next week or so. AttachmentsThe following attachments cannot be sent through Care Everywhere.POST OP WOUND CHECK, GENERAL ([place])documented in this encounter Medications at Time of [...] mildly today. Thus, today, patient's ex- called [facility] and described these symptoms. He was [...] Alcohol Use: No Marital Status: Single [facility] Review of Systems Constitutional: Negative for [...] as blue prompted a call to the [facility] and referral for evaluation for DVT. [...] an appointment for another 3-4 weeks with [facility] so I have recommended they call today or tomorrow to get first available appointment for recheck of his surgical site and to discuss his ER visit and ongoing pain with calf cramp and reported skin discoloration. I answered all the patient and his ex-'s questions and they verbalized understanding. They are amenable to discharge with [facility] follow-up and strict return precautions. Diagnosis: ICD-10-CM 1. Cramp in lower leg R25.2 2. Encounter for postoperative wound check Z48.89 Disposition: discharged home Ammy Wu 12/05/2017 [facility] I, Ammy Wu, am [...] sabrina documented in this encounter Care Teams Medical Transcription Editor Relationship Specialty Start Date End Date [facility], [facility] PCP - General 11/17/[address] [place] [address] documented as of this encounter
--- OUTSIDE RECORDS SUMMARY | 2021-12-20 11:50 | XMS_ITS | Clinical Summary ---
:1965 Author Organization [facility] [place] [address] Care Team Providers Name Role Phone Jignesh Sousa MD Primary Care Provider Allergies Active Allergy Reactions Severity Noted Date Comments Amlodipine Headache 12/22/2020 Atorvastatin Headache 06/21/2018 Botulinum Toxin Headache 08/07/2021 Severe head pain - happened two di fferent occasions Rosuvastatin Other - Describe In 11/07/2017 Memory antonio an. Comment Field Sumatriptan Anaphylaxis 08/14/2012 Metformin Edema 11/19/2016 Swelling of bot h lips. Shuttle Fixer is Ascen. Simvastatin Muscle Weakness 07/31/2012 Valproic Acid Hepatic Dysfunction 12/05/2017 Liver p jolene Medications Medication Sig Dispensed Refills Start End Status Date Date MULTIVITAMIN TAB take 1 tablet by 0 Active oral route once 7 daily with food blood-glucose meter Dispense glucose 1 Device 0 Active (ACCU-CHEK ADVANTAGE meter, test 3 DIABETES)Indications: strips and Newly diagnosed diabetes lancets covered (HC) by the patient insurance. Test one times per day. cholecalciferol (Vitamin 4000 units by 90 Capsule 3 Active D-3) 2,000 unit capsule mouth daily 2 ascorbic acid, vitamin C, Taking 4000 mg 0 Active (Vitamin C) 1,000 mg daily per 2 tablet patient/mother cdvivsp-tvoewdbieezeu-fxek Take 1 Tablet by 0 Active eine (Migraine Relief) mouth every 6 2 250-250-65 mg hours if needed for Headache. Max acetaminophen dose: 4000mg in 24 hrs. carboxymethylcellulose 0 Active 0.5% (Refresh Tears) 0.5 % 2 drop ophthalmic drops aspirin 325 mg tablet Take 1 Tablet by 0 Active mouth once daily. 2 HYDROcodone-acetaminophen TAKE 1-2 TABLETS 0 02 Active (NORCO) 5-325 mg per BY MOUTH EVERY 2 tablet 4-6 HOURS NEEDED vit Take 1 Capsule by 0 Ac tive C,S-Uv-puzwf-lutein-zeaxan mouth in the 2 (PreserVision AREDS-2) morning and 1 capsule Capsule in the evening. nortriptyline (PAMELOR) 10 1 capusle at 90 Capsule 11 Active mg capsuleIndications: bedtime for 1 2 Insomnia, idiopathic month, then 2 capsules at bedtime for 1 month then 3 capsules at bedtime. glipiZIDE extended-release Take 1 Tablet (5 90 Tablet 4 Active (GLUCOTROL XL) 5 mg mg) by mouth once 2 Extended-Release daily before a tabletIndications: meal. Controlled type 2 diabetes mellitus without complication, without long-term current use of insulin (HC) baclofen (LIORESAL) 10 mg Take 0.5 Tablets 50 Tablet 1 Active tabletIndications: (5 mg) by mouth 2 Hypertriglyceridemia at bedtime. atenoloL (TENORMIN) 50 mg Take 1 Tablet (50 90 Tablet 2 Active tabletIndications: mg) by mouth once 2 Essential hypertension daily. blood sugar diagnostic As directed two 200 Each 3 Active (True Metrix Glucose Test times daily. 2 Strip) stripIndications: Dispense item Controlled type 2 diabetes covered by pt mellitus without ins. E11.9 NIDDM complication, without type II - Test 1 long-term current use of time/dayTEST insulin (HC) TWICE DAILY blood-glucose Dispense meter, 1 Each 0 Active meterIndications: Type 2 test strips, 2 diabetes mellitus with lancets covered stage 3a chronic kidney by pt ins. 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 [facility] Neurologist told him not to take a statin drug due to his memory problems in 2015. Unspecified disorder of eye movements 10/21/2006 Resolved Problems Problem Noted Date Resolved Date Counseling for marital and partner problems, unspecified 10/18/2012 Encounters Date Type Specialty Care Team Description 12/20/2021 Nurse Triage Jignesh Sousa MD Erro r-please disregard 12/20/2021 Telephone Jignesh Sousa MD Erro r-please disregard 12/14/2021 Telephone [place] (Patient can schedule initia l consultation wi th next available. Cristal ent is aware of opening with Dr. Flores 01/04 but will need to check with medical van driver kenya acosta. Will call back later to becky goel. ) 12/10/2021 Telephone [place] (Pt mom calling wanting to know the status. Still reviewing . 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) 12/09/2021 Travel 11/30/2021 Office Visit Jignesh Sousa MD Medi cation Management (Follow up on m eds and stroke.); Fall [facility] a nd [facility] 11/30/2021 Travel 11/25/2021 Orders Only Lab, [facility] 11/25/2021 Travel 11/23/2021 Orders Only Scanner <No scans attac hed> 11/23/2021 Telephone Jignesh Sousa MD MESS AGE [...] 10/28/2021 Telephone Nunu Pierre MD 10/27/2021 Emergency Margaret Das Acute arnulfo ntractable headache, unspecified headache type (Primary Dx); MD Bryan Tunnel vision, bilateral Thiago, Silvino Leija MD 10/27/2021 Travel 10/27/2021 Nurse Triage Lars, Jignesh Wright MD Head ache 09/29/2021 Office Visit Wilmar Reyes Consu lt MD 09/29/2021 Travel from Last 3 Months Immunizations Name [...] Sister 1 Keesha Alive Sister 2 Marisol Etzell Alive Social History Tobacco Use Types Packs/Day [...] in contact with No / Unsu re 12/09/2021 8:57 AM CDT someone who was confirmed or suspected to have Coronavirus/COVID-19? Obstetrics History Last Filed Vital Signs Vital Sign Reading Time Taken Comments Blood Pressure 127/83 12/09/2021 9:05 AM CDT Pulse 60 12/09/2021 9:05 AM CDT Temperature 36.5 ??C (97.7 ??F) 10/27/2021 2:31 PM CDT Respiratory Rate 16 10/27/2021 6:20 PM CDT Oxygen Saturation 100% 12/09/2021 9:05 AM CDT Inhaled Oxygen Concentration - - Weight 94.3 kg (208 lb) 12/09/2021 9:05 AM CDT Height 185.4 cm (6' 1) 11/30/2021 10:15 AM CDT Body Mass Index 27.44 11/30/2021 10:15 AM CDT Plan of Treatment Upcoming Encounters Date Type Specialty Care Team Description 01/04/2022 Office Visit Kishor Flores, DO [address] [place] [address] (Wo rk) 03/31/2022 Orders Only Lab, [facility] 04/02/2022 Office Visit Jignesh Sousa MD [address] [place], [place] [address] (Wo rk) Health Maintenance [...] (ht and wt on same day) for 11/30/2022 11/30/2021, 10/09, age 18+ 07/16/2021, Additional history exists Tetanus booster 07/19/2026 07/19/2016, 04/15/2008, 02/21/1999 Lipids for age 45-75 11/25/2026 11/25/2021, 08/27/2021, 05/25/2021, Additional history exists Tdap Completed 04/15/2008 Hepatitis B series for Diabetes Completed 08/05/2014, 05/2014, 08/01/2013 Hepatitis C screening for age Completed 12/19/2020 18-79 Zoster (shingles) series for age Completed 12/22/2020, 50+ Procedures Procedure Name Priority Date/Time Associated Diagnosis Comme nts SCAN CORRESP-IMAGING 12/01/2021 12:00 Res ults for this AM CDT procedure are i n the results section. SCAN CORRESP-IMAGING 12/01/2021 12:00 Res ults for this AM CDT procedure are i n the results section. HEMOGLOBIN A1C Routine 11/25/2021 9:24 Type 2 diabetes Results for this AM CDT mellitus without procedure a re in complication, without the re sults long-term current use sectio n. of insulin (HC) LIPID PANEL W REFLEX Routine 11/25/2021 9:24 Mixed hyperlipide sabina Results for this MEASURED LDL AM CDT procedure are i n the results section. BASIC METABOLIC PANEL Routine 11/25/2021 9:24 Essential Res ults for this AM CDT hypertension procedure are i n the results section. SCAN-CT INTERPRETATION 11/23/2021 12:00 AM CDT MR HEAD BRAIN STROKE STAT 10/27/2021 6:09 Resu lts for this WO MR ANGIO HEAD WO PM CDT procedur e are in NECK WWO the results section. TROPONIN I QUAL POC STAT 10/27/2021 3:22 Resul ts for this PM CDT procedure are i n the results section. BASIC METABOLIC PANEL STAT 10/27/2021 3:16 Res ults for this PM CDT procedure are i n the results section. CBC W PLT NO DIFF STAT 10/27/2021 3:16 Results for this PM CDT procedure are i n the results section. from Last 3 Months Results SCAN CORRESP-IMAGING (12/01/2021 12:00 AM CDT)Only the most recent of2 results within the time period is included. Narrative 12/01/2021 12:00 AM CDT This result has an attachment that is no t available. Ordered by an unspecified provider. Other Clinical Staff OTHER (ABNORMAL) LIPID PANEL W REFLEX MEASURED LDL (11/25/2021 9:24 AM CDT) [facility] gist Method Time Signature CHOLESTEROL,TOTAL 252 (H) 100 - 199 11/26/2021 [facility] mg/dL 12:17 AM CDT [facility] TRIGLYCERIDES 373 (H) <150 11/26/2021 [facility] mg/dL 12:17 AM CDT [facility] HDL CHOLESTEROL 29 (L) >40 mg/dL 11/26/2021 [facility] 12:17 AM CDT [facility] NON-HDL 223 (H) <145 11/26/2021 [facility] CHOLESTEROL mg/dl 12:17 AM CDT [facility] CHOL/HDL RATIO 8.69 (H) <4.50 11/26/2021 [facility] 12:17 AM CDT [facility] LDL CHOLESTEROL 148 (H) <=130 11/26/2021 [facility] mg/dL 12:17 AM CDT [facility] VLDL CHOLESTEROL 75 (H) <=30 11/26/2021 [facility] mg/dL 12:17 AM CDT [facility] PROVIDER ORDERED RANDOM 11/26/2021 [facility] STATUS 12:17 AM CDT [facility] Specimen Anatomical Collection Method / Collection Time Recei crow Time (Source) Location / Volume Laterality Blood BLOOD SPECIMEN / Venipuncture / 11/25/2021 9:24 2021 9:24 Unknown Unknown AM CDT AM CDT Jignesh Sousa MD CHEMISTRY Performing Organization Address City/State/ZIP Code Phon e Number [facility] [address] [place] [address] LAB[facility]AT[facility]ENTRAL [facility] LABORATORY (ABNORMAL) HEMOGLOBIN A1C MONITORING (POCT) (11/25/2021 9:24 AM CDT) Analysis Performed At [facility] logist Time Signature HEMOGLOBIN A1C 7.7 (H) <=6.4 % 11/25/2021 [facility] MONITORING 9:33 AM CDT [place] [facility] Specimen Anatomical Collection Method / Collection Time Recei crow Time (Source) Location / Volume Laterality Blood BLOOD SPECIMEN / Venipuncture / 11/25/2021 9:24 2021 9:24 Unknown Unknown AM CDT AM CDT Narrative [facility] - 2021 9:33 AM CDT ? (<=6.9%) ? Indicates good [...] Organization Address City/State/ZIP Code Phon e Number [facility] [address] [place] [address] (ABNORMAL) BASIC METABOLIC PANEL (11/25/2021 9:24 AM CDT)Only the most recent of 2 resultswithin the time period is included. Analysis Performed At Patho logist Time Signature SODIUM 133 (L) 135 - 145 11/26/2021 [facility] mmol/L 12:16 AM CDT [facility] POTASSIUM 4.9 3.5 - 5.0 11/26/2021 [facility] mmol/L 12:16 AM CDT [facility] CHLORIDE 103 98 - 110 11/26/2021 [facility] mmol/L 12:16 AM CDT [facility] CO2,TOTAL 22 21 - 31 11/26/2021 [facility] mmol/L 12:16 AM CDT [facility] ANION GAP 8 5 - 18 11/26/2021 [facility] 12:16 AM CDT [facility] GLUCOSE 159 (H) 65 - 100 11/26/2021 [facility] mg/dL 12:16 AM CDT [facility] CALCIUM 9.1 8.5 - 10.5 11/26/2021 [facility] mg/dL 12:16 AM CDT [facility] BUN 11 8 - 25 11/26/2021 [facility] mg/dL 12:16 AM CDT [facility] CREATININE 1.25 0.72 - 11/26/2021 [facility] 1.25 mg/dL 12:16 AM CDT [facility] BUN/CREAT RATIO 9 (L) 10 - 20 11/26/2021 [facility] 12:16 AM CDT [facility] eGFR 67 (L) >90 11/26/2021 [facility] mL/min/1.7 12:16 AM CDT [facility] 3m2 TRAL LABORATORY Comment: As [...] Laterality Blood BLOOD SPECIMEN / Venipuncture / 11/25/2021 9:24 2021 9:24 Unknown Unknown AM CDT AM CDT Jignesh Sousa MD CHEMISTRY Performing Organization Address City/State/ZIP Code Phon e Number [facility] [address] [place] [address] [place] [address] LAB[facility]ATORY-[facility]ENTR[facility] 2000 LABORATORY SCAN-CT INTERPRETATION (11/23/2021 12:00 AM CDT) Narrative This result has an attachment that is no t available. Scanner OTHER MR MRA Head and Neck Stroke Protocol [...] ?? If you have questions, please contact [facility] care provider. Indication: Vision change, headaches. Technique: [...] radiology service can be arranged by calling [phone]. MRA Neck: 1. No evidence for hemodynamically [...] ?? If you have questions, please contact [facility] care provider. Indication: Vision change, headaches. Technique: [...] radiology service can be arranged by calling [phone]. MRA Neck: 1. No evidence for hemodynamically signi ficant ICA stenosis by NASCET criteria. 2. No evidence for carotid or vertebral artery dissection in the neck. Dictated by Neno Tian MD @ 10/27/2021 6:35:11 PM (Electronically Signed) Narrative 10/27/2021 6:34 PM CDT For Patients: ??As a result of the Cures Act, medical imaging exams and procedure report s are released immediately into your [facility] medical record. ??You may view this report [...] radiology service can be arranged by calling [phone]. MRA Neck: 1. No evidence for hemodynamically [...] provider. If you have questions, please contact [facility] care provider. Indication: Vision change, headaches. Technique: [...] radiology service can be arranged by calling [phone]. MRA Neck: 1. No evidence for hemodynamically signi ficant ICA stenosis by NASCET criteria. 2. No evidence for carotid or vertebral artery dissection in the neck. Dictated by Neno Tian MD @ 10/27/2021 6:34:09 PM (Electronically Signed) Margaret Das MD MR TROPONIN I QUAL POC (10/27/2021 3:22 PM CDT) Analysis Performed At Patho logist Time Signature TROPONIN Negative Negative [facility]2021 [facility],POC 3:38 PM CDT [facility] TROPONIN <0.03 <0.03 10/27/2021 [facility] [employer] I,QUAL, POCT 3:38 PM CDT [facility] Specimen Anatomical Collection Method Collection Time Receive d Time (Source) Location / / Volume Laterality Blood BLOOD SPECIMEN / 10/27/2021 3:22 PM 10/27 3:38 Unknown CDT PM CDT Margaret Das MD CHEMISTRY Performing Organization Address City/State/ZIP Code Phon e Number [facility] [address] [place] [address] LAB[facility] 2000 LABORATORY (ABNORMAL) CBC W PLT NO DIFF (10/27/2021 3:16 PM CDT) [facility] gist Method Time Signature WHITE BLOOD 7.8 4.5 - 11.0 10/27/2021 [facility] COUNT thou/cu mm 3:42 PM CDT [facility] RED BLOOD COUNT 3.95 (L) 4.30 - 10/27/2021 [facility] [employer] 5.90 3:42 PM CDT [facility] mil/cu mm TRAL LABORATORY HEMOGLOBIN 12.3 (L) 13.5 - 10/27/2021 [facility] [employer] 17.5 g/dL 3:42 PM CDT [facility] HEMATOCRIT 36.7 (L) 37.0 - 10/27/2021 [facility] [employer] 53.0 % 3:42 PM CDT [facility] MCV 93 80 - 100 10/27/2021 [facility] [employer] fL 3:42 PM CDT [facility] MCH 31.1 26.0 - 10/27/2021 [facility] [employer] 34.0 pg 3:42 PM CDT [facility] MCHC 33.5 32.0 - 10/27/2021 [facility] [employer] 36.0 g/dL 3:42 PM CDT [facility] RDW 14.6 11.5 - 10/27/2021 [facility] [employer] 15.5 % 3:42 PM CDT [facility] PLATELET COUNT 339 140 - 440 10/27/2021 [facility] thou/cu mm 3:42 PM CDT [facility] MPV 9.8 6.5 - 11.0 10/27/2021 [facility] fL 3:42 PM CDT [facility] NRBC 0.0 % 10/27/2021 [facility] 3:42 PM CDT [facility] ABS NRBC 0.0 thou /cu 10/27/2021 [facility] mm 3:42 PM CDT [facility] Specimen Anatomical Collection Method / Collection Time Recei crow Time (Source) Location / Volume Laterality Blood BLOOD SPECIMEN / Venipuncture / 10/27/2021 3:16 2021 3:24 Unknown Unknown PM CDT PM CDT Margaret Das MD HEMATOLOGY Performing Organization Address City/State/ZIP Code Phon e Number [facility] [address] [place] [address] LABORATORY-CENTRAL 2000 LABORATORY from Last 3 Months Insurance Payer Benefit Plan / Subscriber ID Effective Dates Phone Addre ss Type Group MEDICARE PART B MEDICARE PART B [id number] 2010-Presen ATTN: CLAIMS - HB USE ONLY HB ONLY t [address] [place] [address] MEDICARE PART B MEDICARE PART B [id number] 2010-Presen ATTN: CLAIMS - HB USE ONLY HB ONLY t [address] [place] [address] BLUE CROSS MR MR BC [place] [id number] 2014-Presen [address] [place] [address] BLUE CROSS MR BLUE CROSS [id number] 2021-Presen [address] [address] [place], [place] ONLY [id number] BLUE [place]OSS BLUE CROSS [id number] 2021-Presen [address] [address] [place], [place] [id number] [place]) [place] [address] Heladio Davis Personal/Family Self 1965 [address]) [place] [address] Care Teams Electric Refrigerator Servicer Relationship Specialty Start Date End Date Jignesh Sousa MD PCP - General Family Practice 12/04/12 [address] [place] [address]
--- OUTSIDE RECORDS SUMMARY | 2021-12-20 11:50 | XMS_ITS | Encounter Summary ---
:1965 Author Organization [place] Address [address] [place] [address]. [place] [address] Care Team Providers Name Role Phone Clinic, [facility] Primary Care Provider [phone] Reason for Visit Reason Comments Other 4 wk FU Encounter Details Date Type Department Care Team Description 12/21/2017 Office Visit [facility] Emi Saul Urinar y retention (Primary Dx); Urology Clinic JOE Screening for prostate cancer [address] [place], [place] [address] [place] [address] [phone] (Work) [phone] Social History Tobacco Use Types Packs/Day Years Used Date Smoking Tobacco: Never Smokeless Tobacco: Never Alcohol Use Standard Drinks/Week Comments No 0 (1 standard drink = 0.6 oz pure alcoho l) Sex Assigned at Date Recorded Not on file documented as of this encounter Last Filed Vital Signs Vital Sign Reading Time Taken Comments Blood Pressure - - Pulse 72 12/21/2017 1:46 PM LIVING SUPERVISOR Temperature - - Respiratory Rate - - Oxygen Saturation 98% 12/21/2017 1:46 PM LIVING SUPERVISOR Inhaled Oxygen Concentration - - Weight 86.2 kg (190 lb) 12/21/2017 1:46 PM LIVING SUPERVISOR Height 185.4 cm (6' 1) 12/21/2017 1:46 PM LIVING SUPERVISOR Body Mass Index 25.07 12/21/2017 1:46 PM LIVING SUPERVISOR documented in this encounter Patient Instructions Patient InstructionsEmi Saul PA-C - 12/21/2017 2:00 PM CST See you in 4 weeks. Will have you go to the lab 1-2 days prior to seeing me for a blood draw (PSA screening test for the prostate). Flomax to continue daily. NG SUPERVISOR documented in this encounter Progress Notes Emi [...] and office visit in 4 wks -Continue [facility] Emi Saul PA-C [facility] 20 min spent with the patient, >50% of this time was spent in a wywg-ro-deim manner and on coordination of care of urinary retention. NG SUPERVISOR documented in this encounter Nursing Notes Ese Banks CMA - 12/21/2017 2:00 PM CST Pt says he is better now than last time he was here. Pt having foot problems. Adán Banks CMA NG SUPERVISOR Ese Banks CMA - 12/21/2017 2:00 PM CST PVR by scanner=30mL. Adán Banks CMA NG SUPERVISOR documented in this encounter Plan of Treatment Not on filedocumented as of this encounter Procedures Procedure Name Priority Date/Time Associated Comments Diagnosis URINE MACROSCOPIC Routine 12/21/2017 2:04 PM Urinary retention Results for this ONLY LIVING SUPERVISOR procedure are i n the results section. BLADDER SCAN Routine 12/21/2017 Urinary retention Results fo r this procedure are i n the results section. documented in this encounter Results PSA tumor marker [[id number]] (01/18/2018 10:14 AM LIVING SUPERVISOR) athologist Signature PSA 0.18 0 - 4 ug/L 01/19/2018 [facility] 8:10 AM [facility] Comment: Assay Method: Chemiluminescence using Siemens [place] analyzer Specimen Anatomical Collection Method Collection Time Receive d Time (Source) Location / / Volume Laterality Blood specimen 01/18/2018 10:14 8 (specimen) AM LIVING SUPERVISOR 10:19 AM LIVING SUPERVISOR Emi Saul PA-C LAB - BLOOD ORDERABLES Performing Organization Address City/State/ZIP Code Phon e Number [facility] [address] [place] [address] UA without Microscopic (12/21/2017 2:04 PM LIVING SUPERVISOR) [facility] Method Time Signature Color Urine Yellow 12/21/2017 [place] 2:08 PM LIVING SUPERVISOR [facility] Appearance Urine Clear 12/21/2017 [place] 2:08 PM LIVING SUPERVISOR [facility] Glucose Urine Negative NEG^Negat 12/21/2017 [place] juan mg/dL 2:08 PM LIVING SUPERVISOR [facility] Bilirubin Urine Negative NEG^Negat 12/21/2017 [place] juan 2:08 PM LIVING SUPERVISOR [facility] Ketones Urine Negative NEG^Negat 12/21/2017 [place] juan mg/dL 2:08 PM LIVING SUPERVISOR [facility] Specific [place] 1.020 1.003 - 12/21/2017 [place] Urine 1.035 2:08 PM LIVING SUPERVISOR [facility] Blood Urine Negative NEG^Negat 12/21/2017 [place] juan 2:08 PM LIVING SUPERVISOR [facility] pH Urine 5.5 5.0 - 7.0 12/21/2017 [place] pH 2:08 PM LIVING SUPERVISOR [facility] Protein Albumin Negative NEG^Negat 12/21/2017 [place] Urine juan mg/dL 2:08 PM LIVING SUPERVISOR [facility] Urobilinogen 0.2 0.2 - 1.0 12/21/2017 [place] Urine EU/dL 2:08 PM LIVING SUPERVISOR [facility] Nitrite Urine Negative NEG^Negat 12/21/2017 [place] juan 2:08 PM LIVING SUPERVISOR [facility] Leukocyte Negative NEG^Negat 12/21/2017 [place] Esterase Urine juan 2:08 PM LIVING SUPERVISOR [facility] Source Midstream 12/21/2017 [place] Urine 2:05 PM LIVING SUPERVISOR [facility] Specimen (Source) Anatomical Collection Method Collection Time Re ceived Time Location / / Volume Laterality Examination of 12/21/2017 2:04 12/21/2017 2:05 midstream urine PM LIVING SUPERVISOR PM LIVING SUPERVISOR specimen (procedure) Emi Sual PA-C LAB - URINE ORDERABLES Performing Organization Address City/State/ZIP Code Phon e Number [facility] [address] [place] [address] [facility] [address] Bladder scan (12/21/2017) P athologist Signature Residual Volume 30 (RV) (External) Emi Saul PA-C IP NURSING GI/ documented in this encounter Visit Diagnoses Diagnosis Urinary retention - Primary Retention of urine, unspecified Screening for prostate cancer Special screening for malignant neoplasm of prostate documented in this encounter Care Teams Pierce And Shave Press Operator Relationship Specialty Start Date End Date [facility] PCP - General 11/17/17 [address] [place] [address] documented as of this encounter
--- OUTSIDE RECORDS SUMMARY | 2021-12-20 11:50 | XMS_ITS | Encounter Summary ---
:1965 Author Organization [place] Address [address] [place] [address]. [place] [address] Care Team Providers Name Role Phone Clinic, [facility] Primary Care Provider Emi Saul PA-C Unavailable Reason for Visit Reason Comments BPH with LUTS UA,PVR Encounter Details Date Type Department Care Team Description 09/22/2021 Office Visit [facility] Emi Saul, Benign prostatic Urology Clinic [place] DIAZ hyperplasia with [address] urinary hesitancy [address] (Primary Dx) [place] [address] [place] [address] Social History Tobacco Use Types Packs/Day Years [...] UDS if not improved. Emi Saul PA-C [facility] Urology 26 minutes spent on the date [...] in urinary hesitancy the result s section. SC MEASURE POST-VOID Routine 09/22/2021 Benign prostatic Res [...] [place] [address] , [address] [place], [place] [address] (ABNORMAL) UA without Microscopic [[id number]] (09/22/2021 2:20 PM CDT) Patholo gist Method [...] LABORATORY mg/dL 2:37 PM CDT [place] Specific [place] 1.025 1.003 - 09/22/2021 UA LABORATOR Y [...] City/State/ZIP Code Phon e Number [facility] LABORATORY [place] [address], [address] [place] [address] MEASURE POST-VOID RESIDUAL URINE/BLADDER CAPACITY, US NON-IMAGING (42625) (09/22/2021) P athologist Signature Residual Volume 20 (RV) (External) Emi Saul PA-C PROCEDURES documented in this encounter Visit Diagnoses Diagnosis Benign prostatic hyperplasia with urinar y hesitancy - Primary documented in this encounter Care Teams Office Inspector Relationship Specialty Start Date End Date [facility], [facility] PCP - General 11/17/[address] [address] Emi Saul PA-C Physician Credentialing Analyst Physician Credentialing Analyst - 01/11/19 [address] [place] [facility] [address] [place] [address] documented as of this encounter
--- OUTSIDE RECORDS SUMMARY | 2021-12-20 11:50 | XMS_ITS | Encounter Summary ---
:1965 Author Organization [place] Address [address] [place] [address]. [place] [address] Care Team Providers Name Role Phone Clinic, [facility] Primary Care Provider [phone] Emi Saul PA-C Unavailable Encounter Details Date Type Department Care Team Description 02/20/2019 Orders Only [facility] Emi Saul, BPH (b enign prostatic Urology Clinic [place] DIAZ hyperplasia) (Primary [address] Dx) [address] [place] [address] [place] [address] [phone] Social History Tobacco Use Types Packs/Day Years Used Date Smoking Tobacco: Never Smokeless Tobacco: Never Alcohol Use Standard Drinks/Week Comments No 0 (1 standard drink = 0.6 oz pure alcoho l) Sex Assigned at Date Recorded Not on file documented as of this encounter Plan of Treatment Not on filedocumented as of this encounter Results (ABNORMAL) UA without Microscopic [[id number]] (02/21/2019 2:10 PM MEDICAL COLLECTOR) [facility] Method Time Signature Color Urine Yellow 02/21/2019 [place] 2:14 PM MEDICAL COLLECTOR [facility] Appearance Urine Clear 02/21/2019 [place] 2:14 PM MEDICAL COLLECTOR [facility] Glucose Urine 250 (A) NEG^Negat 02/21/2019 [place] juan mg/dL 2:14 PM MEDICAL COLLECTOR [facility] Bilirubin Urine Negative NEG^Negat 02/21/2019 [place] juan 2:14 PM MEDICAL COLLECTOR [facility] Ketones Urine Negative NEG^Negat 02/21/2019 [place] juan mg/dL 2:14 PM MEDICAL COLLECTOR [facility] Specific [place] 1.020 1.003 - 02/21/2019 [place] Urine 1.035 2:14 PM MEDICAL COLLECTOR [facility] Blood Urine Negative NEG^Negat 02/21/2019 [place] juan 2:14 PM MEDICAL COLLECTOR [facility] pH Urine 6.0 5.0 - 7.0 02/21/2019 [place] pH 2:14 PM MEDICAL COLLECTOR [facility] Protein Albumin Negative NEG^Negat 02/21/2019 [place] Urine juan mg/dL 2:14 PM MEDICAL COLLECTOR [facility] Urobilinogen 0.2 0.2 - 1.0 02/21/2019 [place] Urine EU/dL 2:14 PM MEDICAL COLLECTOR [facility] Nitrite Urine Negative NEG^Negat 02/21/2019 [place] juan 2:14 PM MEDICAL COLLECTOR [facility] Leukocyte Negative NEG^Negat 02/21/2019 [place] Esterase Urine juan 2:14 PM MEDICAL COLLECTOR [facility] Source Midstream 02/21/2019 [place] Urine 2:11 PM MEDICAL COLLECTOR [facility] Specimen (Source) Anatomical Collection Method Collection Time Re ceived Time Location / / Volume Laterality Examination of 02/21/2019 2:10 02/21/2019 2:11 midstream urine PM MEDICAL COLLECTOR PM MEDICAL COLLECTOR specimen (procedure) Emi Saul PA-C LAB - URINE ORDERABLES Performing Organization Address City/State/ZIP Code Phon e Number [facility] [address] [place] [address] [facility] [address] MEASURE POST-VOID RESIDUAL URINE/BLADDER CAPACITY, US NON-IMAGING ([id number]) (02/21/2019) P athologist Signature Residual Volume 27 (RV) (External) Emi Saul PA-C PROCEDURES documented in this encounter Visit Diagnoses Diagnosis BPH (benign prostatic hyperplasia) - Samia abel Unspecified hyperplasia of prostate with out urinary obstruction and other lower urinary tract symptoms (LUTS) documented in this encounter Care Teams Lamination Technician Relationship Specialty Start Date End Date Clinic[facility] PCP - General 11/17/[address] [address] Emi Saul PA-C Physician Station Inspector Physician Station Inspector - 01/11/19 [address] [address] documented as of this encounter
--- OUTSIDE RECORDS SUMMARY | 2021-12-20 11:50 | XMS_ITS | Encounter Summary ---
:1965 Author Organization [place] Address [address] [place] [address] Care Team Providers Name Role Phone [facility] Primary Care Provider [phone] Emi Saul PA-C Unavailable Encounter Details [...] on filedocumented in this encounter Care Teams Society Editor Relationship Specialty Start Date End [facility] - [facility] [address] Emi Saul PA-C Physician Drafter Structural Physician Drafter Structural - 01/11/19 6[address] [facility] KATH [address] [address] documented as of this encounter
--- OUTSIDE RECORDS SUMMARY | 2021-12-20 11:50 | XMS_ITS | Encounter Summary ---
:1965 Author Organization [place] Address [address] [place] [address]. [place] [address] Care Team Providers Name Role Phone Clinic, [facility] Primary Care Provider [phone] Emi Saul PA-C Unavailable Reason for Visit Reason Comments Follow Up Urinary Retention Encounter Details Date Type Department Care Team Description 02/21/[address] [facility] Emi Saul, Benign prostatic Urology Clinic JOE hyperplasia without [address] lower urinary tract [address] [facility] [address] symptoms [address] [place] [address] [place], [place] [phone] [address] (Work) [phone] Social History Tobacco Use Types Packs/Day Years Used Date Smoking Tobacco: Never Smokeless Tobacco: Never Alcohol Use Standard Drinks/Week Comments No 0 (1 standard drink = 0.6 oz pure alcoho l) Sex Assigned at Date Recorded Not on file documented as of this encounter Last Filed Vital Signs Vital Sign Reading Time Taken Comments Blood Pressure 120/70 02/21/2019 2:16 PM AEROSPACE MANAGER Pulse 80 02/21/2019 2:16 PM AEROSPACE MANAGER Temperature - - Respiratory Rate - - Oxygen Saturation - - Inhaled Oxygen Concentration - - Weight 90.7 kg (200 lb) 02/21/2019 2:16 PM AEROSPACE MANAGER Height 185.4 cm (6' 1) 02/21/2019 2:16 PM AEROSPACE MANAGER Body Mass Index 26.39 02/21/2019 2:16 PM AEROSPACE MANAGER documented in this encounter Progress Notes Emi [...] to PCP -RTO PRN Emi Saul PA-C [facility] Urology 20 min spent with the patient, >50% of this time was spent in a zsew-[id number] manner and on coordination of care of urinary retention. SPACE MANAGER documented in this encounter Nursing Notes Holli Mcgee LPN - 02/21/2019 2:00 PM CST Here for follow up urinary retention. He feels like he is voiding well and he is off the Flomax. PVRby bladder scan is 27 ml.Holli Mcgee LPN SPACE MANAGER documented in this encounter Plan of Treatment Not on filedocumented as of this encounter Procedures Procedure Name Priority Date/Time Associated Diagnosis Comme nts URINE MACROSCOPIC Routine 02/21/2019 2:10 PM Benign prostatic Results for this ONLY AEROSPACE MANAGER hyperplasia without procedur e are in lower urinary tract the resu lts symptoms section. HC MEASURE POST-VOID Routine 02/21/2019 Benign prostatic Res ults for this RESIDUAL hyperplasia without procedur e are in URINE/BLADDER lower urinary tract the res ults CAPACITY, US symptoms section. NON-IMAGING documented in this encounter Results (ABNORMAL) UA without Microscopic [[id number]] (02/21/2019 2:10 PM AEROSPACE MANAGER) [facility] Method Time Signature Color Urine Yellow 02/21/2019 [place] 2:14 PM AEROSPACE MANAGER [facility] Appearance Urine Clear 02/21/2019 [place] 2:14 PM AEROSPACE MANAGER [facility] Glucose Urine 250 (A) NEG^Negat 02/21/2019 [place] juan mg/dL 2:14 PM AEROSPACE MANAGER [facility] Bilirubin Urine Negative NEG^Negat 02/21/2019 [place] juan 2:14 PM AEROSPACE MANAGER [facility] Ketones Urine Negative NEG^Negat 02/21/2019 [place] juan mg/dL 2:14 PM AEROSPACE MANAGER [facility] Specific [place] 1.020 1.003 - 02/21/2019 [place] Urine 1.035 2:14 PM AEROSPACE MANAGER [facility] Blood Urine Negative NEG^Negat 02/21/2019 [place] juan 2:14 PM AEROSPACE MANAGER [facility] pH Urine 6.0 5.0 - 7.0 02/21/2019 [place] pH 2:14 PM AEROSPACE MANAGER [facility] Protein Albumin Negative NEG^Negat 02/21/2019 [place] Urine juan mg/dL 2:14 PM AEROSPACE MANAGER [facility] Urobilinogen 0.2 0.2 - 1.0 02/21/2019 [place] Urine EU/dL 2:14 PM AEROSPACE MANAGER [facility] Nitrite Urine Negative NEG^Negat 02/21/2019 [place] juan 2:14 PM AEROSPACE MANAGER [facility] Leukocyte Negative NEG^Negat 02/21/2019 [place] Esterase Urine juan 2:14 PM AEROSPACE MANAGER [facility] Source Midstream 02/21/2019 [place] Urine 2:11 PM AEROSPACE MANAGER [facility] Specimen (Source) Anatomical Collection Method Collection Time Re ceived Time Location / / Volume Laterality Examination of 02/21/2019 2:10 02/21/2019 2:11 midstream urine PM AEROSPACE MANAGER PM AEROSPACE MANAGER specimen (procedure) Emi Saul PA-C LAB - URINE ORDERABLES Performing Organization Address City/State/ZIP Code Phon e Number [facility] [address] [place] [address] [facility] [address] MEASURE POST-VOID RESIDUAL URINE/BLADDER CAPACITY, US NON-IMAGING ([id number]) (02/21/2019) P athologist Signature Residual Volume 27 (RV) (External) Emi Saul PA-C PROCEDURES documented in this encounter Visit Diagnoses Diagnosis Benign prostatic hyperplasia without low er urinary tract symptoms documented in this encounter Care Teams Intrusion Analyst Relationship Specialty Start Date End Date Clinic, Cher PCP - General 11/17/17 [address] [place] [address] Emi Saul PA-C Physician Form Designer Physician Form Designer - 01/11/19 [address] [place] [place] [address] [address] documented as of this encounter
--- OUTSIDE RECORDS SUMMARY | 2021-12-20 11:50 | XMS_ITS | Encounter Summary ---
:1965 Author Organization [place] Address [address] [place] [address]. [place] [address] Care Team Providers Name Role Phone Clinic, [facility] Primary Care Provider [phone] Reason for Visit Reason Comments PSA RESULTS in epic Encounter Details Date Type Department Care Team Description 01/25/2018 Office Visit [facility] Emi Saul, Benign prostatic Urology Clinic [place] hyperplasia with weak [place] [address] urinary stream 305 [facility] [address] (Primary Dx) [address] [place] [address] [place], [place] [phone] [address] (Work) [phone] Social History Tobacco Use Types Packs/Day Years Used Date Smoking Tobacco: Never Smokeless Tobacco: Never Alcohol Use Standard Drinks/Week Comments No 0 (1 standard drink = 0.6 oz pure alcoho l) Sex Assigned at Date Recorded Not on file documented as of this encounter Last Filed Vital Signs Vital Sign Reading Time Taken Comments Blood Pressure - - Pulse 80 01/25/2018 2:48 PM [place] Temperature - - Respiratory Rate - - Oxygen Saturation 93% 01/25/2018 2:48 PM P[facility]TER IN Inhaled Oxygen Concentration - - Weight 86.2 kg (190 lb) 01/25/2018 2:48 PM P[facility]TER IN Height 185.4 cm (6' 1) 01/25/2018 2:48 PM P[facility]TER IN Body Mass Index 25.07 01/25/2018 2:48 PM P[facility]TER IN documented in this encounter Patient Instructions Patient [...] toilet, can't pee, blood in the urine. [phone] Happy to see you in follow up in one year or you can see your primary care provider. ER IN documented in this encounter Progress Notes Emi [...] symptoms. Can always restart. Emi Saul PA-C [facility] 20 min spent with the patient, >50% of this time was spent in a [id number] manner and on coordination of care of urinary retention. ER IN documented in this encounter Nursing Notes Ese Banks CMA - 01/25/2018 3:30 PM CST Pt here for PSA results. Pt denies any voiding trouble. Adán Martinez CMA ER IN documented in this encounter Plan of Treatment Not on filedocumented as of this encounter Visit Diagnoses Diagnosis Benign prostatic hyperplasia with weak u rinary stream - Primary documented in this encounter Care Teams Division Leader Relationship Specialty Start Date End Date [facility], [facility] PCP - General 11/17/[address] [place] [address] documented as of this encounter
--- OUTSIDE RECORDS SUMMARY | 2021-12-20 11:50 | XMS_ITS | Encounter Summary ---
:1965 Author Organization [place] Address [address] [place] [address]. [place] [address] Care Team Providers Name Role Phone Clinic, [facility] Primary Care Provider [phone] Reason for Visit Reason Comments Clinic Care Coordination - Follow-up Pt here for TOV Encounter Details Date Type Department Care Team Description 11/21/2017 Office Visit [facility] Emi Saul Urinar y retention Urology Clinic [place] DIAZ (Primary Dx) [address] [facility] [address] [place] [address] [place] [address] [phone] Social History Tobacco Use Types Packs/Day Years [...] any questions or concerns. Emi Saul PA-C [facility] Urology 30 min spent with the patient, >50% of this time was spent in a fays-[id number]-owoi manner and on coordination of care of [...] unspecified documented in this encounter Care Teams Stratigraphy Teacher Relationship Specialty Start Date End Date [facility], [facility] PCP - General 11/17/[address] [place] [address] documented as of this encounter
--- OUTSIDE RECORDS SUMMARY | 2021-12-20 11:50 | XMS_ITS | Encounter Summary ---
:1965 Author Organization [place] Address [address] [place] [address] Care Team Providers Name Role Phone [facility], [facility] Primary Care Provider [phone] Encounter Details Date Type Department Care Team [...] on filedocumented in this encounter Care Teams Server Systems Administrator Relationship Specialty Start Date End Date [facility], [facility] PCP - General 11/17/[address] [place] [address] documented as of this encounter
--- OUTSIDE RECORDS SUMMARY | 2021-12-20 11:50 | XMS_ITS | Encounter Summary ---
:1965 Author Organization [place] Address [address] [place] [address] Care Team Providers Name Role Phone [facility], [facility] Primary Care Provider [phone] Emi Saul PA-C Unavailable Encounter Details [...] on filedocumented in this encounter Care Teams Therapy Tech Relationship Specialty Start Date End Date [facility] PCP - General 11/17/[address] [address] Emi Saul PA-C Physician Dry Cleaning Attendant Physician Dry Cleaning Attendant - 01/11/19 6363 [facility] KATH [address] [address] documented as of this encounter
--- OUTSIDE RECORDS SUMMARY | 2021-12-20 11:50 | XMS_ITS | Encounter Summary ---
:1965 Author Organization [place] Address [address] [place] [address] Care Team Providers Name Role Phone Clinic, [facility] Primary Care Provider [phone] Reason for Visit Reason Comments Urinary Retention Encounter Details Date Type Department Care Team Description 11/17/2017 Emergency [facility] Ese Hodges MD Urinary retention with incomplete bladde r emptying; [facility] Emergency Dep t [facility] Drug-induced constipation [address] [place] [address] [facility] [address] [place] [address] [phone] (Wo rk) Social History Tobacco Use Types [...] evaluation. Take a stool softener or other [id number] bowel regimen while you are on oxycodone. Return immediately with any new concerns including dysfunction of Serrato catheter. Follow up with [facility] as scheduled. AttachmentsThe following attachments cannot be sent through Care Everywhere. CONSTIPATION (ADULT) ([place])SERRATO CATHETER, CARE ([place])URINARY RETENTION, MALE ([place])documented in this encounter Medications at Time of [...] left foot surgery 2 days ago with [facility]. He has only been able to urinate small amounts at a time since the surgery. He reports hisstream will stop suddenly and will unable to void further despite persistent urge to urinate. He hasalso not yet had bowel movement since surgery. He is using oxycodone for pain. Patient went to [facility] today to follow up after surgery. [...] Never smoker Alcohol use: No PCP: Cher [facility] Review of Systems Constitutional: Negative for [...] with urology for Serrato catheter removal. Given [facility] had a difficult time placing a [...] statements to me. Ese Hodges MD 11/17/2017 [facility] EMERGENCY DEPARTMENT Ese Hodges MD 11/18/17 1808 [...] - 144 11/17/2017 [facility] mmol/L 3:48 PM [facility] Potassium 3.7 3.4 - 5.3 11/17/2017 [facility] mmol/L 3:48 PM [facility] Chloride 104 94 - 109 11/17/2017 [facility] mmol/L 3:48 PM [facility] Carbon Dioxide 26 20 - 32 11/17/2017 [facility] mmol/L 3:48 PM [facility] Anion Gap 7 3 - 14 11/17/2017 [facility] mmol/L 3:48 PM [facility] Glucose 93 70 - 99 11/17/2017 [facility] mg/dL 3:48 PM [facility] Urea Nitrogen 11 7 - 30 11/17/2017 [facility] mg/dL 3:48 PM [facility] Creatinine 1.03 0.66 - 11/17/2017 [facility] 1.25 mg/dL 3:48 PM [facility] GFR Estimate 75 >60 11/17/2017 [facility] mL/min/1.7 3:[address] Comment: Non GFR Calc GFR Estimate If >90 >60 mL/min/1.7m2 11/17/2017 3:48 P [facility] Comment: GFR Calc Calcium 8.4 (L) 8.5 - 10.1 mg/dL 11/17/2017 3:48 PM [facility] Specimen Anatomical Collection Method Collection Time Receive d Time (Source) Location / / Volume Laterality Blood specimen 11/17/2017 3:25 PM 018 3:26 (specimen) CDT PM CDT Ese Hodges MD LAB - BLOOD ORDERABLES Performing Organization Address City/State/ZIP Code Phon e Number M [facility] [address] [address] [facility] [address] [address] 7[facility] [phone] (ABNORMAL) UA with Microscopic (11/17/2017 3:25 PM CDT) [facility] Method Time Signature Color Urine Straw 11/17/2017 [facility] 3:45 PM [facility] Appearance Urine Clear 11/17/2017 [facility] 3:45 PM [facility] Glucose Urine Negative NEG^Negat 11/17/2017 [facility] juan mg/dL 3:45 PM [facility] Bilirubin Urine Negative NEG^Negat 11/17/2017 [facility] juan 3:45 PM [facility] Ketones Urine Negative NEG^Negat 11/17/2017 [facility] juan mg/dL 3:45 PM [facility] Specific [place] 1.006 1.003 - 11/17/2017 [facility] Urine 1.035 3:45 PM [facility] Blood Urine Negative NEG^Negat 11/17/2017 [facility] juan 3:45 PM [facility] pH Urine 5.0 5.0 - 7.0 11/17/2017 [facility] pH 3:45 PM [facility] Protein Albumin Negative NEG^Negat 11/17/2017 [facility] Urine juan mg/dL 3:45 PM [facility] Urobilinogen 0.0 0.0 - 2.0 11/17/2017 [facility] mg/dL mg/dL 3:45 PM [facility] Nitrite Urine Negative NEG^Negat 11/17/2017 [facility] juan 3:45 PM [facility] Leukocyte Negative NEG^Negat 11/17/2017 [facility] Esterase Urine juan 3:45 PM [facility] Source Midstream 11/17/2017 [facility] Urine 3:25 PM [facility] WBC Urine 4 0 - 5 11/17/2017 [facility] /HPF 3:45 PM [facility] RBC Urine 1 0 - 2 11/17/2017 [facility] /HPF 3:45 PM [facility] Mucous Urine Present (A) NEG^Negat 11/17/2017 [facility] juan /LPF 3:45 PM [facility] Specimen (Source) Anatomical Collection Method Collection Time Re ceived Time Location / / Volume Laterality Examination of 11/17/2017 3:25 11/17/2017 3:26 midstream urine PM CDT [facility] specimen (procedure) Ese Hodges MD LAB - URINE ORDERABLES Performing Organization Address City/State/ZIP Code Phon e Number M [facility] [address] [place], [place] [address] [facility] Minoo E Nico Schulte [address] [phone] documented in this encounter Visit Diagnoses Diagnosis Urinary retention with incomplete bladde r emptying Incomplete bladder emptying Drug-induced constipation Other constipation documented in this encounter Active and Recently Administered Medications Care Teams Envelope Folding Machine Adjuster Relationship Specialty Start Date End Date Clinic, Cher Nguyen PCP - General 11/17/[address] [place] [address] documented as of this encounter
--- OUTSIDE RECORDS SUMMARY | 2021-12-20 11:50 | XMS_ITS | Encounter Summary ---
:1965 Author Organization [place] Address [address] [place] [address] Care Team Providers Name Role Phone Clinic, [facility] Primary Care Provider [phone] Emi Saul PA-C Unavailable Emi Saul PA-C Unavailable Reason for Visit Reason Comments Benign Prostatic Hypertrophy Urinary Retention Discuss meds Encounter Details Date Type Department Care Team Description 10/20/2021 Virtual Visit [facility] Emi Saul Benig n prostatic Urology Clinic Niya DIAZ hyperplasia with [address] urinary hesitancy [address] [place] [address] (Primary Dx) KEARA Frances [phone] KEARA FRANCES [id number] Social History Tobacco Use Types Packs/Day Years [...] Primary documented in this encounter Care Teams Outside Plant Supervisor Relationship Specialty Start Date End Date Denys, Cher PCP - General 11/17/[address] [address] Emi Saul PA-C Physician Lubrication Servicer Physician Lubrication Servicer 01/11/19 [address] [place] - Medical [address] [place] [address] Emi Saul PA-C Assigned OBGYN Provider 09/26/21 [address] [address] [place] [address] [place] [id number] documented as of this encounter
--- OUTSIDE RECORDS SUMMARY | 2021-12-20 11:50 | XMS_ITS | Encounter Summary ---
:1965 Author Organization [place] Address [address] [place] [address] Care Team Providers Name Role Phone [facility], [facility] Primary Care Provider Emi Saul PA-C [...] on filedocumented in this encounter Care Teams Dock Loader Relationship Specialty Start Date End Date [facility] - General 11/17/[address] [address] Emi Saul PA-C Physician Naval Inspector Physician Naval Inspector - 01/11/19 [address] [facility] [address] [address] [address] documented as of this encounter
--- OUTSIDE RECORDS SUMMARY | 2021-12-20 11:50 | XMS_ITS | Clinical Summary ---
:1965 Author Organization [place] Address [address] [place] [address] Care Team Providers Name Role Phone Clinic, [facility] Primary Care Provider [phone] Emi Saul PA-C Unavailable Emi Saul PA-C [...] PM CDT Pulse 80 02/21/2019 2:16 PM COMMUNITY FACILITATOR Temperature 36.4 ??C (97.5 ??F) 12/05/2017 3:19 PM CDT Respiratory Rate 18 12/05/2017 3:19 PM CDT Oxygen Saturation 93% 01/25/2018 2:48 PM COMMUNITY FACILITATOR Inhaled Oxygen Concentration - - Weight 90.7 [...] in urinary hesitancy the result s section. MO MEASURE POST-VOID Routine 09/22/2021 Benign prostatic Res [...] LABORATORY [facility] [address], [address] [place] [address] (ABNORMAL) UA without Microscopic [[id number]] (09/22/2021 2:20 PM CDT) Patholo gist Method [...] LABORATORY mg/dL 2:37 PM CDT [facility] Specific [place] 1.025 1.003 - 09/22/2021 UA LABORATOR Y [...] LABORATORY [facility] [address], [address] [place] [address] MEASURE POST-VOID RESIDUAL URINE/BLADDER CAPACITY, US NON-IMAGING ([id number]) (09/22/2021) P athologist Signature Residual Volume 20 (RV) (External) Emi RAINES-C PROCEDURES from Last 3 Months Insurance Payer Benefit Plan / Subscriber ID Effective Phone Address T ype Group Dates BCBS BCBS [place] [id number] 2021-Prese [phone] [address] [address] PPO BLUE nt [address] [place] [address] MEDICARE MEDICARE FOR HB [id number] 2017-Pres [phone] ATTN CLAIMS Medicare SUPPLEMENT ent 40 [address] [place] [address] [phone] [id number] [id number] (Home) E KE[place] ROBISON [id number] Care Teams Manager Of Revenue Relationship Specialty Start Date End Date ClinicCher PCP - General 11/17/17 [address] [place] [address] Emi Saul PA-C Physician Bar Useful Or Busser Physician Bar Useful Or Busser 01/11/19 [address] [place] - Medical [address] [place] 213[address] Emi Saul PA-C Assigned OBGYN Provider 09/26/[address] [place] [address] [place] [id number]
--- OUTSIDE RECORDS SUMMARY | 2021-12-20 11:50 | XMS_ITS | Encounter Summary ---
:1965 Author Organization [place] Address [address] [place] [address] Care Team Providers Name Role Phone [facility] Primary Care Provider [phone] Emi Saul PA-C Unavailable Encounter Details [...] on filedocumented in this encounter Care Teams Industrial Property Appraiser Relationship Specialty Start Date End Date [facility] - [facility] 11/17/[address] [address] Emi Saul PA-C Physician Television Newscast Director Physician Television Newscast Director - 01/11/19 6363 [facility] KATH [address] [address] documented as of this encounter
--- OUTSIDE RECORDS SUMMARY | 2021-12-20 11:50 | XMS_ITS | Encounter Summary ---
:1965 Author Organization [place] Address [address] [place] [address] Care Team Providers Name Role Phone Clinic, [facility] Primary Care Provider [phone] Encounter Details Date Type Department Care Team Description 01/18/2018 Orders Only [facility] Scr eening for prostate [facility] [address] [place] [address] Social History Tobacco Use [...] AM Screening for Res ults for this DISH CARRIER prostate cancer procedure ar e in the results section. documented in this encounter Results PSA tumor marker [[id number]] (01/18/2018 10:14 AM DISH CARRIER) P athologist Signature PSA 0.18 0 - 4 ug/L 01/19/2018 [facility] 8:10 AM [facility] Comment: Assay Method: Chemiluminescence using Siemens [place] analyzer Specimen Anatomical Collection Method Collection Time Receive d Time (Source) Location / / Volume Laterality Blood specimen 01/18/2018 10:14 8 (specimen) AM DISH CARRIER 10:19 AM DISH CARRIER Emi Saul PA-C LAB - BLOOD ORDERABLES Performing Organization Address City/State/ZIP Code Phon e Number [facility] [address] [place] [address] documented in this encounter Visit Diagnoses Diagnosis Screening for prostate cancer Special screening for malignant neoplasm of prostate documented in this encounter Care Teams Ict Support And Test Engineers Relationship Specialty Start Date End Date Denys, Cher Nguyen PCP - General 11/17/[address] [place] [address] documented as of this encounter
[2021-12-20] MEDS: KETOROLAC 30 MG/ML inj IVP (11:56)
[2021-12-20] MEDS: METHYLPREDNISOLONE SOD SUCC 62.5 MG/ML (125) 125 MG IVP (11:56)
[2021-12-20] MEDS: ONDANSETRON 2 MG/ML inj 4 MG IVP (11:57)
[2021-12-20] MEDS: diphenhydrAMINE 50 MG/ML inj IVP (11:57)
== END 2021-12-20 13:17 | disposition home or self-care (01) ==
PROVIDERS: Emergency Provider Emergency Medicine Emergency Medical Services; PCP Family Medicine
DX: G43.909 Migraine, unspecified, not intractable, without status migrainosus (principal)
CPT/HCPCS: 96374; 96375; 99284; J1200; J1885; J2405; J2930

== ENCOUNTER 2022-09-29 14:45 | Outpatient (RCR) | payer MEDICARE, BC, SELFPAY | END 2022-10-26 17:01 | disposition home or self-care (01) | PROVIDERS: PCP Family Medicine; Visit Provider Family Medicine | DX: I63.9 Cerebral infarction, unspecified (principal); R26.81 Unsteadiness on feet; Z51.89 Encounter for other specified aftercare | CPT/HCPCS: 97110; 97112; 97165; X5282 ==

== ENCOUNTER 2024-08-20 18:16 | Emergency (ER) | payer MEDICARE, BC, SELFPAY ==
--- OUTSIDE RECORDS SUMMARY | 2011-04-21 08:26 | XMS_ITS | Continuity of Care Document ---
Author Organization [facility] Address [address] [place] [address] Phone Care Team Providers Care Freight Breaker Name Role Phone Mena PT, GCS, Loren Unavailable Unavailab le Allergies, Adverse Reactions, Alerts Substance Reaction Status Criticality SUMATRIPTAN SUCCINATE Active No Inf ormation sumatriptan Active No Information Medications Medication Instructions Dosage Effective Dates (start - stop) Status Comments Excedrin PM 38 mg-500 mg Tab take 2 tablet by oral route every day at bedtime - Active ibuprofen 200 mg Tab take 2 - 4 Tablet (400MG) by ORAL route 2 times every day as needed with food 400 MG - Active multivitamin Tab take 1 tablet by ora l route every day with food - Active Procedures Procedure Date Psychother Ov/op-behv Mod Offic/outpt E&m Estab Mod-md 2 12 Therap 1/> Areas/15 Min; Exerc 12 Therap 1/> Area/15 Min; Balnc/ 12 Psych Dx Interview Exam Therap 1/> Areas/15 Min; Exerc 11 Phys Therap Eval Inj Anes Facet Jt; Cerv/thor-1st Level D Inj Anes Facet Jt; Cerv/thor-2nd Level D Inj Anes Facet Jt; Cerv/thor-3rd Level D Inj Anes Facet Jt; Cerv/thor-1st Level D Inj Anes Facet Jt; Cerv/thor-2nd Level D Inj Anes Facet Jt; Cerv/thor-3rd Level D Offic/outpt E&m [facility] Mod-hi 45 1 Advance Directives Directive Yes / No Effective Date File Name No Information Encounters Encounter Description Practice Location Reason(s) For Visit Diagnoses Date Provider Providers Copied on Encounter JAMARI Newman, [address], [place], [place], [address], [place] tel:[phone] [facility] No Information Mena Pimentel. [address], [address], [place], [place], [address], [place]. tel:[phone] Referring Provider: REFERRAL SELFKAERA. JAMARI Newman, [address], [place], [place], [address], [place] tel:[phone] [facility] Pain [facility] No Information Sergio Wade. [address], [address], [place], [place], [address], [place]. tel:[phone] Referring Provider: REFERRAL SELFKEARA. Offic/outpt E&m [facility]-md 2 JAMARI Newman, [address] [facility] [address], [place], [place], [address], [place] tel:[phone] [facility] Pain [facility] No Information Keagan Frank. [address], [facility], [place], [address], [place]. tel:[phone] Referring Provider: REFERRAL SELFKEARA. JAMARI Newman, [address], [place], [place], [address], [place] tel:[phone] [facility] Pain [facility] No Information Mena Pimentel. [address], [address], [place], [place], [address], [place]. tel:[phone] Referring Provider: REFERRAL SELFKEARA. JAMARI Newman, [address], [place], [place], [address], [place] tel:[phone] [facility] No Information Raegan paulson Heavenly. [address], [address], [place], [place], [address], [place]. tel:[phone] Referring Provider: REFERRAL SELF, [place]. [facility], [address], [place], [place], [address], [place] tel:[phone] [facility] No Information Mena Loren. [address], [place], [place], [address], [place]. tel:[phone] Referring Provider: REFERRAL SELF, [place]. [facility], [address], [place], [place], [address], [place] tel:[phone] [facility] No Information Cary Lazcano. [address], [place], [place], [address], [place]. tel:[phone] Referring Provider: REFERRAL SELF, [place]. [facility], [address], [place], [address], [place] tel:[phone] [facility] No Information Cary Lazcano. [address], [place], [place], [address], [place]. tel:[phone] Referring Provider: Neno Camacho, [address], [place], [address] . tel:[phone] Offic/outpt E&m [place] Mod-hi 45 [facility], [facility], [address], [place], [place], [address], [place] tel:[phone] [facility] No Information Keagan Frank. [address] [place] [address] Pain, [place], [address], [place]. tel:[phone] Referring Provider: REFERRAL SELF, KEARA. Family History Family Member Type Diagnosis Age At Onset No Information Payers Payer name Insurance type Covered democrat ID Rivka brown(s) Toni BARKLEY [id number] Social History Type Description Quantity Date Captured Comments Alcohol Use Details Unknown Caffeine Use Details Unknown Tobacco Use Status No Information Smoking Status Never Smoker Non-Smoking Tobacco Use Details : No Details Available : No Details Available Sex Male Chief Complaint And Reason For Visit No Information Reason For Referral Reason For Referral No Information History Of Present Illness Encounter Date Complaint History Of Prese nt Illness No Information Functional Status Date Functional Assessmen t No Information Instructions Date Instruction Additional Infor mation No Information Assessments Type Assessment Date No Information Patient Care Teams Name Effective Dates (start - stop) Status Members No Information
--- OUTSIDE RECORDS SUMMARY | 2011-04-21 08:26 | XMS_ITS | Continuity of Care Document ---
Author Organization [facility] Address [address] [place] [address] Phone Care Team Providers Care Licensed Prosthetist Name Role Phone Mena PT, GCS, Loren Unavailable Unavailab le Allergies, Adverse Reactions, Alerts Substance Reaction Status Criticality SUMATRIPTAN SUCCINATE Active No Inf ormation sumatriptan Active No Information Medications Medication Instructions Dosage Effective Dates (start - stop) Status Comments multivitamin Tab take 1 tablet by ora l route every day with food - Active ibuprofen 200 mg Tab take 2 - 4 Tablet (400MG) by ORAL route 2 times every day as needed with food 400 MG - Active Excedrin PM 38 mg-500 mg Tab take 2 tablet by oral route every day at bedtime - Active Procedures Procedure Date Psychother Ov/op-behv Mod Offic/outpt E&m Estab Mod-wi 2 12 Therap 1/> Areas/15 Min; Exerc [...] Facet Jt; Cerv/thor-3rd Level D Offic/outpt E&m [facility] Mod-hi 45 1 Advance Directives Directive Yes / No Effective Date File Name No Information Encounters Encounter Description Practice Location Reason(s) For Visit Diagnoses Date Provider Providers Copied on Encounter JAMARI Newman, [address], [place], [place], [address], [place] tel:[phone] [facility] No Information Mena Pimentel. [address], [place], [place], [address], [place]. tel:[phone] Referring Provider: REFERRAL SELFKEARA. JAMARI Newman, [address], [place], [place], [address], [place] tel:[phone] [facility] No Information Sergio Wade. [address], [place], [place], [address], [place]. tel:[phone] Referring Provider: REFERRAL SELFKEARA. Offic/outpt E&m [facility]-wi 2 JAMARI Newman, [address], [place], [place], [address], [place] tel:[phone] [facility] No Information Keagan Frank. [address], [facility], [place], [address], [place]. tel:[phone] Referring Provider: REFERRAL SELFKEARA. JAMARI Newman, [address], [place], [place], [address], [place] tel:[phone] [facility] No Information Mena Pimentel. [address], [place], [place], [address], [place]. tel:[phone] Referring Provider: REFERRAL SELFKEARA. JAMARI Newman, [address], [place], [place], [address], [place] tel:[phone] [facility] No Information Raegan paulson Heavenly. [address], [address], [place], [place], [address], [place]. tel:[phone] Referring Provider: REFERRAL SELF, [place]. [facility], [address], [place], [place], [address], [place] tel:[phone] [facility] No Information Mena Loren. [address], [place], [place], [address], [place]. tel:[phone] Referring Provider: REFERRAL SELF, [place] [facility], [address], [place], [place], [address], [place] tel:[phone] [facility] No Information Cary Lazcano. [address], [place], [place], [address], [place]. tel:[phone] Referring Provider: REFERRAL SELF, [place] [facility], [address], [place], [address], [place] tel:[phone] [facility] No Information Cary Lazcano. [address], [place], [place], [address], [place]. tel:[phone] Referring Provider: Neno Camacho, [address], [place], [address] . tel:[phone] Offic/outpt E&m [place] Mod-hi 45 [facility], [facility], [address], [place], [place], [address], [place] tel:[phone] [facility] No Information Keagan Frank. [address] [place] [address] Pain, [place], [address], [place]. tel:[phone] Referring Provider: REFERRAL SELF, EKARA. Family History Family Member Type Diagnosis Age At Onset No Information Payers Payer name Insurance type Covered democrat ID Rivka brown(s) Toni BARKLEY [id number] Social History Type Description Quantity Date Captured [...]
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
--- OUTSIDE RECORDS SUMMARY | 2021-03-26 11:15 | XMS_ITS | Continuity of Care Document ---
Author Organization [facility] Address [address] [place] [address] Phone Care Team Providers Care Spectrographic Analyst Name Role Phone Will Jose Raul HENDERSON [...] Drug Urine Toxology With Chromatography OFFICE/OUTPATIENT VISIT, [facility] Advance Directives Directive Yes / No Effective Date File Name No Information Encounters Encounter Description Practice Location Reason(s) For Visit Diagnoses Date Provider Providers Copied on Encounter [facility], [address] [place], [place], [address] , [place] tel: [phone] [facility] [place] No Information 2 Will Jose Raul. [address] [facility] [place], [place], [address] , [place]. tel: [phone] OFFICE/OUTPA TIENT VISIT, EST [facility], [address] [facility] [address] [place], [place], [address] , [place] tel: [phone] [facility] [place] Headache (chief complaint) Personal history of traumatic brain injuryHemiplegic migraine, intractable, without status migrainosusEpilepsy Chronic pain syndrome 1 Angie Scales [place], [address] [place], [address], [place]. tel:[phone] Referring Provider: Jose Raul Henning, [address] [place] [address] [place], [address] . tel:[phone] [facility], [address] [place], [place], [address] , [place] [phone] [facility] [place] No Information 1 Angie Scales [place], [address] [place], [address], [place]. [phone] Referring Provider: Jose Raul Henning, [address] [place] [address] [place], [address] . tel:[phone] OFFICE/OUTPA TIENT VISIT, [facility], [address] [place] [address] [place], [place], [address] , [place] [phone] [facility] headache (chief complaint) Chronic pain syndromePersonal history of traumatic brain injuryHemiplegic migraine, intractable, without status migrainosusEpilepsy Encounter for therapeutic drug level monitoring 1 Angie Scales [place], [address] [place], [address], [place]. tel:[phone] Referring Provider: Jose Raul Henning, [address] [place] [address] [place], [address] . tel:[phone] Family History Family Member Type Diagnosis Age At Onset No Information Payers Payer name Insurance type Covered constitution party ID Authorijeomaa kevin(s) Medicare MB [id number] Blue Cross Supplement BL [id number] Social History Type Description Quantity Date Captured Comments Sex Male Smoking Status No Information Chief Complaint And Reason For Visit No Information Reason For Referral Reason For Referral No Information Plan Of Treatment Date Type Action Status Goal Weight. Due on d ue Goal PHQ-9. Due on du e Goal Update Social History. Due o n due Goal Medication Reconciliation. D ue on due Goal Height. Due on d ue Goal Tobacco Use. Due on due Goal Review Allergy List. Due on due Goal Weight. Due on d ue Goal PHQ-9. Due on du e Goal Update Social History. Due o n due Goal Medication Reconciliation. D ue on due Goal Height. Due on d ue Goal Tobacco Use. Due on due Goal Review Allergy List. Due on due History Of Present Illness Encounter Date Complaint [...] Relieving factors include supine and rest. headache (comments) Heladio is here for initial consult for head pain. He is referred by Dr. Jignesh Sousa through [facility]. The patient is a 55 y/o male [...] is interested in pain management options through [facility]. Specifically discussed CGRP inhibitor and medical cannabis. Patient would like to trial medical cannabis first. No other concerns today. headache Severity: 10. It occurs constantly, has chronic duration, and is unchanged. Location is entire head. The describes it as pressure, sharp, burning and aching. Symptom is aggravated by movement and working. Relieving factors include medications and rest. Pertinent negatives include fever. Functional Status Date Functional Assessmen t No Information Instructions Date Instruction Additional Infor mation No Information Assessments Type Assessment Date No Information Patient Care Teams Name Effective Dates (start - stop) Status Members No Information
--- OUTSIDE RECORDS SUMMARY | 2024-07-13 10:30 | XMS_ITS | Encounter Summary ---
Author Organization [place] Address [address] [place] [address] Care Team Providers Care Steel Erecting Pusher Name Role Phone Denys, [facility] Primary Care Provider Emi Saul PA-C Unavailable [phone] Laverne Browne APRN BEHAVIORAL HEALTH TECHNICIAN Unavaila ble Laverne Browne APRN BEHAVIORAL HEALTH TECHNICIAN Unavaila ble Reason for Visit * Rehab Therapy Integrated Services (Routine) - Authorized Specialty Diagnoses / Procedures Referred By Andrew taylor Referred To Contact Diagnoses Unsteadiness on feet Frequent falls Abnormality of gait Hemiparesis, right (H) Cerebrovascular accident (H) Dizziness and giddiness [address] [address] Phone: tel: Referral ID Status Reason Start Date Expiration Date V isits Requested Visits Authorized [id number] Authorized 02/08/2024 02/06/2025 365 365 Encounter Details Date Type Department Care Team (Latest Contact Info) Description 07/13/2024 10:30 AM CDT Therapy Visit [address] [address] Sarah Perez PA-C [facility] [address] [facility] [place] [address] [place] [address] [facility] [address] [address] Falls (Primary Dx); Unsteadiness on feet Social History Tobacco Use Types Packs/Day Years Used Date Smoking Tobacco: Never Smokeless Tobacco: Never Alcohol Use Standard Drinks/Week Comments No 0 (1 standard drink = 0.6 oz pur e alcohol) PHQ-2 Answer Date Recorded PHQ-2 Score 0 09/20/2023 Adolescent Education Answer Date Record ed Getting School Help Needed Not on file 11/22 Sex and Gender Information Value Date Recorded Sex Assigned at Not on file Legal 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 [address] [place] [address] [phone] [place] [address] [facility] [address] [address] 08/29/2024 1:30 PM CDT Therapy Visit [address] [phone] Sarah Perez PAEitan [facility] [address] [place] [phone] [place] [address] [facility] [address] [place] [address] 09/05/2024 1:30 PM CDT Therapy Visit [address] [address] Sarah Perez PA-C [address] [address] [place] [address] [facility] [address] [place] [address] 09/13/2024 11:15 AM CDT Therapy Visit [address] [phone] Sarah Perez PA-C [address] [phone] [place] [address] [facility] [address] [place] [address] 09/19/2024 12:45 PM CDT Therapy Visit [address] [phone] Sarah Perez PA-C [address] [phone] [place] [address] [facility] [address] [place] [address] documented as of this encounter Visit Diagnoses Diagnosis Falls- Primary Unspecified fall Unsteadiness on feet Abnormality of gait documented in this encounter Care Teams Steel Erecting Pusher Relationship Specialty Start Date End Date [facility] [address] [phone] PCP - General 11/17/17 Emi Saul PA-C [address] [address] Physician Workers' Compensation Magistrate Physician Workers' Compensation Magistrate - Medical 01/11/19 Laverne Browne APRN BEHAVIORAL HEALTH TECHNICIAN [address] [place] [address] Nurse Practitioner Neurology 05/16/23 Laverne Browne APRN BEHAVIORAL HEALTH TECHNICIAN [address] [place] [address] Assigned Neuroscience Provider 09/30/23 documented as of this encounter
--- OUTSIDE RECORDS SUMMARY | 2024-07-18 13:30 | XMS_ITS | Encounter Summary ---
Author Organization [place] Address [address] [place] [address] Care Team Providers Care Interactive Account Manager Name Role Phone Denys, [facility] Primary Care Provider Emi Saul PA-C Unavailable [phone] Laverne Browne APRN ATTENUATOR Unavaila ble Laverne Browne APRN ATTENUATOR Unavaila ble Reason for Visit * Rehab Therapy Integrated Services (Routine) - Authorized Specialty Diagnoses / Procedures Referred By Andrew taylor Referred To Contact Diagnoses Unsteadiness on feet Frequent falls Abnormality of gait Hemiparesis, right (H) Cerebrovascular accident (H) Dizziness and giddiness [address] [address] Phone: tel: Referral ID Status Reason Start Date Expiration Date V isits Requested Visits Authorized [id number] Authorized 02/08/2024 02/06/2025 365 365 Encounter Details Date Type Department Care Team (Latest Contact Info) Description 07/18/2024 1:30 PM CDT Therapy Visit [address] [address] Sarah Perez PA-C [facility] [address] [facility] [place] [place] [address] [place] [address] [facility] [address] [address] Falls (Primary Dx); Unsteadiness on feet Social [...] on file 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 Gender Identity Not on file Sexual Orientation Not on file documented as of this encounter Plan of Treatment Upcoming Encounters Date Type Department Care Team (Late st Contact Info) Description 08/22/2024 1:30 PM CDT Therapy Visit [address] [phone] Sarah Perez PA-C [facility] [address] [place] [address] [phone] [place] [address] [facility] [address] [address] 08/29/2024 1:30 PM CDT Therapy Visit [address] [phone] Sarah Perez PAEitan [facility] [address] [place] [address] [phone] [place] [address] [facility] [address] [place] [address] 09/05/2024 1:30 PM CDT Therapy Visit [address] [address] Sarah Perez PA-C [address] [address] [place] [address] [facility] [address] [place] [address] 09/13/2024 11:15 AM CDT Therapy Visit [address] [phone] Sarah Perez PA-C [address] [phone] [place] [address] [facility] [address] [place] [address] 09/19/2024 12:45 PM CDT Therapy Visit [address] [phone] Sarah Perez PA-C [address] [address] [place] [address] [facility] [address] [place] [address] documented as of this encounter Visit Diagnoses Diagnosis Falls- Primary Unspecified fall Unsteadiness on feet Abnormality of gait documented in this encounter Care Teams Interactive Account Manager Relationship Specialty Start Date End Date [facility] [address] [phone] PCP - General 11/17/17 Emi Saul PA-C [address] [address] Physician City Route Driver Physician City Route Driver - Medical 01/11/19 Laverne Browne APRN ATTENUATOR [address] [place] [address] Nurse Practitioner Neurology 05/16/23 Laverne Browne APRN ATTENUATOR [address] [place] [address] Assigned Neuroscience Provider 09/30/23 documented as of this encounter
--- OUTSIDE RECORDS SUMMARY | 2024-07-25 13:30 | XMS_ITS | Encounter Summary ---
Author Organization [place] Address [address] [place] [address] Care Team Providers Care Piano Mover Name Role Phone Denys, [facility] Primary Care Provider Emi Saul PA-C Unavailable [phone] Laverne Browne APRN MOTOR VEHICLE DISPATCHER Unavaila ble Laverne Browne APRN MOTOR VEHICLE DISPATCHER Unavaila ble Reason for Visit * Rehab Therapy Integrated Services (Routine) - Authorized Specialty Diagnoses / Procedures Referred By Andrew taylor Referred To Contact Diagnoses Unsteadiness on feet Frequent falls Abnormality of gait Hemiparesis, right (H) Cerebrovascular accident (H) Dizziness and giddiness [address] [address] Phone: tel: Referral ID Status Reason Start Date Expiration Date V isits Requested Visits Authorized [id number] Authorized 02/08/2024 02/06/2025 365 365 Encounter Details Date Type Department Care Team (Latest Contact Info) Description 07/25/2024 1:30 PM CDT Therapy Visit [address] [address] Sarah Perez PA-C [facility] [address] [facility] [place] [address] [place] [address] [facility] [address] [address] Falls (Primary Dx); Unsteadiness on feet Social [...] on file 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 Gender Identity Not on file Sexual Orientation Not on file documented as of this encounter Plan of Treatment Upcoming Encounters Date Type Department Care Team (Late st Contact Info) Description 08/22/2024 1:30 PM CDT Therapy Visit [address] [phone] Sarah Perez PA-C [facility] [address] [place] [address] [phone] [place] [address] [facility] [address] [address] 08/29/2024 1:30 PM CDT Therapy Visit [address] [phone] Sarah Perez PAEitan [facility] [address] [place] [address] [phone] [place] [address] [facility] [address] [place] [address] 09/05/2024 1:30 PM CDT Therapy Visit [address] [address] Sarah Perez PA-C [address] [address] [place] [address] [facility] [address] [place] [address] 09/13/2024 11:15 AM CDT Therapy Visit [address] [phone] Sarah Perez PA-C [address] [phone] [place] [address] [address] [place] [address] 09/19/2024 12:45 PM CDT Therapy Visit [address] [phone] Sarah Perez PA-C [address] [address] [place] [address] [facility] [address] [place] [address] documented as of this encounter Visit Diagnoses Diagnosis Falls- Primary Unspecified fall Unsteadiness on feet Abnormality of gait documented in this encounter Care Teams Piano Mover Relationship Specialty Start Date End Date [facility] [address] [phone] PCP - General 11/17/17 Emi Saul PA-C [address] [address] Physician Fish Bait Processing Supervisor Physician Fish Bait Processing Supervisor - Medical 01/11/19 Laverne Browne APRN MOTOR VEHICLE DISPATCHER [address] [place] [address] Nurse Practitioner Neurology 05/16/23 Laverne Browne APRN MOTOR VEHICLE DISPATCHER [address] [place] [address] Assigned Neuroscience Provider 09/30/23 documented as of this encounter
--- OUTSIDE RECORDS SUMMARY | 2024-08-01 13:30 | XMS_ITS | Encounter Summary ---
Author Organization [place] Address [address] [place] [address] Care Team Providers Care Humanities Coordinator Name Role Phone Denys, [facility] Primary Care Provider Emi Saul PA-C Unavailable [phone] Laverne Browne APRN BOX TRUCK WASHER Unavaila ble Laverne Browne APRN BOX TRUCK WASHER Unavaila ble Reason for Visit * Rehab Therapy Integrated Services (Routine) - Authorized Specialty Diagnoses / Procedures Referred By Andrew taylor Referred To Contact Diagnoses Unsteadiness on feet Frequent falls Abnormality of gait Hemiparesis, right (H) Cerebrovascular accident (H) Dizziness and giddiness [address] [address] Phone: tel: Referral ID Status Reason Start Date Expiration Date V isits Requested Visits Authorized [id number] Authorized 02/08/2024 02/06/2025 365 365 Encounter Details Date Type Department Care Team (Latest Contact Info) Description 08/01/2024 1:30 PM CDT Therapy Visit [address] [phone] Sarah Perez PA-C [facility] [address] [facility] [place] [address] [place] [address] [facility] [address] [address] Falls (Primary Dx); Unsteadiness on feet Social [...] on file 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 Gender Identity Not on file Sexual Orientation Not on file documented as of this encounter Plan of Treatment Upcoming Encounters Date Type Department Care Team (Late st Contact Info) Description 08/22/2024 1:30 PM CDT Therapy Visit [address] [phone] Sarah Perez PA-C [facility] [address] [place] [address] [phone] [place] [address] [facility] [address] [place] [address] 08/29/2024 1:30 PM CDT Therapy Visit [address] [phone] Sarah Perez PAEitan [facility] [address] [place] [phone] [place] [address] [facility] [address] [place] [address] 09/05/2024 1:30 PM CDT Therapy Visit [address] [address] Sarah Perez PA-C [address] [address] [place] [address] [facility] [address] [place] [address] 09/13/2024 11:15 AM CDT Therapy Visit [address] [phone] Sarah Perez PA-C [address] [phone] [place] [address] [facility] [address] [place] [address] 09/19/2024 12:45 PM CDT Therapy Visit [address] [phone] Sarah Perez PA-C [address] [phone] [place] [address] [facility] [address] [place] [address] documented as of this encounter Visit Diagnoses Diagnosis Falls- Primary Unspecified fall Unsteadiness on feet Abnormality of gait documented in this encounter Care Teams Humanities Coordinator Relationship Specialty Start Date End Date [facility] [address] [phone] PCP - General 11/17/17 Emi Saul PA-C [address] [address] Physician Gauge Machine Operator Physician Gauge Machine Operator - Medical 01/11/19 Laverne Browne APRN BOX TRUCK WASHER [address] [place] [address] Nurse Practitioner Neurology 05/16/23 Laverne Browne APRN BOX TRUCK WASHER [address] [place] [address] Assigned Neuroscience Provider 09/30/23 documented as of this encounter
[2024-08-20] VITALS (9 sets, daily range): BP systolic 115–148; BP diastolic 80–96; PULSE 78–82; RESP 16; TEMP 36.5; O2SAT 90–98
--- OUTSIDE RECORDS SUMMARY | 2024-08-20 18:20 | XMS_ITS | Encounter Summary ---
Author Organization [place] Address [address] [place] [address]. 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 Gender Identity Not on file Sexual Orientation Not on file documented as of this encounter Plan of Treatment Upcoming Encounters Date Type Department Care Team (Late st Contact Info) Description 08/22/2024 1:30 PM CDT Therapy Visit [address] [phone] Sarah Perez PA-C [facility] [address] [place] [address] [place] [address] [facility] [address] [place] [address] 08/29/2024 1:30 PM CDT Therapy Visit [address] [phone] Sarah Perez PA-C [facility] [address] [place] [phone] [place] [address] [facility] [address] [place] [address] 09/05/2024 1:30 PM CDT Therapy Visit [address] [phone] Sarah Perez PA-Dayami [facility] [address] [place] [address] [phone] [place] [address] [facility] [address] [place] [address] 09/13/2024 11:15 AM CDT Therapy Visit [address] [phone] Sarah Perez PA-Dayami [facility] [address] [place] [address] [phone] [place] [address] [facility] [address] [place], [place] [address] 09/19/2024 12:45 PM CDT Therapy Visit [facility] [address] [facility] [place] [phone] Sarah Perez PA-C [facility] [address] [place] [phone] [place] [address] [facility] [address] [place] [address] documented as of this encounter Visit Diagnoses Not on filedocumented in this encounter Care Teams Flexographic Press Operator Relationship Specialty Start Date End Date [facility], [address] [address] PCP - General 11/17/17 Emi Saul, JOE [address] [place], [place] [phone] Physician [place] Corner Brushing Machine Operator Physician [place] Brushing Machine Operator - Medical 01/11/19 Laverne Browne APRN BACK FEEDER [employer] [address] [place], [place] [address] [place], [place] [address] Nurse Practitioner Neurology 05/16/23 Laverne Browne APRN BACK FEEDER [employer] [address] [place], [place] [phone] Assigned Neuroscience Provider 09/30/23 documented as of this encounter
--- OUTSIDE RECORDS SUMMARY | 2024-08-20 18:20 | XMS_ITS | Clinical Summary ---
Author Organization [facility] Address [address] [place] [id number] Care Team Providers Care Civil Engineering Design Draftsperson Name Role Phone Richie Almanzar DO Primary Care Provider [phone] Allergies Active Allergy Reactions Criticality Noted Date Comments Amlodipine Headache 12/22/2020 Atenolol Dizziness,Visual Disturbances 01/22/2023 Atorvastatin Headache 06/21/2018 Botulinum Toxin Headache 08/07/2021 Severe head pain - happened two different occasions Rosuvastatin Other - Describe In Comment Field 11/07/2017 Memory problems. Hydrochlorothiazide Headache Medium 03/14/2023 Sumatriptan Anaphylaxis 08/14/2012 Lisinopril Throat Swelling/Closing High 02/09/2023 Marijuana (Cannabis) Other - Describe In Comment Field 04/09/2022 Memory loss Metformin Edema 11/19/2016 Swelling of both lips. Handyman is Stumpwise. Simvastatin Muscle Weakness 07/31/2012 Valproic Acid Hepatic Dysfunction 12/05/2017 Liver problem Medications cholecalciferol (Vitamin D-3) 2,000 unit capsule Take 2,000 units by mouth once daily if needed. 90 Capsule 3 05/26/19 22 Active ascorbic acid, vitamin C, (VITAMIN C) 500 mg tablet Take 500 mg by mouth once daily. 0 05/26/19 22 Active carboxymethylcellu lose 0.5% (Refresh Tears) 0.5 % drop ophthalmic drops Place 1-2 Drops into both eyes 2 times daily if needed. 0 07/04/19 22 Active vit C,W-Vi-cvsed-lutei n-zeaxan (PreserVision AREDS-2) capsule Take 1 Capsule by mouth in the morning and 1 Capsule in the evening. 0 09/01/19 22 Active blood-glucose meterIndications:T ype 2 diabetes mellitus with stage 3a chronic kidney disease, without long-term current use of insulin (HC) Dispense meter, test strips, lancets covered by pt ins. E11.9 NIDDM type II - Test 1 time/day 1 Each 11/21/19 22 Active Walker - 4 wheelsIndications: Hemiparesis affecting right side as late effect of stroke (HC) For home use. Length of need: 99 1 Each 10/28/19 23 Active miscellaneous medical supply miscIndications:He miparesis affecting right side as late effect of stroke (HC) As directed. Mobility electric scooter for home use. Length of need: 99 1 Each 12/11/19 23 Active ibuprofen (ADVIL; MOTRIN) 200 mg tablet Take 400 mg by mouth every 6 hours if needed. Active durable medical equipment (DME)Indications:H emiparesis affecting right side as late effect of stroke (HC) Foldable Motorized scooter 1 Each 04/15/19 24 Active blood sugar diagnostic (Contour Next Test Strips) stripIndications:C ontrolled type 2 diabetes mellitus without complication, without long-term current use of insulin (HC) As directed two times daily. 200 Each 1 09/17/19 24 Active blood-glucose meter (Accu-Chek Advantage Diabetes)Indicatio ns:Newly diagnosed diabetes (HC) Dispense glucose meter, test strips and lancets covered by the patient insurance. Test one times per day. 1 Kit 09/17/19 24 Active rimegepant (NURTEC) 75 mg orally disintegrating tablet Place 75 mg under the tongue. 09/20/19 24 Active galcanezumab-gnlm (EMGALITY) 120 mg/mL pen Inject 240 mg subcutaneous first month and then inject 120 mg subcutaneous every 28 days 09/20/19 24 Active aspirin (ECOTRIN) 81 mg enteric coated tabletIndications: Cerebrovascular accident (CVA), unspecified mechanism (HC) Take 1 Tablet (81 mg) by mouth once daily with a meal. 360 Tablet 09/30/19 24 Active chlorthalidone (HYGROTON) 25 mg tabletIndications: Severe hypertension Take 0.5 Tablets (12.5 mg) by mouth once daily. pt reports stopping medication due to headache & intolerance on 12/23/23 01/11/20 24 Active nortriptyline (PAMELOR) 10 mg capsuleIndications :Insomnia, idiopathic Take 3 Capsules (30 mg) by mouth at bedtime. 270 Capsule 2 01/17/20 24 Active celecoxib (CELEBREX) 200 mg capsuleIndications :Chronic migraine with aura without status migrainosus, not intractable TAKE 1 CAPSULE (200 MG) BY MOUTH ONCE DAILY WITH A MEAL. 30 Capsule 02/19/19 25 Active prochlorperazine (COMPAZINE) 10 mg tabletIndications: Nonintractable headache, unspecified chronicity pattern, unspecified headache type Take 1 Tablet (10 mg) by mouth every 8 hours if needed for Nausea/Vomiting . 10 Tablet 04/06/19 25 Active glipiZIDE extended-release (GLUCOTROL XL) 5 mg Extended-Release tabletIndications: Type 2 diabetes mellitus with stage 2 chronic kidney disease, without long-term current use of insulin (HC) Take 1 Tablet (5 mg) by mouth once daily before a meal. 90 Tablet 1 08/16/19 25 Active glipiZIDE extended-release 10 mg Extended-Release tabletIndications: Type 2 diabetes mellitus with stage 2 chronic kidney disease, without long-term current use of insulin (HC) TAKE 1 TABLET (10 MG) BY MOUTH ONCE DAILY BEFORE A MEAL. 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 Stroke 04/23/2021 Overview (09/23/2022): This was diagnosed on 04/2021. Main persistent symptoms are vertigo and right hand numbness. Mr. Davis is a 56 yo individual with a history of multiple stroke, small vessel in origin superimposed upon a history of traumatic injury approximately 40 years ago. On 04/23/21 the patient underwent evaluation at [place] with the diagnosis of left pontine stroke. There was right vertebral irregularity presumed secondary to atherosclerosis, though dissection was also considered . BRAN showed no embolic source. 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 He was subsequently placed on dual anti-platelet therapy. It was felt that poorly controlled diabetes contributed to the stroke. This is acknowledged by his family who is with him today and has when he had been previously placed on medical marijuana he had apparently had some hallucinosis or at least cognitive change sufficient to cause him to be noncompliant with his antidiabetic medication. This is now been corrected. The patient has now discontinued the clopidogrel as per the instructions at [facility]. He continues on aspirin at this time I believe this dose was 325 mg/day. Nonintractable epilepsy without status epileptic us 02/25/2021 Family History of a Drug allergy (Lisinopril) Overview (10/13/2018): His father was intubated and air lifted after taking Lisinopril 2.5 mg daily for 4 days. Essential hypertension 11/07/2017 Overview (11/04/2021): His father had a bad allergic reaction on lisinopril and had to be flown to another hospital on a helicopter. For this reason Heladio and his mother don't want him to take lisinopril. He tolerated Amlodipine but has trouble remembering to take it. More recently he thinks his headaches got worse on Amlodipine. His home blood pressure cuff gave the exact same reading as our large manual cuff today 11/04/2021. Headache 06/27/2015 Traumatic brain injury with loss of consciousnes s 06/27/2015 Arthropathy of cervical facet joint 04/15/2014 Mild cervical DDD. 04/15/2014 Mixed hyperlipidemia 04/05/2011 Overview (06/21/2018): Last Lipids: Chol: 248 12/04/2012 T 12/04/2012 HDL: 54 12/04/2012 LDL: 179 12/04/2012 LDL DIRECT: 154 04/05/2011 These readings were on no medication. [facility] Neurologist told him not to take a statin drug due to his memory problems in 2016. Unspecified disorder of eye movements 10/21/2006 Resolved Problems Problem Noted Date Diagnosed Date Resolved Date Spastic hemiparesis affecting dominant side 07/16/2021 04/11/2022 Counseling for marital and p artner problems, unspecified 02/19/2007 10/18/2012 Encounters Date Type Department Care Team Description 08/15/2024 Telephone [facility] [address] [place] [address] Richie Almanzar DO Medication Management (glipiZIDE extended-release 10 mg Extended-Release tablet) 08/06/2024 7:07 PM CDT - 08/06/2024 10:47 PM CDT Emergency [address] [place] [address] Humberto Shah MD Nonintractable headache, unspecified chronicity pattern, unspecified headache type (Primary Dx) Discharge Disposition: Home Self Care 08/06/2024 Travel 07/10/2024 Telephone [facility] [address] [place] [address] Richie Almanzar DO Colorectal Cancer Screening (Sample could not be processed) 07/09/2024 7:50 PM CDT Office Visit [facility] [address] [place] [address] Evette Castle PA Foot Problem 07/09/2024 Travel 07/04/2024 Telephone [facility] [address] [place] [address] Richie Almanzar DO Colorectal Cancer Screening (cologuard) 05/23/2024 Refill [facility] [address] [place] [address] Richie Almanzar, Refill Request (Glipizide Extended-release) from Last 3 Months Immunizations Immunization Administration Dates Next Due Hepatitis B (Adult) 08/05/2014,04/10/2014,2013 Influenza, IIV3 (Age >=3 years) 12/04/2012,11/26 Influenza, IIV4 11/11/2014 Measles 02/17/1977 Pneumococcal Poly,23-Valent (Pneumovax) 02/06/20 20 Td (Age >=7 Years) 07/19/2016,02/21/1999 Tdap 11/27/2022,04/15/2008 Zoster (Shingrix-RZV, recombinant) 12/22/2020, Family History Medical History Relation Name Comments Diabetes Father Heladio Diet Controlled Hyperlipidemia Father Heladio Diet Controll ed Hyperlipidemia Mother Liliana Thyroid Disease Mother Liliana Thyroid Disease Sister 1 Keesha Patience's Relation Name Status Comments Brother [place] Alive Father Heladio Alive Mother Liliana Alive Sister 1 Keesha Alive Sister 2 Marsiol Etzelgen Alive Social History Tobacco Use Types Packs/Day Years Used Date Smoking Tobacco: Never Smokeless Tobacco: Never Tobacco Cessation:Counseling Given: Yes Alcohol Use Standard Drinks/Week Comments Not Currently 0 (1 standard drink = 0.6 oz pur e alcohol) PHQ-2 Answer Date Recorded PHQ-2 TOTAL SCORE 0 05/13/2023 Social Connections Answer Date Recorded Do you often feel lonely or isolated from those around you? 0 04/17/2024 Financial Resource Strain Answer Date R ecorded Difficulty of Paying Living Expenses 2 04/17/2024 Difficulty of Paying Living Expenses 1 04/17/2024 Food Insecurity Answer Date Recorded Do you worry your food will run out before you are able to buy more? 1 04/17/2024 Transportation Needs Answer Date Record ed Does lack of transportation keep you from medica l appointments? 1 04/17/2024 Does lack of transportation keep you from work, meetings or getting things that you need? 1 04/17/2024 Housing Stability Answer Date Recorded What is your housing situation today? 1 04/17/2024 Interpersonal Safety Answer Date Record ed Are you being hit, kicked, p ushed or yelled at (see row info)? No 08/06/2024 Interpersonal Safety Abuse 12 - 18 Not on file 08/06/2024 Interpersonal Safety Ambulatory Vulnerability No t on file 08/06/2024 Utilities Answer Date Recorded Do you have trouble paying f or utilities (for example, heat, electricity, water, phone)? 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 Not on file Not on file Obstetrics History Last Filed Vital Signs Vital Sign Reading Time Taken Comments Blood Pressure 196/106 08/06/2024 10:15 PM CDT Pulse 83 08/06/2024 10:15 PM CDT Temperature 36.9 C (98.5 F) 08/06/2024 7:02 PM CDT Respiratory Rate 20 08/06/2024 7:02 PM CDT Oxygen Saturation 95% 08/06/2024 10:15 PM CDT Inhaled Oxygen Concentration - - Weight 88.5 kg (195 lb) 08/06/2024 7:02 PM CDT Height 185.4 cm (6' 1) 08/06/2024 7:02 PM CDT Body Mass Index 25.73 08/06/2024 7:02 PM CDT Plan of Treatment Health Maintenance Due Date Last Done Comments HIV for age 15-65 1978 Fecal testing sDNA-FIT ([place] guard) for age 45-75 2008 Pneumococcal series for age 50+ (2 of 2 - PCV) 02/05/2021 02/06/2020 RSV vaccine for adults or (1 - Risk 60-74 years 1-dose series) 2023 COVID-19 vaccine series ( - 2023- season) 2023 Depression screening for age 12+ 05/12/2024 05/13/2023, 12/10/2022, 12/10/2022, Additional history exists Influenza Vaccine (#1) 2024 5, 12/04/2012, 11/26/2002 BMI (ht and wt on same day) for age 18+ 01/03/2025 01/04/2024, 03/14/2023, 12/29/2021, Additional history exists Lipids for age 45-75 09/10/2027 09/09/2022, 03/29/2022, 11/25/2021, Additional history exists Tetanus booster 11/27/2032 11/27/2022, 07/08, 04/15/2008, Additional history exists Hepatitis B series for 19+ Completed 08/05, 04/10/2014, 08/01/2013 Hepatitis C screening for ag e 18-79 Completed 12/19/2020 Zoster (shingles) series for age 50+ Completed 12/22/2020, 02/06/2020 Procedures Procedure Name Priority Date/Time Associated Diagnosis Comments CBC WITH AUTO DIFFERENTIAL STAT 08/06/2024 9:08 PM CDT BASIC METABOLIC PANEL STAT 08/06/2024 9:08 PM CDT CBC WITH AUTO DIFFERENTIAL STAT 08/06/2024 9:[address] HEAD BRAIN WO STAT 08/06/2024 8:22 PM CDT SDNA-FIT EXTERNAL (COLOGUARD)- Unsuccessful Attempt Routine 07/04/2024 1:30 PM CDT Screening for colorectal cancer LIPID PANEL W REFLEX MEASURED LDL Routine 09/09/2022 2:34 PM CDT Type 2 diabetes mellitus with diabetic nephropathy, without long-term current use of insulin (HC) ANTI HCV Add On 12/19/2020 12:25 PM ULTRASONOGRAPHER Encounter for hepatitis C screening test for low risk patient from Last 3 Months or Most Recently Relevant to Health Maintenance Results * (ABNORMAL) CBC WITH AUTO DIFFERENTIAL (08/06/2024 9:08 PM CDT) WHITE BLOOD COUNT 5.7 4.5 - 11.0 thou/cu mm 08/06/2024 9:10 PM CDT [facility] RED BLOOD COUNT 4.72 4.30 - 5.90 mil/cu mm 08/06/2024 9:10 PM CDT [facility] HEMOGLOBIN 14.7 13.5 - 17.5 g/dL 08/06/2024 9:10 PM CDT [facility] HEMATOCRIT 42.1 37.0 - 53.0 % 08/06/2024 9:10 PM CDT [facility] MCV 89 80 - 100 fL 08/06/2024 9:10 PM CDT [facility] MCH 31.1 26.0 - 34.0 pg 08/06/2024 9:10 PM CDT [facility] MCHC 34.9 32.0 - 36.0 g/dL 08/06/2024 9:10 PM CDT [facility] RDW 13.9 11.5 - 15.5 % 08/06/2024 9:10 PM CDT [facility] PLATELET COUNT 263 140 - 440 thou/cu mm 08/06/2024 9:10 PM CDT [facility] MPV 9.2 6.5 - 11.0 fL 08/06/2024 9:10 PM CDT [facility] NRBC 0.0 % 08/06/2024 9:10 PM CDT [facility] ABS NRBC 0.0 thou /cu mm 08/06/2024 9:10 PM CDT [facility] % NEUT 60.7 % 08/06/2024 9:10 PM CDT [facility] % LYMPH 20.3 % 08/06/2024 9:10 PM CDT [facility] % MONO 17.6 % 08/06/2024 9:10 PM CDT [facility] % EOS 0.0 % 08/06/2024 9:10 PM CDT [facility] % BASO 0.9 % 08/06/2024 9:10 PM CDT [facility] % IMMATURE GRAN (METAS,MYELOS,OR OS) 0.5 % 08/06/2024 9:10 PM CDT [facility] ABSOLUTE NEUTROPHILS 3.4 1.7 - 7.0 thou/cu mm 08/06/2024 9:10 PM CDT [facility] ABSOLUTE LYMPHOCYTES 1.2 0.9 - 2.9 thou/cu mm 08/06/2024 9:10 PM CDT [facility] ABSOLUTE MONOCYTES 1.0(H) <0.9 thou/cu mm 08/06/2024 9:10 PM CDT [facility] ABSOLUTE EOSINOPHILS 0.0 <0.5 thou/cu mm 08/06/2024 9:10 PM CDT [facility] ABSOLUTE BASOPHILS 0.1 <0.3 thou/cu mm 08/06/2024 9:10 PM CDT [facility] ABSOLUTE IMMATURE GRANULOCYTES(MET ,MYELOS,PROS) 0.0 <0.3 thou/cu mm 08/06/2024 9:10 PM CDT [facility] Blood BLOOD SPECIMEN / Unknown IV Start / Unknown 08/06/2024 9:08 PM CDT 08/06/2024 9:08 PM CDT Humberto Shah MD HEMATOLOGY Final Re sult [place] [id number] [place] [id number] * (ABNORMAL) BASIC METABOLIC PANEL (08/06/2024 9:08 PM CDT) SODIUM 133(L) 136 - 145 mmol/L 08/06/2024 9:27 PM CDT [facility] POTASSIUM 3.5 3.5 - 5.1 mmol/L 08/06/2024 9:27 PM CDT [facility] CHLORIDE 97(L) 98 - 107 mmol/L 08/06/2024 9:27 PM CDT [facility] CO2,TOTAL 22 22 - 29 mmol/L 08/06/2024 9:27 PM CDT [facility] ANION GAP 14 5 - 18 08/06/2024 9:27 PM CDT [facility] GLUCOSE 80 70 - 99 mg/dL 08/06/2024 9:27 PM CDT [facility] CALCIUM 9.1 8.8 - 10.4 mg/dL 08/06/2024 9:27 PM CDT [facility] Comment: Reference ranges for this test were updated on 12/13/2023 to reflect our healthy population more accurately. Reference range changes are not retroactively applied to results, but previous results using the same methodology can be interpreted in the context of the new reference range. BUN 12 8 - 23 mg/dL 08/06/2024 9:27 PM CDT [facility] CREATININE 1.27(H) 0.70 - 1.20 mg/dL 08/06/2024 9:27 PM CDT [facility] BUN/CREAT RATIO 9(L) 10 - 20 9:27 PM CDT [facility] eGFR 64(L) >90 mL/min/1. 73m2 08/06/2024 9:27 PM CDT [facility] Comment:As of 2021, eG FR is calculated by the CKD-EPI creatinine equation without race adjustment. eGFR can be influenced by muscle mass, exercise, and diet. The reported eGFR is an estimation only and is only applicable if the renal function is stable. Blood BLOOD SPECIMEN / Unknown IV Start / Unknown 08/06/2024 9:08 PM CDT 08/06/2024 9:08 PM CDT us Humberto Shah MD CHEMISTRY Final Re sult [address] [address] * CT HEAD BRAIN WO (08/06/2024 8:22 PM CDT) Anatomical Region Laterality Modality HEAD, BRAIN Computed Tomogra phy 08/06/2024 8:38 PM CDT Impressions 08/06/2024 8:38 PM CDT IMPRESSION:1. No CT evidence of acute cortical infarct. No acute intracranial hemorrhage. No other acute intracranial findings. Please note that all CT scans at this facility use dose modulation, iterative reconstruction, and/or weight-based dosing when appropriate to reduce radiation dose to as low as reasonably achievable. Dictated by Kun Bower MD @ 08/06/2024 8:38:55 PM (Electronically Signed) Narrative 08/06/2024 8:38 PM CDT For Patients: As a result of the Century Cures Act, medical imaging exams and procedure reports are released immediately into your electronic medical record. You may view this report before your referring provider. If you have questions, please contact your health care provider. INDICATION: Headaches. TECHNIQUE: CT of the head without contrast. Coronal and sagittal reformats are included. COMPARISON: Brain MRI from 04/06/2024. FINDINGS: No CT evidence of acute cortical infarct. No loss of carroll white matter differentiation. No hyperdense vessels to suggest intracranial thrombus. No acute intracranial hemorrhage. No mass effect or midline shift. No hydrocephalus or extra-axial collections. Encephalomalacia left superior frontal gyrus and left anterior temporal pole, may be post ischemic or posttraumatic. No acute osseous abnormalities. Mastoid air cells and paranasal sinuses are clear. Normal soft tissues. Procedure Note Kun Bower MD - 08/06/2024 For Patients: As a result of the Cures Act, medical imagingexams and procedure reports are released immediately into your electronicmedical record. You may view this report before your referring provider.If you have questions, please contact your health care provider. INDICATION: Headaches. TECHNIQUE: CT of the head without contrast. Coronal and sagittal reformats areincluded. COMPARISON: Brain MRI from 04/06/2024. FINDINGS: No CT evidence of acute cortical infarct. No loss of carroll white matterdifferentiation. No hyperdense vessels to suggest intracranial thrombus.No acute intracranial hemorrhage. No mass effect or midline shift. Nohydrocephalus or extra-axial collections. Encephalomalacia left superiorfrontal gyrus and left anterior temporal pole, may be post ischemic orposttraumatic. No acute osseous abnormalities. Mastoid air cells and paranasal sinusesare clear. Normal soft tissues. IMPRESSION: IMPRESSION:1. No CT evidence of acute cortical infarct. No acuteintracranial hemorrhage. No other acute intracranial findings. Please note that all CT scans at this facility use dose modulation,iterative reconstruction, and/or weight-based dosing when appropriate toreduce radiation dose to as low as reasonably achievable. Dictated by Kun Bower MD @ 08/06/2024 8:38:55 PM (Electronically Signed) us Humberto Shah MD CT Final Re sult * SDNA-FIT EXTERNAL (COLOGUARD) [[id number]] (07/04/2024 1:30 PM CDT) - Unsuccessful Attempt NONINV COLON CA DNA+OCC BLD SCRN STL-IMP Sample Could Not Be Processed 3 N/A 07/09/2024 6:35 AM CDT [facility] (CLIA #:[id number]) Comment: The Cologuard (TM) test was assigned to this specimen. The stool exceeds the allowable weight (300 grams). The patient will be contacted to initiate a new sample collection. Stool specimen (specimen) (Rectum) 07/04/2024 1:30 PM CDT 07/05/2024 9:39 AM CDT us Richie Almanzar DO URINE Final Result [facility] (CLIA #:[id number]) [address] [place] [address], * (ABNORMAL) LIPID PANEL W REFLEX MEASURED LDL (09/09/2022 2:34 PM CDT) Pathologist [facility] CHOLESTEROL,TOTAL 220(H) 100 - 199 mg/dL 09/10/2022 1:39 AM CDT [facility] Comment: Cholesterol, Total Reference Ranges Desirable <200 mg/dL Borderline 200-239 mg/dL High >=240 mg/dL TRIGLYCERIDES 374(H) <150 mg/dL 09/10/2022 1:39 AM CDT [facility] HDL CHOLESTEROL 25(L) >40 mg/dL 3 1:39 AM CDT [facility] NON-HDL CHOLESTEROL 195(H) <145 mg/dl 09/10/2022 1:39 AM CDT [facility] CHOL/HDL RATIO 8.80(H) <4.50 09/10/2022 1:39 AM CDT [facility] LDL CHOLESTEROL 120 <=130 mg/dL 09/10/2022 1:39 AM CDT [facility] VLDL CHOLESTEROL 75(H) <=30 mg/dL 09/10/2022 1:39 AM CDT [facility] PROVIDER ORDERED STATUS RANDOM 09/10/2022 1:39 AM CDT [facility] Blood BLOOD SPECIMEN / Unknown Venipuncture / Unknown 09/09/2022 2:34 PM CDT 09/09/2022 2:37 PM CDT Jignesh Sousa MD CHEMISTRY Final Resu lt [facility] [address] [place] [address], [place] * ANTI HCV (12/19/2020 12:25 PM ULTRASONOGRAPHER) HEPATITIS C ANTIBODY Non-React juan Non-React juan 12/22/2020 10:07 AM ULTRASONOGRAPHER [facility] Comment:Antibodies to HCV no t detected; does not exclude the possibility of exposure to HCV. Blood BLOOD SPECIMEN / Unknown Venipuncture / Unknown 12/19/2020 12:25 PM ULTRASONOGRAPHER 12/19/2020 12:26 PM ULTRASONOGRAPHER Jignesh Sousa MD SEND OUTS [facility]u [facility] [address] [place] [address], [place] from Last 3 Months or Most Recently Relevant to Health Maintenance Insurance [employer]OSS [employer] BLUE HB ONLY [employer] [place] [id number] MEDICARE PART B HB ONLY MEDICARE PART A HB ONLY MR BC [employer] MEDICARE PART B HB ONLY Advance Directives Documents on File Type Date Recorded Patient Python Architect Expl anation Healthcare Directive 11/05/2022 023 * Full Code (Latest Code Status on File) Date Activated Date Inactivated Comments 04/08/2023 11:22 PM 04/10/2023 3:34 PM Question Answer Comments Code Status Discussion: Reviewed Preferences Care Teams Civil Engineering Design Draftsperson Relationship Specialty Start Date End Date Richie Almanzar DO [address] [place] [address] PCP - General Family Practice 04/15/23
--- OUTSIDE RECORDS SUMMARY | 2024-08-20 18:20 | XMS_ITS | Encounter Summary ---
Author Organization [place] Address [address] [place] [address]. 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 [address] [place] [address] 08/29/2024 1:30 PM CDT Therapy Visit [address] [phone] Sarah Perez PA-C [facility] [address] [place] [phone] [place] [address] [facility] [place] [address] [place] [address] 09/05/2024 1:30 PM CDT Therapy Visit [address] [phone] Sarah Perez PA-Dayami [facility] [address] [place] [address] [phone] [place] [address] [facility] [address] [place] [address] 09/13/2024 11:15 AM CDT Therapy Visit [address] [phone] Sarah Perez PA-Dayami [facility] [address] [place] [address] [phone] [place] [address] [facility] [address] [place], [place] [address] 09/19/2024 12:45 PM CDT Therapy Visit [facility] [address] [facility] [place] [phone] Sarah Perez PA-C [facility] [address] [place] [phone] [place] [address] [facility] [address] [place] [address] documented as of this encounter Visit Diagnoses Not on filedocumented in this encounter Care Teams Packing Supervisor Relationship Specialty Start Date End Date [facility], [address] [address] PCP - General 11/17/17 Emi Saul, JOE [address] [place], [place] [address] Physician Computing Tutor Physician Computing Tutor - Medical 01/11/19 Laverne Browne APRN RETURNING OFFICER [address] [place], [place] [address] [place], [place] [address] Nurse Practitioner Neurology 05/16/23 Laverne Browne APRN RETURNING OFFICER [address] [place], [place] [address] Assigned Neuroscience Provider 09/30/23 documented as of this encounter
--- OUTSIDE RECORDS SUMMARY | 2024-08-20 18:20 | XMS_ITS | Encounter Summary ---
Author Organization [place] Address [address] [place] [address]. 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 Gender Identity Not on file Sexual Orientation Not on file documented as of this encounter Plan of Treatment Upcoming Encounters Date Type Department Care Team (Late st Contact Info) Description 08/22/2024 1:30 PM CDT Therapy Visit [address] [phone] Sarah Perez PA-C [facility] [address] [place] [address] [place] [address] [facility] [address] [place] [address] 08/29/2024 1:30 PM CDT Therapy Visit [address] [phone] Sarah Perez PA-C [facility] [address] [place] [phone] [place] [address] [facility] [place] [address] [place] [address] 09/05/2024 1:30 PM CDT Therapy Visit [address] [phone] Sarah Perez PA-Dayami [facility] [address] [place] [phone] [place] [address] [facility] [address] [place] [address] 09/13/2024 11:15 AM CDT Therapy Visit [address] [phone] Sarah Perez PA-Dayami [facility] [address] [place] [address] [phone] [place] [address] [facility] [address] [place], [place] [address] 09/19/2024 12:45 PM CDT Therapy Visit [facility] [address] [facility] [place] [phone] Sarah Perez PA-C [facility] [address] [place] [phone] [place] [address] [facility] [address] [place] [address] documented as of this encounter Visit Diagnoses Not on filedocumented in this encounter Care Teams Rehabilitation Services Manager Relationship Specialty Start Date End Date [facility], [address] [address] PCP - General 11/17/17 Emi Saul, JOE [address] [place], [place] [address] Physician Collection Agent Physician Collection Agent - Medical 01/11/19 Laverne Browne APRN RN EMERGENCY [address] [place], [place] [address]C[place], [place] [address] Nurse Practitioner Neurology 05/16/23 Laverne Browne APRN RN EMERGENCY [address] [place], [place] [address] Assigned Neuroscience Provider 09/30/23 documented as of this encounter
--- OUTSIDE RECORDS SUMMARY | 2024-08-20 18:20 | XMS_ITS | Clinical Summary ---
Author Organization [place] Address [address] [place] [address] Care Team Providers Care Expansion Joint Finisher Name Role Phone [facility] Primary Care Provider Emi Saul PA-C Unavailable Laverne Browne APRN TOPPER PRESS OPERATOR AUTOMATIC Unavaila ble Laverne Browne APRN TOPPER PRESS OPERATOR AUTOMATIC Unavaila ble Allergies Active Allergy Reactions Criticality Noted Date Comments Amlodipine Headache Low 12/22/2020 Atenolol Dizziness,Visual Disturbance 01/22/2023 Atorvastatin Other (See Comments) 06/21/2018 Botulinum Toxin Type A Headache 08/07/2021 Severe head pain - happened two different occasions Valproic Acid 12/05/2017 Liver problem Hydrochlorothiazide Headache Medium 03/14/2023 Sumatriptan Anaphylaxis High 11/17/2017 Levetiracetam Other (See Comments) 04/25/2023 Aggression Lisinopril Other (See Comments) 04/25/2023 Marijuana (Cannabis Sativa) Other (See Comments) 04/09/2022 Memory loss Onabotulinumtoxina (Cosmetic) Muscle Pain (Myalgia) High 11/23/2021 Medications OXYCODONE HCL PO Active LISINOPRIL PO Active hydrOXYzine (ATARAX) 10 MG/5ML syrup Take 10 mg by mouth 3 times daily Active GLIPIZIDE PO Active NORTRIPTYLINE HCL PO Active docusate sodium (COLACE) 100 MG tablet Take 100 mg by mouth daily 60 tablet 1 8 Active Additional Information Patient not taking.Reported on 09/20/2023 hydrOXYzine (VISTARIL) 25 MG capsule 8 Active tamsulosin (FLOMAX) 0.4 MG capsuleIndicati ons:Urinary retention Take 1 capsule (0.4 mg) by mouth daily 30 capsule 3 8 Active Additional Information Patient not taking.Reported on 09/20/2023 tamsulosin (FLOMAX) 0.4 MG capsuleIndicati ons:Benign prostatic hyperplasia with urinary hesitancy Take 1 capsule (0.4 mg) by mouth daily 90 capsule 3 2 Active Additional Information Patient not taking.Reported on 09/20/2023 atorvastatin (LIPITOR) 40 MG tablet Take 40 mg by mouth 2 Active amLODIPine (NORVASC) 5 MG tablet Take 1 tablet (5 mg) by mouth daily 30 tablet 3 Active Additional Information Patient not taking.Reported on 09/20/2023 buprenorphine-n aloxone (SUBOXONE) 2-0.[address] 1 TABLET UNDER THE TONGUE 2 TIMES DAILY IF NEEDED (PAIN). USE DATES: 08/05/2023 - 08/11/2023 Active galcanezumab-gn lm (EMGALITY) 120 MG/ML injectionIndica tions:Chronic migraine with aura without status migrainosus, not intractable Inject 240 mg subcutaneous first month and then inject 120 mg subcutaneous every 28 days 2 mL 11 4 Active rimegepant (NURTEC) 75 MG ODT tabletIndicatio ns:Chronic migraine with aura without status migrainosus, not intractable Place 1 tablet (75 mg) under the tongue daily as needed for migraine Maximum of 1 tablet every 24 hours. 8 tablet 11 4 Active Active Problems No known active problems Encounters Date Type Department Care Team Description 08/01/2024 1:30 PM CDT Therapy Visit [address] [phone] Sarah Perez, Daisy [place], PT [place] (Primary Dx); Unsteadiness on feet 08/01/2024 Travel 07/25/2024 1:30 PM CDT Therapy Visit [address] [phone] Saarh Perez, JOE Lorenzo, Daisy, PT [place] (Primary Dx); Unsteadiness on feet 07/25/2024 Travel 07/18/2024 1:30 PM CDT Therapy Visit [address] [phone] Sarah Perez, JOE Lorenzo, Daisy, PT [place] (Primary Dx); Unsteadiness on feet 07/18/2024 Travel 07/13/2024 10:30 AM CDT Therapy Visit [address] [phone] Sarah Perez, JOE Lorenzo, Daisy, PT [place] (Primary Dx); Unsteadiness on feet 07/13/2024 Travel 07/04/2024 3:45 PM CDT Therapy Visit [address] [phone] Sarah Perez, JOE Lorenzo, Daisy, PT [place] (Primary Dx); Unsteadiness on feet 07/04/2024 Travel 06/27/2024 3:45 PM CDT Therapy Visit [address] [address] Sarah Perez, JOE Lorenzo, Daisy, PT [place] (Primary Dx); Unsteadiness on feet 06/27/2024 Travel 06/11/2024 3:45 PM CDT Therapy Visit [address] [phone] Sarah Perez, JOE Lorenzo, Daisy, PT [place] (Primary [place]x) 06/11/2024 Travel 06/08/2024 3:45 PM CDT Therapy Visit [address] [address] Sarah Perez PA-C [place], Lori, PT [place] (Primary [place]x) 06/08/2024 Travel 06/01/2024 3:45 PM CDT Therapy Visit [address] [phone] Sarah Perez PA-C [place], Lori, PT [place] (Primary Dx) 06/01/2024 Travel 05/28/2024 3:45 PM CDT Therapy Visit [address] [phone] Sarah Perez PA-C [place], Lori, PT [place] (Primary [place]x) 05/28/2024 Travel 05/25/2024 3:45 PM CDT Therapy Visit [address] [phone] Sarah Perez PA-C [place], Lori, PT [place] (Primary [place]x) 05/25/2024 Travel 05/21/2024 3:00 PM CDT Therapy Visit [address] [phone] Sarah Perez PA-C [place], Lori, PT [place] (Primary [place]x) 05/21/2024 Travel from Last 3 Months Family History Relation Status Comments Brother Alive Father Alive Maternal Grandfather Maternal Grandmother Mother Alive Paternal Grandfather Paternal Grandmother Sister 1 Alive Sister 2 Alive Social History Tobacco Use Types Packs/Day Years Used Date Smoking Tobacco: Never Smokeless Tobacco: Never Tobacco Cessation:Counseling Given: Not Answered Alcohol Use Standard Drinks/Week Comments No 0 (1 standard drink = 0.6 oz pur e alcohol) PHQ-2 Answer Date Recorded PHQ-2 Score 0 09/20/2023 Adolescent Education Answer Date Record ed Getting School Help Needed Not on file 11/22 Sex and Gender Information Value Date Recorded Sex Assigned at Not on file 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 Gender Identity Not on file Sexual Orientation Not on file Last Filed Vital Signs Vital Sign Reading Time Taken Comments Blood Pressure 141/91 09/20/2023 11:14 AM CDT Pulse 67 09/20/2023 11:14 AM CDT Temperature 36.2 C (97.2 F) 04/25/2023 1:51 PM CDT Respiratory Rate 16 04/25/2023 1:51 PM CDT Oxygen Saturation 96% 09/20/2023 11: 14 AM CDT Inhaled Oxygen Concentration - - Weight 95 kg (209 lb 8 oz) 09/20/2023 1 1:14 AM CDT with shoes on Height 181.5 cm (5' 11.46) 09/20/2023 11:14 AM CDT with shoes on Body Mass Index 28.85 09/20/2023 11:14 AM CDT Plan of Treatment Upcoming Encounters Date Type Department Care Team (Late st Contact Info) Description 08/22/2024 1:30 PM CDT Therapy Visit [address] [phone] Sarah Perez PA-C [facility] [address] [place] [phone] [place] [address] [facility] [address] [place] [address] 08/29/2024 1:30 PM CDT Therapy Visit [address] [phone] Sarah Perez PA-C [facility] [address] [place] [address] [place] [address] [facility] [address] [place] [address] 09/05/2024 1:30 PM CDT Therapy Visit [address] [phone] Sarah Perez PA-Dayami [facility] [address] [place] [phone] [place] [address] [facility] [place] [address] [place] [address] 09/13/2024 11:15 AM CDT Therapy Visit [address] [phone] Sarah Perez PA-Dayami [facility] [address] [place] [phone] [place] [address] [facility] [address] [place] [address] [place] [address] 09/19/2024 12:45 PM CDT Therapy Visit [address] [phone] Sarah Perez PA-C [address] [phone] [place] [address] [facility] [address] [place] [address] [place], [place] [address] Health Maintenance Due Date Last Done Comments ADVANCE CARE PLANNING 1965 ANNUAL REVIEW OF HM ORDERS 1963 CT COLONOGRAPHY 1963 FLEX SIG 1963 LIPID 1963 sDNA (Cologuard) 1963 COLONOSCOPY 1973 HIV SCREENING 1978 COLORECTAL CANCER SCREENING 07/14/2017 FIT 07/14/2017 07/14/2016 PNEUMOCOCCAL VACCINE 50+ YEARS (2 of 2 - PCV) 02/05/2021 02/06/2020 COVID-19 VACCINE (1 - season) 2023 PHQ-2 (once per calendar year) 2024 09/20/2023, 09/22/2021, 02/21/2019 BMP 04/24/2024 04/25/2023, 01/07, 11/17/2017 MEDICARE ANNUAL WELLNESS VISIT 05/12/2024 05/13/2023 INFLUENZA VACCINE (#1) 2024 5, 12/04/2012, 11/26/2002 DIABETES SCREENING 04/24/2026 04/25/2023, 1 03/25/2022, 11/17/2017 DTAP/TDAP/TD VACCINE (4 - Td or Tdap) 11/27/2032 11/27/2022, 07/19/2016, 04/15/2008, Additional history exists RSV VACCINE (1 - 1-dose 75+ series) 2038 HEPATITIS C SCREENING Completed 12/19/2020 ZOSTER VACCINE Completed 12/22/2020, 02/06/2020 HPV VACCINE Aged Out No longer eligi ble based on patient's age to complete this topic MENINGITIS VACCINE Aged Out No longer eligible based on patient's age to complete this topic Procedures Procedure Name Priority Date/Time Associated Diagnosis Comments BASIC METABOLIC PANEL STAT 04/25/2023 2:37 PM CDT from Last 3 Months or Most Recently Relevant to Health Maintenance Results * (ABNORMAL) Basic metabolic panel (04/25/2023 2:37 PM CDT) Sodium 132(L) 135 - 145 mmol/L 04/25/2023 3:02 PM CDT [facility] Comment:Reference intervals for this test were updated on 11/02/2022 to more accurately reflect our healthy population. There may be differences in the flagging of prior results with similar values performed with this method. Interpretation of those prior results can be made in the context of the updated reference intervals. Potassium 4.3 3.4 - 5.3 mmol/L 04/25/2023 3:02 PM CDT [facility] Chloride 100 98 - 107 mmol/L 04/25/2023 3:02 PM CDT [facility] Carbon Dioxide (CO2) 22 22 - 29 mmol/L 04/25/2023 3:02 PM CDT [facility] Anion Gap 10 7 - 15 mmol/L 04/25/2023 3:02 PM CDT [facility] Urea Nitrogen 15.0 8.0 - 23.0 mg/dL 04/25/2023 3:02 PM CDT [facility] Creatinine 1.07 0.67 - 1.17 mg/dL 04/25/2023 3:02 PM CDT [facility] GFR Estimate 79 >60 mL/min/1. 73m2 04/25/2023 3:02 PM CDT [facility] Calcium 8.2(L) 8.8 - 10.2 mg/dL 04/25/2023 3:02 PM [facility] Glucose 93 70 - 99 mg/dL 04/25/2023 3:02 PM [facility]T [facility] Blood VENOUS LINE / Unknown Venipuncture / Unknown 04/25/2023 2:37 PM CDT 04/25/2023 2:43 PM CDT Ricardo Khalil MD LAB - BLOOD ORDERABLES Final Result [facility] [address] Lab (1st floor, no room number) [place] [address], [facility] from Last 3 Months or Most Recently Relevant to Health Maintenance Insurance E KEARA ROBISON [id number] [address] [facility] [place] MEDIC[facility] [place] BLUE [facility] [place] MEDICARE Care Teams Expansion Joint Finisher Relationship Specialty Start Date End Date [address] [address] PCP - General 11/17/17 Emi Saul, PANichoC [address] [address] Physician Green Material Value Added Assessor Physician Green Material Value Added Assessor - Medical 01/11/19 Laverne Browne APRN TOPPER PRESS OPERATOR AUTOMATIC [address] [place] [address] Nurse Practitioner Neurology 05/16/23 Laverne Browne APRN TOPPER PRESS OPERATOR AUTOMATIC [address] [place] [address] [place] [address] Assigned Neuroscience Provider 09/30/23
--- OUTSIDE RECORDS SUMMARY | 2024-08-20 18:20 | XMS_ITS | Encounter Summary ---
Author Organization [place] Address [address] [place] [address]. 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 Gender Identity Not on file Sexual Orientation Not on file documented as of this encounter Plan of Treatment Upcoming Encounters Date Type Department Care Team (Late st Contact Info) Description 08/22/2024 1:30 PM CDT Therapy Visit [address] [phone] Sarah Perez PA-C [facility] [address] [place] [address] [place] [address] [facility] [address] [place] [address] 08/29/2024 1:30 PM CDT Therapy Visit [address] [phone] Sarah Perez PA-C [facility] [address] [place] [phone] [place] [address] [facility] [place] [address] [place] [address] 09/05/2024 1:30 PM CDT Therapy Visit [address] [phone] Sarah Perez PA-Dayami [facility] [address] [place] [phone] [place] [address] [facility] [address] [place] [address] [place] [address] 09/13/2024 11:15 AM CDT Therapy Visit [address] [phone] Sarah Perez PA-Dayami [facility] [address] [place] [phone] [place] [address] [facility] [address] [place], [place] [address] 09/19/2024 12:45 PM CDT Therapy Visit [facility] [address] [facility] [place] [phone] Sarah Perez PA-C [facility] [address] [place] [phone] [place] [address] [facility] [address] [place] [address] documented as of this encounter Visit Diagnoses Not on filedocumented in this encounter Care Teams Federal District Clerk Relationship Specialty Start Date End Date [facility], [address] [address] PCP - General 11/17/17 Emi Saul, JOE [address] [place], [place] [address] Physician Felled Seam Operator Physician Felled Seam Operator - Medical 01/11/19 Laverne Browne APRN NEWSPAPER COLUMNIST [address] [place], [place] [address] [place], [place] [address] Nurse Practitioner Neurology 05/16/23 Laverne Browne APRN NEWSPAPER COLUMNIST [address] [place], [place] [address] Assigned Neuroscience Provider 09/30/23 documented as of this encounter
--- NOTE | 2024-08-20 20:04 | ED.GENADULT ---
HPI - General Adult General Chief complaint: Altered Mental Status Stated complaint: Altered mental status Time Seen by Provider: 08/20/24 20:04 History of Present Illness HPI narrative: Arrives with complaints of confusion and passing out that started today. reports the patient was sweating while they were in a store earlier and was making comments that did not make sense with the situation. She describes the passing out as his head bobbing and him not responding to her in the car. She states that normally when he falls asleep in the car his head rests back on the seat so she found that to be odd. In triage he is alert and oriented, complaining of some back pain that started after a fall 2 weeks ago, VSS, ABCs intact. 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 Few years ago also had a CVA. Has had some gait difficulty since. Has also chronic headaches since a TBI baseline seems to be a 3/10 they say which he is his baseline currently. No visual disturbances or new weakness. Today in about shoe store and the particularly sweaty. Seemed more confused and not as alert when being question. Spouse notes in particular that he did not fall asleep the way he usually would in the car. Does have low back pain for which he has been seeing a chiropractor. This has continued after a fall 2 weeks ago was evaluated at that time after striking his head; left forehead on a faucet on his way down in the bathroom. CT imaging at that time in the ER was unremarkable per their report. Discontinued daily low-dose aspirin. Is not anticoagulated otherwise. Does have diabetes and glipizide was recently decreased from 10 mg to 5 mg. Over the past couple of weeks may have been slurring his words little more than usual. No tick or mosquito exposure Related Data Home Medications ?Medication ?Instructions ?Recorded ?Confirmed ascorbic acid (vitamin C) 1,000 mg 4,000 mg PO DAILY 08/06/21 08/20/24 tablet (Vitamin C) aspirin 325 mg capsule 325 mg PO DAILY 08/06/21 08/20/24 atenolol 25 mg tablet 50 mg PO Q24H 08/06/21 08/20/24 cholecalciferol (vitamin D3) 50 4,000 unit PO BID 08/06/21 08/20/24 mcg (2,000 unit) capsule (Vitamin D3) glipizide 5 mg tablet, extended 5 mg PO .daily before meal 08/06/21 08/20/24 release 24 hr vit C 250 mg-vit E 90 mg-zinc 40 1 tab PO .qd 08/06/21 08/20/24 mg-copper 1 [id number] capsule (PreserVision AREDS-2) nortriptyline 10 mg capsule 30 mg PO QPM 08/20/24 08/20/24 Allergies Allergy/AdvReac Type Severity Reaction Status Date / Time metformin Allergy Severe Swelling Verified 08/20/24 18:39 of Lips sumatriptan (From Imitrex) Allergy Severe Anaphylaxis Verified 08/20/24 18:39 valproic acid AdvReac Intermediate hepatic Verified 08/20/24 18:39 dysfunction amlodipine AdvReac Mild Headache Verified 08/20/24 18:39 atorvastatin AdvReac Mild Headache Verified 08/20/24 18:39 rosuvastatin (From Crestor) AdvReac Mild Verified 08/20/24 18:39 simvastatin AdvReac Mild muscle Verified 08/20/24 18:39 weakness botox Allergy Severe pain Uncoded 11/23/21 11:54 Review of Systems Status of ROS: Reports: 6 or more systems reviewed and unremarkable except as noted in History and below [facility] Medical History CVA (cerebral vascular accident) Injury brain, traumatic Paralysis Social History Smoking Status: Never smoker Do you use any of these nicotine containing products: None Second hand tobacco smoke exposure: No How often do you have a drink containing alcohol: never AUDIT-C Alcohol total score: 0 Non-prescribed substance use: denies use service: No Exam Narrative: Exam Narrative: Subtle slurring of speech. Not sure that this is much different than baseline. Otherwise cranial nerves 2-12 are intact. Pupils are 2 mm and briskly reactive. Eyes are bright consistent with cataract extraction and lens implantation. Head is atraumatic. He is sore to palpation about the right SI joint and a little bit about the left mid low back Mariah spinal musculature. Skin is cool but well perfused. 5 cm circular patch of erythema bilaterally in the upper inner forearm essentially symmetrical side to side. Lower extremities are without edema. Does have a posterior ankle brace on the right leg; for foot drop? Otherwise moving all extremities without difficulty. Fluidly. No ataxia. [id number] is accurate. Heart in regular rate rhythm without rub or gallop. Lungs are clear. Const: Vital Signs, click to edit/add: Vital Signs - 24 hr 08/20/24 18:40 08/20/24 20:23 08/20/24 20:24 Temperature 97.7 F Pulse Rate 79 78 Pulse Rate [Pulse Oximeter] 82 Respiratory Rate 16 Blood Pressure 140/87 H Blood Pressure [Ri ght Upper Arm] 115/80 Pulse Oximetry 98 98 97 Oxygen Delivery Me thod Room Air 08/20/24 20:30 08/20/24 20:31 08/20/24 20:45 Temperature Pulse Rate 80 78 Pulse Rate [Pulse Oximeter] Respiratory Rate Blood Pressure 135/96 H Blood Pressure [Ri ght Upper Arm] Pulse Oximetry 90 96 Oxygen Delivery Me thod 08/20/24 21:00 08/20/24 21:55 08/20/24 22:01 Temperature Pulse Rate 79 Pulse Rate [Pulse Oximeter] Respiratory Rate Blood Pressure 148/90 H 137/87 Blood Pressure [Ri ght Upper Arm] Pulse Oximetry 95 Oxygen Delivery Me thod Documenting provider has reviewed patient's vital signs: yes Course Vital Signs Vital signs: Initial Vital Signs Temperature 97.7 F 08/20/24 18:40 Temperature Source Temporal Artery Scan 08/20/24 18:40 Pulse Rate 82 08/20/24 18:40 Respiratory Rate 16 08/20/24 18:40 Blood Pressure 115/80 08/20/24 18:40 Blood Pressure Mean 91 08/20/24 18:40 Pulse Oximetry 98 08/20/24 18:40 Oxygen Delivery Method Room Air 08/20/24 18:40 Vital Signs Temperature 97.7 F 08/20/24 18:40 Pulse Rate 82 08/20/24 18:40 Respiratory Rate 16 08/20/24 18:40 Blood Pressure 115/80 08/20/24 18:40 Pulse Oximetry 98 08/20/24 18:40 Oxygen Delivery Method Room Air 08/20/24 18:40 Temperature 97.7 F 08/20/24 18:40 Pulse Rate 79 08/20/24 21:00 Respiratory Rate 16 08/20/24 18:40 Blood Pressure 137/87 08/20/24 22:01 Pulse Oximetry 95 08/20/24 21:00 Oxygen Delivery Method Room Air 08/20/24 18:40 Medications Administered Medications: Discontinued Medications Generic Name Dose Route Start Last Admin Trade Name Saira PRN Reason Stop Dose Admin Sodium Chloride 1,000 mls @ 1,000 mls/hr 08/20/24 20:20 08/20/24 21:51 0.9 % Sodium Chloride 1000 Ml IV 08/20/24 21:19 1,000 mls/hr .Q1H ONE Administration Ketorolac Tromethamine 30 mg 08/20/24 23:52 08/21/24 00:21 Ketorolac 30 Mg/Ml Inj IVP 08/20/24 23:53 30 mg ONCE ONE Administration Medical Decision Making MDM Narrative Medical decision making narrative: Certainly could be effect of chronic headache. Unusual effect of dehydration or physical/environmental stress otherwise underlying TBI. I do not appreciate a localizing deficits. Had had a cardiac event? No seizure-like activity described. No history of seizures noted. Is extremely warm and humid outside. Did not spend significant amount of time outside however today. Diabetic reaction of sorts? Symptoms I think unlikely to represent CVA. Less likely encephalitis; headache though similar to baseline. Encephalopathy? Have had some trouble getting an IV. IV then infiltrated. Labs return. Mild elevation of white count though CRP curiously high. Normal CPK. Discussed but mutually agreed not to do LP at this time. Mid L of normal saline is feeling markedly improved. Does feels like speech is smoother is well. Does appear to have more energy. Has been resting comfortably. Still though with back pain and usual chronic headache. Have offered Toradol and they would like to have this. As is feeling better following IV hydration would also like to leave. Pending labs yet for west Nile and lymes; these are send out; blood cultures pending Spouse declined COVID testing for him. See patient discharge plan for further discussion. I am not sure what caused your symptoms here today. There are some findings of inflammation in your labs. This might also represent infection. Blood cultures are pending as are testing for some forms of encephalitis; tick borne and mosquito borne illnesses. We will call you if anything comes of this remaining testing. Will also call you if urine requires treatment. Return for worsening symptoms, fever, new and focal weakness. You had some areas of back pain that can be related to sacroiliac joint discomfort. See handout for some potentially helpful exercises. Lab Data Lab results reviewed: Yes I reviewed the patient's lab results Labs: Lab Results 08/20/24 08/20/24 Range/Units 00:00 20:20 WBC 13.02 H (4.50-11.00) K/uL RBC 4.24 L (4.30-5.90) m/uL Hgb 12.9 L (13.5-17.5) gm/dL Hct 38.8 (37.0-53.0) % MCV 92 (80-100) fL MCH 30 (26-34) pg MCHC 33 (32-36) gm/dL RDW Coeff of Domenica 14.1 (11.5-15.5) % Plt Count 484 H (140-440) K/uL Neut % (Auto) 73.4 H (42.0-72.0) % Lymph % (Auto) 17.1 L (20-44) % [place] % (Auto) 4.8 (0.0-11.0) % Eos % (Auto) 2.9 (0.0-7.0) % Baso % (Auto) 0.8 (0.0-3.0) % Neut # (Auto) 9.60 H (1.7-7.0) K/uL Lymph # (Auto) 2.20 (0.90-2.90) K/uL [place] # (Auto) 0.60 (0.00-0.90) K/UL Eos # (Auto) 0.40 (0.00-0.50) K/uL Baso # (Auto) 0.10 (0.00-0.30) K/uL Abs Immat Gran (auto) 0.10 (0.00-0.30) K/uL Imm/Tot Granulo (auto) 1.0 % Sodium 133 L (135-149) mmol/L Potassium 4.1 (3.6-5.1) mmol/L Chloride 101 (96-114) mmol/L Carbon Dioxide 24 (20-32) mmol/L Anion Gap 8 (7-15) mEq/L BUN 26 (7-30) mg/dL Creatinine 1.4 (0.5-1.5) mg/dL Estimated GFR 57 ml/min Glucose 136 H (60-115) mg/dL Calcium 8.7 (8.4-10.6) mg/dL Total Creatine Kinase 65 (54-186) U/L Troponin I < 0.01 (0.01-0.04) ng/mL C-Reactive Protein 18.1 H (0.5-1.0) mg/dL Urine Color Yellow (Yellow) Urine Appearance Clear (Clear) Urine pH 5.5 (5.0-8.5) Ur Specific [place] 1.010 (1.000-1.030) Urine Protein Trace A (Negative) Urine Glucose (UA) Negative (Negative) Urine Ketones Trace A (Negative) Urine Blood Negative (Negative) Urine Nitrite Negative (Negative) Urine Bilirubin Negative (Negative) Urine Urobilinogen 0.2 (0.2-1.0) Ur Leukocyte Esterase Negative (Negative) Urine RBC 0-2 (0-2) Urine WBC 0-2 (0-5) Ur Squamous Epith Cells None (None-Few) Urine Bacteria None (None) POC Troponin I 0.00 L (0.01-0.04) ng/ml ECG Data Attestation: I personally reviewed and interpreted this ECG as follows: (Normal sinus rhythm at a rate of 78. Generally lower voltage) Discharge Plan Discharge Clinical Impression: Altered mental status, Sacro-iliac pain Patient Disposition: Home w/ Parent or Adult Condition: Improved Additional Instructions: I am not sure what caused your symptoms here today. There are some findings of inflammation in your labs. This might also represent infection. Blood cultures are pending as are testing for some forms of encephalitis; tick borne and mosquito borne illnesses. We will call you if anything comes of this remaining testing. Will also call you if urine requires treatment. Return for worsening symptoms, fever, new and focal weakness. You had some areas of back pain that can be related to sacroiliac joint discomfort. See handout for some potentially helpful exercises. Prescriptions: No Action aspirin 325 mg capsule 325 mg PO DAILY atenolol 25 mg tablet 50 mg PO Q24H glipizide 5 mg tablet extended release 24 hr 5 mg PO .daily before meal Patient Comments: TAKE ONE TABLET BY MOUTH DAILY BEFORE A MEAL PreserVision AREDS-2 250-90-40-1 mg capsule 1 tab PO .qd ascorbic acid (vitamin C) [Vitamin C] 1,000 mg tablet 4,000 mg PO DAILY cholecalciferol (vitamin D3) [Vitamin D3] 50 mcg (2,000 unit) capsule 4,000 unit PO BID nortriptyline 10 mg capsule 30 mg PO QPM Follow Up/Referrals: Jignesh Sousa MD [Staff Physician, Family Practice] Stand Alone Forms: Social Touch Info Instructions
[2024-08-20 20:50] LABS: Troponin, Point-of-Care* 0.00 ng/ml (0.01-0.04)
[2024-08-20 21:27] LABS: Hematocrit* 38.8 % (37.0-53.0); Hemoglobin* 12.9 gm/dL (13.5-17.5); Immature Granulocytes Pct Auto 1.0 %; Mean Corpuscular HGB Conc 33 gm/dL (32-36); Mean Corpuscular Hemoglobin 30 pg (26-34); Mean Corpuscular Volume 92 fL (80-100); RDW Coefficient of Variation % 14.1 % (11.5-15.5); Red Blood Count* 4.24 m/uL (4.30-5.90); White Blood Count* 13.02 K/uL (4.50-11.00)
[2024-08-20 21:34] LABS: Immature Granulocytes Abs Auto 0.10 K/uL (0.00-0.30); Lymphocytes Absolute Auto 2.20 K/uL (0.90-2.90); Slide Review Reflex No
[2024-08-20 21:39] LABS: Chloride* 101 mmol/L (96-114); Potassium* 4.1 mmol/L (3.6-5.1); Sodium* 133 mmol/L (135-149)
[2024-08-20 21:42] LABS: Blood Urea Nitrogen* 26 mg/dL (7-30); Creatinine* 1.4 mg/dL (0.5-1.5); Estimated Glomerular Filt Rate 57 ml/min
[2024-08-20 21:43] LABS: Anion Gap 8 mEq/L (7-15); Calcium* 8.7 mg/dL (8.4-10.6); Carbon Dioxide* 24 mmol/L (20-32); Creatine Kinase* 65 U/L (54-186); Glucose* 136 mg/dL (60-115)
[2024-08-21 00:42] LABS: Appearance Urine Clear (Clear)
[2024-08-22 23:28] LABS: Anaplasma phagocyt PCR Not Detected
== END 2024-08-21 00:44 | disposition home or self-care (01) ==
PROVIDERS: Emergency Provider Family Medicine; PCP Family Medicine
DX: R41.82 Altered mental status, unspecified (principal); M53.3 Sacrococcygeal disorders, not elsewhere classified
CPT/HCPCS: 36415; 80048; 81001; 82550; 84484; 85025; 86140; 86789; 87040; 87468; 87469; 87484; 87798; 96374; 99284; J1885; J7030